=== PATIENT | male | born 1960 | race American Indian/Alaskan Native ===

== ENCOUNTER 2016-12-14 17:10 | Inpatient (IN) | payer MEDICARE, OTHER ==
[2016-12-14 17:10] VITALS: BMI 33.2
--- NOTE | 2016-12-14 17:42 | ED PDOC ---
Arrival/HPI - General Chief Complaint: Shortness Of Breath Time Seen by Provider: 12/14/16 17:34 Historian: Patient - History of Present Illness Narrative History of Present Illness (Text): 12/14/16 17:41 A 56 year old male, whose past medical history includes COPD, emphysema and pulmonary hypertension, presents to the emergency department complaining of shortness of breath and weakness for the past 3-4 days, worsening today. Patient thinks related to weight change and heat. Patient also notes chest tightness with movement. Reports taking Albuterol treatment at home. Patient notes a productive cough but denies any pain or any other complaints at this time. Time/Duration: < week Symptom Onset: Sudden Symptom Course: Unchanged Activities at Onset: Rest Context: Home Past Medical History - Provider Review Nursing Documentation Reviewed: Yes - Infectious Disease Hx of Infectious Diseases: None - Tetanus Immunization Tetanus Immunization: Unknown - Cardiac Hx Cardiac Disorders: Yes Hx Congestive Heart Failure: Yes Hx Hypertension: Yes Hx Peripheral Edema: Yes - Pulmonary Hx Respiratory Disorders: Yes Hx Chronic Obstructive Pulmonary Disease (COPD): Yes - Neurological Hx Neurological Disorder: No - HEENT Hx HEENT Disorder: No - Renal Hx Renal Disorder: No - Endocrine/Metabolic Hx Endocrine Disorders: No - Hematological/Oncological Hx Blood Disorders: No - Integumentary Hx Dermatological Disorder: No - Musculoskeletal/Rheumatological Hx Musculoskeletal Disorders: No Hx Falls: No - Gastrointestinal Hx Gastrointestinal Disorders: Yes Hx Diverticulitis: Yes Hx Gastroesophageal Reflux: Yes - Genitourinary/Gynecological Hx Genitourinary Disorders: Yes Hx Prostate Problems: Yes - Psychiatric Hx Psychophysiologic Disorder: No Hx Substance Use: No - Past Surgical History Past Surgical History: No Previous - Surgical History Other/Comment: pneumothorax, chest tube-L LUNG,LACERATION TO 3RD FINGER OF RIGHT HAND -STITCHED. - Anesthesia Hx Anesthesia: No Hx Anesthesia Reactions: No Hx Malignant Hyperthermia: No - Suicidal Assessment Feels Threatened In Home Enviroment: No Family/Social History - Physician Review Nursing Documentation Reviewed: Yes Family/Social History: No Known Family HX Smoking Status: Former Smoker Hx Alcohol Use: No Hx Substance Use: No Hx Substance Use Treatment: No Allergies/Home Meds Allergies/Adverse Reactions: Allergies No Known Allergies Allergy (Verified 12/14/16 17:36) Home Medications: Home Meds Medication Instructions Recorded Confirmed Albuterol/Ipratropium [Duoneb 3 3 ml IH TID 06/19/16 06/21/16 mg/0.5 mg (3 ml) UD] Budesonide [Pulmicort Respules] 2 inh IH DAILY 06/19/16 06/21/16 Tiotropium Br/Olodaterol HCl 2 inh INH DAILY 06/19/16 06/21/16 [Stiolto Respimat Inhal [place]] cloNIDine [Catapres] 0.2 mg PO TID 06/19/16 06/21/16 predniSONE [predniSONE Tab] 10 mg PO DAILY 06/19/16 06/21/16 Review of Systems - Physician Review All systems were reviewed & negative as marked: Yes - Review of Systems Constitutional: Other (weakness) Respiratory: SOB, Cough Cardiovascular: Other (chest tightness) Physical Exam Vital Signs Reviewed: Yes Vital Signs Temp Pulse Resp BP Pulse Ox 12/14/16 17:48 98.7 F 107 H 16 183/109 H 80 L 12/14/16 17:33 98.1 F 98 H 18 183/109 H 94 L Temperature: Afebrile Blood Pressure: Hypertensive Pulse: Regular Respiratory Rate: Normal Appearance: Positive for: Well-Appearing, Non-Toxic, Comfortable Pain Distress: None Mental Status: Positive for: Alert and Oriented X 3 - Systems Exam Head: Present: Atraumatic, Normocephalic Pupils: Present: PERRL Extroacular Muscles: Present: EOMI Conjunctiva: Present: Normal Mouth: Present: Moist Mucous Membranes Neck: Present: Normal Range of Motion Respiratory/Chest: Present: Other (velcro crackles bilateral base of lungs). No : Respiratory Distress, Accessory Muscle Use Cardiovascular: Present: Regular Rate and Rhythm, Normal S1, S2. No: Murmurs Abdomen: Present: Normal Bowel Sounds. No: Tenderness, Distention, Peritoneal Signs Back: Present: Normal Inspection Upper Extremity: Present: Normal Inspection. No: Cyanosis, Edema Lower Extremity: Present: Other (1+ pitting edema ankles). No: Edema Neurological: Present: GCS=15, CN II-XII Intact, Speech Normal Skin: Present: Warm, Dry, Normal Color. No: Rashes Psychiatric: Present: Alert, Oriented x 3, Normal Insight, Normal Concentration Medical Decision Making ED Course and Treatment: 12/14/16 17:52 EKG: Ordered, reviewed, and independently interpreted the EKG. Rate : 103 BPM Rhythm : Sinus tachycardic Interpretation : Right bundle branch block, anterolateral ST/T wave changes Comparison: similar to prior chest xray: Pulmonary edema, interpreted by me. - RAD Interpretation Radiology Orders: 12/14/16 17:41 CHEST PORTABLE [RAD] Stat - Medication Orders Current Medication Orders: Furosemide (Lasix) 40 mg IVP STAT STA Stop: 12/14/16 18:34 Nitroglycerin (Nitro-Bid 2% Oint) 1 ea TOP STAT STA Stop: 12/14/16 18:34 Discontinued Medications Albuterol/Ipratropium (Duoneb 3 Mg/0.5 Mg (3 Ml) Ud) 3 ml IH Q15M DONNA Stop: 12/14/16 18:16 Last Admin: 12/14/16 18:26 Dose: 3 ml Methylprednisolone (Solu-Medrol) 125 mg IVP STAT STA Stop: 12/14/16 17:40 Last Admin: 12/14/16 17:53 Dose: 125 mg - Scribe Statement The provider has reviewed the documentation as recorded by the Maricruz Browne Provider Scribe Attestation: All medical record entries made by the Scribmaribeth were at my direction and personally dictated by me. I have reviewed the chart and agree that the record accurately reflects my personal performance of the history, physical exam, medical decision making, and the department course for this patient. I have also personally directed, reviewed, and agree with the discharge instructions and disposition. Disposition/Present on Arrival - Present on Arrival History of DVT/PE: No History of Uncontrolled Diabetes: No Urinary Catheter: No History of Decub. Ulcer: No History Surgical Site Infection Following: None - Disposition
[2016-12-14] MEDS: Albuterol-Ipratrop 3 mg / 0.5 (3 ml) UD IH SCH ×3 (17:53→18:26)
[2016-12-14 18:05] LABS: ADD MANUAL DIFF? NO
[2016-12-14 18:30] LABS: BILIRUBIN,TOTAL 1.5 mg/dL (0.2-1.3); CALCIUM 8.8 mg/dL (8.4-10.5); POTASSIUM 3.5 mmol/L (3.6-5.0); TOTAL PROTEIN 7.7 g/dL (5.8-8.3)
[2016-12-14] MEDS ORDERED: Nitroglycerin 2% Ointment Foilpak UD TOP STA (18:33)
[2016-12-14 18:41] LABS: BASO # 0.01 K/mm3 (0.0-2.0); BASO % 0.2 % (0.0-3.0); EOS # 0.2 (0.0-0.7); EOS % 2.8 % (1.5-5.0); GRAN # 4.02 (1.4-6.5); GRAN % 73.8 % (50.0-68.0); HEMATOCRIT 46.4 % (42.0-52.0); LYMPH # 0.8 (1.2-3.4); LYMPH % 13.8 % (22.0-35.0); MEAN CELL VOLUME 82.9 fL (80.0-105.0); MEAN CORPUSCULAR HEMOGLOBIN 27.1 pg (25.0-35.0); MEAN CORPUSCULAR HGB CONC 32.8 g/dl (31.0-37.0); MEAN PLATELET VOLUME 10.5 fl (7.0-11.0); MONO # 0.5 (0.1-0.6); MONO % 9.4 % (1.0-6.0); PLATELET COUNT 112 10^3/uL (120.0-450.0); RED CELL DISTRIBUTION WIDTH 14.9 % (11.5-14.5); TROPONIN I 0.08 ng/mL; WHITE BLOOD COUNT 5.4 10^3/ul (4.5-11.0)
[2016-12-14] MEDS ORDERED: TREPROSTINIL PO ONE (23:02)
[2016-12-15] MEDS ORDERED: Nitroglycerin 2% Ointment Foilpak UD TOP STA (00:24)
[2016-12-15] MEDS ORDERED: TREPROSTINIL PO SCH ×2 (06:00→06:50)
[2016-12-15] MEDS ORDERED: Albuterol-Ipratrop 3 mg / 0.5 (3 ml) UD IH PRN (06:29)
--- NOTE | 2016-12-15 06:30 | CP.PCM.PN ---
Subjective - Date & Time of Evaluation Date of Evaluation: 12/15/16 Time of Evaluation: 06:29 - Subjective Subjective: draft elevated blood pressure seen @ bedside home med for pHTN Objective - Vital Signs/Intake and Output Vital Signs (last 24 hours): Temp Pulse Resp BP Pulse Ox 97.5 F L 83 20 160/90 H 96 12/15/16 06:00 12/15/16 06:00 12/15/16 06:00 12/15/16 06:00 12/15/16 06:00 Intake and Output: 12/14/16 12/15/16 18:59 06:59 Intake Total 360 Output Total 100 Balance 260 - Medications Medications: Current Medications Albuterol/Ipratropium (Duoneb 3 Mg/0.5 Mg (3 Ml) Ud) 3 ml IH BID DONNA Amlodipine Besylate (Norvasc) 5 mg PO DAILY [facility] Clonidine HCl (Catapres) 0.2 mg PO TID DONNA Furosemide (Lasix) 40 mg IVP BID [facility] Home Med (Home Med) 1 unit PO TID [facility] Prednisone (Prednisone Tab) 30 mg PO DAILY DONNA
[2016-12-15] MEDS: TREPROSTINIL PO SCH ×3 (06:58→21:26)
[2016-12-15 07:24] LABS: HEMATOCRIT 45.5 % (42.0-52.0); MEAN CELL VOLUME 82.7 fL (80.0-105.0); MEAN CORPUSCULAR HEMOGLOBIN 27.1 pg (25.0-35.0); MEAN CORPUSCULAR HGB CONC 32.7 g/dl (31.0-37.0); MEAN PLATELET VOLUME 10.6 fl (7.0-11.0); RED CELL DISTRIBUTION WIDTH 14.7 % (11.5-14.5)
--- NOTE | 2016-12-15 07:32 | CON ---
DATE: 12/15/2016 REASON FOR CONSULTATION: Shortness of breath. REFERRING PHYSICIAN: Dr. James Carrasco. HISTORY OF PRESENT ILLNESS: The patient is a 56-year-old male with past medical history significant for advanced sarcoidosis, advanced interstitial lung disease - on home oxygen, pulmonary hypertension, systemic hypertension, who presents to with a 3-day history of increased shortness of breath at rest, dyspnea on exertion, and cough. The patient denies sputum production. The patient denies chest pain, coughing up of blood or chest pain - made worse with deep respirations. However, the patient does note some chest "tightness" over the past 3 days. There is no history of temperatures, chills or infectious exposure. There is no history of night sweats, weight loss or appetite change prior to the above events. No history of leg or calf pains. No history of syncope or diaphoresis. No history of recent travel or trauma. REVIEW OF SYSTEMS: No history of nausea, vomiting or diarrhea. No acute urinary symptoms. No new musculoskeletal or neurologic complaints. Rest of the review of systems is negative. ALLERGIES: No known allergies. SOCIAL HISTORY: Positive for tobacco, negative for alcohol. FAMILY HISTORY: No inheritable diseases. HOME MEDICATIONS: Include treprostinil, prednisone, Catapres, Norvasc, Stiolto , Lasix, Pulmicort, DuoNeb, Qvar. PHYSICAL EXAMINATION: GENERAL: The patient appears comfortable at rest. He is not short of breath. VITAL SIGNS: Temperature is 97.5, pulse 83, respirations 20, blood pressure 160 /90. Oxygen saturation on nasal cannula is 96%. HEENT: Normocephalic, atraumatic. NECK: No JVD. CARDIOVASCULAR: Positive S1, S2. No S3. LUNGS: Decreased breath sounds at the bases. Minimal bilateral rhonchi. No wheezing. EXTREMITIES: Positive for edema. No cyanosis, no clubbing. Calves are nontender to palpation. GASTROINTESTINAL: Abdomen is soft, nontender, nondistended. Bowel sounds are positive. SKIN: No acute rash. NEUROLOGIC: Limited at the present time. PERTINENT LABORATORY DATA: Chest x-ray was done last night and reviewed. There are chronic interstitial changes noted--reviewed old films. CBC: White count 5.4, hemoglobin 15.2, hematocrit 46.4, platelets of 112. Complete metabolic profile: Potassium 3.5, creatinine 1.6. Bilirubin 1.5. Troponin 0.08, B-type natriuretic peptide 2910. Rest of the metabolic profile is within normal limits. IMPRESSION: 1. Recurrent bronchitis. 2. Advanced sarcoidosis. 3. Advanced interstitial lung disease - on home oxygen. 4. Pulmonary hypertension. 5. Systemic hypertension. PLAN: The patient presents to with a 3-day history of worsening pulmonary symptoms. I did review the chest x-ray as above. There are chronic interstitial changes noted. On physical exam, there is mild bronchospasm noted. The patient is on 10 mg of prednisone daily, and I will increase the dosage slightly to 30 mg for the next few days. I will also increase the nebulizer treatments to every 6 hours around the clock. There is no significant alveolar arterial gradient. Oxygen saturation on nasal cannula is 96%. I will also continue with the treprostinil - for his pulmonary hypertension. Cardiology evaluation with Dr. Holliday has been ordered. The patient is currently on intravenous Lasix. The patient does state to feeling much better this morning - compared to the past few days. He is clinically improved. I will discuss the above with Dr. Carrasco this morning. Thank you very much for this pulmonary consultation. Rajesh Leon MD cc: [id number] TT: 12/15/2016 07:32:02 Confirmation # [id number] Dictation # [id number] kathi RODRIGUEZ
[2016-12-15 07:37] LABS: WHITE BLOOD COUNT 2.9 10^3/ul (4.5-11.0)
[2016-12-15] MEDS: Albuterol-Ipratrop 3 mg / 0.5 (3 ml) UD IH SCH ×3 (07:48→19:48)
--- NOTE | 2016-12-15 08:12 | HP ---
I know the patient very well. He comes in to the hospital short of breath with edema of both lower extremities. It happens from time to time. This time, it would not go away. PAST MEDICAL HISTORY: Includes CHF, pulmonary hypertension, sarcoidosis, COPD, emphysema. He feels that his legs were swelling and that is why he is short of breath and this happened before. He has had heart failure, hypertension, peripheral edema, diverticulitis, reflux, BPH. He has had a pneumothorax, a chest tube, lung laceration, third finger right hand stitched. FAMILY HISTORY: There is hypertension and diabetes in the family. He is a former smoker, no alcohol, no drugs. ALLERGIES: No known drug allergies. He takes DuoNeb, Pulmicort, Stiolto Catapres, prednisone. REVIEW OF SYSTEMS: No change in vision or hearing. No sore throat. There is shortness of breath and cough. He is coughing up a lot of fluid and phlegm. Chest tightness, chest pain. He feels congested. No abdominal pain, nausea, vomiting, constipation, diarrhea. His legs are very swollen. He could not get rid of the swelling. He is alert and oriented x 3. Skin is intact. PHYSICAL EXAMINATION: VITAL SIGNS: He has a 98.1 temp, 107 pulse, 18 respiratory rate, 183/109 blood pressure, 94% O2 sat on room air. HEENT: His head is atraumatic, normocephalic. His extraocular muscles are intact. Pupils equal, reactive to light. Throat is moist. NECK: Supple. HEART: Regular rate. Normal S1, S2. LUNGS: Decreased breath sounds bilaterally, congestion with crackles bilaterally in the ER. Now it is clear. Only when he coughs do you hear a little phlegm or fluid. ABDOMEN: Soft, nontender, positive bowel sounds, no guarding, no rebound, no CVA tenderness. EXTREMITIES: Have +2/4 pitting edema. SKIN: For the most part is intact. NEUROLOGIC: GCS is 15. Cranial nerves II-XII grossly intact. He is alert and oriented x 3. Normal insight and concentration. LYMPHATIC: Thyroid is midline. No palpable lymphadenopathy appreciated. He had a bunch of tests done. He has a 141 sodium, potassium 3.5. I replaced the potassium. BUN , creatinine 1.6, GFR is 45, sugar is 104, calcium is 8.8, total bili is 1.5, AST is 28, ALT is 21, alk phos 112. Troponin I is 0.08, which is intermediate and his BNP is high at 2910. Total protein 7.7, albumin is 3.8. He has got a 5.4 white count. It dropped to 2.9. He has a 14.9 hemoglobin, 45.5 hematocrit with 113 platelets. The chest x-ray is pending. He is clinically in congestive heart failure. He had elevated blood pressure last night and the house doctor had to come in and see him. He is on Catapres, DuoNeb, Lasix 40 IV b.i.d., Norvasc and prednisone 30 daily. He has consults with cardio and pulmonary. We will make sure he is on his oxygen, diuresing. He got Lasix 40 b.i.d. IV. Check his troponins. He is here for congestive heart failure, shortness of breath, hypertension, chest tightness, low potassium, sarcoidosis history. James Carrasco DO cc: [id number] TT: 12/15/2016 08:12:20 en MTDD
--- NOTE | 2016-12-15 09:44 | RAD ---
HISTORY: Shortness of breath COMPARISON: 06/19/2016. FINDINGS: LUNGS: There is mild pulmonary venous congestion and interstitial pulmonary edema. No focal consolidation. PLEURA: No significant pleural effusion identified, no pneumothorax apparent. CARDIOVASCULAR: There is persistent severe cardiomegaly. OSSEOUS STRUCTURES: No significant abnormalities. VISUALIZED UPPER ABDOMEN: Normal. OTHER FINDINGS: None. IMPRESSION: Findings are most compatible with mild congestive heart failure.
[2016-12-15] MEDS ORDERED: Albuterol-Ipratrop 3 mg / 0.5 (3 ml) UD IH SCH (10:00)
[2016-12-15] MEDS: Potassium Chloride 20 mEq ER Tab PO SCH (10:42)
[2016-12-15 10:51] LABS: BILIRUBIN,TOTAL 1.2 mg/dL (0.2-1.3); CALCIUM 8.8 mg/dL (8.4-10.5); POTASSIUM 4.4 mmol/L (3.6-5.0); TOTAL PROTEIN 7.3 g/dL (5.8-8.3)
--- NOTE | 2016-12-15 11:58 | CON ---
DATE: 12/15/2016 HISTORY OF PRESENT ILLNESS: The patient is a 56-year-old male who presents with dyspnea. PAST MEDICAL HISTORY: Notable for advanced sarcoidosis with documented pulmonary hypertension, in wh ich he is being treated with . He presents with dyspnea and pedal edema. In addition, his last evaluation revealed a mild cardiomyopathy with an ejection fraction in the uppe r 45%-50%. Currently, the patient denies chest pain. His breathing is improved. SOCIAL HISTORY: He does not smoke. He is sedentary. REVIEW OF SYSTEMS: A 14-point was reviewed. No additional symptoms besides ones mentioned above. PHYSICAL EXAMINATION: VITAL SIGNS: Blood pressure is 160/90. The heart rate is in the 80s, normal sinus rhythm. NECK: Negative JVD. LUNGS: Crackles bilaterally at the bases. HEART: Revealed S1, S2. EXTREMITIES: Trace edema. EKG shows normal sinus rhythm with IVCD with diffuse ST-T changes, which is unchanged from the past. LABORATORIES: Revealed a white count of 2.9 with a hemoglobin of 14.9. Chemistries: BUN and creati nine are 27 and 1.8 with troponin 0.06. ProBNP is greater than 5000. IMPRESSION: 1. Advanced sarcoidosis. 2. Pulmonary hypertension. 3. Mild congestive heart failure, predominantly right-sided congestive heart failure. 4. Mild dilated cardiomyopathy. Given these findings, we will continue daily IV Lasix. In addition, the patient is being treated with his pulmonary hypertensive medications. Andrew Holliday MD cc: [id number] TT: 12/15/2016 11:58:33 Confirmation # [id number] Dictation # [id number] en
--- NOTE | 2016-12-16 00:15 | CARD ---
APPROVED REPORT EKG Measurement Heart [id number] CA [id number] <Conclusion> Sinus tachycardia Left atrial enlargement Indeterminate axis Right bundle branch block Inferior infarct, age undetermined T wave abnormality, consider lateral ischemia Abnormal ECG
[2016-12-16] MEDS: Albuterol-Ipratrop 3 mg / 0.5 (3 ml) UD IH SCH ×4 (02:19→19:46)
[2016-12-16 05:58] LABS: HEMATOCRIT 43.3 % (42.0-52.0); MEAN CELL VOLUME 83.1 fL (80.0-105.0); MEAN CORPUSCULAR HEMOGLOBIN 26.7 pg (25.0-35.0); MEAN CORPUSCULAR HGB CONC 32.1 g/dl (31.0-37.0); MEAN PLATELET VOLUME 10.1 fl (7.0-11.0); RED CELL DISTRIBUTION WIDTH 15.1 % (11.5-14.5)
[2016-12-16 06:19] LABS: BILIRUBIN,TOTAL 0.6 mg/dL (0.2-1.3); CALCIUM 8.6 mg/dL (8.4-10.5); POTASSIUM 4.3 mmol/L (3.6-5.0); TOTAL PROTEIN 7.1 g/dL (5.8-8.3)
[2016-12-16] MEDS: TREPROSTINIL PO SCH ×2 (06:43→15:09)
[2016-12-16 06:57] VITALS: O2SAT 92
--- NOTE | 2016-12-16 09:41 | PN ---
DATE: 12/16/2016 SUBJECTIVE: The patient appears very comfortable this morning. He is not short of breath at rest. OBJECTIVE: VITAL SIGNS: Temperature is 97.8, pulse 88, respirations 18, blood pressure 161 /95. Oxygen saturation on nasal cannula is between 92-96%. HEENT: Normocephalic, atraumatic. No JVD. CARDIOVASCULAR: Positive S1, S2. No S3. LUNGS: Clear bilaterally this morning. EXTREMITIES: Positive for edema - less. No cyanosis, no clubbing. Calves are nontender to palpation. GASTROINTESTINAL: Abdomen is soft, nontender, nondistended. Bowel sounds are positive. SKIN: No acute rash. NEUROLOGIC: Limited at the present time. IMPRESSION: 1. Recurrent bronchitis. 2. Advanced sarcoidosis. 3. Advanced interstitial lung disease - on home oxygen. 4. Pulmonary hypertension. 5. Systemic hypertension. PLAN: The patient appears very comfortable this morning. He is not short of breath at rest. He states he is feeling much better overall. On physical exam , his lungs are now clear. I will continue with the current nebulizer treatments and oral steroids for now. Cardiology evaluation is ongoing. Input by Dr. Holliday is noted. Clinical status of the patient is significantly improved - compared to the initial presentation. However, the overall status/prognosis for this patient - with advanced lung disease - does remain guarded. I did discuss the above with Dr. Carrasco this morning. Rajesh Leon MD cc: [id number] TT: 12/16/2016 09:40:31 Confirmation # [id number] Dictation # [id number] kathi RODRIGUEZ
--- NOTE | 2016-12-16 10:19 | PN ---
DATE: 12/16/2016 I saw him in bed today. He tells me he is still a little short of breath. He is having a sore throa t issue too. It is red and inflamed. He is eating well. He is calm. PHYSICAL EXAMINATION: VITAL SIGNS: 97.8 temp, 88 pulse, 161/95 blood pressure. It was 156/100 blood pressure. He is on a lot of blood pressure medications. Respiratory rate is 18, 92% O2 sat on nasal cannula. HEENT: Head is atraumatic, normocephalic. Throat is quite red and inflamed. I think I might put hi m on some anti-thrush medication. HEART: Regular rate. LUNGS: Decreased breath sounds, but clear to auscultation. ABDOMEN: Soft. EXTREMITIES: Better than yesterday, less edema, but still trace. MEDICATIONS: He is currently on Catapres, Duo-Nebs, potassium, Lasix, Norvasc and prednisone 30, gwendolyn e Lasix IV b.i.d. LABORATORY DATA: He has an 8 white count today, 13.9 hemoglobin, 42.3 hematocrit with 112 platelets. Sodium 141, potassium 4.3, BUN 36, creatinine is 1.9, GFR 37. Sugar is 158, calcium is 8.6. AST i s 24, ALT is 23, alk phos 84. Troponins are 0.08, 0.06, 0.05. Total protein 7.3. I will discuss with pulmonary and cardiology about when 1 could change him to p.o. IV Lasix he might need 1 more day. I will give him something for his throat also and an antibiotic and he is here for congestive heart failure, pulmonary hypertension, low potassium, possible thrush. James Carrasco DO cc: [id number] TT: 12/16/2016 10:18:44 Confirmation # [id number] Dictation # [id number]
[2016-12-16] MEDS: Amoxicillin-Clav 500-125 mg Tab PO SCH ×2 (10:36→17:35)
[2016-12-16] MEDS: Potassium Chloride 20 mEq ER Tab PO SCH (10:37)
[2016-12-16 12:06] VITALS: RESP 20; TEMP 96.9
--- NOTE | 2016-12-16 14:03 | PN ---
DATE: 12/16/2016 The patient is ambulating with baseline shortness of breath. PHYSICAL EXAMINATION: VITAL SIGNS: Blood pressure is 149/96, the heart rate is in the 90s. NECK: Negative JVD. LUNGS: Without rales. HEART: Reveals S1, S2. EXTREMITIES: Without edema. LABORATORIES: White count is 8.0, hemoglobin is 13.9. Chemistries: BUN and creatinine of 36 and 1. 9. IMPRESSION: 1. Dyspnea has improved. 2. Pedal edema has resolved. 3. Severe sarcoidosis. 4. Pulmonary hypertension. PLAN: Given these findings, the patient will continue to ambulate. I agree with changing his Lasix to p.o. Lasix. We will discontinue telemetry today. Andrew Holliday MD cc: [id number] TT: 12/16/2016 14:02:25 Confirmation # [id number] Dictation # [id number] sn
[2016-12-16 17:41] VITALS: BP 148/93; PULSE 70
--- NOTE | 2016-12-17 08:56 | DS ---
Dr. Holliday, the athletic scout, had seen him after me and he said he was okay to be discharged. I change d him over to tablets and he will be discharged home on his Catapres, albuterol, potassium, Lasix 40 b.i.d., Mycelex Gwen, Norvasc, prednisone 30 for 3 days, 20 for 3 days, 10 for 3 days, then stop an d Augmentin 500 twice a day for 5 more days. He will follow up in the office with me in 5 days. I a m hoping he does very well. He had acute congestive heart failure, low potassium, pulmonary hypertension. James Carrasco DO cc: [id number] TT: 12/17/2016 08:55:52 en
== END 2016-12-16 20:32 | disposition home or self-care (01) | DRG 292 ==
LOC: ED 17:10 → ERH 19:33 → 2RNO 22:46
PROVIDERS: ADMIT Family Medicine; ATTEND Family Medicine
PROC: 3E0F7GC Introduction of Other Therapeutic Substance into Respiratory Tract, Via Natural or Artificial Opening (ICD-10-PCS; principal; 2016-12-15)
DX: I11.0 Hypertensive heart disease with heart failure (principal); I50.9 Heart failure, unspecified; D86.9 Sarcoidosis, unspecified; J84.9 Interstitial pulmonary disease, unspecified; I42.0 Dilated cardiomyopathy; I27.2 Other secondary pulmonary hypertension; Z99.81 Dependence on supplemental oxygen; E87.6 Hypokalemia; J44.9 Chronic obstructive pulmonary disease, unspecified; N40.0 Benign prostatic hyperplasia without lower urinary tract symptoms; K21.9 Gastro-esophageal reflux disease without esophagitis; J02.9 Acute pharyngitis, unspecified; Z87.891 Personal history of nicotine dependence; Z82.49 Family history of ischemic heart disease and other diseases of the circulatory system; Z83.3 Family history of diabetes mellitus

== ENCOUNTER 2017-02-03 22:09 | Observation (INO) | payer MEDICARE, OTHER ==
[2017-02-03] MEDS ORDERED: Albuterol-Ipratrop 3 mg / 0.5 (3 ml) UD IH STA (22:52)
[2017-02-03] MEDS ORDERED: Nitroglycerin 2% Ointment Foilpak UD TOP STA (23:12)
--- NOTE | 2017-02-03 23:12 | ED PDOC ---
Arrival/HPI - General Chief Complaint: Chest Pain Time Seen by Provider: 02/03/17 22:31 Historian: Patient - History of Present Illness Narrative History of Present Illness (Text): 02/03/17 23:00 Adrian Dinh is a 57 year old male, whose past medical history includes COPD , and pulmonary hypertension, who presents to the Emergency department complaining of chest discomfort and shortness of breath for a couple of days. Patient describes the discomfort as heaviness on his chest that is non- radiating. Patient denies headache, fever, chills cough, nausea, vomiting, diarrhea, diaphoresis, jaw pain, back pain, lower extremity pain/swelling, or other complaints. Time/Duration: Other (couple of days) Symptom Onset: Sudden Symptom Course: Unchanged Quality: Other (heaviness on chest) Modifying Factors (Text): None Associated Symptoms (Text): shortness of breath Past Medical History - Provider Review Nursing Documentation Reviewed: Yes - Infectious Disease Hx of Infectious Diseases: None - Tetanus Immunization Tetanus Immunization: Unknown - Cardiac Hx Cardiac Disorders: Yes Hx Congestive Heart Failure: Yes Hx Hypertension: Yes Hx Peripheral Edema: Yes - Pulmonary Hx Respiratory Disorders: Yes Hx Chronic Obstructive Pulmonary Disease (COPD): Yes - Neurological Hx Neurological Disorder: No - HEENT Hx HEENT Disorder: No - Renal Hx Renal Disorder: No - Endocrine/Metabolic Hx Endocrine Disorders: No - Hematological/Oncological Hx Blood Disorders: No - Integumentary Hx Dermatological Disorder: No - Musculoskeletal/Rheumatological Hx Musculoskeletal Disorders: No Hx Falls: No - Gastrointestinal Hx Gastrointestinal Disorders: Yes Hx Diverticulitis: Yes Hx Gastroesophageal Reflux: Yes - Genitourinary/Gynecological Hx Genitourinary Disorders: Yes Hx Prostate Problems: Yes - Psychiatric Hx Psychophysiologic Disorder: No Hx Substance Use: No - Past Surgical History Past Surgical History: No Previous - Surgical History Other/Comment: pneumothorax, chest tube-L LUNG,LACERATION TO 3RD FINGER OF RIGHT HAND -STITCHED. - Anesthesia Hx Anesthesia: No Hx Anesthesia Reactions: No Hx Malignant Hyperthermia: No - Suicidal Assessment Feels Threatened In Home Enviroment: No Family/Social History - Physician Review Nursing Documentation Reviewed: Yes Family/Social History: Unknown Family HX Smoking Status: Former Smoker Hx Alcohol Use: No Hx Substance Use: No Hx Substance Use Treatment: No Allergies/Home Meds Allergies/Adverse Reactions: Allergies No Known Allergies Allergy (Verified 12/14/16 17:36) Home Medications: Home Meds Medication Instructions Recorded Confirmed Albuterol/Ipratropium [Duoneb 3 3 ml IH TID 06/19/16 12/14/16 mg/0.5 mg (3 ml) UD] Budesonide [Pulmicort Respules] 2 inh IH DAILY 06/19/16 12/14/16 Tiotropium Br/Olodaterol HCl 2 inh INH DAILY 06/19/16 12/14/16 [Stiolto Respimat Inhal [place]] cloNIDine [Catapres] 0.2 mg PO TID 06/19/16 12/14/16 predniSONE [predniSONE Tab] 10 mg PO DAILY 06/19/16 12/14/16 Beclomethasone Dipropionate [Qvar 12/14/16 80 mcg] Tiotropium Br/Olodaterol HCl 12/14/16 [Stiolto Respimat Inhal [place]] Treprostinil Diolamine [Orenitram] 0.125 mg PO TID 12/14/16 12/14/16 Review of Systems - Physician Review All systems were reviewed & negative as marked: Yes - Review of Systems Constitutional: absent: Fevers Respiratory: SOB Cardiovascular: Chest Pain Gastrointestinal: absent: Abdominal Pain Musculoskeletal: absent: Back Pain Neurological: absent: Headache, Dizziness Physical Exam Vital Signs Temp Pulse Resp BP Pulse Ox 02/04/17 01:33 175/105 H 02/04/17 00:00 93 H 16 175/103 H 94 L 02/03/17 23:38 16 94 L 02/03/17 22:41 98.3 F 105 H 26 H 165/114 H 86 L Temperature: Afebrile Blood Pressure: Hypertensive Pulse: Tachycardic Respiratory Rate: Tachypneic Appearance: Positive for: Well-Appearing, Non-Toxic, Comfortable Pain Distress: None Mental Status: Positive for: Alert and Oriented X 3 - Systems Exam Head: Present: Atraumatic, Normocephalic Pupils: Present: PERRL Extroacular Muscles: Present: EOMI Conjunctiva: Present: Normal Mouth: Present: Moist Mucous Membranes Neck: Present: Normal Range of Motion Respiratory/Chest: Present: Decreased Breath Sounds (bilateral). No: Accessory Muscle Use Cardiovascular: Present: Tachycardic. No: Murmurs, Normal S1, S2 Abdomen: Present: Normal Bowel Sounds, Other (soft non-tender). No: Tenderness , Distention, Peritoneal Signs Back: Present: Normal Inspection Upper Extremity: Present: Normal Inspection. No: Cyanosis, Edema Lower Extremity: Present: Normal Inspection, Other (2+ pedal edema bilaterally ) . No: Edema, CALF TENDERNESS, Era's Sign Neurological: Present: GCS=15, CN II-XII Intact, Speech Normal Skin: Present: Warm, Dry, Normal Color. No: Rashes Psychiatric: Present: Alert, Oriented x 3, Normal Insight, Normal Concentration Medical Decision Making ED Course and Treatment: 02/03/17 23:00 Impression: 57 year old with chest discomfort and shortness of breath. Plan: -- EKG -- Chest X-ray -- Labs -- Aspirin, Duoneb, and Nitroglycerin -- Reassess and disposition Progress Notes: EKG: Ordered, reviewed, and independently interpreted the EKG. Rate : 103 BPM Rhythm : sinus tachycardia Interpretation : Right Bundle Branch Block. Inferior infarct. No T-wave changes. No changes from previous EKG. Comparison : 12/16/2016 02/04/17 02:[address] Carrasco who is aware of the treatment and accepts patient to his service. - Lab Interpretations Lab Results: 02/03/17 23:36 02/03/17 23:36 Lab Results 02/03/17 23:36: WBC 7.3, RBC 5.56, Hgb 14.8, Hct 46.2, MCV 83.1, MCH 26.6, MCHC 32.0, RDW 15.0 H, Plt Count 102 L, MPV 10.0 02/03/17 23:36: Sodium 141, Potassium 3.9, Chloride 100, Carbon Dioxide 29, Anion Gap 16, BUN 24 H, Creatinine 1.7 H, Est GFR ( Amer) 51, Est GFR ( Non-Af Amer) 42, Random Glucose 131 H, Calcium 8.9, Total Bilirubin 1.3, AST 22 , ALT 20, Alkaline Phosphatase 100, Lactate Dehydrogenase 647, Total Creatine Kinase 62, Troponin I 0.07 D, NT-Pro-B Natriuret Pep 2710 H, Total Protein 7.3 , Albumin 3.7, Globulin 3.6, Albumin/Globulin Ratio 1.0 L 02/03/17 23:36: PT 12.7 H, INR 1.18 H, APTT 30.2 I have reviewed the lab results: Yes - RAD Interpretation Radiology Orders: 02/03/17 23:18 CHEST PORTABLE [RAD] Stat - EKG Interpretation Interpreted by ED Physician: Yes Type: 12 lead EKG - Medication Orders Current Medication Orders: Discontinued Medications Albuterol/Ipratropium (Duoneb 3 Mg/0.5 Mg (3 Ml) Ud) 3 ml IH ONCE STA Stop: 02/03/17 22:53 Last Admin: 02/03/17 23:24 Dose: 3 ml Aspirin (Aspirin) 325 mg PO ONCE STA Stop: 02/03/17 23:13 Last Admin: 02/03/17 23:24 Dose: 325 mg Furosemide (Lasix) 40 mg IVP ONCE ONE Stop: 02/04/17 01:12 Last Admin: 02/04/17 01:33 Dose: 40 mg Nitroglycerin (Nitro-Bid 2% Oint) 1 ea TOP ONCE STA Stop: 02/03/17 23:13 Last Admin: 02/03/17 23:24 Dose: 1 ea - Scribe Statement The provider has reviewed the documentation as recorded by the Scribe 02/03/2017 Janey Perkinsdua Provider Scribe Attestation: All medical record entries made by the Scribe were at my direction and personally dictated by me. I have reviewed the chart and agree that the record accurately reflects my personal performance of the history, physical exam, medical decision making, and the department course for this patient. I have also personally directed, reviewed, and agree with the discharge instructions and disposition. Disposition/Present on Arrival - Present on Arrival Any Indicators Present on Arrival: No History of DVT/PE: No History of Uncontrolled Diabetes: No Urinary Catheter: No History of Decub. Ulcer: No History Surgical Site Infection Following: None - Disposition Have Diagnosis and Disposition been Completed?: Yes Diagnosis: CHF exacerbation, Chest pain Disposition: HOSPITALIZED Disposition Time: 02:01 Patient Plan: Observation Patient Problems: Current Active Problems Problem Status Onset CHF exacerbation Acute Chest pain Acute Condition: STABLE Discharge Instructions (ExitCare): Heart Failure (ED), Chest Pain (ED) Referrals: James Carrasco DO [Primary Care Provider] - Follow up with primary Forms: [employer] ([place])
[2017-02-03 23:51] LABS: HEMOGLOBIN 14.8 g/dL (14.0-18.0); MEAN CELL VOLUME 83.1 fl (80.0-105.0); MEAN CORPUSCULAR HEMOGLOBIN 26.6 pg (25.0-35.0); RBC 5.56 10^6/uL (3.5-6.1); WHITE BLOOD COUNT 7.3 10^3/ul (4.5-11.0)
[2017-02-03 23:58] LABS: ALBUMIN 3.7 g/dL (3.0-4.8); CALCIUM 8.9 mg/dL (8.4-10.5)
[2017-02-03 23:59] LABS: INR 1.18 (0.93-1.08); PARTIAL THROMBOPLASTIN TIME 30.2 Seconds (23.7-30.8); PROTHROMBIN TIME 12.7 Seconds (9.9-11.8)
[2017-02-04 00:10] LABS: TROPONIN I 0.07 ng/mL
--- NOTE | 2017-02-04 07:13 | RAD ---
HISTORY: sob COMPARISON: 12/14/2016 FINDINGS: LUNGS: Lung volumes appear slightly increased. Abnormal appearing interstitial lung markings mid to lower lung zones suggested. Superimposed pulmonary venous congestion suspect. PLEURA: No significant pleural effusion identified, no pneumothorax apparent. CARDIOVASCULAR: Marked cardiomegaly. Main pulmonary artery prominent. History pulmonary pulmonary hypertension OSSEOUS STRUCTURES: No significant abnormalities. VISUALIZED UPPER ABDOMEN: Normal. OTHER FINDINGS: None. IMPRESSION: No interval change. Chronic appearing changes as noted above.
[2017-02-04] MEDS: TREPROSTINIL DIOLAMINE 0.125 MG PO SCH ×3 (09:30→16:16)
[2017-02-04] MEDS: Potassium Chloride 20 mEq ER Tab PO SCH (10:10)
[2017-02-04] MEDS: Albuterol-Ipratrop 3 mg / 0.5 (3 ml) UD IH SCH ×2 (10:11→19:53)
[2017-02-04] MEDS: MethylPREDNISolone 40 mg Vial IVP SCH ×2 (10:18→22:11)
[2017-02-04] MEDS: [UNRECOGNIZED DRUG - OTHER] INH SCH ×2 (10:30→15:55)
[2017-02-04] MEDS: OLODATEROL HCL INH SCH ×2 (10:30→15:55)
[2017-02-04] MEDS: TIOTROPIUM BR INH SCH ×2 (10:30→15:55)
[2017-02-04] MEDS: Budesonide 0.5 mg/2 ml Inhal Susp UD IH SCH (10:50)
[2017-02-04] MEDS: BECLOMETHASONE DIPROPIONATE 8.7 GM PO SCH (11:00)
[2017-02-04] MEDS ORDERED: Pneumococcal 23-Valent Vaccine IM ONE (16:01)
[2017-02-04] MEDS ORDERED: TREPROSTINIL DIOLAMINE 0.125 MG PO SCH ×2 (16:10→16:19)
--- NOTE | 2017-02-04 17:19 | US ---
PROCEDURE: Bilateral carotid artery duplex ultrasound HISTORY: Carotid stenosis PHYSICIAN(S): Andrew Thrasher MD. TECHNIQUE: Duplex sonography and color-flow Doppler were used to evaluate the carotid bifurcations and limited segments of the vertebral arteries bilaterally. FINDINGS: There is mild smooth heterogeneous plaque noted at the carotid bifurcations bilaterally. The peak systolic velocity in the proximal right internal carotid artery is 57 cm/sec. This corresponds to a 20 to 39% proximal right ICA stenosis. Normal systolic velocities are noted in the proximal right external carotid artery. There is antegrade flow in the right vertebral artery. The peak systolic velocity in the proximal left internal carotid artery is 72 cm/sec. This corresponds to a 20 to 39% proximal left ICA stenosis. Normal systolic velocities are noted in the proximal left external carotid artery. There is antegrade flow in the left vertebral artery. IMPRESSION: 1. Bilateral 20-39% proximal ICA stenoses. 2. Antegrade flow in both vertebral arteries.
--- NOTE | 2017-02-04 18:54 | HP ---
HISTORY OF PRESENT ILLNESS: The patient is resting comfortably in the emergency room this morning. He came in with acute shortness of breath with chest discomfort. This is a 57-year-old man with chest discomfort and shortness of breath for the past few days. outpatient help, not even increasing his water pill and now he is not feeling well. PAST MEDICAL HISTORY: He has a past medical history of COPD, pulmonary hypertension, congestive heart failure, diverticulitis, history of gastric reflux, history of genitourinary problems with prostate problems in the past. He has had pneumothorax, he has had chest tubes, he had left lung laceration, also laceration to his third finger, right hand, it was stitched up. He has hypertension. diabetes in the family. He is a former smoker. No alcohol. No drugs. ALLERGIES: HE HAS NO KNOWN DRUG ALLERGIES. MEDICATIONS: He takes DuoNebs, Pulmicort, Stiolto Respimat, Catapres, prednisone, Qvar, . He has shortness of breath, cough, congestion, chest pain. No acute vision or hearing changes. No sore throat. No abdominal pain. No back pain. No headaches or dizziness. No anxiety or depression. PHYSICAL EXAMINATION VITAL SIGNS: He has a 98.3 temp, 105 pulse, 26 respiratory rate, 165/114 blood pressure, and 96% O2 sat on room air. HEENT: Head atraumatic, normocephalic. Extraocular muscles are intact. Pupils are equal and reactive to light and accommodation. He is well appearing, he is little bit toxic, he is uncomfortable. NECK: Supple HEART: Regular rate. Normal S1, S2. LUNGS: Decreased breath sounds bilaterally, occasional congestion, wheeze, changes with cough. ABDOMEN: Soft, nontender. Positive bowel sounds. No guarding. No rebound. No CVA tenderness. EXTREMITIES: +2 to 4 pitting edema in the bilateral lower extremities. He moves his extremities okay. No Homans sign. GCS is 15. Cranial nerves II through XII grossly intact. SKIN: Warm and dry. He is alert and oriented x3. Thyroid is midline. No palpable appreciable lymphadenopathy. LABORATORY DATA: He had multiple tests. He had a 141 sodium, potassium 3.9, BUN 24, creatinine 1.7. GFR is 42, sugar is 131, calcium is 8.9, total bilirubin is 1.38, AST is 22, ALT is 20, alkaline phosphatase is100, lactate dehydrogenase is 647, total creatine kinase is 62, troponin I is 0.07, BNP is high at 2710, total protein is 7.2, albumin is 3.7, globulin is 3.6, INR is 1.18. White count 7.3, hemoglobin 14.8, hematocrit 46.2, platelets are 102. He had a chest x-ray, which shows no interval change, chronic appearing changes. He is here for CHF, COPD. I will have consults with Pulmonary and Cardiology, I will have IV Lasix 40 b.i.d., blood pressure medications with pulmonary toilet, and we will keep him and watch him. He is now on observation, we will see how he does overnight and hopefully he will do well. I will put him on little bit of Solu-Medrol and hopefully he will improve by tomorrow. James Carrasco DO MTDD
--- NOTE | 2017-02-05 01:06 | CARD ---
APPROVED REPORT EKG Measurement Heart [id number] DC [id number] <Conclusion> Sinus tachycardia Possible Left atrial enlargement Right bundle branch block Possible Inferior infarct, age undetermined T wave abnormality, consider lateral ischemia Abnormal ECG
--- NOTE | 2017-02-05 01:20 | CON ---
DATE: 02/04/2017 HISTORY OF PRESENT ILLNESS: The patient is a 57-year-old male who presents with progressive shortness of breath and focal chest pain. Since he has been in the hospital and is treated with improvement of symptoms, his chest pain is now resolved. PAST MEDICAL HISTORY: The patient's past medical history of notable for documented sarcoidosis for many years. In addition, he suffers from moderate pulmonary hypertension as well as COPD. His last catheterization which was in 06/2015 shows unremarkable coronary arteries. Stress performed in 02/2016 reveals no ischemic changes. Currently, the patient is breathing much better and is able to ambulate without chest pain, without shortness of breath. SOCIAL HISTORY: Does not smoke. REVIEW OF SYSTEMS: As above. PHYSICAL EXAMINATION VITAL SIGNS: Blood pressure is 171/99, heart rates in the 80s. NECK: Negative JVD. LUNGS: Without rales. HEART: S1 and S2. EXTREMITIES: Without edema. EKG reveals normal sinus rhythm with right bundle branch block and diffuse ST-T changes which is unchanged from his previous. Ejection fraction was 50%. IMPRESSION: 1. Exacerbation of sarcoidosis and chronic obstructive pulmonary disease. 2. Sarcoidosis. 3. Chronic obstructive pulmonary disease. 4. Dyspnea. 5. Hypertension. 6. Resolution of chest pain. 7. No evidence for acute coronary syndrome. 8. Mild renal insufficiency. Given these findings, clonidine was ordered for blood pressure control. We will continue his Norvasc as well. Andrew Holliday MD
[2017-02-05 06:55] LABS: HEMOGLOBIN 13.9 g/dL (14.0-18.0); MEAN CELL VOLUME 82.7 fl (80.0-105.0); MEAN CORPUSCULAR HEMOGLOBIN 25.8 pg (25.0-35.0); MEAN CORPUSCULAR HGB CONC 31.2 g/dl (31.0-37.0); MEAN PLATELET VOLUME 9.6 fl (7.0-11.0); RBC 5.38 10^6/uL (3.5-6.1); RED CELL DISTRIBUTION WIDTH 14.6 % (11.5-14.5); WHITE BLOOD COUNT 6.2 10^3/ul (4.5-11.0)
[2017-02-05 07:12] LABS: ALBUMIN 3.6 g/dL (3.0-4.8); CALCIUM 8.5 mg/dL (8.4-10.5)
[2017-02-05] MEDS: Budesonide 0.5 mg/2 ml Inhal Susp UD IH SCH (07:30)
[2017-02-05] MEDS: Albuterol-Ipratrop 3 mg / 0.5 (3 ml) UD IH SCH (07:30)
[2017-02-05 07:54] VITALS: O2SAT 97
[2017-02-05] MEDS: TREPROSTINIL DIOLAMINE 0.125 MG PO SCH ×2 (08:09)
[2017-02-05] MEDS: Potassium Chloride 20 mEq ER Tab PO SCH (09:59)
[2017-02-05] MEDS: BECLOMETHASONE DIPROPIONATE 8.7 GM PO SCH (10:21)
[2017-02-05] MEDS ORDERED: Albuterol-Ipratrop 3 mg / 0.5 (3 ml) UD IH SCH (11:34)
--- NOTE | 2017-02-05 11:37 | PN ---
DATE: 02/05/2017 SUBJECTIVE: The patient is comfortable. PHYSICAL EXAMINATION: VITAL SIGNS: Blood pressure 147/99, heart rate is in the 80s. NECK: Negative JVD. LUNGS: Without rales. HEART: S1, S2. EXTREMITIES: Without edema. LABORATORY DATA: Hemoglobin is 13.9. Chemistries, BUN and creatinine 31 and 1.6. IMPRESSION 1. Resolution of dyspnea. 2. History of sarcoidosis. 3. Coronary artery disease. 4. Hypertension. 5. Mild renal insufficiency. Given these findings, the patient from a cardiac perspective can be discharged. Follow up instructions have been given to the patient in detail. Andrew Holliday MD
[2017-02-05 11:46] VITALS: BP 170/98; PULSE 82; RESP 18; TEMP 98.5
--- NOTE | 2017-02-05 16:11 | CON ---
PULMONARY CONSULTATION DATE: 02/05/2017 REASON FOR CONSULTATION: Sarcoidosis. REFERRING PHYSICIAN: James Carrasco DO HISTORY OF PRESENT ILLNESS: The patient is a 57-year-old male, with past medical history significant for advanced interstitial lung disease secondary to sarcoidosis, on home oxygen, pulmonary hypertension, recurrent bronchitis, systemic hypertension, who presented - originally on 02/03/2017- with a two-day history of worsening dyspnea on exertion, and chest discomfort. The patient was thus admitted for additional evaluation. The patient is not short of breath at rest. He does state that his dyspnea on exertion is much improved. There is no history of cough or sputum production. As above, the patient did present with chest discomfort. His chest discomfort has now resolved. No history of coughing up of blood. No history of chest discomfort - made worse deep respirations. There is no history of temperatures, chills or infectious exposure. There is no history of night sweats, weight loss, or appetite change prior to the above events. No history of calf pains. No history of syncope or diaphoresis. No history of recent travel or trauma. REVIEW OF SYSTEMS: No history of nausea, vomiting or diarrhea. No acute urinary symptoms. No new neurologic complaints. Rest of the review of system is negative. ALLERGIES: NO KNOWN ALLERGIES. SOCIAL HISTORY: Positive for tobacco. Negative for alcohol. FAMILY HISTORY: No inheritable diseases. HOME MEDICATIONS: Include prednisone, Catapres, Norvasc, Stiolto, Lasix, Pulmicort, beclomethasone inhaler, and DuoNeb. PHYSICAL EXAMINATION: GENERAL: The patient is very comfortable at the present time. He is not short of breath at rest. VITAL SIGNS: Less temperature recorded 99.0, pulse this morning 82, respiratory rate 18, blood pressure 166/95. Oxygen saturation on nasal canula is 96%. HEENT: Normocephalic and atraumatic. NECK: No JVD. CARDIOVASCULAR: Positive S1 and S2. No S3. LUNGS: Clear bilaterally. EXTREMITIES: Positive for edema. No cyanosis. No clubbing. Calf are nontender to palpation. GASTROINTESTINAL: Abdomen is soft, nontender, and nondistended. Bowel sounds are positive. SKIN: No acute rash. NEUROLOGIC: Limited at the present time. PERTINENT LABORATORY DATA: Chest x-ray was done on 02/03/2017 and reviewed. There is extensive chronic interstitial lung disease present. There are no acute changes. CBC: White count 7.3, hemoglobin 14.8, hematocrit 46.2, and platelets of 102. Complete metabolic profile: BUN 24, creatinine 1.7, glucose 131, troponin 0.07, B-type natriuretic peptide 2710. Rest of the metabolic profile was within normal limits. IMPRESSION: 1. Chest discomfort - resolved. 2. Advanced interstitial lung disease, on home oxygen. 3. Advanced sarcoidosis. 4. Pulmonary hypertension. 5. Systemic hypertension. PLAN: The patient presented to [facility] - originally on 02/03/2017 - with main complaints of dyspnea on exertion and chest discomfort for the previous two days. As above, his dyspnea on exertion has improved/decreased greatly. In addition, his chest discomfort has now resolved. I did review the chest x-ray as above. The chest x-ray shows no acute change from the previous films. On physical exam, his lungs are clear. Oxygen saturation on nasal canula is 96%. I will continue with the current nebulizer treatments and change to oral steroids this morning. Cardiology evaluation is ongoing. Input by Dr. Holliday is noted. Clinical status of the patient is significantly improved - compared to the initial presentation. I will discuss the above with Dr. Carrasco. Rajesh Leon MD MTDD
--- NOTE | 2017-02-06 08:44 | DS ---
HISTORY OF PRESENT ILLNESS: I saw Adrian Dinh this morning, resting in bed. He is doing better. Breathing better. Legs swollen. No cough. No shortness of breath. No abdominal pain. His blood pressure has been up and down, but he is going back on his clonidine 0.2 mg. MEDICATIONS: He will go home on his medications, which are QVAR, Catapres 0.2 mg 3 times a day, DuoNebs, potassium, Lasix 40 mg twice a day, Norvasc, prednisone 30 mg for 3 days, 20 mg for 3 days and 10 mg daily as fair enough for probably 2 weeks, Pulmicort, Stiolto, and Orenitram. PHYSICAL EXAMINATION: VITAL SIGNS: Are 97.9 temperature, 88 pulse, 169/112 blood pressure, on 0.2 mg now clonidine, 20 respiratory rate and 97% O2 saturation room air. HEENT: Head is atraumatic and normocephalic. HEART: Regular rate. LUNGS: Clear to auscultation. ABDOMEN: Soft. EXTREMITIES: Trace edema, much better than 2+ yesterday. LABORATORY DATA: He has a 142 sodium, calcium 4.5, BUN 31, creatinine 1.6, GFR is 45, sugar is 127, calcium is 8.5. Total bilirubin is 0.9, AST is 20, ALT is 20, alkaline phosphatase is 100, total protein is 7.2. White count is 6.2, hemoglobin 13.9, hematocrit 44.5 and platelets are 97. ASSESSMENT AND PLAN: He will be followed up in the office in a week. He was here for congestive heart failure with shortness of breath. He was seen by Cardiology. I discussed with Dr. Holliday. He can go home today. Chest x-ray with chronic-appearing changes and 20% to 39% proximal internal carotid artery stenosis. I will see him in the office in a week. He was here for congestive heart failure and hypertension. James Carrasco DO
== END 2017-02-05 15:39 | disposition home or self-care (01) ==
LOC: ED 22:09 → ERH 02-04 02:01 → 2RSO 02-04 14:00
PROVIDERS: ADMIT Family Medicine; ATTEND Family Medicine
DX: I11.0 Hypertensive heart disease with heart failure (principal); I50.9 Heart failure, unspecified; J44.9 Chronic obstructive pulmonary disease, unspecified; K21.9 Gastro-esophageal reflux disease without esophagitis; I27.2 Other secondary pulmonary hypertension; I65.23 Occlusion and stenosis of bilateral carotid arteries; I25.10 Atherosclerotic heart disease of native coronary artery without angina pectoris; D86.9 Sarcoidosis, unspecified; N28.9 Disorder of kidney and ureter, unspecified; J84.9 Interstitial pulmonary disease, unspecified; Z99.81 Dependence on supplemental oxygen; Z87.891 Personal history of nicotine dependence
CPT/HCPCS: 36415; 71010; 80053; 82550; 83615; 83880; 84484; 85027; 85610; 85730; 93005; 93880; 94640; 94760; 96374; 96375; 96376; 99285; G0378; J1940; J2920

== ENCOUNTER 2017-03-08 23:31 | Inpatient (IN) | payer MEDICARE, OTHER ==
[2017-03-08 23:31] VITALS: BMI 30.2
--- NOTE | 2017-03-08 23:43 | ED PDOC ---
Arrival/HPI - General Chief Complaint: Dizziness/Lightheaded Time Seen by Provider: 03/08/17 23:39 Historian: Patient - History of Present Illness Narrative History of Present Illness (Text): 03/08/17 23:43 Adrian Dinh is a 57 year old male, whose past medical history includes CHF, pneuothoras, COPD, and pulmonary hypertension, who presents to the Emergency department complaining of dizziness. Patient states he woke up at 12:00 today and felt dizzy/unsteady on his feet and fell. Patient denies any loss of consciousness or head trauma. Patient also complaining of shortness of breath. Patient denies any fever, chills, chest pain, abdominal pain, nausea, vomiting, back pain, neck pain, or any other complaints. Symptom Onset: Gradual Symptom Course: Unchanged Activities at Onset: Light Context: Home Past Medical History - Provider Review Nursing Documentation Reviewed: Yes - Infectious Disease Hx of Infectious Diseases: None - Tetanus Immunization Tetanus Immunization: Unknown - Cardiac Hx Hypertension: Yes - Pulmonary Hx Respiratory Disorders: Yes (PNEUMOTHORAX -CHEST TUBE LEFT LUNG PLACED.PULMONARY HTN,) Hx Chronic Obstructive Pulmonary Disease (COPD): Yes - Neurological Hx Neurological Disorder: No - HEENT Hx HEENT Disorder: Yes (L EYE BLURRY) - Renal Hx Renal Disorder: No - Endocrine/Metabolic Hx Endocrine Disorders: No - Hematological/Oncological Hx Blood Disorders: No - Integumentary Hx Dermatological Disorder: No - Musculoskeletal/Rheumatological Hx Musculoskeletal Disorders: No Hx Falls: No - Gastrointestinal Hx Gastrointestinal Disorders: Yes Hx Diverticulitis: Yes Hx Gastroesophageal Reflux: Yes - Genitourinary/Gynecological Hx Genitourinary Disorders: Yes Hx Prostate Problems: Yes - Psychiatric Hx Psychophysiologic Disorder: No Hx Substance Use: No - Past Surgical History Past Surgical History: No Previous - Surgical History Other/Comment: pneumothorax, chest tube-L LUNG,LACERATION TO 3RD FINGER OF RIGHT HAND -STITCHED. - Anesthesia Hx Anesthesia: No Hx Anesthesia Reactions: No Hx Malignant Hyperthermia: No - Suicidal Assessment Feels Threatened In Home Enviroment: No Family/Social History - Physician Review Nursing Documentation Reviewed: Yes Family/Social History: Unknown Family HX Smoking Status: Former Smoker Hx Alcohol Use: No Hx Substance Use: No Hx Substance Use Treatment: No Allergies/Home Meds Allergies/Adverse Reactions: Allergies No Known Allergies Allergy (Verified 02/04/17 11:58) Home Medications: Home Meds Medication Instructions Recorded Confirmed Albuterol/Ipratropium [Duoneb 3 3 ml IH Q6H PRN 02/12/17 03/08/17 MG/3 Ml-0.5 MG/3 Ml 3 Ml] Beclomethasone Dipropionate [Qvar 8.7 gm IH DAILY 02/12/17 03/08/17 80 mcg] Clonidine HCl [Catapres] 0.3 mg PO DAILY 02/12/17 03/08/17 Furosemide [Lasix] 40 mg PO DAILY 02/12/17 03/08/17 Tiotropium Br/Olodaterol HCl 4 gm IH DAILY 02/12/17 03/08/17 [Stiolto Respimat Inhal [place]] Treprostinil Diolamine [Orenitram] 0.125 mg PO DAILY 02/12/17 03/08/17 amLODIPine [Norvasc] 5 mg PO DAILY 02/12/17 03/08/17 predniSONE [Prednisone] 10 mg PO DAILY 02/12/17 03/08/17 Review of Systems - Physician Review All systems were reviewed & negative as marked: Yes - Review of Systems Constitutional: Normal. absent: Fevers Eyes: Normal ENT: Normal Respiratory: SOB. absent: Cough Gastrointestinal: Normal. absent: Abdominal Pain, Diarrhea, Nausea, Vomiting Genitourinary Male: Normal. absent: Dysuria, Frequency, Hematuria, Urinary Output Changes Musculoskeletal: Normal Skin: Normal Neurological: Dizziness Endocrine: Normal Hemo/Lymphatic: Normal Psychiatric: Normal Physical Exam Vital Signs Reviewed: Yes Vital Signs Temp Pulse Resp BP Pulse Ox 03/08/17 23:40 98.2 F 97 H 18 181/92 H 99 Temperature: Afebrile Blood Pressure: Normal Pulse: Regular Respiratory Rate: Normal Appearance: Positive for: Well-Appearing, Non-Toxic, Comfortable Pain Distress: None Mental Status: Positive for: Alert and Oriented X 3 - Systems Exam Head: Present: Atraumatic, Normocephalic Pupils: Present: PERRL Extroacular Muscles: Present: EOMI Conjunctiva: Present: Normal Mouth: Present: Moist Mucous Membranes Neck: Present: Normal Range of Motion Respiratory/Chest: Present: Rhonchi. No: Respiratory Distress, Accessory Muscle Use Cardiovascular: Present: Regular Rate and Rhythm, Normal S1, S2. No: Murmurs Abdomen: Present: Normal Bowel Sounds. No: Tenderness, Distention, Peritoneal Signs Back: Present: Normal Inspection Upper Extremity: Present: Normal Inspection. No: Cyanosis, Edema Lower Extremity: No: Edema (2+ pitting edema bilaterally) Neurological: Present: GCS=15, CN II-XII Intact, Speech Normal Skin: Present: Warm, Dry, Normal Color. No: Rashes Psychiatric: Present: Alert, Oriented x 3, Normal Insight, Normal Concentration Medical Decision Making ED Course and Treatment: 03/08/17 23:43 Impression: 57 year old male c/o dizziness, unsteady gait, and shortness of breath today. Plan: -- CT Head w/o contrast -- EKG -- CXR -- Labs, cardiac enzymes, BNP -- Reassess and disposition Progress Notes: 03/09/17 01:49 Reviewed radiology, CXR shows increased pulmonary vascular markings and cardiomegaly. CT Head shows: No intracranial hemorrhage. No acute infarct is identified however there is significant artifact in the posterior fossa. If there is high clinical concern for acute infarct, MRI diffusion weighted imaging may be helpful. The sinuses and mastoid air cells are clear. IMPRESSION: No acute findings. 03/09/17 02:04 Reviewed EKG, NSR at 90 bpm. RBBB. LAD. LAHB. Unchanged from 02/03/2017. Case discussed with Dr. Babin, covering for Dr. Carrasco, who is aware and agrees with plan. Pt will go to Telemetry observation for CHF and unsteady gait. - Lab Interpretations Lab Results: 03/09/17 00:20 03/09/17 00:20 Lab Results 03/09/17 00:20: WBC 6.0, RBC 5.88, Hgb 15.6, Hct 49.1, MCV 83.5, MCH 26.5, MCHC 31.8, RDW 15.4 H, Plt Count 110 L, MPV 10.5 03/09/17 00:20: Sodium 145, Potassium 3.7, Chloride 102, Carbon Dioxide 33, Anion Gap 14, BUN 31 H, Creatinine 1.8 H, Est GFR ( Amer) 48, Est GFR ( Non-Af Amer) 39, Random Glucose 158 H, Calcium 8.7, Total Bilirubin 1.1, AST 29 , ALT 26, Alkaline Phosphatase 100, Lactate Dehydrogenase 662, Total Creatine Kinase 127, Troponin I 0.06, NT-Pro-B Natriuret Pep 3120 H, Total Protein 7.5, Albumin 4.0, Globulin 3.5, Albumin/Globulin Ratio 1.1 03/09/17 00:20: PT 12.2 H, INR 1.13 H, APTT 27.9 I have reviewed the lab results: Yes - RAD Interpretation Radiology Orders: 03/08/17 23:51 HEAD W/O CONTRAST [CT] Stat 03/08/17 23:52 CHEST PORTABLE [RAD] Stat Plant Anatomist: ED Physician, Radiologist - Medication Orders Current Medication Orders: Discontinued Medications Albuterol/Ipratropium (Duoneb 3 Mg/0.5 Mg (3 Ml) Ud) 3 ml IH ONCE STA Stop: 03/09/17 02:10 Furosemide (Lasix) 40 mg IVP ONCE ONE Stop: 03/09/17 01:48 - Scribe Statement The provider has reviewed the documentation as recorded by the Scribe Ivette Bob All medical record entries made by the Scribe were at my direction and personally dictated by me. I have reviewed the chart and agree that the record accurately reflects my personal performance of the history, physical exam, medical decision making, and the department course for this patient. I have also personally directed, reviewed, and agree with the discharge instructions and disposition. Disposition/Present on Arrival - Present on Arrival Any Indicators Present on Arrival: No History of DVT/PE: No History of Uncontrolled Diabetes: No Urinary Catheter: No History of Decub. Ulcer: No History Surgical Site Infection Following: None - Disposition Have Diagnosis and Disposition been Completed?: Yes Diagnosis: CHF exacerbation, Unsteady gait Disposition: HOSPITALIZED Disposition Time: 02:02 Patient Plan: Observation Patient Problems: Current Active Problems Problem Status Onset CHF exacerbation Acute Unsteady gait Acute Condition: STABLE Discharge Instructions (ExitCare): Heart Failure (ED) Referrals: James Carrasco DO [Primary Care Provider] - Follow up with primary Forms: [employer] ([employer])
[2017-03-09 00:38] LABS: HEMATOCRIT 49.1 % (42.0-52.0); MEAN CELL VOLUME 83.5 fl (80.0-105.0); MEAN CORPUSCULAR HEMOGLOBIN 26.5 pg (25.0-35.0); MEAN CORPUSCULAR HGB CONC 31.8 g/dl (31.0-37.0); MEAN PLATELET VOLUME 10.5 fl (7.0-11.0); RED CELL DISTRIBUTION WIDTH 15.4 % (11.5-14.5)
[2017-03-09 00:42] LABS: ALB/GLOB RATIO 1.1 (1.1-1.8); BILIRUBIN,TOTAL 1.1 mg/dL (0.2-1.3); CALCIUM 8.7 mg/dL (8.4-10.5); POTASSIUM 3.7 mmol/L (3.6-5.0); TOTAL PROTEIN 7.5 g/dL (5.8-8.3)
[2017-03-09 00:44] LABS: INR 1.13 (0.93-1.08); PARTIAL THROMBOPLASTIN TIME 27.9 Seconds (23.7-30.8)
[2017-03-09 00:53] LABS: TROPONIN I 0.06 ng/mL
--- NOTE | 2017-03-09 01:49 | CT ---
EXAM: CT Head Without Intravenous Contrast EXAM DATE/TIME: 03/08/2017 11:51 PM CLINICAL HISTORY: 57 years old, male; Signs and symptoms; Dizziness; Additional info: Dizzy/unsteady gait TECHNIQUE: Axial computed tomography images of the head/brain without intravenous contrast. All CT scans at this facility use one or more dose reduction techniques, viz.: automated exposure control; ma/kV adjustment per patient size (including targeted exams where dose is matched to indication; i.e. head); or iterative reconstruction technique. COMPARISON: No relevant prior studies available. FINDINGS: No intracranial hemorrhage. No acute infarct is identified however there is significant artifact in the posterior fossa. If there is high clinical concern for acute infarct, MRI diffusion weighted imaging may be helpful. The sinuses and mastoid air cells are clear. IMPRESSION: No acute findings.
[2017-03-09] MEDS ORDERED: Albuterol-Ipratrop 3 mg / 0.5 (3 ml) UD IH STA (02:09)
[2017-03-09] MEDS ORDERED: Albuterol-Ipratrop 3 mg / 0.5 (3 ml) UD ONE (02:14)
--- NOTE | 2017-03-09 05:53 | CP.PCM.PN ---
Subjective - Date & Time of Evaluation Date of Evaluation: 03/09/17 Time of Evaluation: 05:50 - Subjective Subjective: draft BP 169/115--->168/96, pulse ox 88-91 % on 2L/min. no sx ,seen. elevated BNP norvasc 10 mg , Lasix 40 mg IV min. Objective - Vital Signs/Intake and Output Vital Signs (last 24 hours): Temp Pulse Resp BP Pulse Ox 98.4 F 89 20 168/96 H 94 L 03/09/17 03:42 03/09/17 04:15 03/09/17 04:15 03/09/17 05:19 03/09/17 04:15 - Labs Labs: PT 12.2 Seconds (9.9-11.8) H 03/09/17 00:20 INR 1.13 (0.93-1.08) H 03/09/17 00:20 APTT 27.9 Seconds (23.7-30.8) 03/09/17 00:20
--- NOTE | 2017-03-09 07:56 | RAD ---
HISTORY: sob COMPARISON: 02/03/2017 FINDINGS: LUNGS: No infiltrate. Band-like opacity at right base likely subsegmental atelectasis or scar. Similar linear atelectasis/ scar inferior to left hilum, unchanged. PLEURA: Cardiomegaly CARDIOVASCULAR: Normal. OSSEOUS STRUCTURES: No significant abnormalities. VISUALIZED UPPER ABDOMEN: Normal. OTHER FINDINGS: None. IMPRESSION: Possible subsegmental atelectasis at right base. No acute infiltrate. Cardiomegaly.
[2017-03-09] MEDS ORDERED: Albuterol-Ipratrop 3 mg / 0.5 (3 ml) UD IH PRN ×2 (08:20→09:14)
[2017-03-09] MEDS: Albuterol-Ipratrop 3 mg / 0.5 (3 ml) UD IH SCH ×3 (09:30→19:22)
[2017-03-09 09:32] LABS: ARTERIAL BLOOD GAS HCO3 35.3 mmol/L (21-28); ARTERIAL BLOOD GAS O2 CAPACITY 21.3 mL/dl (16-24); ARTERIAL BLOOD GAS O2 CONTENT 20.4 ML/dl (15-23); ARTERIAL BLOOD GAS PH 7.33 (7.35-7.45); ARTERIAL BLOOD HGB O2 SAT 91.4 % (95.0-98.0); CARBOXYHEMOGLOBIN 3.6 % (0.5-1.5); HHB 4.1 % (0-5); METHEMOGLOBIN 0.9 % (0.0-3.0)
[2017-03-09] MEDS: MethylPREDNISolone 40 mg Vial IVP SCH ×3 (09:36→21:57)
[2017-03-09] MEDS: TREPROSTINIL DIOLAMINE 0.125 MG PO SCH ×2 (09:38→10:00)
--- NOTE | 2017-03-09 09:39 | RAD ---
HISTORY: sob COMPARISON: 03/09/2017 1:11 a.m. FINDINGS: LUNGS: Linear opacity at right base. Patchy opacities are now seen at the left base. Findings are nonspecific. PLEURA: No significant pleural effusion identified, no pneumothorax apparent. CARDIOVASCULAR: Cardiomegaly. Mild congestive change. OSSEOUS STRUCTURES: No significant abnormalities. VISUALIZED UPPER ABDOMEN: Normal. OTHER FINDINGS: None. IMPRESSION: Patchy opacities at left base. Linear atelectasis/scar at right base. Mild congestive change with cardiomegaly. No evidence of pulmonary edema.
[2017-03-09] MEDS ORDERED: OLODATEROL HCL IH SCH (10:00)
[2017-03-09] MEDS ORDERED: [UNRECOGNIZED DRUG - OTHER] IH SCH (10:00)
[2017-03-09] MEDS ORDERED: TIOTROPIUM BR IH SCH (10:00)
[2017-03-09] MEDS ORDERED: BECLOMETHASONE DIPROPIONATE 8.7 GM IH SCH ×2 (10:00)
[2017-03-09] MEDS: Enoxaparin 40 mg Syringe SC SCH (10:42)
--- NOTE | 2017-03-09 11:22 | CARD ---
APPROVED REPORT EKG Measurement Heart [id number] <Conclusion> Normal sinus rhythm Possible Left atrial enlargement Right bundle branch block Left anterior fascicular block Bifascicular block Inferior infarct, age undetermined Abnormal ECG
[2017-03-09] MEDS: [UNRECOGNIZED DRUG - OTHER] PO SCH ×2 (13:41→21:32)
--- NOTE | 2017-03-09 13:44 | CP.PCM.CON ---
History of Present Illness - History of Present Illness History of Present Illness: Initial Nephrology Consultation: Assessment: critical HTN emergency Hypertensive Chronic Kidney Disease (I12.9) Chronic Kidney Disease (N18.3) Stage 3 with ?mg proteinuria (R80.9) likely due to HTN HTN (I12.9) CHF exacerbation, severe pulmonary HTN, sarcoidosis, ex smoker respi acidosis with metabolic compensation Altered mental status ? hypertension encephalopathy, Co2 narcosis Plan No acute need for renal replacement therapy at this time. Hypertension uncontrolled: Patient not on ACEI/ARB hence will start losartan 50 mg/day. he is being diuresed with IV lasix. resume clonidine 0.2 mg TID, added hydralazine, continue with norvasc. secondary HTN work up: renin/tor, metanephrines and renal artery doppler Monitor Input/Output, daily weights and renal function with basic metabolic panel ICU consulted for consideration of transfer due to his AMS Check urine analysis, spot protein/creatinine and albumin/creatinine ratio. Check for 25-OH vitamin D, iPTH, phosphorus level, HIV/Hep B and Hep C serology Dose meds/antibiotics for reduced GFR. Avoid fleets enema/magnesium based laxatives. Avoid nephrotoxins/NSAIDs/ iodinated contrast (unless needed emergently) Glycemic control Further work up/management as per primary team Thanks for allowing me to participate in care of your patient. Will follow patient with you. Please call if any Qs. d/w . d/w primary team Dr Saqib Lyn Office: [phone] Chief Complaint; Unable to obtain from patient Source of Info: and EMR HPI: Pt is a 57 y/o M with hx of hypertension ( 7-8 years) mostly uncontrolled , sarcoidosis, ex smoker quit 20 yrs ago, CKD stage 3 (baseline cr 1.5-1.9 since 2012), biV failure, CHF, severe pulmonary Hypertension, was in usual health but notices him to be sleepy on thursday afternoon and a near fall thursday night, he was able to go to [employer] thursday morning but remained lethargic off and on, with worsening shortness of breath. When he was seen today by me, pt on Bipap and lethargic/somnolent, arousable by went back to sleep soon after and unable to provide any hx or ROS. was bedside who provided the info ROS: unable to obtain from pt. As per , no fever/chills, sick contact, urinary or bowel complaints. Physical Examination: General Appearance: pt on bipap, sleepy, ill appearing Vitals reviewed and noted as below Head; Atraumatic, normocephalic ENT: no ulcers no thrush. Tongue is midline. Oropharynx: no rash or ulcers. EYES: Pupils are equal, round and reactive to light accommodation. Eye muscles and extraocular movement intact. Sclera is anicteric. Neck; supple no lymphadenopathy, no thyromegaly or bruit Lungs: Increased respiratory rate/effort. Breath sounds bilateral decreased at bases anteriorly. Heart: Normal rate. s1s2 normal. No rub but has gallop. Extremities: 2+ edema. No varicose veins Neurological: Patient is lethargic/somnolent, arousable by went back to sleep soon, able to follow some commands and move extremities Skin: Warm and dry. Normal turgor. No rash. Palpitation: Normal elasticity for age Abdomen: Abdomen is soft. Bowel sounds +. There is no abdominal tenderness, no guarding/rigidity no organomegaly Psych: Unable MSK: no joint tenderness or swelling. Digits and nails normal, no deformity : kidney or bladder not palpable Labs/imaging/EKG reviewed. Past medical history, past surgical history, family history, social history, allergy reviewed and noted as below Family hx: no hx of CKD. Rest non-contributory Work up: Renal sono 2016: b/l renal cysts Echo 2016: LV and RV function reduced with severe pulm HTN ABG 7.33/67/35/95% Past Patient History - Infectious Disease Hx of Infectious Diseases: None - Tetanus Immunizations Tetanus Immunization: Unknown - Past Social History Smoking Status: Former Smoker - CARDIAC Hx Hypertension: Yes - PULMONARY Hx Respiratory Disorders: Yes (PNEUMOTHORAX -CHEST TUBE LEFT LUNG PLACED.PULMONARY HTN,) Hx Chronic Obstructive Pulmonary Disease (COPD): Yes - NEUROLOGICAL Hx Neurological Disorder: No - HEENT Hx HEENT Problems: Yes (L EYE BLURRY) - RENAL Hx Chronic Kidney Disease: No - ENDOCRINE/METABOLIC Hx Endocrine Disorders: No - HEMATOLOGICAL/ONCOLOGICAL Hx Blood Disorders: No - INTEGUMENTARY Hx Dermatological Problems: No - MUSCULOSKELETAL/RHEUMATOLOGICAL Hx Musculoskeletal Disorders: No Hx Falls: Yes - GASTROINTESTINAL Hx Gastrointestinal Disorders: Yes Hx Diverticulitis: Yes Hx Gastroesophageal Reflux: Yes - GENITOURINARY/GYNECOLOGICAL Hx Genitourinary Disorders: Yes Hx Prostate Problems: Yes - PSYCHIATRIC Hx Psychophysiologic Disorder: No - SURGICAL HISTORY Other/Comment: pneumothorax, chest tube-L LUNG,LACERATION TO 3RD FINGER OF RIGHT HAND -STITCHED. - ANESTHESIA Hx Anesthesia: No Hx Anesthesia Reactions: No Hx Malignant Hyperthermia: No Meds Allergies/Adverse Reactions: Allergies Allergy/AdvReac Type Severity Reaction Status Date / Time No Known Allergies Allergy Verified 02/04/17 11:58 - Medications Medications: Current Medications Albuterol/Ipratropium (Duoneb 3 Mg/0.5 Mg (3 Ml) Ud) 3 ml IH Q6H [facility] Last Admin: 03/09/17 13:27 Dose: 3 ml Albuterol/Ipratropium (Duoneb 3 Mg/0.5 Mg (3 Ml) Ud) 3 ml IH Q2H PRN PRN Reason: Shortness of Breath Amlodipine Besylate (Norvasc) 5 mg PO DAILY [facility] Last Admin: 03/09/17 10:21 Dose: Not Given Budesonide (Pulmicort Respules) 0.5 mg IH [id number] [facility] Clonidine HCl (Catapres) 0.2 mg PO Q8 [facility] Enoxaparin Sodium (Lovenox) 40 mg SC DAILY [facility] PRN Reason: Protocol Last Admin: 03/09/17 10:42 Dose: 40 mg Furosemide (Lasix) 40 mg IVP Q12 [facility] Last Admin: 03/09/17 10:21 Dose: Not Given Home Med (Home Med) 0.125 unit PO Q8 [facility] Hydralazine HCl (Apresoline) 50 mg PO Q8 [facility] Losartan Potassium (Cozaar) 50 mg PO DAILY [facility] Methylprednisolone (Solu-Medrol) 40 mg IVP Q8 [facility] Last Admin: 03/09/17 09:36 Dose: 40 mg Results - Vital Signs Recent Vital Signs: Last Vital Signs Temp 98.6 F 03/09/17 06:00 Pulse 89 03/09/17 11:23 Resp 20 03/09/17 06:00 BP 178/96 H 03/09/17 10:49 Pulse Ox 94 L 03/09/17 10:49 - Labs Result Diagrams: 03/09/17 00:20 03/09/17 00:20
[2017-03-09] MEDS ORDERED: Vancomycin 1gm in NS 250ml 1 GM/250 ML BAG IVPB STA (13:59)
[2017-03-09] MEDS ORDERED: Home Med 1 UNIT PO SCH (14:00)
--- NOTE | 2017-03-09 14:46 | CP.PCM.CON ---
History of Present Illness - History of Present Illness History of Present Illness: Patient is 57yo male with PMhx of Sarcoid, hard to control HTN, COPD, CHF, CKD, admitted to telemetry for worsening SOB and somnolence. Pt this morning noted to be somnolent, with pCO2 retention on ABG 7.33/69/67/34, placed on BIPAP. Currently the patient is awake, alert, oriented x 3, on 2LNC, having lunch. Pt reports he has no major complaints currently--denies fever, chills, chest pain, sob, GARRETT, dizziness, palpitations, N/V, abd pain. No other constitutional symptoms. PMHx: as above PSHx: as above Allergies: NKDA Meds: As per EMR ROS: negative unless stated above Review of Systems - Review of Systems Review of Systems: as per hpi Past Patient History - Infectious Disease Hx of Infectious Diseases: None - Tetanus Immunizations Tetanus Immunization: Unknown - Past Social History Smoking Status: Former Smoker - CARDIAC Hx Hypertension: Yes - PULMONARY Hx Respiratory Disorders: Yes (PNEUMOTHORAX -CHEST TUBE LEFT LUNG PLACED.PULMONARY HTN,) Hx Chronic Obstructive Pulmonary Disease (COPD): Yes - NEUROLOGICAL Hx Neurological Disorder: No - HEENT Hx HEENT Problems: Yes (L EYE BLURRY) - RENAL Hx Chronic Kidney Disease: No - ENDOCRINE/METABOLIC Hx Endocrine Disorders: No - HEMATOLOGICAL/ONCOLOGICAL Hx Blood Disorders: No - INTEGUMENTARY Hx Dermatological Problems: No - MUSCULOSKELETAL/RHEUMATOLOGICAL Hx Musculoskeletal Disorders: No Hx Falls: Yes - GASTROINTESTINAL Hx Gastrointestinal Disorders: Yes Hx Diverticulitis: Yes Hx Gastroesophageal Reflux: Yes - GENITOURINARY/GYNECOLOGICAL Hx Genitourinary Disorders: Yes Hx Prostate Problems: Yes - PSYCHIATRIC Hx Psychophysiologic Disorder: No - SURGICAL HISTORY Other/Comment: pneumothorax, chest tube-L LUNG,LACERATION TO 3RD FINGER OF RIGHT HAND -STITCHED. - ANESTHESIA Hx Anesthesia: No Hx Anesthesia Reactions: No Hx Malignant Hyperthermia: No Meds Allergies/Adverse Reactions: Allergies Allergy/AdvReac Type Severity Reaction Status Date / Time No Known Allergies Allergy Verified 02/04/17 11:58 - Medications Medications: Current Medications Albuterol/Ipratropium (Duoneb 3 Mg/0.5 Mg (3 Ml) Ud) 3 ml IH Q6H [facility] Last Admin: 03/09/17 13:27 Dose: 3 ml Albuterol/Ipratropium (Duoneb 3 Mg/0.5 Mg (3 Ml) Ud) 3 ml IH Q2H PRN PRN Reason: Shortness of Breath Amlodipine Besylate (Norvasc) 5 mg PO DAILY [facility] Last Admin: 03/09/17 10:21 Dose: Not Given Budesonide (Pulmicort Respules) 0.5 mg IH [id number] [facility] Clonidine HCl (Catapres) 0.2 mg PO Q8 [facility] Last Admin: 03/09/17 13:44 Dose: 0.2 mg Enoxaparin Sodium (Lovenox) 40 mg SC DAILY [facility] PRN Reason: Protocol Last Admin: 03/09/17 10:42 Dose: 40 mg Furosemide (Lasix) 40 mg IVP Q12 [facility] Last Admin: 03/09/17 10:21 Dose: Not Given Home Med (Home Med) 0.125 unit PO Q8 [facility] Last Admin: 03/09/17 13:41 Dose: 0.125 unit Hydralazine HCl (Apresoline) 50 mg PO Q8 [facility] Last Admin: 03/09/17 13:44 Dose: 50 mg Hydralazine HCl (Apresoline) 25 mg PO Q4 PRN PRN Reason: Other Cefepime HCl (Maxipime 1gm) 1 gm in 100 mls @ 100 mls/hr IVPB Q12 [facility] PRN Reason: Protocol Vancomycin HCl (Vancomycin 1gm) 1 gm in 250 mls @ 167 mls/hr IVPB STAT STA PRN Reason: Protocol Stop: 03/09/17 15:28 Losartan Potassium (Cozaar) 50 mg PO DAILY [facility] Methylprednisolone (Solu-Medrol) 40 mg IVP Q8 [facility] Last Admin: 03/09/17 13:40 Dose: 40 mg Physical Exam - Constitutional Appears: Well, Non-toxic, No Acute Distress - Head Exam Head Exam: ATRAUMATIC, NORMAL INSPECTION - Eye Exam Eye Exam: EOMI, Normal appearance - ENT Exam ENT Exam: Mucous Membranes Moist - Neck Exam Neck exam: Positive for: Full Rom - Respiratory Exam Respiratory Exam: Clear to Auscultation Bilateral, NORMAL BREATHING PATTERN - Cardiovascular Exam Cardiovascular Exam: REGULAR RHYTHM, +S1, +S2 - GI/Abdominal Exam GI & Abdominal Exam: Normal Bowel Sounds, Soft - Extremities Exam Extremities exam: Positive for: normal inspection - Neurological Exam Neurological exam: Alert, CN II-XII Intact, Oriented x3 - Psychiatric Exam Psychiatric exam: Normal Mood Results - Vital Signs Recent Vital Signs: Last Vital Signs Temp 98.6 F 03/09/17 06:00 Pulse 101 H 03/09/17 13:44 Resp 20 03/09/17 06:00 BP 185/92 H 03/09/17 13:45 Pulse Ox 94 L 03/09/17 10:49 - Labs Result Diagrams: 03/09/17 00:20 03/09/17 00:20 Assessment & Plan - Assessment and Plan (Free Text) Assessment: Patient is 57yo male with uncontrolled HTN HTN, uncontrolled AMS, resolved CKD - currently afebrile, BP 180/100, on manual SBP 160s, denies CP, SOB, GARRETT, dizziness, palpitations, N/V, abd pain - Patient on Clonidine 0.2mg TID, was on daily Clonidine here, likely a component of rebound HTN - Patient is asymptomatic, AAOx3, having lunch, with no major complaints Recommend: - BIPAP PRN - BP control, would resume Clonidine 0.2mg TID, consider starting Hydralazine 25mg TID, cont with ARB - goal MAP decrease by 25% in first 24 hours - Renal follow up - ECHO - Duonebs PRN - DVT ppx - continue monitor on telemetry
[2017-03-09 15:10] LABS: URINE BILIRUBIN NEGATIVE (NEGATIVE); URINE BLOOD TRACE-INTACT (NEGATIVE); URINE GLUCOSE (UA) NEGATIVE (NEGATIVE); URINE KETONE NEGATIVE (NEGATIVE); URINE LEUKOCYTE ESTERASE NEGATIVE Leu/uL (NEGATIVE); URINE PROTEIN 100 mg/dL (<30 mg/dL)
[2017-03-09 15:12] LABS: URINE APPEARANCE CLEAR (CLEAR); URINE COLOR LIGHT YELLOW (YELLOW)
[2017-03-09 15:14] LABS: URINE BACTERIA FEW (NEG); URINE EPITHELIAL CELLS 0 - 2 /hpf (0-5); URINE RBC 0 - 2 /hpf (0-2); URINE WBC 0 - 2 /hpf (0-6)
--- NOTE | 2017-03-09 16:15 | MRI ---
PROCEDURE: MRI BRAIN WITHOUT CONTRAST HISTORY: dizziness, unsteady gait COMPARISON: None. TECHNIQUE: Multiplanar, multisequence MR images of the brain were obtained without intravenous contrast enhancement. FINDINGS: HEMORRHAGE: None DWI: No evidence of an acute or early subacute infarction. BRAIN PARENCHYMA: No mass effect or edema. Minimal microvascular changes are seen in the periventricular white matter VENTRICLES: Unremarkable. No hydrocephalus. CRANIUM: Unremarkable. ORBITS: Grossly unremarkable. PARANASAL SINUSES/MASTOIDS: Clear VASCULAR SYSTEM: Skull base flow voids intact. OTHER FINDINGS: None. IMPRESSION: No acute findings
--- NOTE | 2017-03-09 17:05 | HP ---
HISTORY OF PRESENT ILLNESS: I know Adrian very well from the office and from hospital stay. He is a 57-year-old male, who comes in complaining of dizziness, also unsteady on his feet and he fell. No loss of consciousness. He has a history of severe CHF, pneumothorax, COPD, and pulmonary hypertension in the past. He is fairly compliant. He is trying real hard with his medication for his hypertension. He has had a chest tube for the pulmonary pneumothorax in the past. His left eye is blurry. He has diverticulitis history, GERD history, and BPH history. FAMILY HISTORY: He had hypertension in the family. SOCIAL HISTORY: He is a former smoker. No alcohol. No drugs. ALLERGIES: No known drug allergies. MEDICATIONS: He is on a whole bunch of medications for his lungs and his heart and DuoNeb for asthma, QVAR for asthma, Catapres, Lasix, and Norvasc for his hypertension, heart, and CHF. He also has Stiolto Respimat and prednisone also for his asthma. REVIEW OF SYSTEMS: He was dizzy, he almost fell. No fever. No acute vision changes, but old vision changes. No acute hearing changes, but old hearing changes. No sore throat. No chest pain or palpitation. No abdominal pain, diarrhea, nausea, or vomiting. He has some shortness of breath. No cough. No sputum. No problems urinating. No back pain. No skin issues. No rashes or ulcers. He was dizzy. No anxiety or depression, just a little bit off . PHYSICAL EXAMINATION VITAL SIGNS: He has 98.2 temperature, 97 pulse, 18 respiratory rate, 181/92 blood pressure, and 99% O2 saturation on room. GENERAL: He is little bit off, but well-appearing male, nontoxic, fairly comfortable, just not himself. HEENT: His head is atraumatic and normocephalic. Extraocular muscles are intact. Pupils are equal and reactive to light. Throat is moist. NECK: Supple. HEART: Regular rate. Normal S1 and S2. LUNGS: Decreased breath sounds, occasional rhonchi, changed with cough and clear. ABDOMEN: Soft and nontender. Positive bowel sounds. No guarding and no rebound. No CVA tenderness. EXTREMITIES: +2 pitting edema bilaterally as per his baseline. He moves all four extremities. NEUROLOGIC: GCS is 15. Cranial nerves II through XII grossly intact. Normal speech. Just off a little bit from when I used to see him. Not as sharp and quick. SKIN: Warm and dry. LYMPH: Thyroid midline. No palpable lymphadenopathy. LABORATORY DATA: He had whole bunch of the tests done in the ER. He had 145 sodium, potassium of 3.7, BUN of 31, creatinine of 1.8, little bit elevated, GFR is 39, sugar is 158, calcium is 8.7, and total bilirubin is 1.1. AST is 29, ALT is 26, alkaline phosphatase is 100, and lactic dehydrogenase is 652. Troponin is 0.06, BNP is high at 3220, total protein is 7.5, albumin is 4.0, and INR is 1.13. White count is 16, hemoglobin is 15.6, hematocrit is 49.1, and platelets are low 110. DIAGNOSTIC DATA: He did have a couple of test. He had a chest x-ray, which showed possible subsegmental atelectasis at the right base and no acute infiltrate. He had a CAT scan of his head due to dizziness. No acute findings. IMPRESSION AND PLAN: He was put on observation. He has got diuresed with IV Lasix. He is going to be seen by the neurologist, technical support manager, and renal for his congestive heart failure, hypertension, renal insufficiency, high blood sugars, and near syncope. We will check his laboratories tomorrow. James Carrasco DO MTDD
[2017-03-09] MEDS: Cefepime 1gm in NS 100ml 1 GM/100 ML BAG IVPB SCH ×2 (18:03→21:34)
[2017-03-09] MEDS: Budesonide 0.5 mg/2 ml Inhal Susp UD IH SCH (19:22)
--- NOTE | 2017-03-09 20:09 | CP.PCM.CON ---
History of Present Illness - History of Present Illness History of Present Illness: 57 year old male with PMH of Sarcoidosis, HTN, COPD, chronic CHF, chronic renal failure is admitted in [facility] ([facility]3] because of worsening shortness of breath and increasing somnolence. He has no fever, no loss of consciousness, no vomiting, no diarrhea. He is currently on a BiPAP, arousable by verbal and tactile stimuli but falls back to sleep. He is somewhat tachypneic. Infectious Diseases consult is requested to rule out sepsis in this patient. Review of Systems - Review of Systems All systems: reviewed and no additional remarkable complaints except (as per HPI ) Past Patient History - Infectious Disease Hx of Infectious Diseases: None - Tetanus Immunizations Tetanus Immunization: Unknown - Past Social History Smoking Status: Former Smoker - CARDIAC Hx Hypertension: Yes - PULMONARY Hx Respiratory Disorders: Yes (PNEUMOTHORAX -CHEST TUBE LEFT LUNG PLACED.PULMONARY HTN,) Hx Chronic Obstructive Pulmonary Disease (COPD): Yes - NEUROLOGICAL Hx Neurological Disorder: No - HEENT Hx HEENT Problems: Yes (L EYE BLURRY) - RENAL Hx Chronic Kidney Disease: No - ENDOCRINE/METABOLIC Hx Endocrine Disorders: No - HEMATOLOGICAL/ONCOLOGICAL Hx Blood Disorders: No - INTEGUMENTARY Hx Dermatological Problems: No - MUSCULOSKELETAL/RHEUMATOLOGICAL Hx Musculoskeletal Disorders: No Hx Falls: Yes - GASTROINTESTINAL Hx Gastrointestinal Disorders: Yes Hx Diverticulitis: Yes Hx Gastroesophageal Reflux: Yes - GENITOURINARY/GYNECOLOGICAL Hx Genitourinary Disorders: Yes Hx Prostate Problems: Yes - PSYCHIATRIC Hx Psychophysiologic Disorder: No - SURGICAL HISTORY Other/Comment: pneumothorax, chest tube-L LUNG,LACERATION TO 3RD FINGER OF RIGHT HAND -STITCHED. - ANESTHESIA Hx Anesthesia: No Hx Anesthesia Reactions: No Hx Malignant Hyperthermia: No Meds Allergies/Adverse Reactions: Allergies Allergy/AdvReac Type Severity Reaction Status Date / Time No Known Allergies Allergy Verified 02/04/17 11:58 - Medications Medications: Current Medications Albuterol/Ipratropium (Duoneb 3 Mg/0.5 Mg (3 Ml) Ud) 3 ml IH Q6H [facility] Last Admin: 03/09/17 19:22 Dose: 3 ml Albuterol/Ipratropium (Duoneb 3 Mg/0.5 Mg (3 Ml) Ud) 3 ml IH Q2H PRN PRN Reason: Shortness of Breath Amlodipine Besylate (Norvasc) 5 mg PO DAILY [facility] Last Admin: 03/09/17 10:21 Dose: Not Given Budesonide (Pulmicort Respules) 0.5 mg IH [id number] [facility] Last Admin: 03/09/17 19:22 Dose: 0.5 mg Clonidine HCl (Catapres) 0.2 mg PO Q8 [facility] Last Admin: 03/09/17 13:44 Dose: 0.2 mg Enoxaparin Sodium (Lovenox) 40 mg SC DAILY [facility] PRN Reason: Protocol Last Admin: 03/09/17 10:42 Dose: 40 mg Furosemide (Lasix) 40 mg IVP 1800,0600 [facility] Home Med (Home Med) 0.125 unit PO Q8 [facility] Last Admin: 03/09/17 13:41 Dose: 0.125 unit Hydralazine HCl (Apresoline) 50 mg PO Q8 [facility] Last Admin: 03/09/17 14:28 Dose: Not Given Hydralazine HCl (Apresoline) 25 mg PO Q4 PRN PRN Reason: Other Cefepime HCl (Maxipime 1gm) 1 gm in 100 mls @ 100 mls/hr IVPB Q12 [facility] PRN Reason: Protocol Last Admin: 03/09/17 18:03 Dose: Not Given Losartan Potassium (Cozaar) 50 mg PO DAILY [facility] Methylprednisolone (Solu-Medrol) 40 mg IVP Q8 [facility] Last Admin: 03/09/17 13:40 Dose: 40 mg Physical Exam - Constitutional Appears: Other (somnolent) - Head Exam Head Exam: NORMAL INSPECTION - ENT Exam ENT Exam: Mucous Membranes Moist - Neck Exam Neck exam: Negative for: Meningismus - Respiratory Exam Respiratory Exam: Decreased Breath Sounds - Cardiovascular Exam Cardiovascular Exam: +S1, +S2 - GI/Abdominal Exam GI & Abdominal Exam: absent: Tenderness Results - Vital Signs Recent Vital Signs: Last Vital Signs Temp 98.9 F 03/09/17 18:00 Pulse 98 H 03/09/17 19:25 Resp 20 03/09/17 18:00 BP 158/97 H 03/09/17 18:00 Pulse Ox 94 L 03/09/17 10:49 - Labs Result Diagrams: 03/09/17 00:20 03/09/17 00:20 Labs: Laboratory Results - last 24 hr 03/09/17 03/09/17 03/09/17 12:20 12:20 14:00 Procalcitonin 0.30 Urine Color Urine Appearance Urine pH Ur Specific [place] Urine Protein Urine Glucose (UA) Urine Ketones Urine Blood Urine Nitrate Urine Bilirubin Urine Urobilinogen Ur Leukocyte Esterase Urine RBC Urine WBC Ur Epithelial Cells Urine Bacteria Hep Bs Antigen Negative Hep Bs Antibody Negative Hep B Core IgM Ab Negative Hepatitis C Antibody Negative 03/09/17 14:50 Procalcitonin Urine Color Light yellow Urine Appearance Clear Urine pH 6.0 Ur Specific [place] 1.010 Urine Protein 100 H Urine Glucose (UA) Negative Urine Ketones Negative Urine Blood Trace-intact H Urine Nitrate Negative Urine Bilirubin Negative Urine Urobilinogen 2.0 H Ur Leukocyte Esterase Negative Urine RBC 0 - 2 Urine WBC 0 - 2 Ur Epithelial Cells 0 - 2 Urine Bacteria Few Hep Bs Antigen Hep Bs Antibody Hep B Core IgM Ab Hepatitis C Antibody Assessment & Plan - Assessment and Plan (Free Text) Plan: Assessment Acute encephalopathy, consider toxic-metabolic encephalopathy (uremia from renal failure, hypertensive urgency with hypertensive encephalopathy) - no signs of meningismus and brain MRI does not suggest inflammation R/O left lower lobe pneumonia Plan gave a dose of IV Vancomycin and started cefepime and doxycycline pending blood cx, PCT; reviewed CXR which showed left lower patchy infiltrates - should get repeat CXR tomorrow recommend Neuro evaluation for encephalopathy; reviewed MRI which did not show acute findings will monitor clinically
--- NOTE | 2017-03-09 20:48 | CON ---
PULMONARY CONSULTATION DATE: 03/09/2017 REFERRING PHYSICIAN: James Carrasco DO REASON FOR CONSULTATION: Advanced interstitial lung disease. HISTORY OF PRESENT ILLNESS: History is obtained via extensive discussion with the nurse and the patient. I have also reviewed the chart at length. The patient is a 57-year-old male with past medical history significant for advanced interstitial lung disease, on home oxygen; advanced sarcoidosis, chronic obstructive pulmonary disease, positive former smoker, pulmonary hypertension, systemic hypertension who presents to [facility] with severe dizziness, starting yesterday morning. In the emergency room, the patient stated that he was very unsteady on his feet, and even fell at home. He was thus admitted for additional evaluation. The patient denies shortness of breath at rest. He has chronic dyspnea on exertion. He also states to a chronic minimal cough with occasional sputum production-which has not changed. He denies chest pain, coughing up of blood or chest pain, made worse with deep respirations. There is no history of temperatures, chills or infectious exposure. There is no history of night sweats, weight loss or appetite change prior to the above events. No history of leg or calf pains. No history of diaphoresis. No history of recent travel. REVIEW OF SYSTEMS: No history of nausea, vomiting, or diarrhea. No acute urinary symptoms. No new musculoskeletal complaints. Rest of the review of systems negative. ALLERGIES: NO KNOWN ALLERGIES. SOCIAL HISTORY: Positive for tobacco. Negative for alcohol. FAMILY HISTORY: No inheritable diseases. HOME MEDICATIONS: Include prednisone, Norvasc, Stiolto, Lasix, treprostinil, clonidine, QVAR and DuoNeb. PHYSICAL EXAMINATION GENERAL: The patient is not short of breath at rest. He is not using accessory muscles for breathing. He is sleepy. VITAL SIGNS: Temperature is 98.6, pulse on the monitor is 92, respiratory rate 18/20, blood pressure 185/90. oxygen saturation on nasal cannula is 93%. HEENT: Normocephalic, atraumatic. No JVD. CARDIOVASCULAR: Positive S1 and S2. No S3. LUNGS: Decreased breath sounds at the bases. Mild bilateral rhonchi and wheezing were appreciated. EXTREMITIES: Positive for mild edema. No cyanosis, no clubbing. Calves are nontender to palpation. GI: Abdomen is soft, nontender, nondistended. Bowel sounds are positive. SKIN: No acute rash. NEUROLOGIC EXAM: Limited at the present time. CURRENT LABORATORY DATA: Chest x-ray was done this morning and reviewed. There are extensive chronic interstitial lung disease changes present. CBC: White count 6.0, hemoglobin 15.6, hematocrit 49.1, platelets are 110,000. Complete metabolic profile: BUN 31, creatinine 1.8, glucose 158. Troponin 0.06. B-type natriuretic peptide 3120. Rest of the metabolic profile within normal limits. IMPRESSION: 1. Near syncope. 2. Advanced interstitial lung disease, on home oxygen. 3. Advanced sarcoidosis. 4. Chronic obstructive pulmonary disease. 5. Mild bronchospasm. 6. Pulmonary hypertension. PLAN: Again, I did discuss the case with the nurse and the patient at length. The patient presents to [facility] with a one-day history of increasing dizziness and feeling unsteady on his feet. He denies loss of consciousness. He was thus admitted for additional evaluation. Again, this morning, I did discuss the case with the nurse at length. The patient's pulse oximetry is ranging between 85 to 93% on nasal cannula. A stat arterial blood gas has been ordered. I will check the results when feasible. I have also reviewed the latest chest x-ray, done this morning. The x-ray reveals chronic extensive interstitial changes. On physical exam, the patient is in [id number] bronchospasm. I will change the DuoNeb treatments to a schedule dosage, add inhaled Pulmicort, and also add moderate-dose intravenous steroids. Cardiology and neurologic evaluations have been ordered. Renal evaluation has also been ordered. The patient's clinical status is certainly guarded at this point in time. As above, he does have a history of long-standing extensive lung disease. Additional pulmonary intervention will be based on the above results, as well as the clinical status of the patient. I will discuss the above with the Dr. Carrasco in the next few movements. Thank you very much for this pulmonary consultation. Rajesh Leon MD JENNIFER
--- NOTE | 2017-03-09 23:28 | CP.PCM.CON ---
<Chema Munoz - Last Filed: 03/09/17 23:13> History of Present Illness - History of Present Illness History of Present Illness: Neurology Consult for Dr. Lam Service Consulted: dizziness/unsteady gait This is a 57 yo AA M with PMH of COPD, Pulm HTN, CHF, Diverticulitis, GERD, multiple and prostate issues (unspecified), hx of L-pneumothorax 2/2 lung laceration, and prior tobacco abuse who [place] [facility] [place] of [place]iness, unsteadiness on feet, and fall without head trauma/LOC. As per patient and per PMD, patient is compliant with his medications. Denies similar episodes recently. After arrival, patient found to be hypercarbic (pCO2 67) and acidotic on ABG, so he was placed on Bipap. At time of initial exam, on the Bipap and slightly agitated, pulling at this mask. On return visit, patient sitting comfortably in bed, eating lunch without overt difficulty or somnolence. Denies chest pain, shortness of breath, current dizziness, nausea/ emesis, loss of consciousness, disorientation (AAOx3), room spinning, focal weakness/paresthesia, or fevers/chills. All other ROS in 12-point system review negative. PMH: As above PSH: Chest tube placement for pneumothorax FHx: denies SHx: former smoker (quit 20 yrs ago), denies EtOH, denies illicits/IVDA PMD: Dr. Carrasco Review of Systems - Review of Systems All systems: reviewed and no additional remarkable complaints except (as per HPI ) Past Patient History - Infectious Disease Hx of Infectious Diseases: None - Tetanus Immunizations Tetanus Immunization: Unknown - Past Social History Smoking Status: Former Smoker - CARDIAC Hx Hypertension: Yes - PULMONARY Hx Respiratory Disorders: Yes (PNEUMOTHORAX -CHEST TUBE LEFT LUNG PLACED.PULMONARY HTN,) Hx Chronic Obstructive Pulmonary Disease (COPD): Yes - NEUROLOGICAL Hx Neurological Disorder: No - HEENT Hx HEENT Problems: Yes (L EYE BLURRY) - RENAL Hx Chronic Kidney Disease: No - ENDOCRINE/METABOLIC Hx Endocrine Disorders: No - HEMATOLOGICAL/ONCOLOGICAL Hx Blood Disorders: No - INTEGUMENTARY Hx Dermatological Problems: No - MUSCULOSKELETAL/RHEUMATOLOGICAL Hx Musculoskeletal Disorders: No Hx Falls: Yes - GASTROINTESTINAL Hx Gastrointestinal Disorders: Yes Hx Diverticulitis: Yes Hx Gastroesophageal Reflux: Yes - GENITOURINARY/GYNECOLOGICAL Hx Genitourinary Disorders: Yes Hx Prostate Problems: Yes - PSYCHIATRIC Hx Psychophysiologic Disorder: No - SURGICAL HISTORY Other/Comment: pneumothorax, chest tube-L LUNG,LACERATION TO 3RD FINGER OF RIGHT HAND -STITCHED. - ANESTHESIA Hx Anesthesia: No Hx Anesthesia Reactions: No Hx Malignant Hyperthermia: No Meds Allergies/Adverse Reactions: Allergies Allergy/AdvReac Type Severity Reaction Status Date / Time No Known Allergies Allergy Verified 02/04/17 11:58 - Medications Medications: Current Medications Albuterol/Ipratropium (Duoneb 3 Mg/0.5 Mg (3 Ml) Ud) 3 ml IH Q6H [facility] Last Admin: 03/09/17 19:22 Dose: 3 ml Albuterol/Ipratropium (Duoneb 3 Mg/0.5 Mg (3 Ml) Ud) 3 ml IH Q2H PRN PRN Reason: Shortness of Breath Amlodipine Besylate (Norvasc) 5 mg PO DAILY [facility] Last Admin: 03/09/17 10:21 Dose: Not Given Budesonide (Pulmicort Respules) 0.5 mg IH [id number] [facility] Last Admin: 03/09/17 19:22 Dose: 0.5 mg Clonidine HCl (Catapres) 0.2 mg PO Q8 [facility] Last Admin: 03/09/17 21:31 Dose: 0.2 mg Enoxaparin Sodium (Lovenox) 40 mg SC DAILY [facility] PRN Reason: Protocol Last Admin: 03/09/17 10:42 Dose: 40 mg Furosemide (Lasix) 40 mg IVP 1800,0600 [facility] Home Med (Home Med) 0.125 unit PO Q8 [facility] Last Admin: 03/09/17 21:32 Dose: 0.125 unit Hydralazine HCl (Apresoline) 50 mg PO Q8 [facility] Last Admin: 03/09/17 21:31 Dose: 50 mg Hydralazine HCl (Apresoline) 25 mg PO Q4 PRN PRN Reason: Other Cefepime HCl (Maxipime 1gm) 1 gm in 100 mls @ 100 mls/hr IVPB Q12 [facility] PRN Reason: Protocol Last Admin: 03/09/17 21:34 Dose: 100 mls/hr Doxycycline Hyclate 100 mg/ (Sodium Chloride) 100 mls @ 100 mls/hr IVPB Q12 [facility] PRN Reason: Protocol Stop: 03/16/17 22:01 Last Admin: 03/09/17 22:33 Dose: 100 mls/hr Losartan Potassium (Cozaar) 50 mg PO DAILY [facility] Methylprednisolone (Solu-Medrol) 40 mg IVP Q8 [facility] Last Admin: 03/09/17 21:57 Dose: 40 mg Physical Exam - Constitutional Appears: Well, Non-toxic, No Acute Distress (off of Bipap), In Acute Distress ( when placed on bipap) - Head Exam Head Exam: ATRAUMATIC, NORMAL INSPECTION, NORMOCEPHALIC - Eye Exam Eye Exam: EOMI, Normal appearance, PERRL. absent: Conjunctival injection, Scleral icterus Pupil Exam: NORMAL ACCOMODATION, PERRL. absent: Fixed, Irregular, Unequal - ENT Exam ENT Exam: Mucous Membranes Moist. absent: Mucous Membranes Dry - Neck Exam Neck exam: Negative for: Full Rom, Lymphadenopathy, Thyromegaly - Respiratory Exam Respiratory Exam: Decreased Breath Sounds (moderately decreased breath sounds in all finch), Clear to Auscultation Bilateral, NORMAL BREATHING PATTERN. absent: Accessory Muscle Use, Chest Wall Tenderness, Rales, Rhonchi, Wheezes - Cardiovascular Exam Cardiovascular Exam: REGULAR RHYTHM, RRR, +S1, +S2. absent: Bradycardia, Tachycardia, Irregular Rhythm, JVD, +S4 - GI/Abdominal Exam GI & Abdominal Exam: Normal Bowel Sounds, Soft. absent: Diminished Bowel Sounds , Distended, Firm, Hyperactive Bowel Sounds, Hypoactive Bowel Sounds, Rigid, Tenderness - Extremities Exam Extremities exam: Positive for: full ROM, normal capillary refill, normal inspection, pedal pulses present. Negative for: calf tenderness, pedal edema, tenderness - Neurological Exam Neurological exam: Alert, CN II-XII Intact, Oriented x3 - Psychiatric Exam Psychiatric exam: Normal Affect, Normal Mood - Skin Skin Exam: Dry, Intact, Normal Color, Warm Results - Vital Signs Recent Vital Signs: Last Vital Signs Temp 98.9 F 03/09/17 18:00 Pulse 97 H 03/09/17 21:31 Resp 20 03/09/17 18:00 BP 176/92 H 03/09/17 21:31 Pulse Ox 94 L 03/09/17 10:49 - Labs Result Diagrams: 03/09/17 00:20 03/09/17 00:20 Labs: Laboratory Results - last 24 hr 03/09/17 03/09/17 03/09/17 12:20 12:20 14:00 Procalcitonin 0.30 Urine Color Urine Appearance Urine pH Ur Specific [place] Urine Protein Urine Glucose (UA) Urine Ketones Urine Blood Urine Nitrate Urine Bilirubin Urine Urobilinogen Ur Leukocyte Esterase Urine RBC Urine WBC Ur Epithelial Cells Urine Bacteria Ur Random Creatinine Urine Microalbumin Hep Bs Antigen Negative Hep Bs Antibody Negative Hep B Core IgM Ab Negative Hepatitis C Antibody Negative 03/09/17 03/09/17 03/09/17 14:50 14:50 21:14 Procalcitonin Urine Color Light yellow Urine Appearance Clear Urine pH 6.0 Ur Specific [place] 1.010 Urine Protein 100 H Urine Glucose (UA) Negative Urine Ketones Negative Urine Blood Trace-intact H Urine Nitrate Negative Urine Bilirubin Negative Urine Urobilinogen 2.0 H Ur Leukocyte Esterase Negative Urine RBC 0 - 2 Urine WBC 0 - 2 Ur Epithelial Cells 0 - 2 Urine Bacteria Few Ur Random Creatinine 110 Urine Microalbumin 569.9 H Hep Bs Antigen Hep Bs Antibody Hep B Core IgM Ab Hepatitis C Antibody Assessment & Plan - Assessment and Plan (Free Text) Assessment: This is a 57 yo AA M with PMH of COPD, Pulm HTN, CHF, Diverticulitis, GERD, multiple and prostate issues (unspecified), hx of L-pneumothorax 2/2 lung laceration, and prior tobacco abuse who [place] [facility] [place] of dizziness, unsteadiness on feet, and fall without head trauma/LOC. His falls and near-syncopal sx are likely 2/2 CO2 retention from severe COPD and from deconditioning 2/2 underlying CHF (most recent BNP 3120). There is also likely a component of HTN urgency, given his elevated BPs here in the hospital (170's-180's at time of exam), and given his reported difficult to control BP at home as per family at bedside. Head CT negative for acute findings, MRI of brain ordered to further assess. Plan: 1) MRI brain ordered, f/u 2) Maintain SBP 130's-140, avoid aggressive drops in BP to prevent watershed infarct 3) Avoid sedative meds 4) f/u Cards recs for CHF 5) continue Bipap and medical management for COPD as per Primary 6) PT/OT Patient reviewed and discussed with attending, Dr. Lam. <Bryan Lam - Last Filed: 03/10/17 00:30> Meds - Medications Medications: Current Medications Albuterol/Ipratropium (Duoneb 3 Mg/0.5 Mg (3 Ml) Ud) 3 ml IH Q6H [facility] Last Admin: 03/09/17 19:22 Dose: 3 ml Albuterol/Ipratropium (Duoneb 3 Mg/0.5 Mg (3 Ml) Ud) 3 ml IH Q2H PRN PRN Reason: Shortness of Breath Amlodipine Besylate (Norvasc) 5 mg PO DAILY [facility] Last Admin: 03/09/17 10:21 Dose: Not Given Budesonide (Pulmicort Respules) 0.5 mg IH [id number] [facility] Last Admin: 03/09/17 19:22 Dose: 0.5 mg Clonidine HCl (Catapres) 0.2 mg PO Q8 [facility] Last Admin: 03/09/17 21:31 Dose: 0.2 mg Enoxaparin Sodium (Lovenox) 40 mg SC DAILY [facility] PRN Reason: Protocol Last Admin: 03/09/17 10:42 Dose: 40 mg Furosemide (Lasix) 40 mg IVP 1800,0600 [facility] Home Med (Home Med) 0.125 unit PO Q8 [facility] Last Admin: 03/09/17 21:32 Dose: 0.125 unit Hydralazine HCl (Apresoline) 50 mg PO Q8 [facility] Last Admin: 03/09/17 21:31 Dose: 50 mg Hydralazine HCl (Apresoline) 25 mg PO Q4 PRN PRN Reason: Other Cefepime HCl (Maxipime 1gm) 1 gm in 100 mls @ 100 mls/hr IVPB Q12 [facility] PRN Reason: Protocol Last Admin: 03/09/17 21:34 Dose: 100 mls/hr Doxycycline Hyclate 100 mg/ (Sodium Chloride) 100 mls @ 100 mls/hr IVPB Q12 [facility] PRN Reason: Protocol Stop: 03/16/17 22:01 Last Admin: 03/09/17 22:33 Dose: 100 mls/hr Losartan Potassium (Cozaar) 50 mg PO DAILY [facility] Methylprednisolone (Solu-Medrol) 40 mg IVP Q8 [facility] Last Admin: 03/09/17 21:57 Dose: 40 mg Results - Vital Signs Recent Vital Signs: Last Vital Signs Temp 98.2 F 03/09/17 23:25 Pulse 90 03/09/17 23:25 Resp 24 03/09/17 23:25 BP 171/100 H 03/09/17 23:25 Pulse Ox 94 L 03/09/17 23:25 - Labs Result Diagrams: 03/09/17 00:20 03/09/17 00:20 Labs: Laboratory Results - last 24 hr 03/09/17 03/09/17 03/09/17 12:20 12:20 14:00 Procalcitonin 0.30 Urine Color Urine Appearance Urine pH Ur Specific [place] Urine Protein Urine Glucose (UA) Urine Ketones Urine Blood Urine Nitrate Urine Bilirubin Urine Urobilinogen Ur Leukocyte Esterase Urine RBC Urine WBC Ur Epithelial Cells Urine Bacteria Ur Random Creatinine Urine Microalbumin Hep Bs Antigen Negative Hep Bs Antibody Negative Hep B Core IgM Ab Negative Hepatitis C Antibody Negative 03/09/17 03/09/17 03/09/17 14:50 14:50 21:14 Procalcitonin Urine Color Light yellow Urine Appearance Clear Urine pH 6.0 Ur Specific [place] 1.010 Urine Protein 100 H Urine Glucose (UA) Negative Urine Ketones Negative Urine Blood Trace-intact H Urine Nitrate Negative Urine Bilirubin Negative Urine Urobilinogen 2.0 H Ur Leukocyte Esterase Negative Urine RBC 0 - 2 Urine WBC 0 - 2 Ur Epithelial Cells 0 - 2 Urine Bacteria Few Ur Random Creatinine 110 Urine Microalbumin 569.9 H Hep Bs Antigen Hep Bs Antibody Hep B Core IgM Ab Hepatitis C Antibody Attending/Attestation - Attestation I have personally seen and examined this patient.: Yes I have fully participated in the care of the patient.: Yes I have reviewed all pertinent clinical information: Yes
[2017-03-10] MEDS: Albuterol-Ipratrop 3 mg / 0.5 (3 ml) UD IH SCH ×4 (01:18→19:57)
[2017-03-10 03:35] LABS: CREATININE, RANDOM URINE 60 mg/dL (20-370)
[2017-03-10] MEDS: [UNRECOGNIZED DRUG - OTHER] PO SCH ×3 (05:15→21:11)
[2017-03-10] MEDS: MethylPREDNISolone 40 mg Vial IVP SCH ×3 (05:18→21:11)
[2017-03-10 06:31] LABS: HEMATOCRIT 48.1 % (42.0-52.0); MEAN CELL VOLUME 85.1 fl (80.0-105.0); MEAN CORPUSCULAR HGB CONC 30.6 g/dl (31.0-37.0); MEAN PLATELET VOLUME 10.4 fl (7.0-11.0); RED CELL DISTRIBUTION WIDTH 15.5 % (11.5-14.5); WHITE BLOOD COUNT 6.9 10^3/ul (4.5-11.0)
--- NOTE | 2017-03-10 07:16 | PN ---
DATE: 03/10/2017 SUBJECTIVE: The patient appears comfortable this morning. He is not short of breath at rest. He is less sleepy. PHYSICAL EXAMINATION: VITAL SIGNS: Temperature is 97.1, pulse is 91, respiratory rate 18/20, blood pressure 166/96. Oxygen saturation on BiPAP is 95%. HEENT: Normocephalic and atraumatic. NECK: No JVD. CARDIOVASCULAR: Positive S1 and S2. No S3. LUNGS: Improved breath sounds at the bases. Less rhonchi. No wheezing this morning. EXTREMITIES: Positive for mild edema. No cyanosis. No clubbing. Calves are nontender to palpation. GASTROINTESTINAL: Abdomen is soft, nontender, and nondistended. Bowel sounds are positive. SKIN: No acute rash. NEUROLOGIC: Limited at the present time. PERTINENT LABORATORY DATA: Arterial blood gas was done yesterday on nasal cannula. Results are; pH 7.33, pCO2 of 67, pO2 of 69. IMPRESSION: 1. Near syncope. 2. Respiratory failure. 3. Advanced interstitial lung disease, on home oxygen. 4. Advanced sarcoidosis. 5. Chronic obstructive pulmonary disease. 6. Mild bronchospasm-improved. 7. Pulmonary hypertension. PLAN: The patient appears comfortable this morning. He is not short of breath at rest. He does state to feeling better overall. I did discuss the case with the night nurse length. The night nurse stated that the patient had a very good night. On physical exam, there is certainly less bronchospasm noted. I will continue with the current nebulizer treatments, and decrease the intravenous steroids this morning. The patient has also been placed on antibiotic therapy-as per Infectious Disease. Input by Dr. Schwarz is noted. There are no temperatures noted. There is no leukocytosis. The procalcitonin is negative. The patient does appear clinically improved this morning. I will check a repeat arterial blood gas on nasal cannula. Continue neuro evaluation--noted. Instructions were given to the nurse. The additional noninvasive ventilation usage will depend on the arterial blood gas results. Cardiology and Renal evaluations are also noted. I will discuss the above with Dr. Carrasco this morning. Rajesh Leon MD [facility] # [id number] MTDJessica
[2017-03-10 07:56] LABS: ALB/GLOB RATIO 1.1 (1.1-1.8); CALCIUM 8.4 mg/dL (8.4-10.5); PHOSPHOROUS 3.9 mg/dL (2.5-4.5); POTASSIUM 4.2 mmol/L (3.6-5.0); TOTAL PROTEIN 7.1 g/dL (5.8-8.3)
[2017-03-10 09:30] LABS: ARTERIAL BLOOD GAS HCO3 36.1 mmol/L (21-28); ARTERIAL BLOOD GAS O2 CAPACITY 21.4 mL/dl (16-24); ARTERIAL BLOOD GAS O2 CONTENT 20.7 ML/dl (15-23); ARTERIAL BLOOD GAS PH 7.38 (7.35-7.45)
[2017-03-10 09:31] LABS: ARTERIAL BLOOD HGB O2 SAT 93.3 % (95.0-98.0); CARBOXYHEMOGLOBIN 2.7 % (0.5-1.5)
--- NOTE | 2017-03-10 09:34 | PN ---
DATE: SUBJECTIVE: I saw him resting comfortably in bed. He slept fairly well last night. He was actually better this morning mentally than the other day. I think he was going through some metabolic encephalopathy, the p.o. antibiotics are helping him and starting to improve. He is off the machine. He is on nasal cannula. He is doing well. He has had CHF, hypertension, renal insufficiency, high blood sugars, probably metabolic encephalopathy. PHYSICAL EXAMINATION VITAL SIGNS: He has got a 97.1 temp, 83 pulse, 156/96 blood pressure. I will increase the Catapres to 0.3 with 23 respiratory rate and 94% O2 saturation on BiPAP. HEENT: His head is atraumatic and normocephalic. HEART: Regular rate. LUNGS: Decreased breath sounds. ABDOMEN: Soft. EXTREMITIES: No edema. MEDICATIONS: He is currently on Apresoline, Catapres has bumped up to 0.3, Cozaar, doxycycline, IV DuoNeb, Lasix IV twice a day, Lovenox, Maxipime IV, Norvasc, Pulmicort, Solu-Medrol by pulmonary. LABORATORY DATA: He has a 6.9 white count, 14.7 hemoglobin, 40.1 hematocrit, 111 platelets. Chemistry is pending where his procalcitonin is 0.3. ASSESSMENT AND PLAN: I think he is starting to come around with numerous issues. Continue with IV antibiotics and care. I will increase his clonidine to 0.3, he is to take 0.3, hopefully it will help his blood pressure. Continue with aggressive treatment and care. Get physical therapy to get him out of bed. James Carrasco DO
[2017-03-10] MEDS: Budesonide 0.5 mg/2 ml Inhal Susp UD IH SCH ×2 (10:15→19:57)
[2017-03-10] MEDS: Enoxaparin 40 mg Syringe SC SCH (10:29)
[2017-03-10] MEDS: Cefepime 1gm in NS 100ml 1 GM/100 ML BAG IVPB SCH ×2 (10:30→21:11)
--- NOTE | 2017-03-10 10:48 | US ---
PROCEDURE: Bilateral renal artery duplex ultrasound. CLINICAL HISTORY: Renal artery stenosis. Uncontrolled hypertension. Evaluate for renovascular hypertension. PHYSICIAN(S): Andrew Thrasher M.D. TECHNIQUE: Duplex sonography with color-flow Doppler was used to evaluate the visualized segments of the main renal arteries. The patient was evaluated in a fasting state. Imaging in a supine and decubitus position was performed. Limited evaluation of the arcuate waveforms and resistive indices were performed. FINDINGS: The overall quality of the study is very limited The kidneys are normal in size, shape, and location. The right kidney measures 11.5cm in length and the left kidney measures 12.5cm in length. No solid renal masses, abnormal calcifications, or hydronephrosis is seen. Renal parenchyma is normal in thickness but appears somewhat echogenic. The main right renal artery is not well seen.. The peak systolic velocity in the right main renal artery is 81 cm/sec. This is consistent with a 0 to 49% stenosis in the main right renal artery. The arcuate waveforms are normal. The resistive index is normal. The main left renal artery is poorly visualized.. The peak systolic velocity in the main left renal artery is 55cm/sec. This corresponds to a 0 to 49% stenosis in the main left renal artery. The arcuate waveforms and resistive indices are normal. IMPRESSION: 1. The main renal arteries are not well seen. If clinical suspicion for renal artery stenosis is high, further evaluation can be performed with CTA, MRA, or conventional arteriography. 2. No sonographically significant stenosis is identified. 3. The kidneys are normal and symmetric in size. There are no solid renal masses, abnormal calcifications or hydronephrosis noted. The renal parenchyma is normal in thickness. The renal parenchyma is somewhat echogenic.
--- NOTE | 2017-03-10 11:23 | PN ---
DATE: 03/10/2017 SUBJECTIVE: The patient is seen earlier this morning in room 263, bed 2. No fevers or chills. No nausea or vomiting. PHYSICAL EXAMINATION: VITAL SIGNS: Temperature is 98, blood pressure is 166/96, respiratory rate of 22, and heart rate of 119. HEENT: Unremarkable. NECK: Supple. LUNGS: Decreased breath sounds. HEART: Normal S1 and S2. ABDOMEN: Soft. LABORATORY DATA: Reveals white count of 6.9, hemoglobin 14, and platelets of 111. Chemistries reveal BUN of 35 and creatinine of 1.9. Hepatitis profile is negative. Microbiology, no cultures available. HIV is pending. MEDICATIONS: Review of medications reveals the patient is on doxycycline, cefepime, and Solu-Medrol. Dr. Carrasco's note is reviewed from today and Dr. Leon's note is reviewed and Dr. Bryan Lam's note is also reviewed. ASSESSMENT AND PLAN: A 57-year-old male with sarcoidosis, hypertension, chronic obstructive lung disease, chronic respiratory failure, on home O2 therapy, chronic renal failure and advanced sarcoidosis, acute encephalopathy, consider toxic metabolic encephalopathy and hypertensive emergency, on cefepime and doxycycline with the left lower lobe patchy infiltrate with normal procalcitonin. We will follow closely with you. Jakob Angel MD
[2017-03-10] MEDS ORDERED: Ergocalciferol 50,000 Intl Units Cap PO SCH (13:00)
--- NOTE | 2017-03-10 13:19 | CP.PCM.PN ---
<Chema Munoz - Last Filed: 03/10/17 18:08> Subjective - Date & Time of Evaluation Date of Evaluation: 03/10/17 Time of Evaluation: 08:40 - Subjective Subjective: Neurology Progress Note for Dr. Lam Service Patient seen and examined at bedside, while receiving a breathing treatment. No acute events reported overnight. Patient somewhat somnolent today, and family reports patient does not remember what was discussed with patient yesterday. Reminded that his symptoms were likely due to a combination of CO2 retention 2/2 his COPD, HTN urgency due to his poorly controlled BP, and general deconditioning due to his CHF. Patient denies current complaint, including chest pain, overt wheezing, dizziness, focal weakness, nausea/emesis, diarrhea, hematuria/dysuria, or fevers/chills. Still having elevated BPs as per charting, 160's - 170's systolic. Objective - Vital Signs/Intake and Output Vital Signs (last 24 hours): Temp Pulse Resp BP Pulse Ox 97.1 F L 83 23 169/96 H 95 03/10/17 05:43 03/10/17 05:43 03/10/17 05:43 03/10/17 10:36 03/10/17 05:43 Intake and Output: 03/10/17 03/10/17 06:59 18:59 Intake Total 440 Output Total 500 Balance -60 - Medications Medications: Current Medications Albuterol/Ipratropium (Duoneb 3 Mg/0.5 Mg (3 Ml) Ud) 3 ml IH Q6H [facility] Last Admin: 03/10/17 10:15 Dose: 3 ml Albuterol/Ipratropium (Duoneb 3 Mg/0.5 Mg (3 Ml) Ud) 3 ml IH Q2H PRN PRN Reason: Shortness of Breath Amlodipine Besylate (Norvasc) 5 mg PO DAILY [facility] Last Admin: 03/10/17 10:30 Dose: 5 mg Budesonide (Pulmicort Respules) 0.5 mg IH [id number] [facility] Last Admin: 03/10/17 10:15 Dose: 0.5 mg Clonidine HCl (Catapres) 0.3 mg PO Q8H [facility] Last Admin: 03/10/17 10:36 Dose: 0.3 mg Enoxaparin Sodium (Lovenox) 40 mg SC DAILY [facility] PRN Reason: Protocol Last Admin: 03/10/17 10:29 Dose: 40 mg Ergocalciferol (Drisdol 50,000 Intl Units Cap) 1 cap PO Q7D [facility] Furosemide (Lasix) 40 mg IVP 1800,0600 [facility] Last Admin: 03/10/17 05:17 Dose: 40 mg Home Med (Home Med) 0.125 unit PO Q8 [facility] Last Admin: 03/10/17 05:15 Dose: 0.125 unit Hydralazine HCl (Apresoline) 50 mg PO Q8 [facility] Last Admin: 03/10/17 05:13 Dose: 50 mg Hydralazine HCl (Apresoline) 25 mg PO Q4 PRN PRN Reason: Other Cefepime HCl (Maxipime 1gm) 1 gm in 100 mls @ 100 mls/hr IVPB Q12 [facility] PRN Reason: Protocol Last Admin: 03/10/17 10:30 Dose: 100 mls/hr Doxycycline Hyclate 100 mg/ (Sodium Chloride) 100 mls @ 100 mls/hr IVPB Q12 [facility] PRN Reason: Protocol Stop: 03/16/17 22:01 Last Admin: 03/10/17 11:58 Dose: 100 mls/hr Losartan Potassium (Cozaar) 100 mg PO DAILY [facility] Methylprednisolone (Solu-Medrol) 40 mg IVP Q12 [facility] Last Admin: 03/10/17 10:30 Dose: Not Given - Labs Labs: 03/10/17 06:16 03/10/17 06:16 PT 12.2 Seconds (9.9-11.8) H 03/09/17 00:20 INR 1.13 (0.93-1.08) H 03/09/17 00:20 APTT 27.9 Seconds (23.7-30.8) 03/09/17 00:20 - Additional Findings Additional findings: - Constitutional Appears: Well, Non-toxic, No acute distress. Receiving breathing tx at time of exam. - Head Exam Head Exam: ATRAUMATIC, NORMAL INSPECTION, NORMOCEPHALIC - Eye Exam Eye Exam: EOMI, Normal appearance. absent: Conjunctival injection, Scleral icterus - ENT Exam ENT Exam: Mucous Membranes Moist. absent: Mucous Membranes Dry - Neck Exam Neck exam: Negative for: Full Rom, Lymphadenopathy, Thyromegaly - Respiratory Exam Respiratory Exam: Decreased Breath Sounds (mild-moderately decreased breath sounds in all finch, improved over yesterday), Clear to Auscultation Bilateral , NORMAL BREATHING PATTERN. absent: Accessory Muscle Use, Chest Wall Tenderness , Rales, Rhonchi, Wheezes - Cardiovascular Exam Cardiovascular Exam: REGULAR RHYTHM, RRR, +S1, +S2. absent: Bradycardia, Tachycardia, Irregular Rhythm, JVD, +S4 - GI/Abdominal Exam GI & Abdominal Exam: Normal Bowel Sounds, Soft. absent: Diminished Bowel Sounds , Distended, Firm, Hyperactive Bowel Sounds, Hypoactive Bowel Sounds, Rigid, Tenderness - Extremities Exam Extremities exam: Positive for: full ROM, normal capillary refill, normal inspection, pedal pulses present. Negative for: calf tenderness, pedal edema, tenderness - Neurological Exam Neurological exam: Alert, Oriented x3, Moving all extremities spontaneously - Psychiatric Exam Psychiatric exam: Normal Affect, Normal Mood - Skin Skin Exam: Dry, Intact, Normal Color, Warm Assessment and Plan - Assessment and Plan (Free Text) Assessment: This is a 57 yo AA M with PMH of COPD, Pulm HTN, CHF, Diverticulitis, GERD, multiple and prostate issues (unspecified), hx of L-pneumothorax 2/2 lung laceration, and prior tobacco abuse who [place] [facility] [place] of dizziness, unsteadiness on feet, and fall without head trauma/LOC. His falls and near-syncopal sx are likely 2/2 CO2 retention from severe COPD and from deconditioning 2/2 underlying CHF (most recent BNP 3120). May also be a component of toxic metabolic encephalopathy as well. There is also likely a component of HTN urgency, given his elevated BPs here in the hospital (170's-180 's at time of exam), and given his reported difficult to control BP at home as per family at bedside. Head CT negative for acute findings, MRI of brain negative for acute findings. Plan: 1) Maintain SBP 130's-140, avoid aggressive drops in BP to prevent watershed infarct 2) Avoid sedative meds 3) f/u Cards recs for CHF 4) continue Bipap and medical management for COPD as per Primary 5) PT/OT 6) Thiamine 100mg PO BID Patient reviewed and discussed with attending, Dr. Lam. <Bryan Lam - Last Filed: 03/11/17 11:09> Objective - Vital Signs/Intake and Output Vital Signs (last 24 hours): Temp Pulse Resp BP Pulse Ox 98.5 F 113 H 20 160/87 H 100 03/11/17 06:00 03/11/17 10:27 03/11/17 06:00 03/11/17 10:27 03/11/17 06:00 Intake and Output: 03/11/17 03/11/17 06:59 18:59 Intake Total 760 Output Total 1150 Balance -390 - Medications Medications: Current Medications Acetaminophen (Tylenol 325mg Tab) 650 mg PO Q4H PRN PRN Reason: Headache Last Admin: 03/11/17 10:26 Dose: 650 mg Albuterol/Ipratropium (Duoneb 3 Mg/0.5 Mg (3 Ml) Ud) 3 ml IH Q6H [facility] Last Admin: 03/11/17 07:46 Dose: 3 ml Albuterol/Ipratropium (Duoneb 3 Mg/0.5 Mg (3 Ml) Ud) 3 ml IH Q2H PRN PRN Reason: Shortness of Breath Amlodipine Besylate (Norvasc) 5 mg PO DAILY [facility] Last Admin: 03/11/17 10:27 Dose: 5 mg Budesonide (Pulmicort Respules) 0.5 mg IH [id number] [facility] Last Admin: 03/11/17 07:46 Dose: 0.5 mg Clonidine HCl (Catapres) 0.3 mg PO Q8H [facility] Last Admin: 03/11/17 08:42 Dose: 0.3 mg Enoxaparin Sodium (Lovenox) 40 mg SC DAILY [facility] PRN Reason: Protocol Last Admin: 03/11/17 10:23 Dose: 40 mg Ergocalciferol (Drisdol 50,000 Intl Units Cap) 1 cap PO Q7D [facility] Last Admin: 03/10/17 19:32 Dose: 1 cap Furosemide (Lasix) 40 mg IVP 1800,0600 [facility] Last Admin: 03/11/17 05:15 Dose: 40 mg Home Med (Home Med) 0.125 unit PO Q8 [facility] Last Admin: 03/11/17 05:16 Dose: 0.125 unit Hydralazine HCl (Apresoline) 50 mg PO Q8 [facility] Last Admin: 03/11/17 05:15 Dose: 50 mg Hydralazine HCl (Apresoline) 25 mg PO Q4 PRN PRN Reason: Other Cefepime HCl (Maxipime 1gm) 1 gm in 100 mls @ 100 mls/hr IVPB Q12 [facility] PRN Reason: Protocol Last Admin: 03/11/17 10:23 Dose: 100 mls/hr Doxycycline Hyclate 100 mg/ (Sodium Chloride) 100 mls @ 100 mls/hr IVPB Q12 [facility] PRN Reason: Protocol Stop: 03/16/17 22:01 Last Admin: 03/10/17 22:14 Dose: 100 mls/hr Dobutamine HCl/Dextrose (Dobutamine/Dextrose 5% 500mg/250ml) 500 mg in 250 mls @ 14.166 mls/hr IV .[id number] [facility]; 5 MCG/KG/MIN PRN Reason: Protocol Last Admin: 03/11/17 08:41 Dose: 14.166 mls/hr Losartan Potassium (Cozaar) 100 mg PO DAILY [facility] Last Admin: 03/11/17 10:22 Dose: 100 mg Methylprednisolone (Solu-Medrol) 30 mg IVP Q12 [facility] Last Admin: 03/11/17 10:22 Dose: 30 mg Thiamine HCl (Vitamin B1 Tab) 100 mg PO BID [facility] Last Admin: 03/11/17 10:22 Dose: 100 mg - Labs Labs: 03/11/17 06:05 03/11/17 06:05 PT 12.2 Seconds (9.9-11.8) H 03/09/17 00:20 INR 1.13 (0.93-1.08) H 03/09/17 00:20 APTT 27.9 Seconds (23.7-30.8) 03/09/17 00:20 Attending/Attestation - Attestation I have personally seen and examined this patient.: Yes I have fully participated in the care of the patient.: Yes I have reviewed all pertinent clinical information, including history, physical exam and plan: Yes
--- NOTE | 2017-03-10 15:26 | PN ---
DATE: 03/10/2017 SUBJECTIVE: The patient's breathing is still compromised, although improved. PHYSICAL EXAMINATION: VITAL SIGNS: Blood pressure is 169/96, heart rate is in the 80s. NECK: Negative JVD. LUNGS: Decreased breath sounds at the bases. HEART: Revealed S1, S2. EXTREMITIES: Without edema. LABORATORY DATA: BUN and creatinine are 35 and 1.9, hemoglobin is 14. IMPRESSION: 1. Advanced COPD. 2. Sarcoidosis. 3. Dilated cardiomyopathy. 4. Pulmonary retention. 5. Dyspnea. 6. Near syncope. PLAN: Given these findings, awaiting echo results. In addition, we will give the patient a trial of IV dobutamine to see whether this improves his breathing over the next 24 hours. Andrew Holliday MD
[2017-03-10] MEDS: DOBUTamine 500mg/250ml D5W 500 MG/250 ML BAG IV SCH (15:34)
--- NOTE | 2017-03-10 15:46 | PN ---
DATE: NEPHROLOGY FOLLOWUP CHIEF COMPLAINT: The patient feels better. HISTORY OF PRESENT ILLNESS: The patient, otherwise, no events overnight. The patient at this time denies any chest pain, palpitation. The shortness of breath is better. His leg swelling also seems to be the patient reports as much better. He denies any urinary or bowel complaints. was at bedside. She also feels the patient is doing a lot better from yesterday. PHYSICAL EXAMINATION VITAL SIGNS: The patient is afebrile. Pulse is 83, blood pressure 169/96, respiratory rate is 23, he is on oxygen by nasal cannula. He had a urine output of at least 1 L yesterday. Weight was documented as 208 pounds today, was 220 pounds two days ago. NEUROLOGIC: The patient is A and O x3 at this time. No focal deficits. Moving all four extremities. The patient is ambulatory. LUNGS: Bilateral vesicular sounds. Few bibasilar crackles were heard. No added sounds, otherwise. The patient has normal respiratory rate. CARDIOVASCULAR: S1 and S2 normal. No murmur or rub. ABDOMEN: Soft, nontender. No organomegaly. nontender. No guarding or rigidity. EXTREMITY: Trace to 1+ edema. Now, much improved than yesterday. GENITOURINARY: Bladder not palpable. LABORATORY DATA: His labs shows hemoglobin is 14.7, white blood cell count 6.9, platelet count is 111. Sodium is 145, potassium is 4.2, creatinine is 1.9 stable with 45. Calcium 8.4, phosphorus 3.9. Albumin 3.7. Urine had shown 100 of protein with trace blood. He had albumin-creatine ratio of close of 500 mg per day. His [id number] ratio is pending. Hepatitis B and C has been negative. OTHER IMAGING: Renal artery Doppler is done, but the results are pending at this time. CURRENT MEDICATIONS: Also reviewed. ASSESSMENT: 1. Hypertension emergency, now improved. 2. Hypertensive chronic kidney disease. 3. Chronic kidney disease stage III with 500 mg albuminuria likely due to longstanding history of uncontrolled severe hypertension. 4. Congestive heart failure exacerbation. 5. Severe pulmonary hypertension. 6. Sarcoidosis. 7. Ex-smoker. 8. Respiratory acidosis with metabolic compensation. 9. Altered mental status, likely combination of hypertension, encephalopathy. 10. Carbon dioxide narcosis, which is resolved now. RECOMMENDATIONS: The patient overall looks better. His blood pressure is under better controlled. He is started ARB as losartan 50 mg per day. Would like to maximize the dose as tolerated. He is also being diuresed with IV Lasix, I agree with that. He is already on clonidine, hydralazine, and also Norvasc. Continue with the beta-maik as per the Cardiology/Pulmonary. Secondary hypertension workup has been started. He is ordered for renin-aldosterone, metanephrine, renal artery Doppler. Follow up results. Continue to monitor I's and O's, daily weights and renal function. Also, send for a 25-hydroxy vitamin D, phosphorus, PTH, HIV serology, dose medications for his GFR. Avoid Fleet enema/magnesium laxative. Avoid nephrotoxin, NSAID, iodinated contrast. We will continue to follow with you. Once the patient planned for discharge, patient will follow in the office with me in 1 to 2 weeks post-discharge. Thank you for the consultation. Please call if you have any questions. Saqib Lyn MD
[2017-03-11] MEDS: Albuterol-Ipratrop 3 mg / 0.5 (3 ml) UD IH SCH ×3 (01:18→20:02)
[2017-03-11] MEDS: [UNRECOGNIZED DRUG - OTHER] PO SCH ×3 (05:16→21:01)
[2017-03-11 06:33] VITALS: RESP 20
[2017-03-11 07:21] LABS: ALB/GLOB RATIO 1.1 (1.1-1.8); BILIRUBIN,TOTAL 0.7 mg/dL (0.2-1.3); CALCIUM 8.3 mg/dL (8.4-10.5); POTASSIUM 4.4 mmol/L (3.6-5.0); TOTAL PROTEIN 6.7 g/dL (5.8-8.3)
[2017-03-11 07:41] LABS: HEMATOCRIT 47.3 % (42.0-52.0); MEAN CELL VOLUME 87.1 fl (80.0-105.0); MEAN CORPUSCULAR HEMOGLOBIN 25.6 pg (25.0-35.0); MEAN CORPUSCULAR HGB CONC 29.4 g/dl (31.0-37.0); MEAN PLATELET VOLUME 10.5 fl (7.0-11.0); WHITE BLOOD COUNT 7.9 10^3/ul (4.5-11.0)
[2017-03-11] MEDS: Budesonide 0.5 mg/2 ml Inhal Susp UD IH SCH ×2 (07:46→20:03)
--- NOTE | 2017-03-11 08:31 | PN ---
DATE: 03/11/2017 SUBJECTIVE: The patient's breathing has improved on IV dobutamine. PHYSICAL EXAMINATION: VITAL SIGNS: Blood pressure 136/85, heart rate is in the 90s. NECK: Negative JVD. LUNGS: Clear to auscultation. HEART: Reveals S1, S2. EXTREMITIES: Without edema. LABORATORY DATA: BUN and creatinine is 36/1.8. The potassium is 4.4. The hemoglobin is 13.9. IMPRESSION: 1. Severe chronic obstructive pulmonary disease. 2. Sarcoidosis. 3. Dilated cardiomyopathy. 4. Congestive heart failure. 5. Pulmonary hypertension. 6. Dyspnea, which is improved. Given these findings, we will give the patient IV dobutamine for another 24 hours. Andrew Holliday MD
[2017-03-11] MEDS: DOBUTamine 500mg/250ml D5W 500 MG/250 ML BAG IV SCH (08:41)
--- NOTE | 2017-03-11 08:52 | PN ---
DATE: 03/11/2017 SUBJECTIVE: The patient appears comfortable this morning. He is not short of breath at rest. He is much, much more awake and alert. PHYSICAL EXAMINATION: VITAL SIGNS: Temperature is 98.5, pulse on the monitor is 91, respiratory rate 18/20, blood pressure 126/85. Oxygen saturation on nasal cannula is 100%. HEENT: Normocephalic and atraumatic. NECK: No JVD. CARDIOVASCULAR: Positive S1 and S2. No S3. LUNGS: Much less rhonchi. No wheezing. EXTREMITIES: Positive for mild edema. No cyanosis. No clubbing. Calves are nontender to palpation. GASTROINTESTINAL: Abdomen is soft, nontender, and nondistended. Bowel sounds are positive. SKIN: No acute rash. NEUROLOGIC: Limited at the present time. PERTINENT LABORATORY DATA: Arterial blood gas was repeated yesterday morning and reviewed. Results are; pH 7.38, pCO2 of 61, pO2 of 71. This arterial blood gas was done on 5 liters nasal cannula. IMPRESSION: 1. Near syncope. 2. Respiratory failure. 3. Advanced interstitial lung disease, on home oxygen. 4. Advanced sarcoidosis. 5. Chronic obstructive pulmonary disease. 6. Mild bronchospasm-resolving. 7. Pulmonary hypertension. PLAN: The patient appears comfortable this morning. He is not short of breath at rest. As above, he is much, much more awake and alert this morning. He does state to feeling much better overall. I did discuss the case with the night nurse at length. The night nurse stated that the patient had a very good night. On physical exam, his bronchospasm continues to resolve. I will continue with the current nebulizer treatments and decrease the intravenous steroids this morning. The patient also remains on treatment for his pulmonary hypertension. The last arterial blood gas is noted above. There is resolution of the acidosis, as well as a decrease in the alveolar-arterial gradient. The patient now uses nasal cannula during the day, and BiPAP only at night. The patient remains on antibiotic therapy-as per Infectious Disease. His clinical status is significantly improved this morning. However, again, the patient does have advanced extensive lung disease. All are aware. I have also had multiple discussions with the during this admission. I will discuss the above with Dr. Carrasco this morning. Rajesh Leon MD [facility] # [id number] JENNIFER
--- NOTE | 2017-03-11 09:35 | PN ---
DATE: SUBJECTIVE: I saw him resting comfortably in bed this morning. He had a fairly good night last night. He is still quite weak, difficult to walk. He might need some physical therapy or TCU before he goes home. He is still short of breath, on oxygen and uses the BiPAP at night. He is on Apresoline, Catapres, Cozaar, dobutamine, Vibramycin, Drisdol, DuoNeb, Lasix IV, Lovenox, cefepime, Norvasc, Pulmicort, Solu-Medrol, and vitamin D1. He has multiple doctors seeing him, infectious disease, pulmonary, renal, neuro, and cardio. PHYSICAL EXAMINATION: GENERAL: He is alert and talking better, more fun, and more spontaneous. He was very short and beginning now, he is coming around. VITAL SIGNS: 98.5 temperature, 96 pulse, 136/85 blood pressure, 20 respiratory rate, and 100% O2 sat on 4 L. HEENT: Head is atraumatic and normocephalic. Throat is moist. NECK: Supple. HEART: Regular rate. LUNGS: Still decreased breath sounds, but clear. ABDOMEN: Soft. EXTREMITIES: Trace edema. LABORATORY DATA: He has a 7.9 white count, 13.9 hemoglobin, 47.3 hematocrit with 110 platelets. He has a 145 sodium, potassium 4.4, BUN is 36, creatinine is 1.8 a bit better, GFR is 39, sugar is 140, calcium is 8.3, and total bilirubin is 0.78. AST is 21, ALT is 22, alkaline phosphatase is 77, total protein is 6.7, and albumin is 3.5. Vitamin D is less than 12.8, that is why he is on vitamin D. ASSESSMENT AND PLAN: I ordered to get him out of bed to chair and physical therapy. I also put in for transitional care unit when he dobutamine drip. He has got multiple issues and he is in little bit of trouble. He has advanced chronic obstructive pulmonary disease, sarcoidosis, dilated cardiomyopathy, pulmonary retention, dyspnea, renal insufficiency, high blood sugars, and debility. Continue with aggressive treatment and care. Physical therapy, out of bed, check his labs and meds. James Carrasco DO MTDJessica
[2017-03-11] MEDS: MethylPREDNISolone 40 mg Vial IVP SCH ×2 (10:22→20:59)
[2017-03-11] MEDS: Enoxaparin 40 mg Syringe SC SCH (10:23)
[2017-03-11] MEDS: Cefepime 1gm in NS 100ml 1 GM/100 ML BAG IVPB SCH ×2 (10:23→23:34)
--- NOTE | 2017-03-11 16:06 | CP.PCM.PN ---
Subjective - Date & Time of Evaluation Date of Evaluation: 03/11/17 Time of Evaluation: 15:40 - Subjective Subjective: Walking around the hallway, not in distress but still gets short of breath, no fevers overnight. Objective - Vital Signs/Intake and Output Vital Signs (last 24 hours): Temp Pulse Resp BP Pulse Ox 98.5 F 113 H 20 160/87 H 100 03/11/17 06:00 03/11/17 10:27 03/11/17 06:00 03/11/17 10:27 03/11/17 06:00 Intake and Output: 03/11/17 03/11/17 06:59 18:59 Intake Total 760 Output Total 1150 Balance -390 - Medications Medications: Current Medications Acetaminophen (Tylenol 325mg Tab) 650 mg PO Q4H PRN PRN Reason: Headache Last Admin: 03/11/17 10:26 Dose: 650 mg Albuterol/Ipratropium (Duoneb 3 Mg/0.5 Mg (3 Ml) Ud) 3 ml IH Q6H [facility] Last Admin: 03/11/17 07:46 Dose: 3 ml Albuterol/Ipratropium (Duoneb 3 Mg/0.5 Mg (3 Ml) Ud) 3 ml IH Q2H PRN PRN Reason: Shortness of Breath Amlodipine Besylate (Norvasc) 5 mg PO DAILY [facility] Last Admin: 03/11/17 10:27 Dose: 5 mg Budesonide (Pulmicort Respules) 0.5 mg IH [id number] [facility] Last Admin: 03/11/17 07:46 Dose: 0.5 mg Clonidine HCl (Catapres) 0.3 mg PO Q8H [facility] Last Admin: 03/11/17 08:42 Dose: 0.3 mg Enoxaparin Sodium (Lovenox) 40 mg SC DAILY [facility] PRN Reason: Protocol Last Admin: 03/11/17 10:23 Dose: 40 mg Ergocalciferol (Drisdol 50,000 Intl Units Cap) 1 cap PO Q7D [facility] Last Admin: 03/10/17 19:32 Dose: 1 cap Furosemide (Lasix) 40 mg IVP 1800,0600 [facility] Last Admin: 03/11/17 05:15 Dose: 40 mg Home Med (Home Med) 0.125 unit PO Q8 [facility] Last Admin: 03/11/17 05:16 Dose: 0.125 unit Hydralazine HCl (Apresoline) 50 mg PO Q8 [facility] Last Admin: 03/11/17 05:15 Dose: 50 mg Hydralazine HCl (Apresoline) 25 mg PO Q4 PRN PRN Reason: Other Cefepime HCl (Maxipime 1gm) 1 gm in 100 mls @ 100 mls/hr IVPB Q12 [facility] PRN Reason: Protocol Last Admin: 03/11/17 10:23 Dose: 100 mls/hr Doxycycline Hyclate 100 mg/ (Sodium Chloride) 100 mls @ 100 mls/hr IVPB Q12 [facility] PRN Reason: Protocol Stop: 03/16/17 22:01 Last Admin: 03/10/17 22:14 Dose: 100 mls/hr Dobutamine HCl/Dextrose (Dobutamine/Dextrose 5% 500mg/250ml) 500 mg in 250 mls @ 14.166 mls/hr IV .[id number] [facility]; 5 MCG/KG/MIN PRN Reason: Protocol Last Admin: 03/11/17 08:41 Dose: 14.166 mls/hr Losartan Potassium (Cozaar) 100 mg PO DAILY [facility] Last Admin: 03/11/17 10:22 Dose: 100 mg Methylprednisolone (Solu-Medrol) 30 mg IVP Q12 [facility] Last Admin: 03/11/17 10:22 Dose: 30 mg Thiamine HCl (Vitamin B1 Tab) 100 mg PO BID [facility] Last Admin: 03/11/17 10:22 Dose: 100 mg - Labs Labs: 03/11/17 06:05 03/11/17 06:05 PT 12.2 Seconds (9.9-11.8) H 03/09/17 00:20 INR 1.13 (0.93-1.08) H 03/09/17 00:20 APTT 27.9 Seconds (23.7-30.8) 03/09/17 00:20 - Constitutional Appears: Non-toxic, No Acute Distress - Head Exam Head Exam: NORMAL INSPECTION - ENT Exam ENT Exam: Mucous Membranes Moist - Neck Exam Neck Exam: absent: Lymphadenopathy, Meningismus - Respiratory Exam Respiratory Exam: Decreased Breath Sounds - Cardiovascular Exam Cardiovascular Exam: +S1, +S2 - GI/Abdominal Exam GI & Abdominal Exam: Soft. absent: Tenderness Assessment and Plan - Assessment and Plan (Free Text) Plan: Assessment Acute encephalopathy, consider toxic-metabolic encephalopathy (uremia from renal failure, hypertensive urgency with hypertensive encephalopathy) - no signs of meningismus and brain MRI does not suggest inflammation R/O left lower lobe pneumonia Plan continue cefepime and doxycycline day 3; blood cx are negative, PCT is only 0.29 ; will repeat CXR - if negative, will d/c antibiotics reviewed MRI brain which did not show acute findings will continue to monitor clinically
[2017-03-12] MEDS: DOBUTamine 500mg/250ml D5W 500 MG/250 ML BAG IV SCH ×2 (01:41→03:26)
[2017-03-12] MEDS: Albuterol-Ipratrop 3 mg / 0.5 (3 ml) UD IH SCH ×4 (02:32→19:41)
[2017-03-12] MEDS: [UNRECOGNIZED DRUG - OTHER] PO SCH ×2 (05:00→15:04)
[2017-03-12 06:18] VITALS: O2SAT 95
[2017-03-12 06:26] LABS: HEMATOCRIT 46.8 % (42.0-52.0); MEAN CORPUSCULAR HEMOGLOBIN 25.8 pg (25.0-35.0); MEAN CORPUSCULAR HGB CONC 29.7 g/dl (31.0-37.0); MEAN PLATELET VOLUME 10.1 fl (7.0-11.0); RED CELL DISTRIBUTION WIDTH 16.1 % (11.5-14.5); WHITE BLOOD COUNT 8.3 10^3/ul (4.5-11.0)
[2017-03-12 06:57] LABS: BILIRUBIN,TOTAL 0.9 mg/dL (0.2-1.3); CALCIUM 8.5 mg/dL (8.4-10.5); POTASSIUM 4.6 mmol/L (3.6-5.0); TOTAL PROTEIN 6.8 g/dL (5.8-8.3)
--- NOTE | 2017-03-12 07:41 | PN ---
DATE: 03/12/2017 SUBJECTIVE: The patient appears comfortable this morning. He is not short of breath at rest. He is awake and alert. PHYSICAL EXAMINATION VITAL SIGNS: Temperature is 98.6, pulse 90, respirations 18/20, blood pressure 145/78. Oxygen saturation on nasal cannula is 95%. HEENT: Normocephalic, atraumatic. NECK: No JVD. CARDIOVASCULAR: Positive S1 and S2. No S3 gallop. LUNGS: Very minimal/less rhonchi. No wheezing. EXTREMITIES: Positive for mild edema. No cyanosis, no clubbing. Calves are nontender to palpation. GASTROINTESTINAL: Abdomen is soft, nontender, nondistended. Bowel sounds are positive. SKIN: No acute rash. NEUROLOGIC: Limited at the present time. IMPRESSION: 1. Near syncope. 2. Status post respiratory failure. 3. Advanced interstitial lung disease, on home oxygen. 4. Advanced sarcoidosis. 5. Chronic obstructive pulmonary disease. 6. Mild bronchospasm-resolving. 7. Pulmonary hypertension. PLAN: The patient appears very comfortable this morning. He is not short of breath at rest. He is awake and alert. He states he is feeling much better overall. I did discuss the case with a night nurse at length. The night nurse stated that the patient had a very good night, bur refused his BiPAP. On physical exam, his bronchospasm continues to resolve. I will continue with the current nebulizer treatments and low dose intravenous steroids (decreased yesterday) for now. The patient also remains on treatment for his pulmonary hypertension. Input by cardiology (Dr. Holliday) is noted. The patient is currently on a dobutamine drip. The patient also remains on antibiotic therapy-as per infectious disease. Clinical status of the patient is significantly improved. I will discuss the above with Dr. Carrasco this morning. Rajesh Leon MD MTDD
--- NOTE | 2017-03-12 08:22 | CON ---
DATE:03/11/2017 CHIEF COMPLAINT: I feel better. REVIEW OF SYSTEMS AND HPI: The patient overall feels better. No one noted overnight event. Denies any chest pain, palpitations, shortness of breath, nausea, vomiting, cough, phlegm, fever, chills. Denies any urinary complaint. No bowel complaint. Says the leg swelling is much better. PHYSICAL EXAMINATION: VITAL SIGNS: Stable. The patient is afebrile. The patient's heart rate is 113 and blood pressure is 160/87. LUNGS: Bilateral vesicular breath sounds. Clear today. CARDIOVASCULAR: S1 and S2 are normal tachycardia. ABDOMEN: Soft and nontender. No organomegaly could be appreciated. GENITOURINARY: The patient has no palpable kidney or bladder. EXTREMITIES: Trace to 1+ edema, much improved. PSYCHIATRIC: The patient is pleasant and cooperative. Has normal insight. Judgement is appropriate. Affect is normal. NEUROLOGIC: The patient is slightly sleepy today, but otherwise is able to communicate for most of the conversation. LABORATORY DATA: Workup, hemoglobin 13.9, white blood cell count 7.9, and platelet count is 110. Sodium is 145, potassium is 4.4, bicarb 34, creatinine is 1.8, and glucose is 140. The patient has made at least 1.5 liter urine yesterday. Then, his vitamin D level is also very low, which is less than 12.8. PTH is 314. Urine; protein-creatinine ratio is 1.4 gram per gram of creatinine. His HIV is also negative including hepatitis B and hepatitis C. ASSESSMENT: 1. Hypertensive emergency is resolved; hypertensive chronic kidney disease, chronic kidney disease stage III with 1.4 gram proteinuria likely due to longstanding history of hypertension. 2. Congestive heart failure exacerbation. 3. Severe pulmonary hypertension, sarcoidosis, ex-smoker, respiratory acidosis with metabolic compensation. 4. Altered mental status, has improved. 5. CO2 narcosis also has resolved. 6. Vitamin D deficiency with secondary hyperparathyroidism. RECOMMENDATION: 1. Renal, the patient is stable from renal perspective. Blood pressure is under better control. He is on max dose on losartan. The patient is also on multiple antihypertensives. 2. Hypertension workup is pending with renin-aldosterone, metanephrine, otherwise his renal artery Doppler is negative. 3. We will start him on vitamin D supplementation 50,000 units once weekly. Continue diuresis, may change to p.o. when okay with cardiology. He is also started on dobutamine drip, which is also likely contributing to his tachycardia. Continue to monitor his daily I's and O's, weights, and renal function while the patient is in the hospital. Dose medications for reduce GFR. Avoid Fleet enema, magnesium-based laxative. Avoid nephrotoxins, NSAIDs, or iodinated IV contrast. Thank you for the consultation. Please call if any questions. We will continue to follow the patient while he is here. Saqib Lyn MD
[2017-03-12] MEDS: Budesonide 0.5 mg/2 ml Inhal Susp UD IH SCH ×2 (08:30→19:41)
--- NOTE | 2017-03-12 09:49 | PN ---
SUBJECTIVE: I saw the patient sitting up in bed this morning. He is a little bit more coherent and aware. He tells me the first two days in the hospital, he has no recollection of what was going on, does not remember anything and he was definitely out of it. I am trying to get him to the TCU, so I think he might need some physical therapy and just further care and just reorientation and balance. He is on Apresoline, Catapres, Cozaar, dobutamine IV,, Vibramycin IV, Drisdol, DuoNebs, Lasix IV, Maxipime IV, Norvasc, Pulmicort, Solu-Medrol IV plus vitamins. PHYSICAL EXAMINATION GENERAL: He is alert, looking at me, still little sluggish to me, but coming back mentally. VITAL SIGNS: He has a 98.6 temperature, 90 pulse, 145/78 blood pressures, 20 respiratory rate, 95% O2 saturation on 2 liters nasal cannula. HEENT: Head is atraumatic and normocephalic. Throat is moist. NECK: Supple. HEART: Regular rate. LUNGS: Decreased breath sounds bilaterally. Poor inspiration, but no wheezes. ABDOMEN: Soft. Mildly obese. EXTREMITIES: No edema. LABORATORY DATA: He has 8.3 white count, 13.9 hemoglobin, 46.8 hematocrit with a 104 platelets. He has a 141 sodium, potassium 4.6, BUN is 41, creatinine 1.7, GFR is 42, sugar is 125, calcium is 8.5, total bilirubin is 0.9, AST is 20, ALT is 24, alkaline phosphatase 69. Total protein is 6.8. HIV negative. Hepatitis is negative. No growth in cultures. He is being seen by pulmonary, infectious disease, cardiology, renal. He had near syncope, status post respiratory failure, advanced interstitial lung disease, advanced sarcoidosis, COPD, still on the IV steroids. He is on IV antibiotics, IV Lasix for his heart for severe cardiomyopathy. Continue with aggressive treatment and care. Check his labs tomorrow. Answered lots of questions. James Carrasco DO JENNIFER
[2017-03-12] MEDS: Enoxaparin 40 mg Syringe SC SCH (09:52)
[2017-03-12] MEDS: Cefepime 1gm in NS 100ml 1 GM/100 ML BAG IVPB SCH (09:53)
[2017-03-12] MEDS: MethylPREDNISolone 40 mg Vial IVP SCH (09:56)
--- NOTE | 2017-03-12 10:06 | RAD ---
HISTORY: rule out pneumonia COMPARISON: 03/09/2017 FINDINGS: LUNGS: Moderate vascular and interstitial congestion unchanged. Bibasilar atelectasis PLEURA: No significant pleural effusion identified, no pneumothorax apparent. CARDIOVASCULAR: Normal. OSSEOUS STRUCTURES: No significant abnormalities. VISUALIZED UPPER ABDOMEN: Normal. OTHER FINDINGS: None. IMPRESSION: Moderate vascular and interstitial congestion unchanged. Bibasilar atelectasis
--- NOTE | 2017-03-12 10:53 | PN ---
DATE: 03/12/2017 SUBJECTIVE: The patient's breathing has improved. OBJECTIVE: VITAL SIGNS: Blood pressure is 145/76 with the heart rate in the 90s. NECK: Negative JVD. LUNGS: Minimal crackles at the bases. HEART: Reveals S1, S2. EXTREMITIES: Without edema. LABORATORIES: Hemoglobin is 13.9. Chemistries: BUN and creatinine is 41 and 1.7. IMPRESSION: 1. Exacerbation of chronic obstructive pulmonary disease. 2. Hypertension which is better on clonidine 3. Congestive heart failure. 4. Dilated cardiomyopathy. 5. Sarcoidosis. Given these findings, we will discontinue his dobutamine. From a cardiac perspective, the patient can go home. Andrew Holliday MD
--- NOTE | 2017-03-12 12:10 | PN ---
DATE: 03/12/2017 SUBJECTIVE: The patient is in bed, in no acute distress, nontoxic. PHYSICAL EXAMINATION: VITAL SIGNS: Temperature is 98, blood pressure is 140/70, respiratory rate of 20, heart rate of 92. HEENT: Unremarkable. NECK: Supple. LUNGS: Decreased breath sounds. HEART: Normal S1 and S2. ABDOMEN: Soft, nontender. LABORATORY DATA: Reveals a white count of 8.3, hemoglobin of 13, platelets of 104. BUN of 41, creatinine of 1.7. Urinalysis is noted. HIV is negative. Hepatitis profile is negative. Microbiology; blood cultures and urine cultures are negative. Reviewed of orders, reveals the patient to be on cefepime, Solu-Medrol and doxycycline. ASSESSMENT AND PLAN: A 57-year-old male who was seen earlier today in [facility] by [facility], bed 2, with acute encephalopathy, metabolic encephalopathy improving, renal failure, hypertensive emergency, hypertensive encephalopathy. Blood cultures negative. Urine cultures negative. Procalcitonin 0.29. The patient had a chest x-ray this morning which revealed interstitial congestion and atelectasis. Dr. Leon's note from this morning is reviewed and appreciated. No evidence of infection, day #4 of antibiotics, two negative procalcitonin. We will discontinue the antibiotics. Jakob Angel MD
--- NOTE | 2017-03-12 15:03 | PN ---
CHIEF COMPLAINT: None at this time. The patient feels good. HISTORY OF PRESENT ILLNESS AND REVIEW OF SYSTEMS: The patient overall feels much better. Denies any nausea, vomiting, chest pain, palpitation. Shortness of breath is much better. Leg swelling is much better. Making urine. Denies any bowel complaint. Had good night sleep. Denies any fever or chills. PHYSICAL EXAMINATION GENERAL: The patient was in his room, appears comfortable, not in acute distress. Pleasant and cooperative. VITAL SIGNS: Noticed, stable. Afebrile. Pulse is 92 and blood pressure 145/76. CARDIOVASCULAR: S1 and S2 normal. No apparent rubs or gallops. LUNGS: Bilateral vesicular breath sounds. Few basal crackles are heard, both sides; otherwise, air entry normal and symmetrical, both sides. ABDOMEN: Soft and nontender. No organomegaly could be appreciated. No guarding or rigidity. EXTREMITIES: Trace edema, but much improved since presentation. PSYCHIATRIC: The patient is pleasant and cooperative. Judgement is appropriate. Affect is normal. Insight is present. NEUROLOGIC: The patient A and O x3. No focal deficit. Moving all 4 extremities. Strength and sensation intact. GENITOURINARY: Kidney and bladder not palpable. SKIN: Normal turgor. No rashes. No ulceration. LABORATORY WORKUP: His white blood cell count is 8.3, hemoglobin 13.9, platelet count is 104. Sodium is 141; potassium is 4.6; bicarbonate is 24; creatinine 1.7, stable; glucose is 125. His vitamin D level has been less than 12.8. HIV and hep B and C have been negative. All cultures have been negative. He made 1800 mL of urine yesterday. Current medications were also reviewed. He also had a chest x-ray done today. Final results are pending at this time. MEDICATIONS: The patient is presently on Tylenol as needed, nebulization, amlodipine 5 mg daily, clonidine 0.3 mg q. 8, doxycycline 100 mg q. 12, DVT prophylaxis, vitamin D weekly, Lasix 40 mg IV push twice daily, hydralazine 50 mg q. 8, losartan 100 mg per day, cefepime 1 g q. 12, Solu-Medrol 30 mg q. 12, and thiamine 100 mg t.i.d. ASSESSMENT: Overall condition is stable. e patient's diagnoses include: 1. Hypertensive emergency, which has resolved. 2. Hypertensive chronic kidney disease, chronic kidney disease stage III with proteinuria, likely due to longstanding history of hypertension. 3. Systolic congestive heart failure exacerbation. 4. Severe pulmonary hypertension. 5. History of sarcoidosis, ex-smoker. 6. Respiratory acidosis. 7. Metabolic compensation. 8. Altered mental status which has resolved. 9. Vitamin D deficiency with secondary hyperparathyroidism. RECOMMENDATIONS: The patient remains stable from renal perspective, renal function stable, stable GFR. Blood pressure is under much better control on current antihypertensive. He is on max dose of losartan. We will continue with the current management of the medication. Second hypertensive workup pending with level. His renal arterial Doppler is negative. Continue vitamin D supplementation weekly for 8 weeks. Again, continue with the diuresis, may change to p.o. Lasix when okay with Cardiology. When the patient is planned for discharge, he is stable from renal perspective, he should follow with me in clinic in 1 to 2 weeks post discharge. Discussed with the primary team. All questions were answered. Saqib Lyn MD
[2017-03-12 17:46] VITALS: BP 181/98
[2017-03-12 18:20] VITALS: PULSE 110; TEMP 98.4
[2017-03-12 22:13] LABS: ALDO/PRA RATIO 2.1 Ratio (0.9-28.9)
== END 2017-03-12 20:52 | DRG 77 ==
LOC: ED 23:31 → ERH 03-09 01:52 → 2RNO 03-09 03:38 → OBSVTOIN 03-09 10:53
PROVIDERS: ADMIT Family Medicine; ATTEND Family Medicine
DX: I67.4 Hypertensive encephalopathy (principal); G93.41 Metabolic encephalopathy; I50.21 Acute systolic (congestive) heart failure; J84.9 Interstitial pulmonary disease, unspecified; J96.10 Chronic respiratory failure, unspecified whether with hypoxia or hypercapnia; I42.0 Dilated cardiomyopathy; I16.1 Hypertensive emergency; E87.2 Acidosis; N25.81 Secondary hyperparathyroidism of renal origin; J44.1 Chronic obstructive pulmonary disease with (acute) exacerbation; J98.11 Atelectasis; K57.92 Diverticulitis of intestine, part unspecified, without perforation or abscess without bleeding; I13.0 Hypertensive heart and chronic kidney disease with heart failure and stage 1 through stage 4 chronic kidney disease, or unspecified chronic kidney disease; W19.XXXA Unspecified fall, initial encounter; I27.2 Other secondary pulmonary hypertension; N18.3 Chronic kidney disease, stage 3 (moderate); I16.0 Hypertensive urgency; I45.10 Unspecified right bundle-branch block; D86.9 Sarcoidosis, unspecified; E55.9 Vitamin D deficiency, unspecified; N40.0 Benign prostatic hyperplasia without lower urinary tract symptoms; Z99.81 Dependence on supplemental oxygen; Z87.891 Personal history of nicotine dependence; J98.01 Acute bronchospasm; K21.9 Gastro-esophageal reflux disease without esophagitis; Y92.009 Unspecified place in unspecified non-institutional (private) residence as the place of occurrence of the external cause; Z79.899 Other long term (current) drug therapy; Z82.49 Family history of ischemic heart disease and other diseases of the circulatory system; R40.2412 Glasgow coma scale score 13-15, at arrival to emergency department; R26.81 Unsteadiness on feet; R80.9 Proteinuria, unspecified; R55 Syncope and collapse; R00.0 Tachycardia, unspecified

== ENCOUNTER 2017-03-12 20:52 | Inpatient (IN) | payer MEDICARE, OTHER ==
[2017-03-12 22:19] VITALS: BMI 30.1
[2017-03-12] MEDS ORDERED: Albuterol-Ipratrop 3 mg / 0.5 (3 ml) UD IH PRN (22:22)
[2017-03-13] MEDS: Enoxaparin 40 mg Syringe SC SCH (05:38)
[2017-03-13] MEDS ORDERED: Home Med 1 UNIT PO SCH (06:00)
[2017-03-13] MEDS: [UNRECOGNIZED DRUG - OTHER] PO SCH ×3 (06:45→21:49)
[2017-03-13] MEDS: Albuterol-Ipratrop 3 mg / 0.5 (3 ml) UD IH PRN ×2 (07:33→20:16)
[2017-03-13] MEDS: Budesonide 0.5 mg/2 ml Inhal Susp UD IH SCH ×2 (07:33→20:15)
[2017-03-13 08:01] LABS: EOS % 0.2 % (1.5-5.0); GRAN # 6.68 (1.4-6.5); GRAN % 79.4 % (50.0-68.0); HEMATOCRIT 48.3 % (42.0-52.0); LYMPH # 0.9 (1.2-3.4); LYMPH % 10.5 % (22.0-35.0); MEAN CELL VOLUME 85.3 fl (80.0-105.0); MEAN CORPUSCULAR HEMOGLOBIN 26.3 pg (25.0-35.0); MEAN CORPUSCULAR HGB CONC 30.8 g/dl (31.0-37.0); MEAN PLATELET VOLUME 10.4 fl (7.0-11.0); MONO # 0.8 (0.1-0.6); MONO % 9.9 % (1.0-6.0); WHITE BLOOD COUNT 8.4 10^3/ul (4.5-11.0)
[2017-03-13 08:31] LABS: ALB/GLOB RATIO 1.1 (1.1-1.8); BILIRUBIN,TOTAL 1.2 mg/dL (0.2-1.3); CALCIUM 9.2 mg/dL (8.4-10.5); POTASSIUM 4.3 mmol/L (3.6-5.0); TOTAL PROTEIN 7.2 g/dL (5.8-8.3)
--- NOTE | 2017-03-13 08:43 | PN ---
DATE: 03/13/2017 PULMONARY PROGRESS NOTE SUBJECTIVE: The patient appears comfortable this morning. He is not short of breath at rest. PHYSICAL EXAMINATION VITAL SIGNS: Temperature is 98.5, pulse is 95, respirations are 18, and blood pressure is 177/97. Oxygen saturation on nasal cannula is 97%. HEENT: Normocephalic and atraumatic. No JVD. CARDIOVASCULAR: Positive S1 and S2. No S3. LUNGS: Minimal/less rhonchi. No wheezing. EXTREMITIES: Positive for mild edema. No cyanosis. No clubbing. Calves are nontender to palpation. GASTROINTESTINAL: Soft, nontender, and nondistended. Bowel sounds are positive. SKIN: No acute rash. NEUROLOGIC: Limited at the present time. PERTINENT LABORATORY DATA: Chest x-ray was repeated yesterday and reviewed. There is no significant change from the previous films. IMPRESSION: 1. Near syncope. 2. Status post respiratory failure. 3. Advanced interstitial lung disease, on home oxygen. 4. Advanced sarcoidosis. 5. Chronic obstructive pulmonary disease. 6. Mild bronchospasm - resolving. 7. Pulmonary hypertension. PLAN: The patient appears comfortable this morning. He is not short of breath at rest. He states that he is feeling much better overall. On physical exam, his bronchospasm continues to resolve. In addition, the oxygen saturation on nasal cannula is now 97%. I will continue the current nebulizer treatments and decrease the intravenous steroids this morning. The clinical status of the patient is significantly improved overall. He is now on the transitional unit - where he will participate with physical therapy. I will discuss the above with Dr. Carrasco this morning. Rajesh Leon MD MTDJessica
[2017-03-13] MEDS ORDERED: MethylPREDNISolone 40 mg Vial IVP SCH (10:00)
[2017-03-13] MEDS: MethylPREDNISolone 40 mg Vial IVP SCH ×2 (11:18→21:49)
[2017-03-13] MEDS: Nystatin 100,000 Units/ml Oral Susp 5 ml UD PO SCH ×4 (13:00→23:16)
--- NOTE | 2017-03-13 17:39 | PN ---
DATE: 03/13/2017 SUBJECTIVE: The patient is now in the TCU, still mildly short of breath on exertion. OBJECTIVE: VITAL SIGNS: Blood pressure 177/97, heart rate is in the 90s. NECK: Negative JVD. LUNGS: Rhonchi noted. HEART: Reveals S1, S2. EXTREMITIES: Without edema. LABORATORY DATA: Hemoglobin is 14.9. Chemistries, BUN and creatinine are 45 and 1.7. IMPRESSION: 1. Progressive chronic obstructive pulmonary disease. 2. Dilated cardiomyopathy. 3. Hypertension which is better. 4. Sarcoidosis. Given these findings, we will need to add to his blood pressure regimen. Losartan was added today. We will need to follow his renal function and his pressure. Andrew Holliday MD
--- NOTE | 2017-03-13 18:18 | HP ---
HISTORY OF PRESENT ILLNESS: The patient is very well. He was just in the hospital side. He is now on the TCU. He had a very rough go when he came in, he was adamant. He does not remember the first 2 days of being in the hospital. He could have been in the bed, metabolic encephalopathy. He had bad hypertension, CHF, renal insufficiency, high blood sugars, little bit of renal failure, sarcoidosis, and COPD. Now that he is doing better mentally, he is still not a 100%, he is little bit weak to do some physical therapy, also fell before he came to the hospital and now he is improved with a lot of medications and lot of physicians, and now he is on transitional care unit for further treatment, physical therapy, and hope he gets better mentally. He is about 80% back. He is still not as sharp, is funny, and is alert as he was 2 weeks ago. FAMILY HISTORY: He has a family history of hypertension. SOCIAL HISTORY: He is a former smoker. No alcohol. No drugs. He has CHF history, severe pneumothorax, COPD, pulmonary hypertension, sarcoidosis, renal failure, and metabolic encephalopathy. MEDICATIONS: He has got a large medication list. He is on Apresoline, Catapres, Cozaar, Drisdol, DuoNebs, Lasix, Lovenox, Norvasc, Pulmicort, Solu-Medrol IV, Tylenol, vitamin B1. ALLERGIES: HE HAS NO KNOWN DRUG ALLERGIES. REVIEW OF SYSTEMS: He is alert, he is still looking at me, talking with me, but still not as sharp, and is funny as he usually is, a little bit quiet. No acute vision changes. No hearing changes at this time. No sore throat. No chest pain or palpitations. He is breathing comfortably with oxygen. No apparent shortness of breath at this time. He was more short of breath when he was in the hospital side. No abdominal pain, nausea, vomiting, constipation, or diarrhea. He is urinating okay. No back problems. His skin for the most part is intact as far as he is concerned. No rashes or ulcers. Not dizzy anymore, not anxious. Does not like being in the hospital now but is not a 100% himself. PHYSICAL EXAMINATION: VITAL SIGNS: He has a 98.4 temperature, 95 pulse, 177/97 blood pressure, 20 respiratory rate, and 97% O2 sats on room air. HEENT: His head is atraumatic and normocephalic. Extraocular muscles are intact. Pupils are equal, reactive to light and accommodation. Throat is moist. NECK: Supple. Thyroid midline. HEART: Regular rate. Normal S1 and S2. LUNGS: Decreased breath sounds but clear. He is moving more air. No rhonchi. No wheezes. ABDOMEN: Soft, nontender. Positive bowel sounds. No CVA tenderness. EXTREMITIES: +1, may be +2 pitting edema at his baseline. NEUROLOGIC: Cranial nerves II through XII grossly intact. GCS is 15. Normal speech. He is just a little bit off than I used to see him. He did have an MRI of the brain and neurological eval which was normal. SKIN: Warm and dry. LYMPHS: No palpable appreciable lymphadenopathy. LABORATORY DATA: He had some lab work. He had a 142 sodium, potassium 4.3, BUN is 45, creatinine 1.7, little bit of renal insufficiency, GFR is 51. Sugar is 90, calcium is 9.2, total bilirubin is 1.2. AST is 23, ALT is 20, alkaline phosphatase 78, total protein 7.2, albumin is 3.7. White count is 8.4, hemoglobin is 14.9, hematocrit 40.3, platelets are 110, a little bit low. He will be seen by cardiology, neurology, renal, pulmonary, and infectious disease. He is here for physical therapy, diet, medications, IV Solu-Medrol. We will check his labs tomorrow. Hopefully, will be seeing him to improve mentally and physically, and he for COPD, sarcoidosis, CHF, hypertension, renal insufficiency, high blood sugars, renal failure, metabolic encephalopathy. Slowly improving. James Carrasco DO MTDD
--- NOTE | 2017-03-13 20:56 | CON ---
DATE: 03/13/2017 CHIEF COMPLAINT: Deconditioned state and altered mental status. HISTORY OF PRESENT ILLNESS: This is a 57-year-old male with past medical history of COPD, pulmonary hypertension, CHF, diverticulitis, GERD, multiple genitourinary and prostate issues, unspecified history of left pneumothorax secondary lung laceration, prior tobacco abuse, history of interstitial lung disease secondary to sarcoidosis, who presented to [facility] initially for dizziness, unsteadiness and falls without head trauma. It is deemed that his falls are secondary to near-syncopal events or secondary to underlying CO2 retention from his COPD and from deconditioned state from underlying CHF given that his BNP was elevated. There was a metabolic encephalopathy component and along with hypertensive urgency which did not affect his cognition as well. Currently, he is in [facility] for physical and occupational therapy for underlying deconditioned state. He is following all commands, doing much better than before. PAST MEDICAL HISTORY: COPD, history of lung disease, pulmonary hypertension, CHF, diverticulitis, GERD. REVIEW OF SYSTEMS: A 14-point review of systems is negative except per the HPI. FAMILY HISTORY: Noncontributory. ALLERGIES: NO KNOWN DRUG ALLERGIES. MEDICATIONS: Reviewed by nurse reconciliation sheet. SOCIAL HISTORY: No illicit drug use, smoking, or EtOH abuse at this time. PHYSICAL EXAMINATION: VITAL SIGNS: Temperature of 97.9, pulse rate of 95, blood pressure 161/80, respiratory rate of 20, oxygen saturation 97% via room air. GENERAL: The patient is sitting up in bed, in no acute distress. HEENT: Atraumatic and normocephalic. PERRLA. Extraocular muscles are intact. NECK: Supple. No JVD. No adenopathy noted. LUNGS: Clear to auscultation. No adventitious sounds. HEART: S1 and S2, normal rate and rhythm. No murmurs, rubs, or gallops. ABDOMEN: Soft, nontender and nondistended. Bowel sounds are present. EXTREMITIES: No clubbing. No cyanosis. Peripheral pulses 2+ felt bilaterally. NEUROLOGIC: The patient is alert, oriented to person, place, month, and year. Speech is fluent without any errors. Cranial nerves II through XII intact. Motor exam: Moves all extremities equally. Toes are downgoing bilaterally. Sensory exam: On light touch, pinprick slightly decreased up to the calves bilaterally, decreased vibration of the toes. DTRs are 2+ throughout, 1 at the ankles. Coordination: [id number] intact. Gait is deferred for now. LABORATORY DATA: Sodium 142, potassium 4.3, chloride 100, carbon dioxide 36, BUN of 45, creatinine 1.7, random glucose 90. ASSESSMENT: This is a 57-year-old man. The patient with history of interstitial lung disease, chronic obstructive pulmonary disease, pulmonary hypertension, congestive heart failure, diverticulitis, gastroesophageal reflux disease, who came in to the hospital for near-syncopal symptoms and falls. We found that his falls and near-syncopal symptoms were secondary to underlying CO2 retention from severe chronic obstructive pulmonary disease and underlying chronic congestive heart failure and underlying deconditioned state. He also had component of metabolic encephalopathy initially as well which has resolved, also has component of hypertensive urgency given his elevated systolic and diastolic blood pressures and his MRI of the brain was negative for any acute intracranial abnormalities. At this time, recommend: 1. Continue with physical and occupational therapy for underlying deconditioned state daily. 2. Avoid sedative meds. 3. Keep his systolic blood pressure 130-140. 4. Continue with Cardiology's recommendations and Pulmonary's recommendations as far as his CHF and COPD. 5. Continue with BiPAP for his underlying COPD and continue with thiamine 100 mg p.o. b.i.d. for cognition. At this time, he is clinically stable. Thank you for this consult. Bryan Lam MD
--- NOTE | 2017-03-14 05:17 | CON ---
DATE: 03/13/2017 The patient was seen earlier this morning in room 313. CHIEF COMPLIANT: Weakness times several days. HISTORY OF PRESENT ILLNESS: This is a 57-year-old male with advanced interstitial lung disease on home O2 therapy, advanced sarcoidosis, chronic obstructive lung disease, pulmonary hypertension, who was admitted to the acute care site and was admitted with acute encephalopathy, metabolic encephalopathy, renal failure, hypertensive emergency or urgency, hypertensive encephalopathy and blood cultures negative. Urine cultures were negative. Procal was 0.9. A special consultation of Dr. Leon's note was noted from this morning and now transferred to transitional care. REVIEW OF SYSTEMS: Review of systems of the patient reveals the patient's full pulmonary symptoms improved, much less conjunction and shortness of breath. PAST MEDICAL HISTORY: Significant for COPD, congestive heart failure, chronic renal failure, sarcoidosis, and hypertension. PAST SURGICAL HISTORY: Significant for the patient had a pneumothorax and a chest tube placement. SOCIAL HISTORY: He is an ex-smoker. ALLERGIES: HE HAS NO KNOWN ALLERGIES. MEDICATIONS: Reviewed. PHYSICAL EXAMINATION VITAL SIGNS: The patient's temperature is 98, blood pressure is 150/80, respiratory rate of 20, and heart rate of 95. HEENT: Examination of HEENT is unremarkable. NECK: Supple. LUNGS: Have decreased breath sounds. HEART: Normal S1 and S2. ABDOMEN: Soft and nontender. LABORATORY EXAMINATION: Reveals a white count of 8.4, hemoglobin of 14, and platelets of 110. Blood gases are reviewed, coagulations noted. The patient's renal function reveals a BUN of 45, creatinine of 1.7. The patient did have a procalcitonin of 0.23 and 0.3. Microbiology reveals the blood cultures and urine cultures are negative. Radiology is reviewed. The patient had a chest x-ray from yesterday, which showed bibasilar atelectasis. ASSESSMENT: A 57-year-old male with advanced interstitial lung disease on home O2 therapy, pulmonary hypertension, congestive heart failure, renal insufficiency, hypertensive, and advanced sarcoidosis and with acute encephalopathy, probably toxic metabolic as far which is resolved, renal failure, hypertensive urgency, no signs of meningitis and currently off antibiotics. However, the patient is at risk for developing of nosocomial infections, review of orders reconfirms the patient to be off the antibiotics, the patient is Solu-Medrol. We will follow with you. Case discussed with Dr. Leon and the patient at length. Jakob Angel MD
[2017-03-14] MEDS: [UNRECOGNIZED DRUG - OTHER] PO SCH ×3 (05:57→21:21)
[2017-03-14] MEDS: Enoxaparin 40 mg Syringe SC SCH (05:58)
[2017-03-14] MEDS: Budesonide 0.5 mg/2 ml Inhal Susp UD IH SCH ×2 (07:12→21:52)
[2017-03-14] MEDS: Albuterol-Ipratrop 3 mg / 0.5 (3 ml) UD IH SCH ×3 (07:12→21:52)
--- NOTE | 2017-03-14 07:28 | PN ---
SUBJECTIVE: The patient appears comfortable this morning. He is not short of breath at rest. PHYSICAL EXAMINATION VITAL SIGNS: Temperature 97.9, pulse 88, respiratory rate 18, last blood pressure recorded 170/91. Oxygen saturation on nasal cannula is 97%. HEENT: Normocephalic and atraumatic. NECK: No JVD. CARDIOVASCULAR: Positive S1 and S2. No S3. LUNGS: No rhonchi or wheezing this morning. EXTREMITIES: Positive for mild edema. No cyanosis, no clubbing. Calves are nontender to palpation. GASTROINTESTINAL: Abdomen is soft, nontender, and nondistended. Bowel sounds are positive. SKIN: No acute rash. NEUROLOGIC: Limited at the present time. IMPRESSION: 1. Near syncope. 2. Status post respiratory failure. 3. Advanced interstitial lung disease, on home oxygen. 4. Advanced sarcoidosis. 5. Chronic obstructive pulmonary disease. 6. Mild bronchospasm-resolving. 7. Pulmonary hypertension. PLAN: The patient appears comfortable this morning. He is not short of breath at rest. He does state that he is feeling much better overall. On physical exam, his bronchospasm continues to resolve. Oxygen saturation on nasal cannula is now 97%. I will continue with the current nebulizer treatments and change to oral steroids this morning. The patient is now off antibiotic therapy-as per infectious disease. I did discuss the case with Dr. Angel at length yesterday. There are no temperatures noted. There is no leukocytosis. Input by Dr. Holliday (cardiology) is also noted. Clinical status of the patient is significantly improved. I will discuss the above with Dr. Carrasco. Rajesh Leon MD MTDD
[2017-03-14 08:32] LABS: HEMATOCRIT 49.7 % (42.0-52.0); MEAN CORPUSCULAR HGB CONC 30.6 g/dl (31.0-37.0); MEAN PLATELET VOLUME 10.2 fl (7.0-11.0); RED CELL DISTRIBUTION WIDTH 15.9 % (11.5-14.5); WHITE BLOOD COUNT 7.1 10^3/ul (4.5-11.0)
[2017-03-14 08:41] LABS: ALB/GLOB RATIO 1.2 (1.1-1.8); BILIRUBIN,TOTAL 1.3 mg/dL (0.2-1.3); CALCIUM 9.6 mg/dL (8.4-10.5); POTASSIUM 4.8 mmol/L (3.6-5.0); TOTAL PROTEIN 7.7 g/dL (5.8-8.3)
[2017-03-14] MEDS: Nystatin 100,000 Units/ml Oral Susp 5 ml UD PO SCH ×4 (10:37→21:21)
--- NOTE | 2017-03-14 11:43 | PN ---
SUBJECTIVE: I saw the patient sitting out of bed to chair in the TCU. He has oxygen on, doing better, still not the way he usually is, little bit off, but he is smiling. He was talking to be about going to a wedding tomorrow, which I told that he should not go. I discussed with pulmonary, he agreed that he should not go. He would not take his oxygen with him. I do not want him bouncing back here into the hospital, so I will not discharge him tomorrow. He is to sign out if he is going to do it, he said he is going to stay and I think it is a good thing to do. MEDICATIONS: He is on Apresoline, Catapres, Cozaar, Drisdol, DuoNebs, Lasix, Lovenox, Norvasc, Nystatin, prednisone, Pulmicort, Tylenol, and vitamin B1. PHYSICAL EXAMINATION GENERAL: He is alert, little bit slow. VITAL SIGNS: Temperature 97.9, pulse 102 to pulse 99, blood pressure 172/83, respiratory rate 20, O2 saturation 97% on 4 liters nasal cannula. HEENT: Head is atraumatic and normocephalic. Throat moist. NECK: Supple. HEART: Regular rate. LUNGS: Decreased breath sounds. Poor inspiration, but no wheezes, rhonchi, or rales. EXTREMITIES: +1 edema. LABORATORY DATA: He has a 7.1 white count, 15.2 hemoglobin, 49.7 hematocrit with 121 platelets. Sodium 142, potassium 4.8, BUN 55, creatinine 1.6. GFR is 45. Blood sugar is 117. Calcium is 9.6. Total bili is 1.3. AST is 29, ALT is 31, alkaline phosphatase 86. Total protein 7.7, albumin is 4.1, globulin 3.5. He has been seen pulmonology and infectious disease. He had near syncope, status post respiratory failure, advanced interstitial lung disease, on home oxygen, advanced sarcoidosis, chronic obstructive pulmonary disease and pulmonary hypertension and pulmonary does not want him to leave the hospital either at this time, he still needs more care before he can go. I am continuing with aggressive treatment and care and if he wants to leave tomorrow to sign himself out. James Carrasco DO [facility] # [id number]
--- NOTE | 2017-03-14 12:06 | PN ---
DATE: 03/14/2017 SUBJECTIVE: The patient is in bed, in no acute distress, and nontoxic. PHYSICAL EXAMINATION VITAL SIGNS: Temperature is 98, blood pressure is 170/90, and respiratory rate of 16. HEENT: Unremarkable. NECK: Supple. LUNGS: Decreased breath sounds. HEART: Normal S1 and S2. ABDOMEN: Soft and nontender. LABORATORY DATA: Examination reveals a white count of 7.1, hemoglobin of 15, and platelets of 121. Chemistry reveals BUN of 55 and creatinine of 1.6. ASSESSMENT AND PLAN: This is a 57-year-old male with advanced interstitial lung disease on home O2 therapy, pulmonary hypertension, congestive heart failure, renal insufficiency, hypertensive, advanced sarcoidosis, acute encephalopathy probably toxic metabolic, now resolved renal failure. The patient is currently off of antibiotics, afebrile and risk for developing nosocomial infections. The patient is on p.o. prednisone. Dr. Leon's progress note from today is reviewed. We will follow with you. Jakob Angel MD
[2017-03-15] MEDS: Albuterol-Ipratrop 3 mg / 0.5 (3 ml) UD IH SCH ×4 (03:15→20:25)
[2017-03-15] MEDS: Enoxaparin 40 mg Syringe SC SCH (05:34)
[2017-03-15] MEDS: [UNRECOGNIZED DRUG - OTHER] PO SCH ×3 (05:34→21:46)
[2017-03-15 06:59] LABS: HEMATOCRIT 48.2 % (42.0-52.0); MEAN CELL VOLUME 85.5 fl (80.0-105.0); MEAN CORPUSCULAR HEMOGLOBIN 26.1 pg (25.0-35.0); MEAN CORPUSCULAR HGB CONC 30.5 g/dl (31.0-37.0); MEAN PLATELET VOLUME 10.1 fl (7.0-11.0); WHITE BLOOD COUNT 6.8 10^3/ul (4.5-11.0)
[2017-03-15] MEDS: Budesonide 0.5 mg/2 ml Inhal Susp UD IH SCH ×2 (07:04→20:25)
[2017-03-15 07:50] LABS: ALB/GLOB RATIO 1.1 (1.1-1.8); POTASSIUM 4.6 mmol/L (3.6-5.0); TOTAL PROTEIN 6.8 g/dL (5.8-8.3)
--- NOTE | 2017-03-15 09:41 | PN ---
DATE: 03/15/2017 PULMONARY NOTE SUBJECTIVE: The patient appears comfortable this morning. He is not short of breath at rest. PHYSICAL EXAMINATION VITAL SIGNS: Temperature 98.1, pulse 83, respiration 18/20, blood pressure 149/80. Oxygen saturation on nasal cannula is 96%. HEENT: Normocephalic and atraumatic. NECK: No JVD. CARDIOVASCULAR: Positive S1 and S2. No S3 gallop. LUNGS: Very minimal rhonchi. No wheezing. EXTREMITIES: Positive for mild edema. No cyanosis. No clubbing. Calves are nontender to palpation. GASTROINTESTINAL: Abdomen is soft, nontender, and nondistended. Bowel sounds are positive. SKIN: No acute rash. NEUROLOGIC: Limited at the present time. IMPRESSION: 1. Near syncope. 2. Status post respiratory failure. 3. Advanced interstitial lung disease, on home oxygen. 4. Advanced sarcoidosis. 5. Chronic obstructive pulmonary disease. 6. Mild bronchospasm - resolving. 7. Pulmonary hypertension. PLAN: The patient appears comfortable this morning. He is not short of breath at rest. He is out of bed, sitting in the chair. He states to feeling much better overall. On physical exam, his bronchospasm continues to resolve. Oxygen saturation on nasal cannula is 96%. I will continue with the current nebulizer treatments and oral steroids (changed yesterday) for now. The patient remains off antibiotic therapy. There are no temperatures noted. There is no leukocytosis. Clinical status of the patient is significantly improved. However, again, the future status/prognosis for this patient does remain guarded - as he does continue to have advanced lung disease. I will discuss the above with Dr. Carrasco. Rajesh Leon MD JENN[facility]ER
[2017-03-15] MEDS: Nystatin 100,000 Units/ml Oral Susp 5 ml UD PO SCH ×4 (10:32→21:45)
--- NOTE | 2017-03-15 12:32 | PN ---
DATE: SUBJECTIVE: Adrian is in transitional care unit at this time. He is sitting up at the bed. He ate his breakfast well. At this time, he is comfortable. No chest pain. No shortness of breath. He is still a little bit off mentally. He is usually quicker and funnier, he is just not very yet back to his baseline, but he is getting there. He is on Apresoline, Catapres, Cozaar, Drisdol, DuoNebs, Lasix, Lovenox, Norvasc, nystatin, Prednisone, Pulmicort, Tylenol and vitamin D1. PHYSICAL EXAMINATION: VITAL SIGNS: Vital signs are 98.1 temperature, 83 pulse, 149/80 blood pressure, 20 respiratory rate, 96% on O2 sat on 4 liters nasal cannula. HEENT: His head is atraumatic, normocephalic. Throat is moist. NECK: Supple. HEART: Regular rate. LUNGS: Decreased breath sounds bilaterally, but clear. ABDOMEN: Soft. EXTREMITIES: Trace edema, not swollen. LABORATORY DATA: He has 141 sodium, potassium 4.6, BUN 59, creatinine 1.6, GFR is 45. Sugar is 92. Calcium is 9, total bilirubin 1. AST is 31. ALT is 27. Alkaline phosphatase 67, total protein 6.8, albumin is 3.6, 6.8 white count, 40.7 hemoglobin, 40.2 hematocrit with a 106 platelets. ASSESSMENT AND PLAN: He is being seen by infectious disease and pulmonary. He has multiple issues from congestive heart failure to hypertension to sarcoidosis, chronic obstructive pulmonary disease to renal insufficiency, with high blood sugars, renal failure, metabolic encephalopathy. I still think he needs more care. We will continue him on TCU. Watch him closely. I am glad he did not sign out AMA because of his wedding.. He needs to be on oxygen at this time. Continue aggressive treatment and care with infectious disease and pulmonary, I have read their notes and discussed with them. Continue with treatment and care on Adrian Dinh.. We will check the labs tomorrow. James Carrasco DO
--- NOTE | 2017-03-15 14:31 | PN ---
DATE: 03/15/2017 SUBJECTIVE: The patient is in bed in no acute distress, nontoxic. No fevers and doing well. PHYSICAL EXAMINATION: VITAL SIGNS: Temperature 98, blood pressure 130/70, and respiratory rate 18. HEENT: Unremarkable. NECK: Supple. LUNGS: Decreased breath sounds. HEART: Normal S1 and S2. ABDOMEN: Soft. LABORATORY DATA: Reveals a white count of 6.8, hemoglobin of 14, and platelets of 106. Chemistry reveals the patient has a BUN of 59 and creatinine of 1.6. Microbiology is noted and Dr. Leon's note from this morning is reviewed. ASSESSMENT AND PLAN: This is a 57-year-old with advanced interstitial lung disease home O2 therapy, pulmonary hypertension, congestive heart failure, renal insufficiency, hypertensive, advanced sarcoidosis, acute encephalopathy, and probably toxic metabolic, now resolved renal failure. The patient is currently off of antibiotics, afebrile, comfortable, and risk for developing nosocomial infections. Long-term prognosis is quite poor. Jakob Angel MD
[2017-03-16] MEDS: Albuterol-Ipratrop 3 mg / 0.5 (3 ml) UD IH SCH ×4 (02:22→21:15)
[2017-03-16] MEDS: Enoxaparin 40 mg Syringe SC SCH (06:04)
[2017-03-16] MEDS: [UNRECOGNIZED DRUG - OTHER] PO SCH ×3 (06:05→22:07)
[2017-03-16] MEDS: Budesonide 0.5 mg/2 ml Inhal Susp UD IH SCH ×2 (07:26→21:15)
[2017-03-16 07:36] LABS: HEMATOCRIT 47.4 % (42.0-52.0); MEAN CELL VOLUME 85.1 fl (80.0-105.0); MEAN CORPUSCULAR HGB CONC 30.6 g/dl (31.0-37.0); MEAN PLATELET VOLUME 10.8 fl (7.0-11.0); RED CELL DISTRIBUTION WIDTH 15.9 % (11.5-14.5)
[2017-03-16 08:04] LABS: ALB/GLOB RATIO 1.2 (1.1-1.8); CALCIUM 9.2 mg/dL (8.4-10.5); POTASSIUM 4.6 mmol/L (3.6-5.0); TOTAL PROTEIN 6.5 g/dL (5.8-8.3)
--- NOTE | 2017-03-16 08:13 | CON ---
INITIAL NEPHROLOGY CONSULTATION DATE: 03/13/2017 REASON FOR CONSULTATION: CKD and hypertension management. CHIEF COMPLAINT: "I feel good." HISTORY OF PRESENT ILLNESS: The patient is a 57-year-old male who has a history of hypertension for at least 7-8 years, mostly uncontrolled, history of sarcoidosis, ex-smoker, quit 20 years ago, history of CKD stage III, baseline creatinine of 1.5 to 1.9 heart failure with CHF, history of severe pulmonary hypertension, recently admitted to the hospital with shortness of breath, hypertensive emergency, was diuresed and blood pressure medication adjusted, and also altered mental status with CO2 narcosis. He improved and discharged to rehab. Renal consult has requested for further management. The patient was seen in his room, he feels much better. Denies any nausea or vomiting. He feels in usual health. Denies any fever or chills. REVIEW OF SYSTEMS: Overall, patient feels better, denied any new complaints. NEUROLOGY: Denies any weakness, tingling, numbness, or dizziness. EYES: Denies any watery or itchy eyes. Denies any blurry vision. ENT: Denies any ear pain, sore throat, does report whitish material. Denies any difficulty swallowing. NECK: Denies any swelling. CARDIOVASCULAR: Denies any chest pain or palpitation. RESPIRATORY: Denies any cough or phlegm. Shortness of breath is much better. GI: Denies nausea, vomiting, constipation, diarrhea, change in bowel habit or bleeding. GENITOURINARY: Denies any painful burning urination. Denies any blood in the urine. SKIN: Denies any rash or ulceration. HEMATOLOGIC: Denies any bleeding. Denies any lymph node swelling. PSYCHIATRIC: Denies anxiety, depression, or hallucination. MUSCULOSKELETAL: Denies any joint pain or joint swelling. PHYSICAL EXAMINATION: GENERAL: The patient appears comfortable, not in any acute distress, pleasant, and cooperative. HEENT: Head appears atraumatic and normocephalic. ENT; the patient has oral thrush. Otherwise, no ulceration. Pharynx appears unremarkable. NECK: Supple. No lymphadenopathy. No bruits. CARDIOVASCULAR: S1 and S2 normal. No gallop or rub. RESPIRATORY: Bilateral vesicular breath sound, bibasilar crackles were heard. ABDOMEN: Soft and nontender. No organomegaly could be appreciated. GENITOURINARY: Kidney and bladder not palpable. PSYCHIATRIC: The patient is pleasant and cooperative. Judgment is appropriate. Affect is normal. Insight is present as well. LYMPHATIC: No lymphadenopathy could be appreciated clinically. EXTREMITIES: No edema at this time. at maximum. MUSCULOSKELETAL: No joint tenderness or swelling. SKIN: No rash or ulcerations. Normal elasticity on palpation. VITAL SIGNS: Noted. He has a blood pressure of 177/97, afebrile, pulse 95, respirations 20, and saturation 97%. PAST MEDICAL HISTORY: Notable for hypertension, sarcoidosis, CKD stage III, CHF, and pulmonary hypertension. FAMILY HISTORY: No history of CKD, otherwise noncontributory. ALLERGY: THE PATIENT DOES NOT HAVE ANY ALLERGIES. SOCIAL HISTORY: Denies any smoking, alcohol or drug abuse. He is an ex-smoker. PAST SURGICAL HISTORY: Include chest tube placement. CURRENT MEDICATIONS: Reviewed, which shows the patient is on Tylenol, amlodipine 5 mg per day, Pulmicort, clonidine 0.3 mg q.8 hours, vitamin D weekly, Lasix 40 mg twice daily, hydralazine 25 mg as needed and 50 mg q.8 hours, losartan 100 mg daily, Solu-Medrol 20 mg q.12 hours and thiamine 100 mg b.i.d. LABORATORY DATA: His hemoglobin is 14.9 and platelet count is 110. Sodium is 142, potassium 4.3, bicarb 36, creatinine 1.7, MDRD GFR of 51, calcium 9.2, and vitamin D less than 12.8. PTH level is 314. Renin-aldosterone level was checked. Renin was 4.2 and aldosterone was 9. Metanephrine level was still pending. UA had shown 100 protein dipstick and 1.4 g on quantification. His hepatitis B and C has been negative. Renal arterial Doppler has been negative. ASSESSMENT AND PLAN: 1. Uncontrolled severe hypertension likely appeared to be essential hypertension. 2. Chronic kidney disease stage III likely related to hypertension with stable. 3. Recent congestive heart failure exacerbation. 4. Severe pulmonary hypertension. 5. History of sarcoidosis. 6. Ex-smoker. 7. Vitamin D deficiency with secondary hyperparathyroidism. 8. Renal function remains stable with stable glomerular filtration rate. Blood pressure under better control, though still high when I increase his hydralazine. He is on max dose of losartan, may add Imdur as a next agent which may also help with his congestive heart failure as well. His secondary hypertension workup has been negative except metanephrine level. Continue vitamin D supplementation. Continue with diuresis. Then, we will add nystatin for his oral thrush. We will continue to follow. All questions were answered. Discussed with primary team as well. Saqib Lyn MD
--- NOTE | 2017-03-16 08:30 | PN ---
PULMONARY NOTE DATE: 03/16/2017 SUBJECTIVE: The patient appears comfortable this morning. He is not short of breath at rest. PHYSICAL EXAMINATION VITAL SIGNS: Temperature 98.1, pulse is 77, respirations 18, blood pressure 139/80. Oxygen saturation on nasal cannula is 96%. HEENT: Normocephalic, atraumatic. NECK: No JVD. CARDIOVASCULAR: S1 and S2. No S3. LUNGS: Very minimal rhonchi. No wheezing. EXTREMITIES: Less edema. No cyanosis. No clubbing. Calves are nontender to palpation. GI: Abdomen is soft, nontender, nondistended. Bowel sounds are positive. SKIN: No acute rash. NEUROLOGIC: Limited at the present time. ASSESSMENT: 1. Near syncope. 2. Status post respiratory failure. 3. Advanced interstitial lung disease, on home oxygen. 4. Advanced sarcoidosis. 5. Chronic obstructive pulmonary disease. 6. Mild bronchospasm - resolving. 7. Pulmonary hypertension. PLAN: The patient appears very comfortable this morning. He is not short of breath at rest. He states he is feeling much much better overall. On physical exam, his bronchospasm continues to slowly resolve. In addition, the oxygen saturation on nasal cannula is now 98%. I will continue with the current nebulizer treatments and decrease the oral steroids this morning. The patient remains off antibiotic therapy. There are no temperatures noted. There is no leukocytosis. Clinical status of the patient is significantly improved. However, again, the future status/prognosis of this patient does remain guarded - as he continues to have advanced lung disease. All are aware. I will discuss the above with Dr. Carrasco. Rajesh Leon MD MTDJessica
--- NOTE | 2017-03-16 10:05 | PN ---
SUBJECTIVE: I saw the patient sitting up, taking breathing treatment in transitional care unit. He tells me he felt fairly well. No acute problems. He is walking some with a walker and the physical therapist. No shortness of breath or chest pain at this time. PHYSICAL EXAMINATION VITAL SIGNS: He has a 98.1 temperature, 77 pulse, 139/80 blood pressure, 18 respiratory rate, 96% O2 saturation on 3 liters nasal cannula. HEENT: The head is atraumatic, normocephalic. Throat moist. NECK: Supple. HEART: Regular rate. LUNGS: Decreased breath sounds, but clear. Poor inspiration. No wheezes, no rhonchi, no rales. ABDOMEN: Soft, nontender. Positive bowel sounds. EXTREMITIES: Have trace edema. LABORATORY DATA: He has a 6 white count, 14.5 hemoglobin, 47.4 hematocrit with a 105 platelets. Sodium 142, potassium 4.6, BUN is 68, creatinine 1.7, GFR is 51, sugar is 93, calcium is 9.2. Total bilirubin is 1, AST is 20, ALT is 24, alkaline phosphatase 53, total protein 6.5, albumin is 3.5. MEDICATIONS: He is on Apresoline; Catapres; Cozaar; Drisdol; DuoNebs; Lasix; Lovenox; Norvasc; prednisone is down to 20 mg, I discussed that with pulmonary; Pulmicort; Tylenol and vitamins. We will continue with physical therapy. He is being seen by infectious disease and pulmonology and renal and cardio. Continue aggressive treatment and care. We will check with labs tomorrow. Answered many questions from the patient today about discharge plans, medicines, and oxygen. James Carrasco DO
[2017-03-16] MEDS: Nystatin 100,000 Units/ml Oral Susp 5 ml UD PO SCH ×4 (10:38→22:05)
--- NOTE | 2017-03-16 18:02 | PN ---
DATE: 03/16/2017 CARDIOLOGY FOLLOWUP SUBJECTIVE: The patient's breathing is improved. No chest pain noted. PHYSICAL EXAMINATION: VITAL SIGNS: Blood pressure is 140/78, heart rate in the 80s. NECK: Negative JVD. LUNGS: Without rales. HEART S1, S2. EXTREMITIES: Without edema. LABORATORY DATA: Hemoglobin is 14.5. Chemistries, BUN and creatinine 68 and 1.7. IMPRESSION 1. Sarcoidosis. 2. Severe chronic obstructive pulmonary disease. 3. Dilated cardiomyopathy. 4. CAD. 5. Renal insufficiency. 6. Hypertension. PLAN: Given these findings, the patient's respiratory status improved is much improved. The patient will need to keep his appointment at [facility] this week for evaluation for lung transplantation. Andrew Holliday MD
[2017-03-17] MEDS: Albuterol-Ipratrop 3 mg / 0.5 (3 ml) UD IH SCH ×4 (02:38→20:10)
[2017-03-17] MEDS: Budesonide 0.5 mg/2 ml Inhal Susp UD IH SCH ×2 (07:17→20:10)
--- NOTE | 2017-03-17 08:08 | PN ---
DATE: 03/17/2017 SUBJECTIVE: The patient appears comfortable this morning. He is not short of breath at rest. PHYSICAL EXAMINATION: VITAL SIGNS: Temperature 98.2, pulse 88, respirations 18, blood pressure 141/74. Oxygen saturation on nasal cannula is 96%. HEENT: Normocephalic, atraumatic. NECK: No JVD. CARDIOVASCULAR: Positive S1 and S2. No S3. LUNGS: Very minimal rhonchi. No wheezing. EXTREMITIES: Less edema. No cyanosis. No clubbing. Calves are nontender to palpation. GI: Abdomen is soft, nontender, nondistended. Bowel sounds are positive. SKIN: No acute rash. NEUROLOGIC: Limited at the present time. IMPRESSION: 1. Near syncope. 2. Status post respiratory failure. 3. Advanced interstitial lung disease, on home oxygen. 4. Advanced sarcoidosis. 5. Chronic obstructive pulmonary disease. 6. Mild bronchospasm-resolving. 7. Pulmonary hypertension. PLAN: The patient appears comfortable this morning. He is not short of breath at rest. He does state to feeling much better overall. On physical exam, only minimal bronchospasm remains. In addition, the oxygen saturation on nasal cannula is now 96%. I will continue with the current nebulizer treatments and low-dose oral steroids (decreased yesterday) for now. The patient remains off antibiotic therapy. There are no temperatures noted. There is no leukocytosis. Clinical status of the patient is significantly improved-compared to the initial presentation. I did discuss the patient's overall status with him at length again this morning. Fortunately, he does have an appointment at [facility] on -for transplant evaluation. I will discuss the above with Dr. Carrasco. Rajesh Leon MD [facility]
--- NOTE | 2017-03-17 08:35 | PN ---
DATE: 03/16/2017 CHIEF COMPLAINT: "I feel good." HISTORY OF PRESENT ILLNESS: The patient feels well. No noted events overnight. He denies nausea, vomiting, chest pain or palpitation. Shortness of breath is better. Denies any leg swelling at this time. Making urine. He says he went to the physical therapy. He is doing much better. PHYSICAL EXAMINATION VITAL SIGNS: Afebrile, pulse 82, and blood pressure 140/78. LUNGS: Bilateral vesicular sounds with few basal crackles. CARDIOVASCULAR: S1 and S2 normal. No rub or gallop. ABDOMEN: Soft and nontender. No organomegaly could be appreciated. No guarding or rigidity. EXTREMITIES: 1+ edema was still noted mostly around the ankles, but has improved significantly since presentation. PSYCHIATRIC: The patient is pleasant and cooperative. Judgement is appropriate. Affect is normal. Insight is present. LABORATORY DATA: Workup showed hemoglobin of 14.5 and platelet count is 105. Sodium is 142, potassium 4.6, bicarbonate 35, creatinine 1.7 stable, and glucose is 93. His calcium is 9.2. His secondary hypertension workup has been negative including negative metanephrines. His outputs are not ordered. CURRENT MEDICATIONS: Reviewed. The patient is on Tylenol, nebulization, amlodipine 5 mg, Pulmicort, clonidine 0.3 mg q.8 hours, Lovenox, weekly vitamin D, Lasix IV 40 twice daily, hydralazine p.r.n. 100 mg q.8 hours, losartan 100 mg per day, 5 mL four times a day, prednisone 20 mg per day and thiamine b.i.d. ASSESSMENT: 1. Chronic kidney disease due to hypertension and chronic kidney disease, stage III, stable. 2. Uncontrolled hypertension, much better now. 3. Recent congestive heart failure exacerbation with biventricular failure. 4. Severe pulmonary hypertension. 5. Sarcoidosis. 6. Ex-smoker. 7. Vitamin D deficiency with secondary hyperparathyroidism. 8. Secondary hypertension, workup negative. RECOMMENDATIONS: The patient's renal function remains stable. Stable GFR. Blood pressure much better controlled. Continue with the max dose of losartan and also hydralazine and continue vitamin D supplementation. Continue the Lasix, may switch to Lasix p.o. 80 mg twice daily. otherwise remained stable. Discussed with the at bedside. All questions were answered. Saqib Lyn MD
[2017-03-17] MEDS: Nystatin 100,000 Units/ml Oral Susp 5 ml UD PO SCH ×4 (10:34→21:52)
--- NOTE | 2017-03-17 10:41 | PN ---
DATE: SUBJECTIVE: The patient is in transitional care unit. He is resting in bed comfortably. He is feeling better, doing better, breathing better, ambulating better, and the plan for discharge him tomorrow. MEDICATIONS: He is on Apresoline, Catapres, Cozaar, Drisdol, DuoNeb, Lasix, Lovenox, Norvasc, nystatin, Prednisone, Pulmicort, Tylenol and vitamin D1. PHYSICAL EXAMINATION: VITAL SIGNS: Vital signs are 98.2 temperature, 93 pulse, 141/74 blood pressure, 18 respiratory rate, and 96% on O2 saturation on 4 liters nasal cannula. HEENT: His head is atraumatic and normocephalic. Throat is moist. NECK: Supple. HEART: Regular rate. LUNGS: Decreased breath sounds bilaterally, but no wheezes or rhonchi and no rales. ABDOMEN: Soft and nontender. Positive bowel sounds. EXTREMITIES: Trace to +1 pitting edema bilateral lower extremity. LABORATORY DATA: He had a 6 white count, 14.5 hemoglobin, 47.4 hematocrit, and 105 platelets. Sodium of 142, potassium of 4.6, BUN of 68, creatinine of 1.7, and GFR is 42. Sugar is 93, calcium is 9.2, and total bilirubin is 1. AST is 28, ALT is 24, alkaline phosphatase is 63, and total protein is 6.5. ASSESSMENT AND PLAN: Continue aggressive treatment and care. He is being seen by Pulmonary, Cardiology, Infectious Disease, Neurology in multiple problems, sarcoidosis, severe chronic obstructive pulmonary disease, dilated cardiomyopathy, coronary artery disease, renal insufficiency, and hypertension. He has an appointment we will discharge him tomorrow morning, doing evaluation for lung transplant. James Carrasco DO [facility]
[2017-03-17] MEDS ORDERED: Ergocalciferol 50,000 Intl Units Cap PO SCH (13:00)
[2017-03-17] MEDS: [UNRECOGNIZED DRUG - OTHER] PO SCH ×2 (13:42→21:51)
--- NOTE | 2017-03-17 15:10 | PN ---
DATE: FOLLOWUP NEPHROLOGY PROGRESS NOTE CHIEF COMPLAINT: "I feel good." HISTORY OF PRESENT ILLNESS AND REVIEW OF SYSTEMS : Noted overnight event. The patient remains stable. Denies any complaint. No chest pain, palpitation. Shortness of breath is better. Leg swelling is still the same though. Denies any nausea, vomiting, or any other complaint. PHYSICAL EXAMINATION: GENERAL: Exam is essentially to be stable. VITAL SIGNS: Afebrile, pulse is 90, blood pressure 140/84. LUNGS: Bilateral vesicular sounds with occasional basilar crackle. CARDIOVASCULAR: S1 and S2 normal. No rub or gallop. ABDOMEN: Soft, nontender. No organomegaly. EXTREMITY: Trace ankle edema noted. PSYCHIATRIC: The patient is pleasant, cooperative. Judgement is appropriate. Affect is normal. Insight is present. NEUROLOGIC: The patient is A and O x3. No focal deficits. LABORATORY DATA: No new labs today. Yesterday shows hemoglobin is 14.5, platelet count is 105. Potassium is 4.6, creatinine is 1.7, stable GFR around 50. CURRENT MEDICATIONS: Reviewed; no change since yesterday. ASSESSMENT: 1. Overall condition is stable, chronic kidney disease stage III due to hypertension. 2. Hypertension, much better controlled. Secondary hypertension workup is negative. 3. Recent congestive heart failure exacerbation with history of IV failure. 4. sarcoidosis, ex-smoker, vitamin D deficiency, secondary to hyperparathyroidism. RECOMMENDATIONS: Renal function remains stable; blood pressure under good control. Continue the current medication. Continue the max dose of losartan, also on hydralazine, also on vitamin D supplementation. The patient is on IV Lasix, may change to Lasix p.o. 80 mg b.i.d. discharge. All questions were answered. Saqib Lyn MD <
[2017-03-17 15:28] VITALS: O2SAT 97
[2017-03-17 17:50] VITALS: PULSE 89; RESP 14; TEMP 98
[2017-03-18] MEDS: Albuterol-Ipratrop 3 mg / 0.5 (3 ml) UD IH SCH ×2 (01:36→07:18)
[2017-03-18] MEDS: [UNRECOGNIZED DRUG - OTHER] PO SCH (05:35)
[2017-03-18] MEDS: Enoxaparin 40 mg Syringe SC SCH ×2 (05:36→05:41)
[2017-03-18 06:55] VITALS: BP 125/75
[2017-03-18] MEDS: Budesonide 0.5 mg/2 ml Inhal Susp UD IH SCH (07:18)
--- NOTE | 2017-03-18 08:52 | PN ---
PULMONARY NOTE DATE: 03/18/2017 SUBJECTIVE: The patient appears very comfortable this morning. He is not short of breath at rest. PHYSICAL EXAMINATION VITAL SIGNS: Temperature is 98.0, pulse 88, respirations 18, blood pressure is 125/75. Oxygen saturation on nasal cannula is 96%. HEENT: Normocephalic and atraumatic. NECK: No JVD. CARDIOVASCULAR: Positive S1 and S2. No S3 gallop. LUNGS: Clear bilaterally. EXTREMITIES: Less edema. No cyanosis. No clubbing. Calves are nontender to palpation. GASTROINTESTINAL: Abdomen is soft, nontender, and nondistended. Bowel sounds are positive. SKIN: No acute rash. NEUROLOGIC: Limited at the present time. IMPRESSION: 1. Near syncope. 2. Status post respiratory failure. 3. Advanced interstitial lung disease, on home oxygen. 4. Advanced sarcoidosis. 5. Chronic obstructive pulmonary disease. 6. Mild bronchospasm-resolved. 7. Pulmonary hypertension. PLAN: The patient appears very comfortable this morning. He is not short of breath at rest. He states he is feeling much better overall. On physical exam, his lungs are now clear. Oxygen saturation on nasal cannula is 96%. I will continue with the current nebulizer treatments and low-dose oral steroids for now. The patient remains off antibiotic therapy. There are no temperatures noted. There is no leukocytosis. Clinical status of the patient is significantly improved overall. However, again, his future status/prognosis remains very guarded - as he does have advanced lung disease. Fortunately, he has an appointment at [facility] tomorrow for a transplant evaluation. He will certainly get back to my group and let us known how things went. He is for discharge in the near future. I will discuss the above with Dr. Carrasco. Rajesh Leon MD MTDJessica
--- NOTE | 2017-03-18 13:56 | DS ---
HISTORY OF PRESENT ILLNESS: Mr. Campbell is resting comfortably in bed. He is being discharged today from nutritional care unit. He is doing well. He is breathing well. Not much swelling in the legs. Overall, he is improved. MEDICATIONS: He is on Apresoline, Catapres, Cozaar, Drisdol, Duoneb, Lasix, Norvasc, nystatin, prednisone at 20, Pulmicort, Tylenol, and thiamine. PHYSICAL EXAMINATION: VITAL SIGNS: 98 temperature, 89 pulse, 125/72 blood pressure, 14 respiratory rate. HEENT: Head is atraumatic, normocephalic. HEART: Regular rate. LUNGS: Decreased breath sounds, but clear to auscultation. No wheezes, no rhonchi, no rhonchi. ABDOMEN: Soft, obese, nontender. EXTREMITIES: Trace edema. LABORATORY DATA: White count was 6, hemoglobin 14.5, platelets 105. He has 142 sodium, potassium 4.6, BUN 68, and creatinine 1.7. Sugars 93. Total bilirubin is 1, AST is 20, ALT is 24, alkaline phosphatase 63. ASSESSMENT AND PLAN: He is being seen by renal, pulmonary, and cardiology. He will be discharged today. He will following up this afternoon for pulmonary lung transplant. He is here for congestive heart failure, sarcoidosis, chronic obstructive pulmonary disease, hypertension, renal insufficiency, high blood sugars, renal failure, metabolic encephalopathy, and hopefully he will do very well. He will see me in the office in a week. James Carrasco DO <
== END 2017-03-18 10:22 | disposition home or self-care (01) | DRG 291 ==
LOC: TRCU 20:52
PROVIDERS: ADMIT Family Medicine; ATTEND Family Medicine
PROC: F07Z9ZZ Gait Training/Functional Ambulation Treatment (ICD-10-PCS; principal; 2017-03-13)
PROC: F07M6ZZ Therapeutic Exercise Treatment of Musculoskeletal System - Whole Body (ICD-10-PCS; 2017-03-13)
PROC: F08Z1ZZ Dressing Techniques Treatment (ICD-10-PCS; 2017-03-14)
PROC: F08Z2ZZ Grooming/Personal Hygiene Treatment (ICD-10-PCS; 2017-03-14)
DX: I13.0 Hypertensive heart and chronic kidney disease with heart failure and stage 1 through stage 4 chronic kidney disease, or unspecified chronic kidney disease (principal); G93.41 Metabolic encephalopathy; E87.2 Acidosis; J84.9 Interstitial pulmonary disease, unspecified; I67.4 Hypertensive encephalopathy; B37.0 Candidal stomatitis; N25.81 Secondary hyperparathyroidism of renal origin; I27.2 Other secondary pulmonary hypertension; I42.0 Dilated cardiomyopathy; N18.3 Chronic kidney disease, stage 3 (moderate); I25.10 Atherosclerotic heart disease of native coronary artery without angina pectoris; I50.9 Heart failure, unspecified; D86.9 Sarcoidosis, unspecified; E55.9 Vitamin D deficiency, unspecified; I16.0 Hypertensive urgency; J44.9 Chronic obstructive pulmonary disease, unspecified; J98.01 Acute bronchospasm; K21.9 Gastro-esophageal reflux disease without esophagitis; Z82.49 Family history of ischemic heart disease and other diseases of the circulatory system; Z87.891 Personal history of nicotine dependence; Z99.81 Dependence on supplemental oxygen; R40.2413 Glasgow coma scale score 13-15, at hospital admission; Z91.81 History of falling; R53.81 Other malaise; R55 Syncope and collapse

== ENCOUNTER 2017-03-20 22:44 | Inpatient (IN) | payer MEDICARE, OTHER ==
[2017-03-20 22:58] VITALS: BMI 29.4
--- NOTE | 2017-03-20 23:17 | ED PDOC ---
Arrival/HPI - General Chief Complaint: Shortness Of Breath Time Seen by Provider: 03/20/17 22:46 Historian: Patient - History of Present Illness Narrative History of Present Illness (Text): 03/20/17 23:14 57 year old male, whose past medical history includes CHF, pneuothoras, COPD, and pulmonary hypertension, who presents to the Emergency department complaining of shortness of breath associated with dizziness today. Patient reports he left yesterday after being admitted for two weeks and felt no distress when discharged, but then began feeling his past symptoms again today. He reports to be on oxygen 3mL at home and followed up yesterday for a lung transplant consult and was told his heart was not strong enough. Patient also reports being on blood thinners. Patient denies any fever, chills, chest pain, nausea, vomiting, diarrhea, urinary symptoms, back pain, neck pain, headache, or any other complaints. PMD: Dr. Carrasco Time/Duration: Other (today) Symptom Onset: Gradual Symptom Course: Unchanged Activities at Onset: Light Context: Home Past Medical History - Provider Review Nursing Documentation Reviewed: Yes - Infectious Disease Hx of Infectious Diseases: None - Tetanus Immunization Tetanus Immunization: Unknown - Cardiac Hx Congestive Heart Failure: Yes Hx Hypertension: Yes - Pulmonary Hx Chronic Obstructive Pulmonary Disease (COPD): Yes - Neurological Hx Neurological Disorder: No - HEENT Hx HEENT Disorder: Yes (L EYE BLURRY) - Renal Hx Renal Disorder: No - Endocrine/Metabolic Hx Endocrine Disorders: No - Hematological/Oncological Hx Blood Disorders: No - Integumentary Hx Dermatological Disorder: No - Musculoskeletal/Rheumatological Hx Musculoskeletal Disorders: No Hx Falls: Yes - Gastrointestinal Hx Gastrointestinal Disorders: Yes Hx Diverticulitis: Yes Hx Gastroesophageal Reflux: Yes - Genitourinary/Gynecological Hx Genitourinary Disorders: Yes Hx Prostate Problems: Yes - Psychiatric Hx Psychophysiologic Disorder: No Hx Substance Use: No - Past Surgical History Past Surgical History: No Previous - Surgical History Other/Comment: pneumothorax, chest tube-L LUNG,LACERATION TO 3RD FINGER OF RIGHT HAND -STITCHED. - Anesthesia Hx Anesthesia: No Hx Anesthesia Reactions: No Hx Malignant Hyperthermia: No - Suicidal Assessment Feels Threatened In Home Enviroment: No Family/Social History - Physician Review Nursing Documentation Reviewed: Yes Family/Social History: No Known Family HX Smoking Status: Former Smoker Hx Alcohol Use: No Hx Substance Use: No Hx Substance Use Treatment: No Allergies/Home Meds Allergies/Adverse Reactions: Allergies No Known Allergies Allergy (Verified 03/17/17 08:32) Home Medications: Home Meds Medication Instructions Recorded Confirmed Beclomethasone Dipropionate [Qvar 8.7 gm IH DAILY 02/12/17 03/21/17 80 mcg] Tiotropium Br/Olodaterol HCl 4 gm IH DAILY 02/12/17 03/21/17 [Stiolto Respimat Inhal [place]] Treprostinil Diolamine [Orenitram] 0.125 mg PO DAILY 02/12/17 03/21/17 Review of Systems - Physician Review All systems were reviewed & negative as marked: Yes - Review of Systems Constitutional: absent: Fevers Respiratory: SOB Cardiovascular: absent: Chest Pain Gastrointestinal: absent: Abdominal Pain, Diarrhea, Nausea, Vomiting Genitourinary Male: absent: Dysuria, Frequency, Hematuria Musculoskeletal: absent: Back Pain, Neck Pain Neurological: Dizziness (lightheaded ). absent: Headache Physical Exam Vital Signs Reviewed: Yes Vital Signs Temp Pulse Resp BP Pulse Ox 03/21/17 01:39 33 H 03/21/17 01:38 106 H 16 167/106 H 95 03/20/17 23:35 185/106 H 03/20/17 23:10 34 H 03/20/17 23:07 98.9 F 112 H 20 185/105 H 84 L 03/20/17 22:54 32 H 95 Temperature: Afebrile Blood Pressure: Hypertensive Pulse: Tachycardic Respiratory Rate: Normal Appearance: Positive for: Well-Appearing, Non-Toxic, Comfortable Pain Distress: None Mental Status: Positive for: Alert and Oriented X 3 - Systems Exam Head: Present: Atraumatic, Normocephalic Pupils: Present: PERRL Extroacular Muscles: Present: EOMI Mouth: Present: Moist Mucous Membranes Neck: Present: Normal Range of Motion Respiratory/Chest: Present: Good Air Exchange, Rales (diminished rales). No: Respiratory Distress, Accessory Muscle Use Cardiovascular: Present: Murmurs (Systolic and diastolic murmurs), Normal S1, S2 Abdomen: Present: Normal Bowel Sounds. No: Tenderness, Distention, Peritoneal Signs Upper Extremity: Present: Normal Inspection. No: Cyanosis, Edema Lower Extremity: Present: Normal Inspection, Edema Neurological: Present: GCS=15, CN II-XII Intact, Speech Normal Skin: Present: Warm, Dry, Normal Color. No: Rashes Psychiatric: Present: Alert, Oriented x 3, Normal Insight, Normal Concentration Medical Decision Making ED Course and Treatment: 03/20/17 23:14 Impression: 57 year old male presents complaining of shortness of breath and dizziness that began today. Plan: -- ABG -- EKG -- Labs -- Chest X-ray -- Lasix -- Urine Culture -- Urinalysis -- Reassess and disposition Prior Visits: Notes and results from previous visits were reviewed. On 03/08/17 patient came in complaining of dizziness. Patient was admitted. Progress Notes: 03/20/17 23:36 EKG shows Sinus Tachycardia at 114 BPM with wide axis and RBBB. Interpreted by me. CXR Impression: As read by me, cardiomegaly, CHF patterns. 03/21/17 00:[address] Ye who is aware and agrees with the plan. Accepts patient into service. Patient will go to Telemetry Observation for CHF. - Lab Interpretations Lab Results: 03/20/17 23:29 03/20/17 23:29 Lab Results 03/20/17 23:45: pCO2 58 H, pO2 53.0 L, HCO3 35.9 H, ABG pH 7.40, ABG Total CO2 37.7 H, ABG O2 Saturation 90.5 L, ABG O2 Content 17.9, ABG Base Excess 8.8 H, ABG Hemoglobin 14.7, ABG Carboxyhemoglobin 3.1 H, POC ABG HHb (Measured) 9.1 H, ABG Methemoglobin 0.8, ABG O2 Capacity 19.8, Hgb O2 Saturation 86.9 L, FiO2 36.0 03/20/17 23:29: Ammonia 17 03/20/17 23:29: Sodium 143, Potassium 4.6, Chloride 97 L, Carbon Dioxide 35 H, Anion Gap 16, BUN 41 H, Creatinine 1.6 H, Est GFR ( Amer) 55, Est GFR ( Non-Af Amer) 45, Random Glucose 123 H, Calcium 9.2, Magnesium 2.0, Total Bilirubin 1.2, AST 41, ALT 24, Alkaline Phosphatase 88, Lactate Dehydrogenase 840 H, Total Creatine Kinase 42, Troponin I 0.10 D, NT-Pro-B Natriuret Pep 2000 H, Total Protein 8.1, Albumin 4.3, Globulin 3.8, Albumin/Globulin Ratio 1.1 03/20/17 23:29: WBC 7.5 D, RBC 5.91, Hgb 15.7, Hct 50.3, MCV 85.1, MCH 26.6, MCHC 31.2, RDW 15.2 H, Plt Count 93 L, MPV 10.7, Gran % 82.9 H, Lymph % (Auto) 9.4 L, George % (Auto) 6.4 H, Eos % (Auto) 1.2 L, Baso % (Auto) 0.1, Gran # 6.18, Lymph # 0.7 L, George # 0.5, Eos # 0.1, Baso # 0.01 I have reviewed the lab results: Yes - RAD Interpretation Radiology Orders: 03/20/17 22:55 CHEST PORTABLE [RAD] Stat - EKG Interpretation Interpreted by ED Physician: Yes Type: 12 lead EKG - Medication Orders Current Medication Orders: Discontinued Medications Acetaminophen (Tylenol 325mg Tab) 650 mg PO STAT STA Stop: 03/21/17 03:33 Last Admin: 03/21/17 03:47 Dose: 650 mg MAR Pain/Vitals Document 03/21/17 03:47 SRE (Rec: 03/21/17 03:48 SRE [id number]) Pain Reassessment Is This A Pain ReAssessment? No Sleep Is patient sleeping during reassessment? No Presence of Pain Presence of Pain Yes Pain Scale Used Pain Scale Used Numeric Location Pain Location Body Site Neck Description Acute Intensity 6 Albuterol/Ipratropium (Duoneb 3 Mg/0.5 Mg (3 Ml) Ud) 3 ml IH STAT STA Stop: 03/21/17 01:19 Last Admin: 03/21/17 01:51 Dose: 3 ml Albuterol/Ipratropium (Duoneb 3 Mg/0.5 Mg (3 Ml) Ud) Confirm Administered Dose 3 ml .ROUTE .STK-MED ONE Stop: 03/21/17 01:21 Last Admin: 03/21/17 01:21 Dose: 3 ml Furosemide (Lasix) 40 mg IVP STAT STA Stop: 03/20/17 23:15 Last Admin: 03/20/17 23:35 Dose: 40 mg MAR Blood Pressure Document 03/20/17 23:35 RD (Rec: 03/20/17 23:35 RD [id number]) Blood Pressure Blood Pressure (100/60-150/90) 185/106 IVP Administration Document 03/20/17 23:35 RD (Rec: 03/20/17 23:35 RD [id number]) Charges for Administration # of IVP Administrations 1 Furosemide (Lasix) 40 mg IVP STAT STA Stop: 03/21/17 02:22 Last Admin: 03/21/17 02:31 Dose: 40 mg MAR Blood Pressure Document 03/21/17 02:31 SRE (Rec: 03/21/17 02:32 SRE [id number]) Blood Pressure Blood Pressure (100/60-150/90) 170/98 IVP Administration Document 03/21/17 02:31 SRE (Rec: 03/21/17 02:32 SRE [id number]) Charges for Administration # of IVP Administrations 1 - Scribe Statement The provider has reviewed the documentation as recorded by the Scribmaribeth Deshpande All medical record entries made by the Jefferyibmaribeth were at my direction and personally dictated by me. I have reviewed the chart and agree that the record accurately reflects my personal performance of the history, physical exam, medical decision making, and the department course for this patient. I have also personally directed, reviewed, and agree with the discharge instructions and disposition. Disposition/Present on Arrival - Present on Arrival Any Indicators Present on Arrival: No History of DVT/PE: No History of Uncontrolled Diabetes: No Urinary Catheter: No History of Decub. Ulcer: No History Surgical Site Infection Following: None - Disposition Have Diagnosis and Disposition been Completed?: Yes Diagnosis: Shortness of breath, CHF exacerbation Disposition: HOSPITALIZED Disposition Time: 00:30 Patient Plan: Admission Condition: FAIR
[2017-03-20 23:34] LABS: BASO # 0.01 K/mm3 (0.0-2.0); BASO % 0.1 % (0.0-3.0); EOS # 0.1 (0.0-0.7); EOS % 1.2 % (1.5-5.0); GRAN # 6.18 (1.4-6.5); GRAN % 82.9 % (50.0-68.0); HEMATOCRIT 50.3 % (42.0-52.0); LYMPH # 0.7 (1.2-3.4); LYMPH % 9.4 % (22.0-35.0); MEAN CELL VOLUME 85.1 fl (80.0-105.0); MEAN CORPUSCULAR HEMOGLOBIN 26.6 pg (25.0-35.0); MEAN CORPUSCULAR HGB CONC 31.2 g/dl (31.0-37.0); MEAN PLATELET VOLUME 10.7 fl (7.0-11.0); MONO # 0.5 (0.1-0.6); MONO % 6.4 % (1.0-6.0); RED CELL DISTRIBUTION WIDTH 15.2 % (11.5-14.5); WHITE BLOOD COUNT 7.5 10^3/ul (4.5-11.0)
[2017-03-20 23:43] LABS: ALB/GLOB RATIO 1.1 (1.1-1.8); BILIRUBIN,TOTAL 1.2 mg/dL (0.2-1.3); CALCIUM 9.2 mg/dL (8.4-10.5); POTASSIUM 4.6 mmol/L (3.6-5.0); TOTAL PROTEIN 8.1 g/dL (5.8-8.3)
[2017-03-20 23:55] LABS: TROPONIN I 0.1 ng/mL
[2017-03-21] LABS: ARTERIAL BLOOD GAS HCO3 35.9 mmol/L (21-28); ARTERIAL BLOOD GAS O2 CAPACITY 19.8 mL/dl (16-24); ARTERIAL BLOOD GAS O2 CONTENT 17.9 ML/dl (15-23); ARTERIAL BLOOD HGB O2 SAT 86.9 % (95.0-98.0); CARBOXYHEMOGLOBIN 3.1 % (0.5-1.5); HHB 9.1 % (0-5); METHEMOGLOBIN 0.8 % (0.0-3.0)
[2017-03-21] MEDS ORDERED: Albuterol-Ipratrop 3 mg / 0.5 (3 ml) UD IH STA (01:18)
[2017-03-21] MEDS ORDERED: Albuterol-Ipratrop 3 mg / 0.5 (3 ml) UD ONE (01:20)
[2017-03-21 01:26] LABS: PH,URINE 6.5 (4.7-8.0); URINE BILIRUBIN NEGATIVE (NEGATIVE); URINE BLOOD TRACE-LYSED (NEGATIVE); URINE GLUCOSE (UA) NEGATIVE (NEGATIVE); URINE KETONE NEGATIVE (NEGATIVE); URINE LEUKOCYTE ESTERASE NEGATIVE Leu/uL (NEGATIVE); URINE PROTEIN 30 mg/dL (<30 mg/dL)
[2017-03-21 01:30] LABS: URINE COLOR YELLOW (YELLOW)
[2017-03-21 01:31] LABS: URINE APPEARANCE SLIGHT-CLOUDY (CLEAR)
[2017-03-21 01:39] LABS: URINE EPITHELIAL CELLS 0 - 2 /hpf (0-5); URINE RBC 0 - 2 /hpf (0-2); URINE WBC 0 - 2 /hpf (0-6)
--- NOTE | 2017-03-21 03:28 | CP.PCM.PN ---
Subjective - Date & Time of Evaluation Date of Evaluation: 03/21/17 Time of Evaluation: 03:27 - Subjective Subjective: Patient was seen at bedside. His blood pressure was 170/98. Later on, he complained of neck pain. States that he has neck pain from watching TV . Denies history of recent trauma. Denies headache, dizziness, chest pain, sob, nausea, sweating. Medical record was reviewed. This 57 year old male was admitted Has PMH of CHF, HTN, pneumothorax, sarcoidosis, renal failure, pulmonary hypertension, metabolic encephalopathy. Objective - Vital Signs/Intake and Output Vital Signs (last 24 hours): Temp Pulse Resp BP Pulse Ox 99.5 F 111 H 28 H 170/98 H 95 03/21/17 02:23 03/21/17 03:05 03/21/17 02:23 03/21/17 02:31 03/21/17 01:38 - Medications Medications: Home Meds Medication Instructions Recorded Confirmed Beclomethasone Dipropionate [Qvar 8.7 gm IH DAILY 02/12/17 03/21/17 80 mcg] Tiotropium Br/Olodaterol HCl 4 gm IH DAILY 02/12/17 03/21/17 [Stiolto Respimat Inhal [place]] Treprostinil Diolamine [Orenitram] 0.125 mg PO DAILY 02/12/17 03/21/17 - Labs Labs: Laboratory Last Values WBC 7.5 10^3/ul (4.5-11.0) D 03/20/17 23: RBC 5.91 10^6/uL (3.5-6.1) 03/20/17 23: Hgb 15.7 g/dL (14.0-18.0) 03/20/17 23: Hct 50.3 % (42.0-52.0) 03/20/17 23: MCV 85.1 fl (80.0-105.0) 03/20/17 23: MCH 26.6 pg (25.0-35.0) 03/20/17 23: MCHC 31.2 g/dl (31.0-37.0) 03/20/17 23: RDW 15.2 % (11.5-14.5) H 03/20/17: Plt Count 93 10^3/uL (120.0-450.0) L 03/20/17 23:29 MPV 10.7 fl (7.0-11.0) 03/20/17 23: Gran % 82.9 % (50.0-68.0) H 03/20/17 23:29 Lymph % (Auto) 9.4 % (22.0-35.0) L 03/20/17 23:29 [place] % (Auto) 6.4 % (1.0-6.0) H 03/20/17 23:29 Eos % (Auto) 1.2 % (1.5-5.0) L 03/20/17 23:29 Baso % (Auto) 0.1 % (0.0-3.0) 03/20/17: Gran # 6.18 (1.4-6.5) 03/20/17 23: Lymph # 0.7 (1.2-3.4) L 03/20/17 23: Bra[place] # 0.5 (0.1-0.6) 03/20/17 23: Eos # 0.1 (0.0-0.7) 03/20/17 23: Baso # 0.01 K/mm3 (0.0-2.0) 03/20/17 23:29 pCO2 58 mm/Hg (35-45) H 03/20/17 23:45 pO2 53.0 mm/Hg (80-100) L 03/20/17 23:45 HCO3 35.9 mmol/L (21-28) H 03/20/17 23:45 ABG pH 7.40 (7.35-7.45) 03/20/17 23:45 ABG Total CO2 37.7 mmol.L (22-28) H 03/20/17 23:45 ABG O2 Saturation 90.5 % (95-98) L 03/20/17 23:45 ABG O2 Content 17.9 ML/dl (15-23) 03/20/17 23:45 ABG Base Excess 8.8 mmol/L (-2.0-3.0) H 03/20/17 23:45 ABG Hemoglobin 14.7 g/dL (11.7-17.4) 03/20/17 23:45 ABG Carboxyhemoglobin 3.1 % (0.5-1.5) H 03/20/17 23:45 POC ABG HHb (Measured) 9.1 % (0-5) H 03/20/17 23:45 ABG Methemoglobin 0.8 % (0.0-3.0) 03/20/17 23:45 ABG O2 Capacity 19.8 mL/dl (16-24) 03/20/17 23:45 Hgb O2 Saturation 86.9 % (95.0-98.0) L 03/20/17 23:45 FiO2 36.0 % 03/20/17 23:45 Sodium 143 mmol/L (132-148) 03/20/17 23:29 Potassium 4.6 mmol/L (3.6-5.0) 03/20/17 23:29 Chloride 97 mmol/L (98-107) L 03/20/17 23:29 Carbon Dioxide 35 mmol/L (21-33) H 03/20/17 23:29 Anion Gap 16 (10-20) 03/20/17 23:29 BUN 41 mg/dL (7-21) H 03/20/17 23:29 Creatinine 1.6 mg/dL (0.5-1.4) H 03/20/17 23:29 Est GFR ( Amer) 55 03/20/17 23:29 Est GFR (Non-Af Amer) 45 03/20/17 23:29 Random Glucose 123 mg/dL (70-110) H 03/20/17 23:29 Calcium 9.2 mg/dL (8.4-10.5) 03/20/17 23:29 Magnesium 2.0 mg/dL (1.7-2.2) 03/20/17 23:29 Total Bilirubin 1.2 mg/dL (0.2-1.3) 03/20/17 23:29 AST 41 U/L (17-59) 03/20/17 23:29 ALT 24 U/L (7-56) 03/20/17 23:29 Alkaline Phosphatase 88 U/L (38-126) 03/20/17 23:29 Ammonia 17 umol/L (9-33) 03/20/17 23:29 Lactate Dehydrogenase 840 U/L (333-699) H 03/20/17 23:29 Total Creatine Kinase 42 U/L (35-230) 03/20/17 23:29 Troponin I 0.10 ng/mL D 03/20/17 23:29 NT-Pro-B Natriuret Pep 2000 pg/mL (0-450) H 03/20/17 23:29 Total Protein 8.1 g/dL (5.8-8.3) 03/20/17 23:29 Albumin 4.3 g/dL (3.0-4.8) 03/20/17 23:29 Globulin 3.8 gm/dL 03/20/17 23:29 Albumin/Globulin Ratio 1.1 (1.1-1.8) 03/20/17 23:29 Urine Color Yellow (YELLOW) 03/21/17 01:20 Urine Appearance Slight-cloudy (CLEAR) 03/21/17 01:20 Urine pH 6.5 (4.7-8.0) 03/21/17 01:20 Ur Specific [place] 1.015 (1.005-1.035) 03/21/17 01:20 Urine Protein 30 mg/dL (<30 mg/dL) H 03/21/17 01:20 Urine Glucose (UA) Negative mg/dL (NEGATIVE) 03/21/17 01:20 Urine Ketones Negative mg/dL (NEGATIVE) 03/21/17 01:20 Urine Blood Trace-lysed (NEGATIVE) H 03/21/17 01:20 Urine Nitrate Negative (NEGATIVE) 03/21/17 01:20 Urine Bilirubin Negative (NEGATIVE) 03/21/17 01:20 Urine Urobilinogen 2.0 E.U./dL (<1 E.U./dL) H 03/21/17 01:20 Ur Leukocyte Esterase Negative Javier/uL (NEGATIVE) 03/21/17 01:20 Urine RBC 0 - 2 /hpf (0-2) 03/21/17 01:20 Urine WBC 0 - 2 /hpf (0-6) 03/21/17 01:20 Ur Epithelial Cells 0 - 2 /hpf (0-5) 03/21/17 01:20 - Constitutional Appears: Well, No Acute Distress - Head Exam Head Exam: ATRAUMATIC, NORMAL INSPECTION, NORMOCEPHALIC - Eye Exam Eye Exam: Normal appearance - ENT Exam ENT Exam: Normal External Ear Exam - Neck Exam Neck Exam: Normal Inspection - Respiratory Exam Respiratory Exam: NORMAL BREATHING PATTERN - Cardiovascular Exam Cardiovascular Exam: absent: JVD - GI/Abdominal Exam GI & Abdominal Exam: absent: Distended - Rectal Exam Rectal Exam: Deferred - Exam Additional comments: Deferred. - Extremities Exam Extremities Exam: Normal Inspection - Back Exam Back Exam: NORMAL INSPECTION - Neurological Exam Neurological Exam: Alert, Oriented x3 - Psychiatric Exam Psychiatric exam: Normal Affect, Normal Mood - Skin Skin Exam: Normal Color Assessment and Plan - Assessment and Plan (Free Text) Assessment: Elevated blood pressure reading. Neck pain. Hypertension. CHF. Pulmonary hypertension. COPD. Sarcoidosis. Renal failure. Plan: Lasix 40 mg IV stat. Tylenol 650 mg PO stat. Continue present management.
--- NOTE | 2017-03-21 08:30 | RAD ---
HISTORY: SOB COMPARISON: 03/12/2017 FINDINGS: LUNGS: There is no significant interval change in severe pulmonary venous congestion. There is also diffuse interstitial thickening and atelectasis/ scarring in the lower lobes. PLEURA: No significant pleural effusion identified, no pneumothorax apparent. CARDIOVASCULAR: Persistent moderate cardiomegaly. OSSEOUS STRUCTURES: No significant abnormalities. VISUALIZED UPPER ABDOMEN: Normal. OTHER FINDINGS: None. IMPRESSION: No change in cardiomegaly, severe venous congestion and interstitial thickening. Bilateral lower lobe atelectasis/ scarring.
[2017-03-21] MEDS ORDERED: Ergocalciferol 50,000 Intl Units Cap PO SCH (12:00)
[2017-03-21] MEDS: Albuterol-Ipratrop 3 mg / 0.5 (3 ml) UD IH PRN ×2 (12:02→20:02)
[2017-03-21] MEDS: TREPROSTINIL PO SCH ×3 (13:13→21:31)
--- NOTE | 2017-03-21 19:33 | CARD ---
APPROVED REPORT EKG Measurement Heart [id number] [id number] [id number] <Conclusion> Sinus tachycardia Right bundle branch block, plus right ventricular hypertrophy Abnormal ECG
[2017-03-21] MEDS: Budesonide 0.5 mg/2 ml Inhal Susp UD IH SCH (20:02)
[2017-03-21] MEDS: MethylPREDNISolone 40 mg Vial IVP SCH (21:29)
--- NOTE | 2017-03-22 00:04 | HP ---
HISTORY OF PRESENT ILLNESS: Adrian was in the hospital and then TCU before he went home for CHF, COPD and pneumonia. He has been through a lot with respiratory and pulmonary and cardio issues. He went to see a doctor for lung transplant and was told his heart was not doing well. He went through emergency room, short of breath, again little dizzy throughout the other day and he is here for evaluation and treatment and he was told he could not get the lung transplant, because the heart was not strong enough at this time. We are going to call pulmonary and cardiology. PAST MEDICAL HISTORY: He has a past medical history of CHF, COPD, blurred vision, falls, diverticulitis, reflux, prostate problems, BPH. He has had pneumothorax, chest tubes, lung lacerations, also laceration of third finger in the past. FAMILY HISTORY: Hypertension in family. SOCIAL HISTORY: He is a former smoker. No alcohol. No drugs. ALLERGIES: NO KNOWN DRUG ALLERGIES. MEDICATIONS: He is on a slew of medications. He takes Lasix, nystatin, Orenitram, prednisone, Apresoline, Catapres, Cozaar, Drisdol, DuoNeb, Norvasc, budesonide, Stiolto and thiamine. He has got severe hypertension on top of the COPD, CHF in need of a lung transplant. REVIEW OF SYSTEMS: No acute vision or hearing changes. No sore throat. No neck pain. No chest pain, but there is shortness of breath, cannot catch his breath, he is weak. No abdominal pain. No nausea, vomiting, constipation, diarrhea. Legs are pretty good, no real swelling just weak. PHYSICAL EXAMINATION GENERAL: He is well appearing, fairly comfortable, now sitting in bed. Alert and oriented x3. VITAL SIGNS: He has a 98.9 temperature, 112 pulse, 34 respiratory rate, 185/106 blood pressure and 84% O2 sat on room air. HEENT: Head is atraumatic and normocephalic. Extraocular muscles are intact. Pupils are equally reactive to light and accommodation. Throat is moist. NECK: Supple. HEART: Regular rate. LUNGS: Decrease breath sounds, but clear to auscultation. No wheezes, no rhonchi, no rales. Not a bad lung sound today. ABDOMEN: Soft and nontender. Positive bowel sounds. No guarding, no rebound. No CVA tenderness. EXTREMITIES: With edema, but trace edema if any, but much better than the last time. NEUROLOGIC: GCS is 15. Cranial nerves II through XII grossly intact. SKIN: Intact. No rashes or ulcers. LYMPH: Thyroid midline. No palpable lymph adenopathy. LABORATORY DATA: Chest x-ray showed lot of congestion, severe congestion. He had lot of blood test, he has a 7.5 white count, 15.7 hemoglobin, 50.3 hematocrit with a 93 platelets. His blood gas was pH of 7.4, 90.5 of O2 sat. He had a 143 sodium, potassium 4.6, BUN 41, creatinine 1.6, GFR is 45, sugar is 123, calcium is 9.2, magnesium 2, total bilirubin is 1.2, AST is 41, ALT is 24, alk phos 88, ammonia 17, lactate dehydrogenase is 40, total creatine kinase is 42, troponin-1 is 0.1. BMP is 2000, total protein is 8.1. Urine is trace. 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 We are going to check his troponin and make sure he is on oxygen. He has done this many times in the past, I am concerned he is coming back too quickly. He just went for a pulmonary transplant evaluation and it was told his heart is too weeks. We will continue with aggressive treatment and care and diuresis. Adrian Dinh who is here for congestive heart failure, severe hypertension and also renal insufficiency. James Carrasco DO
--- NOTE | 2017-03-22 05:19 | CON ---
DATE OF CONSULT: 03/21/2017 LOCATION: The patient in room 269, bed 1. This consult I am doing on behalf of Dr. Holliday, whom I am covering. REASON FOR CONSULTATION: Shortness of breath and hypertension. HISTORY OF PRESENT ILLNESS: A 57-year-old male who known to have CHF, COPD, pulmonary hypertension, sarcoidosis, renal failure, diabetes mellitus, accelerated hypertension, cardiomyopathy, chronic obstructive pulmonary disease, admitted with the history that he was discharged from the hospital recently and when he went home he started getting shortness of breath, it gradually got worse, he came back to the hospital, and was found to have CHF, so he is admitted to telemetry. The patient denies any chest pain or palpitation. On style advisor there is some questionable run of atrial flutter. PAST MEDICAL HISTORY: Positive for CHF, COPD, sarcoidosis, renal insufficiency, diabetes mellitus, diverticulitis, gastroesophageal reflux disease, and once he had pneumothorax for which chest tube was inserted one time. PERSONAL HISTORY: The patient is an ex-smoker. Denies drinking. FAMILY HISTORY: Not significant. ALLERGIES: THE PATIENT DENIES ANY ALLERGIES. HOME MEDICATIONS LIST: The patient only lists tiotropium inhalation spray, QVAR 80 mcg 8.7 g IH daily, AND Orenitram 0.125 p.o. daily. REVIEW OF SYSTEMS: All the system reviewed, positive mentioned in the history, others are negative. PHYSICAL EXAMINATION: VITAL SIGNS: Blood pressure 160/87, respiratory 20, pulse 104, and temperature 99. HEENT: Head is normocephalic. Eyes: Pupils are normal. Conjunctivae normal. Nose and throat, normal. NECK: JVP low. Carotids are equal. LUNGS: Basilar rales. CARDIOVASCULAR: S1 and S2. ABDOMEN: Soft and nontender. No organomegaly. EXTREMITIES: No clubbing, no cyanosis, about 2+ edema present. LABORATORY DATA: WBC 7.5, hemoglobin 15.7, hematocrit 50.3, and platelets 93. Last year, the patient has low platelet count. Sodium 143, potassium 4.6, BUN 41, creatinine 1.6, and random sugar 123. AST, ALT, bilirubin normal. Magnesium normal. Calcium normal. First troponin 0.10, second troponin 0.14. BUN 41, creatinine 1.6, [id number] natriuretic peptide 2000. Chest x-ray consistent with CHF. EKG shows sinus tachycardiac right bundle-branch block. Monitored at times suggestive of atrial flutter. The patient's stress test on 02/12/2017 negative for ischemia ejection fraction 42%. Echo on 03/11/2017. Showed LVH with normal ejection fraction 64%, dilated RA and dilated RV, RVSP of 123 mmHg consistent with severe pulmonary hypertension, moderate to severe tricuspid regurgitation. DIAGNOSES: Congestive failure heart, hypertension, renal insufficiency, sarcoidosis, chronic obstructive pulmonary disease, diabetes mellitus, cardiomyopathy secondary to accelerated hypertension, thrombocytopenia, another troponin slightly elevated, and severe pulmonary hypertension. PLAN: The patient already getting Lasix 80 IV b.i.d., hydralazine 100 mg p.o. q.8 hours, clonidine 0.3 mg p.o. t.i.d., losartan 100 mg p.o. daily, isosorbide mononitrate 60 mg p.o. daily, and Solu-Medrol 30 mg IV q.12 hours. I will add Lopressor 50 mg p.o. b.i.d. We will also add Eliquis 2.5 mg p.o. b.i.d., because of suspicion run of atrial flutter. We will follow electrolytes and BUN. We will also monitor platelet count. Janee Boggs MD
[2017-03-22] MEDS: TREPROSTINIL PO SCH ×3 (05:39→22:30)
[2017-03-22 07:41] LABS: HEMATOCRIT 45.3 % (42.0-52.0); MEAN CORPUSCULAR HGB CONC 30.9 g/dl (31.0-37.0); MEAN PLATELET VOLUME 10.7 fl (7.0-11.0); RED CELL DISTRIBUTION WIDTH 15.1 % (11.5-14.5); WHITE BLOOD COUNT 5.6 10^3/ul (4.5-11.0)
[2017-03-22] MEDS: Budesonide 0.5 mg/2 ml Inhal Susp UD IH SCH ×2 (07:54→20:07)
[2017-03-22 07:55] LABS: ALB/GLOB RATIO 1.1 (1.1-1.8); BILIRUBIN,TOTAL 1.1 mg/dL (0.2-1.3); CALCIUM 8.8 mg/dL (8.4-10.5); POTASSIUM 5.2 mmol/L (3.6-5.0); TOTAL PROTEIN 7.1 g/dL (5.8-8.3)
[2017-03-22] MEDS: BECLOMETHASONE DIPROPIONATE 8.7 GM IH SCH (09:42)
[2017-03-22] MEDS: MethylPREDNISolone 40 mg Vial IVP SCH ×2 (09:43→22:30)
[2017-03-22] MEDS: OLODATEROL HCL IH SCH (09:44)
[2017-03-22] MEDS: [UNRECOGNIZED DRUG - OTHER] IH SCH (09:44)
[2017-03-22] MEDS: TIOTROPIUM BR IH SCH (09:44)
--- NOTE | 2017-03-22 15:17 | PN ---
DATE: 03/22/2017 LOCATION: The patient is in room 269, bed 1. This progress note is being dictated on behalf of Dr. Holliday whom I am covering. REASON FOR CONSULTATION: Shortness of breath, hypertension. SUBJECTIVE: The patient says that his shortness of breath compared to admission is much better today. Denies chest pain or palpitation. His swelling of legs also decreasing. The patient is lying comfortably in bed at present. PHYSICAL EXAMINATION: VITAL SIGNS: On examination, blood pressure 112/58, respirations 20, pulse 76, temperature 98.3. HEENT: Head is normocephalic. Eyes: Pupils normal. Conjunctivae normal. Nose and throat normal. NECK: JVP low. Carotid are equal. THORAX: AP diameter is normal. LUNGS: Bilateral rales on the bases. CARDIOVASCULAR: S1 and S2. ABDOMEN: Soft. No tenderness. No organomegaly. Bowel sounds normal. EXTREMITIES: No clubbing, no cyanosis. LABORATORY DATA: WBC 5.6, hemoglobin 14.0, hematocrit 45.3, platelets 114. Sodium 141, potassium 5.2, BUN 40, creatinine 1.8. Troponin on admission 0.10, second troponin 0.14, third troponin 0.15. Total protein and albumin normal. DIAGNOSES: Congestive heart failure, hypertension, renal insufficiency, sarcoidosis, chronic obstructive pulmonary disease, diabetes mellitus, cardiomyopathy secondary to accelerated hypertension, thrombocytopenia, slightly elevated troponin, severe pulmonary hypertension. PLAN: The patient's slight troponin elevation may be related to renal dysfunction. The patient will continue Lasix 80 IV b.i.d., hydralazine 100 mg p.o. q. 8 hours, clonidine 0.3 mg p.o. t.i.d., losartan 100 mg daily, isosorbide mononitrate 60 mg daily, Solu-Medrol 30 mg IV q. 12 hours, Lopressor 50 p.o. b.i.d., Eliquis 2.5 mg p.o. b.i.d. Yesterday, the patient on the monitor had few runs suspicious of atrial flutter. From tomorrow, Dr. Holliday will follow. Janee Boggs MD
--- NOTE | 2017-03-22 17:02 | CON ---
PULMONARY CONSULTATION LOCATION: Room #269, bed 1. HISTORY OF PRESENT ILLNESS: The patient is a 57-year-old gentleman who has been coming to me for several months. He has a myriad of problems most of which are referable to pulmonary symptoms. The patient has a history of pulmonary sarcoidosis. He is currently on treatment for this. He was treated in the past but stopped his medication. He did not want to take Acthar but preferred to go with old fashioned conventional therapy with corticosteroids and antimalarials. He has a strong family history of sarcoid. He has lost several relatives and others have gone for heart transplantation in the past. He has recently gone to [facility] which I have learnt today and was refused for heart/lung transplants the exact nature of the consultation. Evaluation is not known to me. I will await official reports that the patient has failed to see to me. The patient also states that he often fails to walk around with his supplemental oxygen when away from the home. This is ill-advised and I have discussed this with him many times previously. Finally, pulmonary hypertension, on Orenitram. Further evaluation is required to see if additional medications are necessary. His dose has been increased in the recent past, but he has not shown up to the office for several months and I have no idea what his 6-minute walk test would show. Unfortunately, he has so many problems referable to pulmonary status and it is difficult to differentiate all. In addition, he has severe COPD with acute bronchospasm and air trapping, for these he takes medications also. Please note in addition to his pulmonary problems, he does have congestive heart failure with cardiomegaly. He has visual problems, falls, diverticular disease. He also has BPH. FAMILY HISTORY: Severe sarcoid history with and transplants. PAST MEDICAL HISTORY: History of asthma, history of cardiac disease. SOCIAL HISTORY: Former smoker. No alcohol or drug use. No occupational exposure. No travel history. ALLERGIES: NO KNOWN ALLERGIES TO DRUGS. HOME MEDICATIONS: Plaquenil, prednisone, Brovana, budesonide and Stiolto, Catapres, Cozaar, DuoNeb for emergencies and Orenitram. REVIEW OF SYSTEMS: Nothing additional to that which is described above. He has had periods of excellent status and periods of deterioration. We are not aware if this is due to his lack of adherence to medical program, but he does admits to not using his oxygen as is necessary. Dyspnea on exertion. Pt with dizziness and slight productive cough. No vomiting , no skin rashes, no memory loss. All other systems negative. PHYSICAL EXAMINATION: GENERAL: He is resting comfortably, in no acute distress at bed, nasal cannula in his nose. VITAL SIGNS: Pulse of 90, respiratory rate 20, blood pressure 165/80, O2 sat 94% on supplemental oxygen. HEENT: Normocephalic, atraumatic. EOM is normal. NECK: Supple. No JVD. No lymphadenopathy. No bruits. No thyromegaly. HEART: Enlarged heart, tachycardic, gallop auscultated. CHEST: Global decrease of breath sounds with rales throughout. No wheezes are noted today. Some scattered rhonchi are noted throughout both lung finch. ABDOMEN: Soft. Bowel sounds are normoactive without mass, guarding, rebound or organomegaly. EXTREMITIES: Reveals trace edema. NEUROLOGIC: No focal findings. Motor sensory and coordination is normal. LYMPH: Lymphadenopathy is negative. Lymph nodes are not palpable on the supraclavicular notch, or in the cervical, inguinal, axillary areas. On CAT scan however, shown multiple lymph nodes in the past. LABORATORY DATA: Reviewed. There is chest x-ray which showed severe pulmonary vascular congestion and cardiomegaly. CBC and SMA are recorded in the chart. There is some abnormality, the BMP is 2000, total protein 8.1. CT Scan scan however, shown multiple lymph nodes in the past. IMPRESSION: 1. Respiratory insufficiency/impending respiratory failure. 2. Sarcoidosis. 3. Pulmonary hypertension. 4. Asthma. 5. Panacinar emphysema. 6. Cardiomegaly/cardiomyopathy. 7. Congestive heart failure. 8. Impending pulmonary edema. The patient was refused transplant procedures at [facility] due to a very weak heart. PLAN: We need to get the patient into better shape. It is our understanding that a cardiac catheterization is being suggested. If so, please be sure that a right-sided cath be done at the same time. It will be very important for me to understand his PA and wedge pressures to see if we can increase any of his pulmonary hypertension medication. He is already on good dose of Orenitram. I believe he is supposed to be on a second medication as well. I do not have records available at this time. I will need to review them and get back to you. Dr. Leon is available starting tomorrow to care for the patient. We will attempt to make whatever intervention is necessary to help him out. He is a ayesha patient. Unfortunately, he must gently take care a little bit more of himself by keeping his appointments, using his supplemental oxygen when necessary and following prior to major deterioration. Pulmonary transplant information needs to be obtained. Omer Martinez MD MTDD
--- NOTE | 2017-03-22 18:09 | PN ---
DATE: SUBJECTIVE: I was hoping possibly to discharge him today, but he is fairly weak. No chest pain. No shortness of breath, but he had some elevated troponin, which is new. PHYSICAL EXAMINATION VITAL SIGNS: He has 98.3 temperature, 78 pulse, 117/76 blood pressure, 20 respiratory rate, and 92% O2 sat on nasal cannula. HEENT: Head is atraumatic and normocephalic. HEART: Regular rate. LUNGS: Decreased breath sounds, but clear. ABDOMEN: Soft. EXTREMITIES: Trace edema. MEDICATIONS: He is currently on Apresoline, QVAR, Catapres, Cozaar, Drisdol, DuoNeb, Eliquis, Imdur, Lasix, metoprolol, Pulmicort, Solu-Medrol, I will decrease the Solu-Medrol to 20, Respimat, Tylenol, and vitamin B1. LABORATORY DATA: He has a white count of 5.6, hemoglobin of 14, hematocrit of 45.3, and platelets are 114. He has a 141 sodium, potassium is 5.2, BUN is 40, creatinine 1.8, GFR is 39, sugar is 111 and 131. He has 8.8 calcium, total bilirubin is 1.1, AST is 30, ALT is 30, alkaline phosphatase is 84. When he came in, his troponin was 0.1, then about 0.14 and then 0.15. His protein is 7.1. ASSESSMENT AND PLAN: I discussed this with 911 telecommunicator, Dr. Tang. He also was in need of a pulmonary transplant and lung transplant, and the transplant team advised him to get his heart organized before they could do anything. I am hoping we will schedule a cardiac cath tomorrow, he might need stents, which would help his cardiac status. We will continue with aggressive treatment and care. I changed him to inpatient status and plan for cardiac cath tomorrow. The patient understands everything. James Carrasco DO
[2017-03-22] MEDS: Albuterol-Ipratrop 3 mg / 0.5 (3 ml) UD IH PRN (20:07)
[2017-03-23] MEDS: TREPROSTINIL PO SCH ×3 (06:11→21:38)
[2017-03-23 06:25] LABS: HEMATOCRIT 43.5 % (42.0-52.0); MEAN CORPUSCULAR HEMOGLOBIN 25.9 pg (25.0-35.0); MEAN CORPUSCULAR HGB CONC 30.8 g/dl (31.0-37.0); MEAN PLATELET VOLUME 11.4 fl (7.0-11.0); RED CELL DISTRIBUTION WIDTH 15.1 % (11.5-14.5); WHITE BLOOD COUNT 9.6 10^3/ul (4.5-11.0)
[2017-03-23 06:51] LABS: BILIRUBIN,TOTAL 0.7 mg/dL (0.2-1.3); CALCIUM 8.9 mg/dL (8.4-10.5)
[2017-03-23] MEDS: Budesonide 0.5 mg/2 ml Inhal Susp UD IH SCH ×2 (08:15→20:37)
--- NOTE | 2017-03-23 09:57 | CON ---
INITIAL NEPHROLOGY CONSULTATION DATE: 03/21/2017 CHIEF COMPLAINT: "I feel bad again." HISTORY OF PRESENT ILLNESS: The patient is a 57-year-old male with recent hypertension, hypertension workup negative. He has high blood pressure for seven to eight years, mostly uncontrolled, also a history of sarcoidosis, ex-smoker, stopped 20 years ago, history of CKD stage III, baseline creatinine 1.5 to 1.9, chronic systolic CHF with low EF and also right heart failure as well with severe pulmonary hypertension and recently admitted to the hospital with shortness of breath and discharged to rehab, then went home, came back stating that his breathing got labored again. He denies any fevers or chills. No nausea or vomiting. No urinary complaints. His leg swelling has been the same. REVIEW OF SYSTEMS: The patient feels sick with the breathing issues again. Denies any fevers or chills. NEUROLOGIC: Denies any headaches, tingling, numbness, dizziness, or weakness. EYES: Denies any watery or itchy eyes. Denies any blurry vision. ENT: Denies any ear pain, sore throat, or congestion. NECK: Denies any swelling in the neck. CARDIOVASCULAR: Denies chest pain or palpitations. Does report shortness of breath along with mild cough without any phlegm. GI: Denies nausea, vomiting, constipation, diarrhea, change in bowel habit, or bleeding. GENITOURINARY: Denies any painful burning urination or blood in the urine. SKIN: Denies any rash or ulceration. HEMATOLOGIC: Denies any bleeding. Denies any lymph node swelling. PSYCHIATRIC: Denies anxiety, depression, or hallucination. MUSCULOSKELETAL: Denies any joint pain or joint swelling. He does report some pain in the side flank area. PAST MEDICAL HISTORY: Notable for hypertension, CHF, sarcoidosis, and CKD stage III. PAST SURGICAL HISTORY: Include chest tube placement. SOCIAL HISTORY: Denies any smoking, alcohol, or substance abuse. He is an ex-smoker. ALLERGIES: THE PATIENT DOES NOT HAVE ANY MEDICATION ALLERGIES. FAMILY HISTORY: No history of CKD and no history of dialysis. CURRENT MEDICATIONS: Reviewed. PHYSICAL EXAMINATION GENERAL: The patient has mild tachypnea, but not in acute respiratory distress. He is pleasant and cooperative. VITAL SIGNS: Afebrile, heart rate has been on the high side 105, right arm blood pressure 180/100. NEUROLOGIC: The patient is A and O x3. No focal deficits. Moving all four extremities. Strength is intact. HEENT: Eyes: Bilateral pupils are equal, reactive. Conjunctivae are normal. No icterus or pallor. ENT: Oral cavity normal. No thrush now. No oral ulcerations, lesions, or ulcers. Pharynx normal. No tonsillar enlargement. NECK: Supple. No lymphadenopathy. No bruit. No thyromegaly. CARDIOVASCULAR: S1 and S2 normal with sinus tachycardia, no murmur could be appreciated. No gallop. RESPIRATORY: Bilateral vesicular sounds, bibasilar crackles, has inspiratory effort, not in acute respiratory distress at this time. ABDOMEN: Soft and nontender. No organomegaly could be appreciated. EXTREMITIES: 1+ pitting edema on the bilateral ankles. PSYCHIATRIC: The patient is pleasant and cooperative. Judgment is appropriate. Affect is normal. Insight is present as well. LYMPHATIC: No lymphadenopathy in the neck. SKIN: No rash or ulceration. Turgor is normal. MUSCULOSKELETAL: No joint tenderness or swelling at this time noted. LABORATORY DATA: Workup: His white blood cell count is 7.5, hemoglobin 15.7, platelet count is 93. Blood gas yesterday shows pCO2 of 58 with pH of 7.4. Sodium 143, potassium 4.6, bicarbonate 35, creatinine 1.6 stable. Troponin 0.1. BNP 2000. LDH is 840. His UA had shown 30 protein with 1.4 g on quantification. Hepatitis B and C and HIV have been negative. His renin, aldosterone, and metanephrine levels are unremarkable, PTH is 314, and his vitamin D is less than 12.8. ASSESSMENT: 1. Uncontrolled severe hypertension, essential hypertension. 2. Chronic kidney disease stage III with stable. 3. Congestive heart failure exacerbation. 4. Chronic obstructive pulmonary disease exacerbation. 5. Severe pulmonary hypertension. 6. History of sarcoidosis. 7. Ex-smoker. 8. Vitamin D deficiency with secondary hyperparathyroidism. RECOMMENDATIONS: Renal function remains stable. Hypertension is still uncontrolled. We will increase the Norvasc and we will add isosorbide nitrate to his regimen, also will help with CHF. We will increase his diuretic dose at this time considering his CHF/COPD exacerbation. He is otherwise on multiple antihypertensives already. Continue vitamin D supplementation at this time. He is already on maximum dose of losartan, also get an IV steroid. All questions were answered. Thank you for the consultation. Please call if any questions. Saqib Lyn MD
--- NOTE | 2017-03-23 09:59 | PN ---
NEPHROLOGY FOLLOWUP NOTE DATE: 03/22/2017 CHIEF COMPLAINT: I feel better. HISTORY OF PRESENT ILLNESS/REVIEW OF SYSTEMS: The patient feels better. Breathing is better. Shortness of breath has improved. The patient is making urine, orally accepting. Denies any new complaint at this time. PHYSICAL EXAMINATION GENERAL: The patient appeared comfortable, sitting in the chair. Respiratory status appears to be improved. VITAL SIGNS: His blood pressure is 120/82, afebrile, pulse is 81, saturation is well maintained. ENT: No thrush in the mouth. CARDIOVASCULAR: S1 and S2 normal without any rub or gallop. LUNGS: Bilateral vesicular sounds with bibasilar crackles. No added sounds or wheezing. ABDOMEN: Soft, nontender. No organomegaly could be appreciated. EXTREMITIES: 1+ ankle edema. PSYCHIATRIC: The patient is pleasant, cooperative. Judgment is appropriate. Affect is normal. Insight is pleasant as well. LYMPHATIC: No lymphadenopathy of the neck. LABORATORY DATA: Workup showed white blood cell count is 5.6, hemoglobin is 14, platelet count is 114. Sodium is 141, potassium is 5.2, creatinine is 1.8, troponin remained 0.1, bicarb is 35. Cultures have been negative. ASSESSMENT AND PLAN: 1. Chronic kidney disease stage III. 2. hypertension, stable. 2. Uncontrolled severe hypertension, better controlled. 3. Chronic systolic congestive heart failure , severe pulmonary hypertension, chronic obstructive pulmonary disease, and sarcoidosis. RECOMMENDATION: Blood pressure is under better control with the current regimen. Patient started on beta-maik by Cardiology. We will stop the amlodipine at this time. Continue the vitamin D supplementation. Continue Lasix IV. Monitor his electrolytes and if potassium is rising, may have to hold losartan temporarily. Otherwise, the patient is stable. Follow Cardiology and Pulmonary recommendation. The patient also suggested that he may plan for coronary angiogram. Discussed with the patient that he may be at increased risk for contrast-induced nephropathy, where he will not be able to receive any CHF. May give Mucomyst 1200 mg twice daily cardiac catheterization. Consider to add statin as well to his regimen. Discussed with the family at the bedside as well. All questions were answered. Saqib Lyn MD
[2017-03-23] MEDS: MethylPREDNISolone 40 mg Vial IVP SCH ×2 (10:17→21:38)
[2017-03-23] MEDS: TIOTROPIUM BR IH SCH (10:20)
[2017-03-23] MEDS: OLODATEROL HCL IH SCH (10:20)
[2017-03-23] MEDS: [UNRECOGNIZED DRUG - OTHER] IH SCH (10:20)
--- NOTE | 2017-03-23 10:22 | PN ---
PULMONARY NOTE DATE: 03/23/2017 SUBJECTIVE: The patient appears comfortable this morning. He is not short of breath at rest. PHYSICAL EXAMINATION: VITAL SIGNS: Temperature is 97.0, pulse 69, respirations 18, blood pressure 126/77. Oxygen saturation on nasal cannula is 95%. HEENT: He is normocephalic, atraumatic. NECK: No JVD. CARDIOVASCULAR: Positive S1, S2. No S3. LUNGS: Decreased breath sounds at the bases. Minimal bilateral rhonchi. No wheezing. EXTREMITIES: Mild edema. No cyanosis, no clubbing. Calves are nontender to palpation. GASTROINTESTINAL: Abdomen is soft, nontender and nondistended. Bowel sounds are positive. SKIN: No acute rash. NEUROLOGIC: Exam limited at the present time. IMPRESSION: 1. Recurrent dizziness. 2. Advanced interstitial lung disease, on home oxygen. 3. Advanced sarcoidosis. 4. Chronic obstructive pulmonary disease. 5. Pulmonary hypertension. 6. Dilated cardiomyopathy. PLAN: The patient appears comfortable this morning. He is not short of breath at rest. He does state to feeling better - compared to his initial presentation. On physical exam, there is no significant bronchospasm noted. In addition, the oxygen saturation on nasal cannula is 95%. I will continue the current nebulizer treatments and low-dose intravenous steroids for now. The patient also remains on his treatment for pulmonary hypertension. I did discuss the patient's recent transplant meeting with him at length. Apparently, he went to [facility] last week. As per the patient, [facility] is hesitant to consider this patient a viable transplant candidate, because of his cardiac status. I will discuss the case at length with Dr. Holliday (cardiology) this morning. Renal evaluation is also noted. The patient is clinically improved - compared to his initial hospital presentation. However, again, the patient's future status/prognosis is very guarded-- as he does continue to have advanced lung disease. Again, I will discuss the above with cardiology this morning. I will also discuss the above with Dr. Carrasco. Rajesh Leon MD JENNIFER
[2017-03-23] MEDS ORDERED: DOBUTamine 500mg/250ml D5W 500 MG/250 ML BAG IV PRN (10:28)
[2017-03-23] MEDS: BECLOMETHASONE DIPROPIONATE 8.7 GM IH SCH (10:30)
[2017-03-23] MEDS: DOBUTamine 500mg/250ml D5W 500 MG/250 ML BAG IV PRN (11:05)
[2017-03-23] MEDS ORDERED: Sodium Bicarbonate 8.4% 130 MEQ in Dextrose 5% In Water 1,000 ML IV SCH (11:30)
[2017-03-23] MEDS ORDERED: Sodium Bicarbonate (8.4%) 50 Meq Syringe IVP ONE (11:35)
--- NOTE | 2017-03-23 13:18 | PN ---
DATE: SUBJECTIVE: He was doing chest pain the other day, troponin has bumped, I made him clear hoping for cardiac cath today. He has a history of bad lung. He needs a lung transplant but I cannot do it until his heart is taken care of and he had an NJ. He has CHF, COPD, NJ, and renal insufficiency. He came for cardiac cath today. MEDICATIONS: He is on Apresoline, QVAR, Catapres, Cozaar, Drisdol, DuoNeb, Eliquis, Imdur, Lasix, Lopressor, Pulmicort, Solu-Medrol, Stiolto, Tylenol, and vitamin D1. PHYSICAL EXAMINATION VITAL SIGNS: 97 temperature, 77 pulse, 103/61 blood pressure, 19 respiratory rate, 94% O2 saturation on nasal cannula. HEENT: Head is atraumatic and normocephalic. HEART: Regular rate. LUNGS: Decreased breath sounds, but clear. ABDOMEN: Soft and nontender. Positive bowel sounds. EXTREMITIES: No edema. LABORATORY DATA: He has 9.6 white count, 30.4 hemoglobin, 43.5 hematocrit, 131 platelets. 139 sodium, potassium is 5, BUN is 56, creatinine 2.1, going up for renal angio, GFR is 33, sugar is 166, calcium is 8.9, total bilirubin is 0.7, AST is 25, ALT is 28, alkaline phosphatase is 76, total protein is 7. Her last two troponin's were 0.14 and 0.15. ASSESSMENT AND PLAN: I will get touch with Dr. Holliday, who is here today for possible catheterization. Continue with aggressive treatment and care. I discussed this with the patient at length and he understands the situation. James Carrasco DO
--- NOTE | 2017-03-23 14:37 | PN ---
DATE: 03/23/2017 SUBJECTIVE The patient is still mildly dyspneic. PHYSICAL EXAMINATION VITAL SIGNS: Blood pressure is 123/71, heart rate is in sinus rhythm, in the 90s. NECK: Negative JVD. LUNGS: Decreased breath sounds with crackles at the bases. HEART: Reveal S1 and S2. EXTREMITIES: Trace edema. LABORATORY DATA Hemoglobin is 13.4. Chemistries: Troponins bumped from 0.8 to 0.15. BUN and creatinine is elevated at 56 and 2.1 with a glucose of 156. IMPRESSION 1. Acute systolic congestive heart failure. 2. [id number] myocardial infarction. 3. Renal insufficiency. 4. End-stage lung disease. 5. History of sarcoidosis. 6. Pulmonary hypertension. PLAN Given these findings, we will discontinue his Xarelto dose that was placed for questionable atrial flutter. We will hold off on the Lasix. We will start IV bicarb as well as IV dobutamine. We will proceed to cardiac catheterization in the morning. I have discussed catheterization with the patient in detail including potential complications with an increased emphasis on possible renal insufficiency given his baseline renal insufficiency. Andrew Holliday MD
[2017-03-23] MEDS ORDERED: Acetylcysteine 20% Inhal Soln (4ml) PO SCH ×2 (16:00→18:00)
[2017-03-23] MEDS: Sodium Chloride 0.9% 1,000 ML IV SCH (16:03)
[2017-03-23] MEDS: Albuterol-Ipratrop 3 mg / 0.5 (3 ml) UD IH PRN (20:37)
[2017-03-24] MEDS: Sodium Chloride 0.9% 1,000 ML IV SCH ×2 (03:11→19:02)
[2017-03-24] MEDS: DOBUTamine 500mg/250ml D5W 500 MG/250 ML BAG IV PRN (03:59)
[2017-03-24] MEDS: TREPROSTINIL PO SCH ×3 (05:54→21:40)
[2017-03-24] MEDS ORDERED: Lidocaine 2% Inj (20ml) ONE (07:02)
[2017-03-24] MEDS ORDERED: Phenylephrine 10 mg/ml Inj ONE (07:03)
[2017-03-24 07:06] LABS: HEMATOCRIT 42.1 % (42.0-52.0); MEAN CELL VOLUME 84.7 fl (80.0-105.0); MEAN CORPUSCULAR HEMOGLOBIN 25.8 pg (25.0-35.0); MEAN CORPUSCULAR HGB CONC 30.4 g/dl (31.0-37.0); MEAN PLATELET VOLUME 10.8 fl (7.0-11.0); RED CELL DISTRIBUTION WIDTH 15.6 % (11.5-14.5); WHITE BLOOD COUNT 9.4 10^3/ul (4.5-11.0)
[2017-03-24] MEDS ORDERED: Midazolam 2 MG/2 ML VIAL ONE ×2 (07:41→07:48)
[2017-03-24 07:46] LABS: ALB/GLOB RATIO 1.2 (1.1-1.8); BILIRUBIN,TOTAL 0.7 mg/dL (0.2-1.3); CALCIUM 8.8 mg/dL (8.4-10.5); POTASSIUM 4.9 mmol/L (3.6-5.0); TOTAL PROTEIN 6.9 g/dL (5.8-8.3)
[2017-03-24] MEDS ORDERED: Iodixanol 320 MG/ML 200 ML BOTTLE IV ONE (07:49)
[2017-03-24] MEDS ORDERED: Iodixanol 320 mg/ml 150 ml Bottle IV ONE (07:49)
[2017-03-24] MEDS ORDERED: Iodixanol 320 MG/ML 100 ML BOTTLE IV ONE (07:50)
[2017-03-24] MEDS ORDERED: Iohexol 350mgl/ml 50 ML ONE (07:50)
--- NOTE | 2017-03-24 08:39 | PN ---
DATE: 03/23/2017 FOLLOWUP NEPHROLOGY CHIEF COMPLAINT: None at this time. The patient states "I am going for cardiac catheterization tomorrow." HPI AND REVIEW OF SYSTEM: Overnight, no noted event. The patient does feel in usual health, feels better, reports breathing is better. Denies nausea, vomiting, chest pain or palpitation. Leg swelling is better. No urinary or bowel complaint. PHYSICAL EXAMINATION: GENERAL: The patient was lying comfortably flat in his bed. Offers no complaint, appears comfortable, not in acute distress. VITAL SIGNS: Afebrile, pulse 66, blood pressure 127/68, saturation is well maintained. LUNGS: Bilateral vesicular sounds with bibasilar crackles. CARDIOVASCULAR: S1 and S2 normal. No rub or gallop. ABDOMEN: Soft, nontender. No organomegaly. EXTREMITIES: Trace edema around the ankle. PSYCHIATRIC: The patient is pleasant and cooperative. Judgement is appropriate. Affect is normal. Insight is pleasant. LYMPHATIC: No lymphadenopathy in the neck. : Kidney and bladder not palpable. LABORATORY DATA: Workup showed white blood cell count 9.6, hemoglobin 13.4, platelet count is 131. Blood gas previously had shows pH of 7.4, pCO2 52. Sodium is 139, potassium is 5, bicarbonate is 36, creatinine is 2.1. His glucose is 156. UA had shown pH of 6.5 and 30 protein on the dipstick. Urine cultures have been negative. ASSESSMENT: 1. Acute kidney injury, likely hemodynamic due to diuresis and blood pressure fluctuations. 2. Baseline chronic kidney disease, stage III. 3. Hypertension. 4. Chronic systolic congestive heart failure with right heart failure as well with severe pulmonary hypertension, chronic obstructive pulmonary disease, and sarcoidosis. 5. Vitamin D deficiency with secondary hyperparathyroidism. RECOMMENDATIONS: Blood pressure is now much tightly controlled with the regimen. He wilt stop his amlodipine because of rising creatinine. We will hold his losartan as well. The patient is planned for coronary angiogram tomorrow. He will be at increased risk for contrast-induced nephropathy. The patient is aware and would like to proceed with the procedure. To reduce the risk of contrast-induced nephropathy, the patient is being started on Mucomyst, also we will add statin. The patient ordered for bicarb drip, but will argue against it considering his chronic CO2 retention and potential for electrolyte imbalance and pH disturbances which may lead to further CO2 retention. Liquid is being given. Rather would prefer normal saline at 100 mL per hour. Watch his fluid status cautiously. If patient becomes fluid overload, may need to discontinue it. Lasix has been on hold in anticipation of cardiac catheterization tomorrow. Discussed with the family team. All questions were answered. Continue the vitamin D supplementation. Saqib Lyn MD
[2017-03-24] MEDS: Budesonide 0.5 mg/2 ml Inhal Susp UD IH SCH (09:05)
[2017-03-24] MEDS: Albuterol-Ipratrop 3 mg / 0.5 (3 ml) UD IH PRN (09:05)
[2017-03-24] MEDS: BECLOMETHASONE DIPROPIONATE 8.7 GM IH SCH (10:02)
[2017-03-24] MEDS: MethylPREDNISolone 40 mg Vial IVP SCH ×2 (10:04→21:40)
[2017-03-24] MEDS: TIOTROPIUM BR IH SCH (10:05)
[2017-03-24] MEDS: OLODATEROL HCL IH SCH (10:05)
[2017-03-24] MEDS: [UNRECOGNIZED DRUG - OTHER] IH SCH (10:05)
--- NOTE | 2017-03-24 10:32 | PN ---
PULMONARY NOTE DATE: 03/24/2017 SUBJECTIVE: The patient appears comfortable this morning. He is not short of breath at rest. PHYSICAL EXAMINATION: VITAL SIGNS: Temperature is 97.6, pulse on the monitor is 91, respirations 18, blood pressure 159/74. Oxygen saturation on nasal cannula is 99%. HEENT: Normocephalic, atraumatic. No JVD. CARDIOVASCULAR: Positive S1, S2. No S3. LUNGS: Decreased breath sounds at the bases. Very minimal/less rhonchi. No wheezing. EXTREMITIES: Mild edema. No cyanosis, no clubbing. Calves are nontender to palpation. GI: Abdomen is soft, nontender, and nondistended. Bowel sounds are positive. SKIN: No acute rash. NEUROLOGIC: Exam limited at the present time. IMPRESSION 1. Recurrent dizziness. 2. Advanced interstitial lung disease, on home oxygen. 3. Advanced sarcoidosis. 4. Chronic obstructive pulmonary disease. 5. Pulmonary hypertension. 6. Dilated cardiomyopathy. PLAN: The patient appears very comfortable this morning. He is not short of breath at rest. He does state to feeling much better overall. On physical exam, there is only minimal bronchospasm noted. In addition, the oxygen saturation on nasal cannula is now 99%. I will continue the current nebulizer treatments and low-dose intravenous steroids for now. The patient also remains on treatment for his pulmonary hypertension. Input by Cardiology (Dr. Holliday) is noted. I did discuss the case with Dr. Holliday at length yesterday. The patient is for cardiac catheterization later this morning. I will discuss the above with Dr. Carrasco in addition. Rajesh Leon MD MTDJessica
--- NOTE | 2017-03-24 11:11 | PN ---
DATE: SUBJECTIVE: Adrian Dinh is status post cardiac cath with Dr. Holliday this morning. The left ventricular spine and the coronaries are fine, which is very good. He has old pulmonary hypertension and sarcoidosis. Dr. Holliday will chat to the pulmonary team for getting him back on the pulmonary transplant team. The patient is comfortable in bed right now. MEDICATIONS: He is on Apresoline, QVAR, Catapres, dobutamine drip, Drisdol, DuoNeb, Ecotrin, Imdur, Lipitor, Pulmicort, IV fluids, Solu-Medrol, which we can change to prednisone when later discharged, Stiolto, Tylenol, and vitamin D1. PHYSICAL EXAMINATION VITAL SIGNS: 97.6 temperature, 97 pulse, 159/74 blood pressure, 20 respiratory rate, and 99% O2 saturation on nasal cannula. HEENT: His head is atraumatic and normocephalic. Throat is moist. NECK: Supple. HEART: Regular rate. LUNGS: Decreased breath sounds, but clear. ABDOMEN: Soft. EXTREMITIES: No edema at this time. LABORATORY DATA: He has 9.4 white count, 12.8 hemoglobin, 42.1 hematocrit with 124 platelets. He has a 140 sodium, potassium is 4.9, BUN is 69, creatinine is 2.3, went up renal has to say, it was renal insufficiency. Glucose is 130, calcium is 8.8, total bilirubin is 0.7, AST is 27, ALT is 22, alkaline phosphatase is 69, and total protein is 6.9. ASSESSMENT AND PLAN: He is here with congestive heart failure, chronic obstructive pulmonary disease, hypertension, sarcoidosis, renal insufficiency, and myocardial infarction. Continue with treatment as per Dr. Holliday. Hopefully, tomorrow we could change him to possibly getting that tomorrow, I do not know we feel we does and see what Renal wants to do, but is elevated BUN and creatinine. We will check his laboratories tomorrow. James Carrasco DO [facility] HOSPITALJessica
--- NOTE | 2017-03-24 11:48 | CARDCATH ---
PROCEDURE DATE: 03/24/2017 CARDIAC CATHETERIZATION HISTORY: The patient is a 57-year-old male who presents with recurrence of dyspnea thought primarily due to his severe pulmonary hypertension and pulmonary disease which consist of longstanding sarcoidosis. There is a hint of cardiomyopathy noted on previous echocardiograms. Because of this, the patient was referred to the recyclable products sorter for evaluation of his pulmonary hypertension and cardiomyopathy. PROCEDURE: 1. Right and left heart catheterization with coronary arteriography and left ventriculogram. 2. The right femoral artery was cannulated with a 6-Mexican sheath, the right femoral vein was cannulated with a 7-Mexican sheath. There were no complications. FINDINGS: 1. Initial central aortic pressure was 140/75. left ventricular end-diastolic pressure was 18 mmHg. There was no gradient across the aortic valve. 2. The right sided pressures revealed a mean right atrial pressure of 19 mmHg, right ventricular pressure was 84/12 mmHg, pulmonary artery pressure was 82/30 mmHg with a mean of 15 mmHg, mean pulmonary capillary wedge pressure was 14 mmHg. 3. Angiographic studies included a left ventriculogram which revealed normal left ventricular function with an ejection fraction of 55% to 60%. 6. His coronary anatomy revealed a left main artery was unremarkable. 7. The LAD and diagonal vessels revealed mild intimal irregularities without critical lesions. 8. The circumflex artery and obtuse marginal branches revealed intimal irregularities without significant stenosis. 9. Right coronary artery was likely cannulized and found to be a dominant vessel. The RCA was free of significant disease. 10. Angio-Seal was used to close the right femoral artery site. The right femoral vein hemostasis was obtained with manual compression. 11. The patient tolerated the procedure well. IMPRESSION: In summary, the cardiac catheterization reveals: 1. Severe pulmonary hypertension, severe pulmonary retention. 2. Normal left ventricular function with an ejection fraction of 60%. 3. Unremarkable coronary arteries. PLAN: Given these findings, the patient's treatment needs to be directed at his pulmonary hypertension and his sarcoidosis. I will contact [facility] with the patient has been evaluated for pulmonary hypertension and lung transplantation and provide the data to them that is necessary. Andrew Holliday MD
[2017-03-24 19:02] VITALS: RESP 18
[2017-03-25] MEDS: TREPROSTINIL PO SCH (06:24)
[2017-03-25 06:53] VITALS: PULSE 78; TEMP 97.7
[2017-03-25 06:54] VITALS: O2SAT 96
[2017-03-25 07:12] LABS: HEMATOCRIT 43.2 % (42.0-52.0); MEAN CELL VOLUME 85.5 fl (80.0-105.0); MEAN CORPUSCULAR HEMOGLOBIN 25.7 pg (25.0-35.0); MEAN CORPUSCULAR HGB CONC 30.1 g/dl (31.0-37.0); MEAN PLATELET VOLUME 10.8 fl (7.0-11.0); RED CELL DISTRIBUTION WIDTH 15.6 % (11.5-14.5); WHITE BLOOD COUNT 7.5 10^3/ul (4.5-11.0)
[2017-03-25 07:29] LABS: ALB/GLOB RATIO 1.1 (1.1-1.8); BILIRUBIN,TOTAL 0.6 mg/dL (0.2-1.3); CALCIUM 9.2 mg/dL (8.4-10.5); POTASSIUM 5.5 mmol/L (3.6-5.0)
[2017-03-25] MEDS: Budesonide 0.5 mg/2 ml Inhal Susp UD IH SCH (08:08)
[2017-03-25] MEDS ORDERED: Sod Polystyrene Sulf 15 gm/60 ml Oral Susp PO ONE (08:09)
--- NOTE | 2017-03-25 08:21 | PN ---
FOLLOWUP NEPHROLOGY DATE: 03/24/2017 CHIEF COMPLAINT: None at this time. "I had a cardiac catheterization today, it went well." HISTORY OF PRESENT ILLNESS AND REVIEW OF SYSTEMS: The patient underwent cardiac cath today. The patient has severe pulmonary hypertension, normal EF, and no obstructive CAD, and the patient is seen for the followup. He is doing well. Denies any shortness of breath, denies any chest pain, palpitation, nausea, or vomiting. Denies any urinary complaint. PHYSICAL EXAMINATION GENERAL: The patient is watching TV. Looks comfortable at present. VITAL SIGNS: Afebrile, pulse is 83, blood pressure 122/66. LUNGS: Bilateral vesicular sounds with bibasilar crackles. Bilateral air entry normal and symmetrical. No wheezing. CARDIOVASCULAR: S1 and S2 normal. No rub or gallop. ABDOMEN: Soft and nontender. No organomegaly at this time. EXTREMITIES: No edema. PSYCHIATRIC: The patient is pleasant and cooperative. Judgment is appropriate. Affect is normal. Insight is present as well. LABORATORY DATA: Workup, he has white blood cell count 9.4, hemoglobin 12.8, platelet count is 124. Sodium is 140, potassium is 4.9, creatinine is 2.3, calcium is 8.8. CURRENT MEDICATIONS: Reviewed. ASSESSMENT: 1. Acute kidney injury, likely hemodynamic, considering his blood pressure fluctuations. 2. Baseline chronic kidney disease, stage III due to hypertensive chronic kidney disease. 3. Severe pulmonary hypertension. 4. Vitamin D deficiency with secondary hyperparathyroidism. 5. History of congestive heart failure with right heart failure with severe pulmonary hypertension, mildly improved. 6. Chronic obstructive pulmonary disease and sarcoidosis. RECOMMENDATIONS: Blood pressure is in good control with current regimen. His ARB is on hold because of his MICHAEL. We will discontinue IV fluids at this time since no evidence for CAD and further management as per cardiology and CHF management as per cardiology. We will repeat renal function in the morning to assess further follow up. All questions were answered. Continue the vitamin D supplementation. Saqib Lyn MD
[2017-03-25 09:11] VITALS: BP 162/91
[2017-03-25] MEDS: BECLOMETHASONE DIPROPIONATE 8.7 GM IH SCH (09:27)
[2017-03-25] MEDS: [UNRECOGNIZED DRUG - OTHER] IH SCH (09:28)
[2017-03-25] MEDS: TIOTROPIUM BR IH SCH (09:28)
[2017-03-25] MEDS: OLODATEROL HCL IH SCH (09:28)
--- NOTE | 2017-03-25 09:55 | PN ---
DATE: 03/25/2017 CARDIOLOGY FOLLOWUP The patient's breathing is stable. No chest pain noted. Blood pressure 108/70, heart rate in the 70s. Neck: Negative JVD. Lungs: Bilateral crackles. Heart: Reveal S1, S2. Extremities: Without edema. Hemoglobin is 13. Chemistries, BUN and creatinine is 65 and 1.9. IMPRESSION AND PLAN: 1. Status post catheterization which reveals normal LV systolic function with an EF of 55% with significant pulmonary hypertension. 2. Sarcoidosis. 3. Severe chronic obstructive pulmonary disease. 4. Renal insufficiency. 5. Recurrent dyspnea. Given these findings, I have discussed the case with the transplant animal laboratory helper at [facility]. There was some misleading clinical data that was cleared up. The patient has been instructed to follow up with them. They are expecting him to return for an outpatient evaluation for the possibility of lung transplantation. Andrew Holliday MD
--- NOTE | 2017-03-25 15:04 | PN ---
DATE: 03/25/2017 SUBJECTIVE: The patient appears very comfortable this morning. He is not short of breath at rest. PHYSICAL EXAMINATION: VITAL SIGNS: Temperature is 97.7, pulse 78, respirations 18, blood pressure 108/70. Oxygen saturation on nasal cannula is 96%. HEENT: Normocephalic, atraumatic. No JVD. CARDIOVASCULAR: Positive S1, S2. No S3. LUNGS: Decreased breath sounds at the bases. No rhonchi. No wheezing. EXTREMITIES: Mild edema. No cyanosis, no clubbing. Calves are nontender to palpation. GI: Abdomen is soft, nontender and nondistended. Bowel sounds are positive. SKIN: No acute rash. NEUROLOGIC: Exam limited at the present time. IMPRESSION: 1. Recurrent dizziness. 2. Advanced interstitial lung disease, on home oxygen. 3. Advanced sarcoidosis. 4. Chronic obstructive pulmonary disease. 5. Pulmonary hypertension. 6. Dilated cardiomyopathy. PLAN: The patient appears very comfortable this morning. He is not short of breath at rest. He states that he is feeling much, much better overall. On physical exam, his bronchospasm has primarily resolved. In addition, the oxygen saturation on nasal cannula is 96%. I will continue the current nebulizer treatments and change to oral steroids this morning. Cardiology input by Dr. Holliday is noted. In addition, Dr. Holliday did speak with the transplant surgeon at [facility] yesterday. Hopefully, they will reconsider him as a viable candidate for transplant surgery. The clinical status of the patient is significantly improved - compared to the initial presentation. However, again, the patient's overall status/prognosis does remain very guarded - as he does have extensive long-term lung disease. I will discuss the above with Dr. Carrasco. Rajesh Leon MD MTDJessica
--- NOTE | 2017-03-26 01:57 | DS ---
HISTORY OF PRESENT ILLNESS: The patient is resting comfortably in bed. He is feeling quiet well. He is in good spirits. No complaints of chest pain, shortness of breath, or abdominal pain. His legs have been swollen at this time and he is hungry. PHYSICAL EXAMINATION: VITAL SIGNS: He has a 97.7 temp, 78 pulse, 108/70 blood pressure, 18 respiratory rate, 96% O2 sat on room air. HEENT: Head is atraumatic and normocephalic. HEART: Regular rate. LUNGS: Decreased breath sounds, but clear to auscultation. ABDOMEN: Soft. EXTREMITIES: With trace edema if any. MEDICATIONS: He is on Apresoline, QVAR, Catapres, Drisdol, DuoNeb, Ecotrin, Imdur, Lipitor, prednisone which we will drop to 20 mg and eventually down to 10, Pulmicort, Stiolto, Tylenol, and vitamin D1. LABORATORY DATA: He has got 142 sodium, potassium is 5.5. I am going to give him one dose of Kayexalate today. I am going to follow with his labs in the outpatient. He has got to drink more water. I am going to give him a dose of Kayexalate before he leaves today. His BUN is down to 65, his creatinine is down to 1.9, he is getting better. GFR is 37, sugar is 124, calcium is 9.2, total bili is 0.6, AST is 23, ALT is 30, alkaline phosphatase is 64, total protein is 7. He was being seen by Cardiology, Pulmonary, and Renal. He had multiple issues. He also had a cardiac cath while he was here. He has severe pulmonary hypertension, severe pulmonary retention, normal LV function at 60%. He has got sarcoidosis, pulmonary hypertension. Dr. Holliday will talk to the pulmonary transplant team and put him back on the list. He had renal insufficiency secondary to treatment that is not coming around. We will see him in the office in a week and will follow with the pulmonary transplant team also in a week. James Carrasco DO
== END 2017-03-25 11:00 | disposition home or self-care (01) | DRG 280 ==
LOC: ED 22:44 → ERH 03-21 00:35 → 2RNO 03-21 01:57 → OBSVTOIN 03-22 10:17 → 2RSO 03-24 09:12
PROVIDERS: ADMIT Family Medicine; ATTEND Family Medicine
PROC: 4A023N8 Measurement of Cardiac Sampling and Pressure, Bilateral, Percutaneous Approach (ICD-10-PCS; principal; 2017-03-24)
PROC: B2111ZZ Fluoroscopy of Multiple Coronary Arteries using Low Osmolar Contrast (ICD-10-PCS; 2017-03-24)
PROC: B2151ZZ Fluoroscopy of Left Heart using Low Osmolar Contrast (ICD-10-PCS; 2017-03-24)
PROC: B2161ZZ Fluoroscopy of Right and Left Heart using Low Osmolar Contrast (ICD-10-PCS; 2017-03-24)
DX: I13.0 Hypertensive heart and chronic kidney disease with heart failure and stage 1 through stage 4 chronic kidney disease, or unspecified chronic kidney disease (principal); I50.23 Acute on chronic systolic (congestive) heart failure; I21.4 Non-ST elevation (NSTEMI) myocardial infarction; J84.9 Interstitial pulmonary disease, unspecified; I42.0 Dilated cardiomyopathy; N17.9 Acute kidney failure, unspecified; D69.6 Thrombocytopenia, unspecified; N18.3 Chronic kidney disease, stage 3 (moderate); N25.81 Secondary hyperparathyroidism of renal origin; J44.1 Chronic obstructive pulmonary disease with (acute) exacerbation; I48.92 Unspecified atrial flutter; I27.2 Other secondary pulmonary hypertension; E11.22 Type 2 diabetes mellitus with diabetic chronic kidney disease; I43 Cardiomyopathy in diseases classified elsewhere; E55.9 Vitamin D deficiency, unspecified; D86.9 Sarcoidosis, unspecified; J43.1 Panlobular emphysema; Z99.81 Dependence on supplemental oxygen; Z87.891 Personal history of nicotine dependence; K21.9 Gastro-esophageal reflux disease without esophagitis; K57.90 Diverticulosis of intestine, part unspecified, without perforation or abscess without bleeding; N40.0 Benign prostatic hyperplasia without lower urinary tract symptoms; T50.2X5A Adverse effect of carbonic-anhydrase inhibitors, benzothiadiazides and other diuretics, initial encounter; Z82.49 Family history of ischemic heart disease and other diseases of the circulatory system; Z86.69 Personal history of other diseases of the nervous system and sense organs; R42 Dizziness and giddiness

== ENCOUNTER 2017-09-17 18:49 | Inpatient (IN) | payer MEDICARE, OTHER ==
[2017-09-17 18:49] VITALS: PULSE 106
[2017-09-17 19:21] VITALS: BMI 27.6
--- NOTE | 2017-09-17 19:37 | ED PDOC ---
Arrival/HPI - General Time Seen by Provider: 09/17/17 19:02 Historian: Patient - History of Present Illness Narrative History of Present Illness (Text): 09/17/17 19:34 A 57 year old male, whose past medical history includes hypertension on amlodipine and catapres, sarcoidosis, COPD and CHF, presents to the emergency department complaining of exertional chest pain. Patient is currently asymptomatic. He notes experiencing the pain while going up 1 flight of stairs. Patient reports his blood pressure has been lower than normal. He notes a bp of 90/60 today. Patient was seen by his PMD 1 week ago and told to stop taking amlodipine. Patient stopped taking medication and when he saw no difference he decided himself to stop taking catapres 2 days ago. Patient notes feeling fatigue but denies any fever, chills, nausea, vomiting, abdominal pain, shortness of breath, headache, dizziness or any other complaints. Patient is on lung transplant list, he was instructed to see a bellows charger assembler for abnormal blood work done recently. Past Medical History - Provider Review Nursing Documentation Reviewed: Yes - Infectious Disease Hx of Infectious Diseases: None - Tetanus Immunization Tetanus Immunization: Unknown - Cardiac Hx Congestive Heart Failure: Yes Hx Hypertension: Yes - Pulmonary Hx Chronic Obstructive Pulmonary Disease (COPD): Yes - Neurological Hx Neurological Disorder: No - HEENT Hx HEENT Disorder: Yes (L EYE BLURRY) - Renal Hx Renal Disorder: No - Endocrine/Metabolic Hx Endocrine Disorders: No - Hematological/Oncological Hx Blood Transfusions: No Hx Blood Transfusion Reaction: No - Integumentary Hx Dermatological Disorder: No - Musculoskeletal/Rheumatological Hx Musculoskeletal Disorders: No Hx Falls: Yes - Gastrointestinal Hx Gastrointestinal Disorders: Yes Hx Diverticulitis: Yes Hx Gastroesophageal Reflux: Yes - Genitourinary/Gynecological Hx Genitourinary Disorders: Yes Hx Prostate Problems: Yes - Psychiatric Hx Psychophysiologic Disorder: No Hx Substance Use: No - Past Surgical History Past Surgical History: No Previous - Surgical History Other/Comment: pneumothorax, chest tube-L LUNG,LACERATION TO 3RD FINGER OF RIGHT HAND -STITCHED. - Anesthesia Hx Anesthesia Reactions: No Hx Malignant Hyperthermia: No - Suicidal Assessment Feels Threatened In Home Enviroment: No Family/Social History - Physician Review Nursing Documentation Reviewed: Yes Family/Social History: No Known Family HX Smoking Status: Former Smoker Hx Alcohol Use: No Hx Substance Use: No Hx Substance Use Treatment: No Allergies/Home Meds Allergies/Adverse Reactions: Allergies No Known Allergies Allergy (Verified 07/03/17 22:48) Home Medications: Home Meds Medication Instructions Recorded Confirmed Beclomethasone Dipropionate [Qvar 80 mcg INH DAILY 07/03/17 09/17/17 80 mcg] Tiotropium Br/Olodaterol HCl 2.5 mcg IN DAILY 09/17/17 09/17/17 [Stiolto Respimat Inhal [place]] Treprostinil Diolamine [Orenitram 0.125 mg PO Q8 09/17/17 09/17/17 ER] Verapamil [Calan SR Tab] 240 mg PO DAILY 09/17/17 09/17/17 metOLazone [Zaroxolyn] 2.5 mg PO DAILY 09/17/17 09/17/17 Furosemide [Lasix] 40 mg PO BID 09/18/17 09/17/17 Review of Systems - Physician Review All systems were reviewed & negative as marked: Yes - Review of Systems Constitutional: Fatigue, Other (low bp). absent: Fevers, Night Sweats Respiratory: absent: SOB Cardiovascular: Chest Pain (exertional) Gastrointestinal: absent: Abdominal Pain, Nausea, Vomiting Neurological: absent: Headache, Dizziness Physical Exam Vital Signs Reviewed: Yes Vital Signs Temp Pulse Resp BP Pulse Ox 09/17/17 22:40 84 18 109/65 100 09/17/17 21:34 85 16 117/61 97 09/17/17 18:49 98 F 86 18 115/76 98 Temperature: Afebrile Blood Pressure: Normal Pulse: Regular Respiratory Rate: Normal Appearance: Positive for: Well-Appearing, Non-Toxic, Comfortable Pain Distress: None Mental Status: Positive for: Alert and Oriented X 3 - Systems Exam Head: Present: Atraumatic, Normocephalic Pupils: Present: PERRL Extroacular Muscles: Present: EOMI Conjunctiva: Present: Normal Mouth: Present: Moist Mucous Membranes Neck: Present: Normal Range of Motion Respiratory/Chest: Present: Clear to Auscultation, Good Air Exchange. No: Respiratory Distress, Accessory Muscle Use Cardiovascular: Present: Regular Rate and Rhythm, Normal S1, S2. No: Murmurs Abdomen: Present: Normal Bowel Sounds. No: Tenderness, Distention, Peritoneal Signs Back: Present: Normal Inspection Upper Extremity: Present: Normal Inspection. No: Cyanosis, Edema Lower Extremity: Present: Normal Inspection. No: Edema Neurological: Present: GCS=15, CN II-XII Intact, Speech Normal Skin: Present: Warm, Dry, Normal Color. No: Rashes Psychiatric: Present: Alert, Oriented x 3, Normal Insight, Normal Concentration Medical Decision Making ED Course and Treatment: 09/17/17 19:34 Impression: A 57 year old male with exertional chest pain. Patient notes low blood pressure and fatigue. Plan: -- Chest xray -- EKG -- Labs -- Urine culture and Urinalysis -- Reassess and disposition Progress Notes: EKG shows NSR at 91 BPM with normal intervals, normal axis, grossly abnormal wide RBBB similar to prior on 07/06/2017. Interpreted by me. 09/17/17 21:25: Case discussed with Dr. Carrasco. Accepts patient to his service. Requests Dr. Leon, Dr. Holliday, and Dr. Lyn on consult. 09/17/17 21:46: Patient's creatinine level increased from 2.3 to 5.6. Explains hypertension and general malaise. Will admit for acute kidney injury. - Lab Interpretations Microbiology Results: Microbiology Results 09/17/17 20:14 Urine,Clean Catch Urine Culture - Final No Growth (<1,000 CFU/ML) Lab Results: 09/17/17 20:14 09/17/17 20:14 Lab Results 09/17/17 20:47: PT 13.4 H, INR 1.17 H 09/17/17 20:14: Sodium 144, Potassium 3.7, Chloride 97 L, Carbon Dioxide 34 H, Anion Gap 17, BUN 106 H, Creatinine 5.6 H, Est GFR ( Amer) 13, Est GFR ( Non-Af Amer) 11, Random Glucose 111 H, Calcium 10.7 H, Phosphorus 3.5, Magnesium 1.8, Total Bilirubin 1.0, AST 27, ALT 17, Alkaline Phosphatase 95, Lactate Dehydrogenase 767 H, Total Creatine Kinase 65, Troponin I 0.06 D, NT- Pro-B Natriuret Pep 1880 H, Total Protein 8.1, Albumin 4.3, Globulin 3.9, Albumin/Globulin Ratio 1.1 09/17/17 20:14: Urine Color Yellow, Urine Appearance Clear, Urine pH 6.0, Ur Specific [place] 1.015, Urine Protein Negative, Urine Glucose (UA) Negative, Urine Ketones Negative, Urine Blood Negative, Urine Nitrate Negative, Urine Bilirubin Negative, Urine Urobilinogen 0.2, Ur Leukocyte Esterase Negative 09/17/17 20:14: WBC 5.9 D, RBC 4.99, Hgb 14.8 D, Hct 42.8, MCV 85.8 D, MCH 29.7, MCHC 34.6, RDW 14.3, Plt Count 159, MPV 9.9, Gran % 63.4, Lymph % (Auto) 23.7, [place] % (Auto) 11.4 H, Eos % (Auto) 1.3 L, Baso % (Auto) 0.2, Gran # 3.76, Lymph # (Auto) 1.4, [place] # (Auto) 0.7 H, Eos # (Auto) 0.1, Baso # (Auto) 0.01 I have reviewed the lab results: Yes - RAD Interpretation Radiology Orders: 09/17/17 19:18 CHEST PORTABLE [RAD] Stat - Medication Orders Current Medication Orders: Aspirin (Ecotrin) 81 mg PO DAILY [facility] Last Admin: 09/20/17 09:31 Dose: 81 mg Budesonide (Pulmicort Respules) 0.5 mg IH [id number] [facility] Last Admin: 09/20/17 07:56 Dose: 0.5 mg Home Med (Home Med) 0.125 unit PO Q8H [facility] Last Admin: 09/20/17 08:08 Dose: 0.125 unit Potassium Chloride (Potassium Chloride 10 Meq/100 Ml) 10 meq in 100 mls @ 50 mls/hr IVPB ONCE ONE Stop: 09/20/17 12:04 Last Admin: 09/20/17 10:20 Dose: 50 mls/hr eMAR Start Stop Document 09/20/17 10:20 KL (Rec: 09/20/17 10:20 KL [id number]) Intravenous Solution Start Date 09/20/17 Start Time 10:20 Levalbuterol HCl (Xopenex) 1.25 mg IH TIDRESP [facility] Last Admin: 09/20/17 07:56 Dose: 1.25 mg Prednisone (Prednisone Tab) 10 mg PO DAILY [facility] Last Admin: 09/20/17 09:31 Dose: 10 mg Primidone (Mysoline) 50 mg PO HS [facility] Last Admin: 09/19/17 21:50 Dose: 50 mg Thiamine HCl (Vitamin B1 Tab) 100 mg PO BID [facility] Last Admin: 09/20/17 09:31 Dose: 100 mg Verapamil HCl (Calan Sr Tab) 240 mg PO DAILY [facility] Last Admin: 09/20/17 09:30 Dose: 240 mg MAR Pulse and Blood Pressure Document 09/20/17 09:30 JUSTO (Rec: 09/20/17 09:31 KL [id number]) Pulse Pulse Rate (60-90) 95 Blood Pressure Blood Pressure (100/60-150/90) 145/98 Discontinued Medications Amiodarone HCl (Cordarone) 200 mg PO DAILY [facility] Last Admin: 09/18/17 09:46 Dose: 200 mg MAR Pulse and Blood Pressure Document 09/18/17 09:46 Jodie (Rec: 09/18/17 09:46 [id number]) Pulse Pulse Rate (60-90) 92 Blood Pressure Blood Pressure (100/60-150/90) 124/76 Aspirin (Ecotrin) 325 mg PO DAILY [facility] Last Admin: 09/18/17 09:46 Dose: 325 mg Home Med (Home Med) 0.125 unit PO Q8 [facility] Last Admin: 09/18/17 06:54 Dose: Sodium Chloride (Sodium Chloride 0.9%) 1,000 mls @ 75 mls/hr IV .[id number] STA Stop: 09/19/17 00:15 Last Admin: 09/18/17 11:09 Dose: 75 mls/hr eMAR Start Stop Document 09/18/17 11:09 CLAUDIO (Rec: 09/18/17 11:09 [id number] Intravenous Solution Start Date 09/18/17 Start Time 11:09 End Date 09/19/17 Potassium Chloride (Potassium Chloride 10 Meq/100 Ml) 10 meq in 100 mls @ 50 mls/hr IVPB ONCE ONE Stop: 09/19/17 11:59 Last Admin: 09/19/17 10:20 Dose: 50 mls/hr eMAR Start Stop Document 09/19/17 10:20 KL (Rec: 09/19/17 10:20 KL [id number]) Intravenous Solution Start Date 09/19/17 Start Time 10:20 Levalbuterol HCl (Xopenex) 1.25 mg IH [id number] [facility] Last Admin: 09/20/17 01:23 Dose: 1.25 mg Potassium Chloride (K-Dur 20 Meq Er Tab) 20 meq PO ONCE ONE Stop: 09/18/17 18:33 Last Admin: 09/18/17 18:40 Dose: 20 meq Potassium Chloride (K-Dur 20 Meq Er Tab) 20 meq PO ONCE ONE Stop: 09/19/17 10:01 Last Admin: 09/19/17 10:20 Dose: 20 meq Potassium Chloride (K-Dur 20 Meq Er Tab) 40 meq PO ONCE ONE Stop: 09/20/17 09:32 Last Admin: 09/20/17 10:19 Dose: 40 meq - 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 Disposition/Present on Arrival - Present on Arrival Any Indicators Present on Arrival: No History of DVT/PE: No History of Uncontrolled Diabetes: No Urinary Catheter: No History of Decub. Ulcer: No History Surgical Site Infection Following: None - Disposition Have Diagnosis and Disposition been Completed?: Yes Diagnosis: Chest pain, Acute renal failure (ARF), Hypotension Disposition: HOSPITALIZED Disposition Time: 23:45 Patient Plan: Admission Patient Problems: Current Active Problems Problem Status Onset Acute renal failure (ARF) Acute Chest pain Acute Hypotension Acute Condition: FAIR
[2017-09-17 20:18] LABS: BASO # 0.01 K/mm3 (0.0-2.0); BASO % 0.2 % (0.0-3.0); EOS # 0.1 (0.0-0.7); EOS % 1.3 % (1.5-5.0); GRAN # 3.76 (1.4-6.5); GRAN % 63.4 % (50.0-68.0); HEMOGLOBIN 14.8 g/dL (14.0-18.0); LYMPH # 1.4 (1.2-3.4); LYMPH % 23.7 % (22.0-35.0); MEAN CELL VOLUME 85.8 fl (80.0-105.0); MEAN CORPUSCULAR HEMOGLOBIN 29.7 pg (25.0-35.0); MEAN CORPUSCULAR HGB CONC 34.6 g/dl (31.0-37.0); MEAN PLATELET VOLUME 9.9 fl (7.0-11.0); MONO # 0.7 (0.1-0.6); MONO % 11.4 % (1.0-6.0); RBC 4.99 10^6/uL (3.5-6.1); RED CELL DISTRIBUTION WIDTH 14.3 % (11.5-14.5); URINE BILIRUBIN NEGATIVE (NEGATIVE); URINE BLOOD NEGATIVE (NEGATIVE); URINE GLUCOSE (UA) NEGATIVE (NEGATIVE); URINE LEUKOCYTE ESTERASE NEGATIVE Leu/uL (NEGATIVE); URINE PROTEIN NEGATIVE mg/dL (<30 mg/dL); URINE UROBILINOGEN 0.2 E.U./dL (<1 E.U./dL); WHITE BLOOD COUNT 5.9 10^3/ul (4.5-11.0)
[2017-09-17 20:20] LABS: URINE COLOR YELLOW (YELLOW)
[2017-09-17 20:21] LABS: URINE APPEARANCE CLEAR (CLEAR)
[2017-09-17 21:04] LABS: INR 1.17 (0.93-1.08); PROTHROMBIN TIME 13.4 SECONDS (9.4-12.5)
[2017-09-17 21:51] LABS: ALB/GLOB RATIO 1.1 (1.1-1.8); ALBUMIN 4.3 g/dL (3.0-4.8); CALCIUM 10.7 mg/dL (8.4-10.5)
[2017-09-17 22:03] LABS: TROPONIN I 0.06 ng/mL
--- NOTE | 2017-09-18 01:34 | CP.PCM.PN ---
Subjective - Date & Time of Evaluation Date of Evaluation: 09/18/17 Time of Evaluation: 01:33 - Subjective Subjective: topical for bed bug. Objective - Vital Signs/Intake and Output Vital Signs (last 24 hours): Temp Pulse Resp BP Pulse Ox 98 F 102 H 20 124/77 93 L 09/17/17 23:54 09/17/17 23:54 09/17/17 23:54 09/17/17 23:54 09/17/17 23:54 - Labs Labs: PT 13.4 SECONDS (9.4-12.5) H 09/17/17 20:47 INR 1.17 (0.93-1.08) H 09/17/17 20:47
[2017-09-18] MEDS ORDERED: Permethrin 1% Kit 59 ML BOTTLE TOP ONE (01:45)
[2017-09-18] MEDS ORDERED: ORENITRAM PO SCH (06:30)
[2017-09-18] MEDS ORDERED: [UNRECOGNIZED DRUG - OTHER] PO SCH (06:30)
--- NOTE | 2017-09-18 08:16 | CON ---
DATE: 09/18/2017 PULMONARY CONSULTATION REFERRING PHYSICIAN: James Carrasco DO. REASON FOR CONSULTATION: Sarcoidosis. HISTORY OF PRESENT ILLNESS: The patient is a chronically ill 57-year-old male, with past medical history significant for advanced interstitial lung disease (on home oxygen), advanced sarcoidosis, pulmonary hypertension, chronic obstructive pulmonary disease, who presents to [facility] with main complaint of exertional chest pain "on and off" for the past week. The patient denies shortness of breath at rest. He does have chronic dyspnea on exertion-unchanged. There is no history of cough or sputum production. There is no history of coughing up of blood or chest pain-made worse with deep respirations. There is no history of temperatures, chills or infectious exposure. There is no history of night sweats, weight loss or appetite change prior to the above events. No history of leg or calf pains. No history of syncope or diaphoresis. No history of recent travel or trauma. REVIEW OF SYSTEMS: No history of nausea, vomiting or diarrhea. No acute urinary symptoms. No new neurologic complaints. Rest of the review of systems is negative. ALLERGIES: NO KNOWN ALLERGIES. SOCIAL HISTORY: Positive for tobacco. Negative for alcohol. FAMILY HISTORY: No inheritable diseases. HOME MEDICATIONS: Include Pulmicort, prednisone, Cozaar, Lasix, Cordarone, verapamil, Stiolto Respimat, Zaroxolyn and treprostinil. PHYSICAL EXAMINATION: GENERAL: Patient appears comfortable at rest. He is not short of breath. He is not using accessory muscles for breathing. VITAL SIGNS: Temperature is 98.7, pulse on the monitor is 101, respiratory rate 18, blood pressure 118/67. Oxygen saturation on room air is 96%. Oxygen saturation on nasal cannula is 100%. HEENT: Normocephalic, atraumatic. NECK: No JVD. CARDIOVASCULAR: Positive S1, S2. No S3 gallop. LUNGS: Slight decreased breath sounds at the bases. No rhonchi or wheezing. EXTREMITIES: Mild edema. No cyanosis, no clubbing. Calves are nontender to palpation. GI: Abdomen is soft, nontender and nondistended. Bowel sounds are positive. SKIN: No acute rash. NEUROLOGIC: Exam limited at the present time. PERTINENT LABORATORY DATA: Chest x-ray was done and reviewed. There are no acute changes noted. Official results are pending. CBC: White count 5.9, hemoglobin 14.8, hematocrit 42.8, platelets of 159, 000. Complete metabolic profile: Chloride 97, carbon dioxide 34, BUN 106, creatinine 5.6, glucose 111, calcium 10.7, LDH 767. Troponin 0.06. B-type natriuretic peptide 1880. Rest of the metabolic profiles are within normal limits. IMPRESSION: 1. Exertional chest pain. 2. Advanced interstitial lung disease. 3. Advanced sarcoidosis. 4. Chronic obstructive pulmonary disease. 5. Pulmonary hypertension. 6. Renal insufficiency. PLAN: The patient presents to [facility] with a 1-week history of exertional chest pain. He states that he is okay at rest, but climbing a flight of stairs elicits his chest pain. He also presents with a history of chronic dyspnea on exertion. He offers no other new or significant pulmonary symptoms. I did review the chest x-ray as above. I have also reviewed the prior films. There is no acute change on the most present x-ray. Official results are pending. On physical exam, there is no bronchospasm noted. In addition, there is no significant alveolar-arterial gradient. I will start the patient on Xopenex nebulizer treatments (patient is slightly tachycardic), as well as inhaled budesonide. The patient is on prednisone 10 mg per day and I will continue with that for now. Lastly, I will continue with the treprostinil-for his pulmonary hypertension. I have also reviewed the laboratory data. A significant rise in the BUN/creatinine is noted. Intermediate troponin is also noted. Cardiology evaluation and Renal evaluation have been ordered. The patient does feel a little better this morning, and is clinically improved. Additional pulmonary intervention will be based on the clinical status of this patient. The patient is currently being evaluated by [facility] for lung transplantation. Thank you very much for this pulmonary consultation. Rajesh Leon MD JENNIFER
[2017-09-18] MEDS: [UNRECOGNIZED DRUG - OTHER] PO SCH ×3 (08:32→23:03)
[2017-09-18] MEDS: ORENITRAM PO SCH ×3 (08:32→23:03)
[2017-09-18] MEDS: Levalbuterol 1.25 MG/3 ML Inhal Soln UD IH SCH ×3 (08:37→20:43)
[2017-09-18] MEDS: Budesonide 0.5 mg/2 ml Inhal Susp UD IH SCH ×2 (08:37→20:43)
--- NOTE | 2017-09-18 09:11 | RAD ---
HISTORY: Chest Pain COMPARISON: 07/03/2017 FINDINGS: LUNGS: Patchy and linear infiltrates are again seen in the lower lobes. There is an 8 x 20 mm nodule in the left upper lobe PLEURA: No significant pleural effusion identified, no pneumothorax apparent. CARDIOVASCULAR: Normal. OSSEOUS STRUCTURES: No significant abnormalities. VISUALIZED UPPER ABDOMEN: Normal. OTHER FINDINGS: None. IMPRESSION: Patchy and linear infiltrates are again seen in the lower lobes. There is an 8 x 20 mm nodule in the left upper lobe
[2017-09-18] MEDS ORDERED: Aspirin 325 mg EC Tablets PO SCH (10:00)
[2017-09-18] MEDS ORDERED: Sodium Chloride 0.9% 1,000 ML IV STA (10:56)
[2017-09-18 12:14] LABS: ALB/GLOB RATIO 1.1 (1.1-1.8); ALBUMIN 4.2 g/dL (3.0-4.8); CALCIUM 10.3 mg/dL (8.4-10.5)
--- NOTE | 2017-09-18 14:17 | CP.PCM.CON ---
History of Present Illness - History of Present Illness History of Present Illness: renal consult note 57 y/o M with hx of hypertension ( 7-8 years) mostly uncontrolled, sarcoidosis, ex smoker quit 20 yrs ago, CKD stage 3 (baseline cr 1.5-1.9 since 2012), biV failure, CHF, severe pulmonary Hypertension, episodes of MICHAEL, hospitalizations at [facility] for CHF, HTN, he is admitted overnight for sob and chest pain. he has been running low bp and stopped some of his bp meds ros negative except for noted above pmh as above last seen in office earlier this year, cr was 1.8 he is also undergoing lung transplant evaluation at [facility] and saw a chip mucker dr montanez in [place] as well. exam vitals reviewd ao times 3 nad heent normal no jvd s1s2 present no resp distress abd soft skin normal psy cooperative no fnd A&P: MICHAEL/CKD stage 3/chf/hypotension/sarcoidosis/pulm htn michael likely sec to atn from hypotension and diuretic use agree with stopping bp meds and diuretics gentle hydration i have ordered a renal usg to rule out obstruction if no improvement in renal funciton, recommend cee cards and pulm on board lytes ok will continue to follow Past Patient History - Infectious Disease Hx of Infectious Diseases: None - Tetanus Immunizations Tetanus Immunization: Unknown - Past Social History Smoking Status: Former Smoker - CARDIAC Hx Congestive Heart Failure: Yes Hx Hypertension: Yes - PULMONARY Hx Chronic Obstructive Pulmonary Disease (COPD): Yes - NEUROLOGICAL Hx Neurological Disorder: No - HEENT Hx HEENT Problems: Yes (L EYE BLURRY) - RENAL Hx Chronic Kidney Disease: No - ENDOCRINE/METABOLIC Hx Endocrine Disorders: No - HEMATOLOGICAL/ONCOLOGICAL Hx Blood Disorders: No - INTEGUMENTARY Hx Dermatological Problems: No - MUSCULOSKELETAL/RHEUMATOLOGICAL Hx Falls: No - GASTROINTESTINAL Hx Gastrointestinal Disorders: Yes Hx Diverticulitis: Yes Hx Gastroesophageal Reflux: Yes - GENITOURINARY/GYNECOLOGICAL Hx Genitourinary Disorders: Yes Hx Prostate Problems: Yes - PSYCHIATRIC Hx Psychophysiologic Disorder: No - SURGICAL HISTORY Other/Comment: pneumothorax, chest tube-L LUNG,LACERATION TO 3RD FINGER OF RIGHT HAND -STITCHED. - ANESTHESIA Hx Anesthesia Reactions: No Hx Malignant Hyperthermia: No Meds Allergies/Adverse Reactions: Allergies Allergy/AdvReac Type Severity Reaction Status Date / Time No Known Allergies Allergy Verified 07/03/17 22:48 - Medications Medications: Current Medications Aspirin (Ecotrin) 81 mg PO DAILY [facility] Budesonide (Pulmicort Respules) 0.5 mg IH [id number] [facility] Last Admin: 09/18/17 08:37 Dose: 0.5 mg Home Med (Home Med) 0.125 unit PO Q8H [facility] Last Admin: 09/18/17 08:32 Dose: 0.125 unit Sodium Chloride (Sodium Chloride 0.9%) 1,000 mls @ 75 mls/hr IV .[id number] STA Stop: 09/19/17 00:15 Last Admin: 09/18/17 11:09 Dose: 75 mls/hr Levalbuterol HCl (Xopenex) 1.25 mg IH [id number] [facility] Last Admin: 09/18/17 14:07 Dose: 1.25 mg Prednisone (Prednisone Tab) 10 mg PO DAILY [facility] Last Admin: 09/18/17 09:46 Dose: 10 mg Thiamine HCl (Vitamin B1 Tab) 100 mg PO BID [facility] Last Admin: 09/18/17 09:46 Dose: 100 mg Results - Vital Signs Recent Vital Signs: Last Vital Signs Temp 98.2 F 09/18/17 12:00 Pulse 87 09/18/17 12:00 Resp 20 09/18/17 12:00 BP 110/71 09/18/17 12:00 Pulse Ox 96 09/18/17 06:00 - Labs Result Diagrams: 09/17/17 20:14 09/18/17 11:40 Labs: Laboratory Results - last 24 hr 09/18/17 11:40 Sodium 145 Potassium 3.0 L Chloride 98 Carbon Dioxide 35 H Anion Gap 15 BUN 98 H Creatinine 4.8 H Est GFR ( Amer) 15 Est GFR (Non-Af Amer) 13 Random Glucose 138 H Calcium 10.3 Total Bilirubin 0.7 AST 23 ALT 24 Alkaline Phosphatase 78 Total Protein 7.9 Albumin 4.2 Globulin 3.7 Albumin/Globulin Ratio 1.1
--- NOTE | 2017-09-18 16:11 | CARD ---
APPROVED REPORT EKG Measurement Heart [id number] [id number] <Conclusion> Normal sinus rhythm Possible Left atrial enlargement Right bundle branch block ST_T Changes.
--- NOTE | 2017-09-18 17:41 | US ---
PROCEDURE: Ultrasound of the Kidneys HISTORY: erwin COMPARISON: None available. TECHNIQUE: Sonogram of the kidneys. FINDINGS: RIGHT KIDNEY: Measures: 8.8 cm. Diffusely increased renal cortical echogenicity. No solid mass. No calculus or hydronephrosis. Lower pole septated cyst, 2.9 x 2.9 x 2.3 cm. LEFT KIDNEY: Measures: 11.3 cm. Diffusely increased renal cortical echogenicity. No solid mass, calculus or hydronephrosis. Lower pole cortical cyst, 2.3 x 1.6 x 1.8 cm. Second lower pole cortical cyst, 1.0 x 1.2 x 1.4 cm. OTHER FINDINGS: None. IMPRESSION: Diffusely echogenic kidneys. Bilateral renal cysts.
[2017-09-18] MEDS ORDERED: Potassium Chloride 20 mEq ER Tab PO ONE (18:32)
--- NOTE | 2017-09-18 19:10 | CON ---
DATE: 09/18/2017 CARDIOLOGY CONSULTATION HISTORY: The patient is a 57-year-old male who experienced an episode of chest discomfort while ambulating up the stairs. He has chronic shortness of breath from his chronic sarcoidosis as well as severe pulmonary hypertension. The patient has documented normal coronaries by catheterization performed in 02/2017. He has documented pulmonary hypertension as well. His LV function is normal. He was placed on Lasix because of his recurrent pedal edema. While in the hospital, he was found to have markedly elevated creatinine with a borderline elevated troponin; it is likely due to renal insufficiency. His chest pain has now resolved. SOCIAL HISTORY: The patient does not smoke. REVIEW OF SYSTEMS: Fourteen-point review of systems is reviewed in detail. His symptoms are dominated by exertional dyspnea. He is currently being followed at [facility] for evaluation for potential lung transplantation. PHYSICAL EXAMINATION: VITAL SIGNS: Blood pressure is 124/76, heart rates in the 90s. NECK: Negative JVD. LUNGS: Decreased breath sounds bilaterally. HEART: Reveal S1, S2. EXTREMITIES: Without edema. EKG shows normal sinus rhythm with right bundle-branch block; left anterior hemiblock with diffuse ST-T changes, which are unchanged from his previous. Troponin is 0.08 and 0.06 with a BUN and creatinine of 106 and 5.6. The hemoglobin is 14.8. IMPRESSION: 1. Renal insufficiency, likely due to baseline renal insufficiency as well as diuretic therapy. 2. Severe pulmonary hypertension. 3. Sarcoidosis. 4. Normal left ventricular function. 5. Unremarkable coronary arteries. 6. Pedal edema. PLAN: Given these findings, we will stop his diuretics. We will start him on IV normal saline infusion. We will check his BUN and creatinine daily. Andrew Holliday MD
--- NOTE | 2017-09-18 21:50 | HP ---
HISTORY OF PRESENT ILLNESS: for years. He is having some exertional chest pain, shortness of breath up to walking one to two steps which is kind of new for him. He has also severe end stage lung disease, end stage COPD with advanced sarcoidosis, on the lung transplant list. He has pulmonary hypertension, has history of CHF, he has had acute kidney injuries, he had multiple problems, he could not walk up a couple of steps. His blood pressure dropped to 90/60, I stopped amlodipine and I stopped clonidine and so his blood pressure still in the 90s. He is more short of breath despite treatment on the outpatient and I sent him to the emergency room. He is a 57 year old man with a very bad history of hypertension, advanced sarcoid, advanced COPD on lung transplant list with CHF. He had exertional chest pain with shortness of breath. He also has left eye blurry, falls, reflux, diverticulitis history, prostate problems of BPH. He has had a pneumothorax with chest tube in the past. FAMILY HISTORY: He has no known family history. SOCIAL HISTORY: He is a former smoker. No alcohol. No drugs. ALLERGIES: NO KNOWN DRUG ALLERGIES. MEDICATIONS: He is on multiple medications at home, aspirin, verapamil, amiodarone, losartan, albuterol, Lasix, treprostinil, prednisone, budesonide, beclomethasone, Stiolto, thiamine, metolazone. He was on amlodipine and he was on clonidine which I stopped, for his high blood pressure because his blood pressure is now 90 off the medication. REVIEW OF SYSTEMS: He also had a LifeVest at onetime, not wearing it now. He is fatigued, low blood pressure, short of breath, exertional chest pain with going two or three steps. No abdominal pain, nausea, vomiting, constipation, diarrhea. No headache or dizziness. No extremity pain. Not anxious, not depressed, he is angry that is here in the hospital. PHYSICAL EXAMINATION: VITAL SIGNS: He has 98 temperature, 86 pulse, 18 respiratory rate, his blood pressure here is 115/76, that was 90/40 at home, 98% O2. GENERAL: He is well-appearing, nontoxic, comfortable in bed. He is not doing anything and is okay. Alert and oriented x3. HEENT: His head is atraumatic, normocephalic. Extraocular muscles are intact. Pupils are equal and reactive to light. Throat is moist. NECK: Supple. HEART: Regular rate. Normal S1, S2. LUNGS: Decreased breath sounds bilaterally, but clear to auscultation. ABDOMEN: Soft, nontender. Positive bowel sounds. No guarding. No rebound. No CVA tenderness. EXTREMITIES: There is trace edema bilaterally. NEUROLOGIC: GCS is 15. Cranial nerves II through XII grossly intact. Speech is normal. Alert and oriented x3. SKIN: Warm and dry. No apparent rashes or ulcers. He is very angry and upset for being here. He does not want dialysis. He understands that his kidney functions are off. He had a bunch of tests done. He has the urine which is clean. He has 144 sodium, potassium 3.7. BUN is 106, creatinine is 5.6, which usually 40 and 2, it went up more than double of this. Blood sugar 111. His GFR is down to 11. Calcium is 10.7, phosphorus 2.5, magnesium is 1.8. Total bili is 1, AST is 27, ALT is 17, alk phos is 95, lactate dehydrogenase is 757. Troponin I is 0.06. BNP is high at 1880, so he is kidney injury/failure with CHF picture. His INR 1.17. He has a 5.9 white count, 14.8 hemoglobin, 42.8 hematocrit with 159 platelets. He had a chest x-ray which showed patchy infiltrates we can see in the lower lobes and not on the left upper lobe. He will be seen by Pulmonary, Renal, and Cardiology. I will discuss this with the doctors. We will continue aggressive treatment and care for his acute kidney injury. James Carrasco DO MTDJessica
[2017-09-19] MEDS: Levalbuterol 1.25 MG/3 ML Inhal Soln UD IH SCH ×4 (01:28→19:43)
[2017-09-19 07:03] LABS: HEMOGLOBIN 13.1 g/dL (14.0-18.0); MEAN CELL VOLUME 86.6 fl (80.0-105.0); MEAN CORPUSCULAR HEMOGLOBIN 29.3 pg (25.0-35.0); MEAN CORPUSCULAR HGB CONC 33.9 g/dl (31.0-37.0); MEAN PLATELET VOLUME 9.6 fl (7.0-11.0); RBC 4.47 10^6/uL (3.5-6.1); RED CELL DISTRIBUTION WIDTH 14.1 % (11.5-14.5); WHITE BLOOD COUNT 5.1 10^3/ul (4.5-11.0)
[2017-09-19 07:24] LABS: ALB/GLOB RATIO 1.1 (1.1-1.8); ALBUMIN 3.9 g/dL (3.0-4.8); CALCIUM 10.2 mg/dL (8.4-10.5)
[2017-09-19] MEDS: Budesonide 0.5 mg/2 ml Inhal Susp UD IH SCH ×2 (08:22→19:43)
--- NOTE | 2017-09-19 08:43 | PN ---
DATE: PULMONARY NOTE SUBJECTIVE: The patient appears comfortable this morning. He is not short of breath at rest. OBJECTIVE VITAL SIGNS: Temperature is 98.6, pulse on the monitor is 95, respiratory rate 18, blood pressure 126/72. Oxygen saturation on nasal cannula is 95%. HEENT: Normocephalic, atraumatic. NECK: No JVD. CARDIOVASCULAR: Positive S1, S2. No S3 gallop. LUNGS: Slight decreased breath sounds at the bases. No rhonchi. No wheezing. EXTREMITIES: Mild edema. No cyanosis, no clubbing. Calves are nontender to palpation. GASTROINTESTINAL: Abdomen is soft, nontender and nondistended. Bowel sounds are positive. SKIN: No acute rash. NEUROLOGIC: Exam limited at the present time. PERTINENT LABORATORY DATA: I did review the chest x-ray reading by Dr. Elias. I also went over the case with him again yesterday. He confirms that the most present x-ray is not changed from the previous films. IMPRESSION 1. Exertional chest pain. 2. Advanced interstitial lung disease. 3. Advanced sarcoidosis. 4. Chronic obstructive pulmonary disease. 5. Pulmonary hypertension. 6. Renal insufficiency. PLAN: The patient appears comfortable this morning. He is not short of breath at rest. He has no chest pain. He does state to feeling better overall. On physical exam, there is no significant bronchospasm noted. In addition, there is no significant alveolar-arterial gradient. I will continue with the current pulmonary medications and low-dose steroids for now. The patient also remains on his treprostinil - for his pulmonary hypertension. Inputs by Cardiology and Renal are noted. Repeat morning labs are pending. The patient does appear clinically improved - compared to the initial hospital status. I will discuss the above with Dr. Carrasco. Rajesh Leon MD JENNIFER
[2017-09-19] MEDS: ORENITRAM PO SCH ×2 (08:44→16:04)
[2017-09-19] MEDS: [UNRECOGNIZED DRUG - OTHER] PO SCH ×2 (08:44→16:04)
[2017-09-19] MEDS ORDERED: Potassium Chloride 20 mEq ER Tab PO ONE (10:00)
--- NOTE | 2017-09-19 10:23 | PN ---
DATE: SUBJECTIVE: I saw him sitting in bed. He did say he slept okay last night. He walked a few steps to the bathroom and back. He said it was not as bad as when he came in, which is good. Less short of breath, but still there. No chest pain at this time. He took some steps. His legs are not swollen either. PHYSICAL EXAMINATION: VITAL SIGNS: He has a 98.6 temp; 101 pulse, it was as high as 110; 126/72 blood pressure; 19 respiratory rate; 93% O2 sat on nasal cannula. HEENT: His head is atraumatic, normocephalic. Throat is dry. NECK: Supple. HEART: Regular rate. A little tachy. LUNGS: Decreased breath sounds bilaterally, fairly clear. ABDOMEN: Soft. EXTREMITIES: Trace edema bilaterally. MEDICATIONS: He is currently on Ecotrin. Home meds, potassium, prednisone, Pulmicort, vitamin B1 and Xopenex. He is off the Cordarone, Ecotrin and off the IV fluids, off the Lasix. LABORATORY DATA: He has a 5.1 white count, 13.1 hemoglobin, 38.7 hematocrit with a 149 platelets. He has a 145 sodium, potassium is low at 3. I gave him potassium rider and potassium p.o. BUN is 81, creatinine 3.6, still elevated for him, but better than the 106 and 5.6 when he came in, so he is in the right direction. GFR is 18, going up a little bit. Sugar is 105. Calcium is 10.2, better. Total bili is 0.7, AST is 26, ALT is 17, alk phos 84, total protein 7.6. ASSESSMENT AND PLAN: He is being seen by Pulmonary, Renal and Cardiology. He has multiple issues. He is also having tremors. He put his hands up for me and there were definitely tremors. I am going to call in Dr. Bryan Lam, the neurologist for an evaluation. He has renal insufficiency close to acute kidney injury, severe pulmonary hypertension, severe sarcoidosis. He is going to have a consult with Neurology. We will continue to watch his BUN and creatinine and we will see what he does. If he does well tomorrow, I will discharge him tomorrow if I can. James Carrasco DO
--- NOTE | 2017-09-19 11:52 | PN ---
DATE: 09/19/2017 CARDIOLOGY FOLLOWUP SUBJECTIVE: The patient's breathing is without issues. PHYSICAL EXAMINATION: VITAL SIGNS: Stable. NECK: Negative JVD. LUNGS: Without rales. HEART: Reveals S1, S2. EXTREMITIES: Without edema. LABORATORY DATA: BUN and creatinine have improved from yesterday after IV hydration. IMPRESSION: 1. Renal insufficiency with a large component of prerenal azotemia. 2. Severe pulmonary hypertension. 3. Recurrent pedal edema from pulmonary hypertension. 4. Good left ventricular function. 5. History of sarcoidosis. Given these findings, we will continue gentle IV hydration for the next 24 hours. I have discussed with the patient about his need for changing of his diet and lifestyle at home. Andrew Holliday MD
--- NOTE | 2017-09-19 13:32 | CP.PCM.PN ---
Subjective - Date & Time of Evaluation Date of Evaluation: 09/19/17 Time of Evaluation: 13:29 - Subjective Subjective: Follow up Nephrology Consultation: Assessment: stable MICHAEL alexandre pre-renal Hypertensive Chronic Kidney Disease (I12.9) Chronic Kidney Disease (N18.3) Stage 3 with 1.4 gram proteinuria (R80.9) likely due to HTN HTN (I12.9) severe pulmonary HTN, sarcoidosis, ex smoker Vit D def, secondary hyperparathyroidism Hypokalemia Plan No acute need for renal replacement therapy at this time. Hypertension control with meds as ordered. resume verapamil. hold ACEI/ARB secondary HTN work up: renin/tor, metanephrines and renal artery doppler has been neg in past Monitor Input/Output, daily weights and renal function with basic metabolic panel holding diuretics supplement K Dose meds/antibiotics for reduced GFR. Avoid fleets enema/magnesium based laxatives. Avoid nephrotoxins/NSAIDs/ iodinated contrast (unless needed emergently) Glycemic control Further work up/management as per primary team Thanks for allowing me to participate in care of your patient. Will follow patient with you. Please call if any Qs. Dr Saqib Lyn Office: [phone] HPI: Pt is a 57 y/o M with hx of hypertension ( 7-8 years) mostly uncontrolled, sarcoidosis, ex smoker quit 20 yrs ago, CKD stage 3 (baseline cr 1.5-1.9 since 2013, now close to 2.0), biV failure, CHF, severe pulmonary Hypertension, came with low BP and MICHAEL ROS: no fever/chills, sick contact, urinary or bowel complaints. rest all other negative Physical Examination: General Appearance: comfortable, not in acute distress, pleasant Vitals reviewed and noted as below Head; Atraumatic, normocephalic ENT: no ulcers has thrush. Tongue is midline. Oropharynx: no rash or ulcers. EYES: Pupils are equal, round and reactive to light accommodation. Eye muscles and extraocular movement intact. Sclera is anicteric. Neck; supple no lymphadenopathy, no thyromegaly or bruit Lungs: normal respiratory rate/effort. Breath sounds bilateral equal and clear Heart: Normal rate. s1s2 normal. No rub but has gallop. Extremities: no edema. No varicose veins Neurological: Patient is AO x 3 follow commands, no deficit Skin: Warm and dry. Normal turgor. No rash. Palpitation: Normal elasticity for age Abdomen: Abdomen is soft. Bowel sounds +. There is no abdominal tenderness, no guarding/rigidity no organomegaly Psych: good insight. normal affect/mood MSK: no joint tenderness or swelling. Digits and nails normal, no deformity : kidney or bladder not palpable Labs/imaging/EKG reviewed. Past medical history, past surgical history, family history, social history, allergy reviewed and noted as below Family hx: no hx of CKD. Rest non-contributory Work up: Renal sono 2018: b/l renal cysts and echogenic kidneys. Renal artery doppler neg for stenosis UA 1.4 gr proteinuria. hep B/C and HIV neg Objective - Vital Signs/Intake and Output Vital Signs (last 24 hours): Temp Pulse Resp BP Pulse Ox 98.3 F 67 18 143/104 H 93 L 09/19/17 12:00 09/19/17 12:00 09/19/17 12:00 09/19/17 12:00 09/19/17 00:01 Intake and Output: 09/19/17 09/19/17 06:59 18:59 Intake Total 1245 240 Balance 1245 240 - Medications Medications: Current Medications Aspirin (Ecotrin) 81 mg PO DAILY [facility] Last Admin: 09/19/17 09:50 Dose: 81 mg Budesonide (Pulmicort Respules) 0.5 mg IH [id number] [facility] Last Admin: 09/19/17 08:22 Dose: 0.5 mg Home Med (Home Med) 0.125 unit PO Q8H [facility] Last Admin: 09/19/17 08:44 Dose: 0.125 unit Levalbuterol HCl (Xopenex) 1.25 mg IH [id number] [facility] Last Admin: 09/19/17 08:22 Dose: 1.25 mg Prednisone (Prednisone Tab) 10 mg PO DAILY [facility] Last Admin: 09/19/17 09:50 Dose: 10 mg Thiamine HCl (Vitamin B1 Tab) 100 mg PO BID [facility] Last Admin: 09/19/17 09:50 Dose: 100 mg - Labs Labs: 09/19/17 06:00 09/19/17 06:00 PT 13.4 SECONDS (9.4-12.5) H 09/17/17 20:47 INR 1.17 (0.93-1.08) H 09/17/17 20:47
[2017-09-19] MEDS: Verapamil 240 mg ER Tab PO SCH (13:59)
--- NOTE | 2017-09-19 19:51 | CON ---
DATE: HISTORY OF PRESENT ILLNESS: A 57-year-old black male with past medical history of hypertension, sarcoidosis, and chronic kidney disease, who came to the hospital for CHF and chest pain. Feels better now and also complains of some fine tremors of the hands. PAST MEDICAL HISTORY: As above. ALLERGY: NO KNOWN DRUG ALLERGY. PHYSICAL EXAMINATION: VITAL SIGNS: Blood pressure 110/71. HEENT: Normocephalic, atraumatic. NECK: Supple. NEUROLOGIC: Alert, awake, and oriented to place and year. No aphasia. Cranial nerves II through XII grossly intact. Pupils reactive. EOM intact. Visual field full. No facial asymmetry. Tongue midline. Motor exam: Moves all extremities equally. Toes normal. DTRs are 1+ throughout. Sensory appears intact. Cerebellar, gait normal, except fine tremors of the hands. IMPRESSION: Possibly essential tremor. PLAN: We will do a CAT scan of the head without contrast. Start Mysoline 50 mg 1 p.o. daily and continue . Aiden Lam MD
[2017-09-20] MEDS: ORENITRAM PO SCH ×4 (00:24→23:29)
[2017-09-20] MEDS: [UNRECOGNIZED DRUG - OTHER] PO SCH ×4 (00:24→23:29)
[2017-09-20] MEDS: Levalbuterol 1.25 MG/3 ML Inhal Soln UD IH SCH ×4 (01:23→20:19)
[2017-09-20 06:49] LABS: HEMOGLOBIN 12.9 g/dL (14.0-18.0); MEAN CELL VOLUME 88.2 fl (80.0-105.0); MEAN CORPUSCULAR HEMOGLOBIN 29.3 pg (25.0-35.0); MEAN CORPUSCULAR HGB CONC 33.2 g/dl (31.0-37.0); MEAN PLATELET VOLUME 9.6 fl (7.0-11.0); RBC 4.4 10^6/uL (3.5-6.1); RED CELL DISTRIBUTION WIDTH 14.2 % (11.5-14.5); WHITE BLOOD COUNT 5.2 10^3/ul (4.5-11.0)
[2017-09-20 07:00] LABS: ALB/GLOB RATIO 1.1 (1.1-1.8); CALCIUM 10.2 mg/dL (8.4-10.5)
[2017-09-20] MEDS: Budesonide 0.5 mg/2 ml Inhal Susp UD IH SCH ×2 (07:56→20:19)
[2017-09-20] MEDS: Verapamil 240 mg ER Tab PO SCH (09:30)
[2017-09-20] MEDS ORDERED: Potassium Chloride 20 mEq ER Tab PO ONE (09:31)
--- NOTE | 2017-09-20 10:21 | PN ---
DATE: PULMONARY NOTE SUBJECTIVE: The patient appears comfortable this morning. He is not short of breath at rest. OBJECTIVE VITAL SIGNS: Temperature is 98.9, pulse 98, respirations 18/20, blood pressure 147/96. Oxygen saturation on nasal cannula is 94%. HEENT: Normocephalic, atraumatic. NECK: No JVD. CARDIOVASCULAR: Positive S1, S2. No S3 gallop. LUNGS: Slight decreased breath sounds at the bases. No rhonchi. No wheezing. EXTREMITIES: Mild edema. No cyanosis, no clubbing. Calves are nontender to palpation. GI: Abdomen is soft, nontender and nondistended. Bowel sounds are positive. SKIN: No acute rash. NEUROLOGIC: Exam limited at the present time. IMPRESSION 1. Exertional chest pain. 2. Advanced interstitial lung disease. 3. Advanced sarcoidosis. 4. Chronic obstructive pulmonary disease. 5. Pulmonary hypertension. 6. Renal insufficiency. PLAN: The patient appears comfortable this morning. He is not short of breath at rest. He has no chest pain. He does state to feeling much better overall. He does complain of some shakiness this morning. I will try decreasing the nebulizer treatments. The patient is not in significant bronchospasm. In addition, there is no significant alveolar-arterial gradient. I would continue with the treatment as per Cardiology and Neurology. Inputs are noted. The patient remains off diuretic therapy. Repeat morning labs are pending. Clinical status of the patient is certainly improved - compared to the initial presentation. However, again, the future status/prognosis for this chronically ill patient does remain guarded. I will discuss the above with Dr. Carrasco later this morning. Rajesh Leon MD JENNIFER
--- NOTE | 2017-09-20 10:55 | CP.PCM.PN ---
Subjective - Date & Time of Evaluation Date of Evaluation: 09/20/17 Time of Evaluation: 10:54 - Subjective Subjective: Follow up Nephrology Consultation: Assessment: stable MICHAEL alexandre pre-renal Hypertensive Chronic Kidney Disease (I12.9) Chronic Kidney Disease (N18.3) Stage 3 with 1.4 gram proteinuria (R80.9) likely due to HTN HTN (I12.9) severe pulmonary HTN, sarcoidosis, ex smoker Vit D def, secondary hyperparathyroidism Hypokalemia Plan No acute need for renal replacement therapy at this time. Hypertension control with meds as ordered. resume verapamil. hold ACEI/ARB for now secondary HTN work up: renin/tor, metanephrines and renal artery doppler has been neg in past Monitor Input/Output, daily weights and renal function with basic metabolic panel holding diuretics supplement K Dose meds/antibiotics for reduced GFR. Avoid fleets enema/magnesium based laxatives. Avoid nephrotoxins/NSAIDs/ iodinated contrast (unless needed emergently) Glycemic control Further work up/management as per primary team Thanks for allowing me to participate in care of your patient. Will follow patient with you. Please call if any Qs. Dr Saqib Lyn Office: [phone] HPI: Pt is a 57 y/o M with hx of hypertension ( 7-8 years) mostly uncontrolled, sarcoidosis, ex smoker quit 20 yrs ago, CKD stage 3 (baseline cr 1.5-1.9 since 2012, now close to 2.0), biV failure, CHF, severe pulmonary Hypertension, came with low BP and MICHAEL ROS: no fever/chills, sick contact, urinary or bowel complaints. rest all other negative Physical Examination: General Appearance: comfortable, not in acute distress, pleasant Vitals reviewed and noted as below Head; Atraumatic, normocephalic ENT: no ulcers has thrush. Tongue is midline. Oropharynx: no rash or ulcers. EYES: Pupils are equal, round and reactive to light accommodation. Eye muscles and extraocular movement intact. Sclera is anicteric. Neck; supple no lymphadenopathy, no thyromegaly or bruit Lungs: normal respiratory rate/effort. Breath sounds bilateral equal and clear Heart: Normal rate. s1s2 normal. No rub but has gallop. Extremities: no edema. No varicose veins Neurological: Patient is AO x 3 follow commands, no deficit Skin: Warm and dry. Normal turgor. No rash. Palpitation: Normal elasticity for age Abdomen: Abdomen is soft. Bowel sounds +. There is no abdominal tenderness, no guarding/rigidity no organomegaly Psych: good insight. normal affect/mood MSK: no joint tenderness or swelling. Digits and nails normal, no deformity : kidney or bladder not palpable Labs/imaging/EKG reviewed. Past medical history, past surgical history, family history, social history, allergy reviewed and noted as below Family hx: no hx of CKD. Rest non-contributory Work up: Renal sono 2018: b/l renal cysts and echogenic kidneys. Renal artery doppler neg for stenosis UA 1.4 gr proteinuria. hep B/C and HIV neg Objective - Vital Signs/Intake and Output Vital Signs (last 24 hours): Temp Pulse Resp BP Pulse Ox 98.9 F 95 H 20 145/98 H 94 L 09/20/17 05:42 09/20/17 09:30 09/20/17 05:42 09/20/17 09:30 09/20/17 05:42 Intake and Output: 09/20/17 09/20/17 06:59 18:59 Intake Total 600 Balance 600 - Medications Medications: Current Medications Aspirin (Ecotrin) 81 mg PO DAILY [facility] Last Admin: 09/20/17 09:31 Dose: 81 mg Budesonide (Pulmicort Respules) 0.5 mg IH [id number] [facility] Last Admin: 09/20/17 07:56 Dose: 0.5 mg Home Med (Home Med) 0.125 unit PO Q8H [facility] Last Admin: 09/20/17 08:08 Dose: 0.125 unit Potassium Chloride (Potassium Chloride 10 Meq/100 Ml) 10 meq in 100 mls @ 50 mls/hr IVPB ONCE ONE Stop: 09/20/17 12:04 Last Admin: 09/20/17 10:20 Dose: 50 mls/hr Levalbuterol HCl (Xopenex) 1.25 mg IH TIDRESP [facility] Last Admin: 09/20/17 07:56 Dose: 1.25 mg Prednisone (Prednisone Tab) 10 mg PO DAILY [facility] Last Admin: 09/20/17 09:31 Dose: 10 mg Primidone (Mysoline) 50 mg PO HS [facility] Last Admin: 09/19/17 21:50 Dose: 50 mg Thiamine HCl (Vitamin B1 Tab) 100 mg PO BID [facility] Last Admin: 09/20/17 09:31 Dose: 100 mg Verapamil HCl (Calan Sr Tab) 240 mg PO DAILY [facility] Last Admin: 09/20/17 09:30 Dose: 240 mg - Labs Labs: 09/20/17 06:00 09/20/17 06:00 PT 13.4 SECONDS (9.4-12.5) H 09/17/17 20:47 INR 1.17 (0.93-1.08) H 09/17/17 20:47
--- NOTE | 2017-09-20 11:16 | CT ---
PROCEDURE: CT HEAD WITHOUT CONTRAST. HISTORY: tremors COMPARISON: Unenhanced head CT and brain MRI, both from 03/09/17. TECHNIQUE: Axial computed tomography images were obtained through the head/brain without intravenous contrast. Radiation dose: Total exam DLP = 865.01 MGy-cm. This CT exam was performed using one or more of the following dose reduction techniques: Automated exposure control, adjustment of the mA and/or kV according to patient size, and/or use of iterative reconstruction technique. FINDINGS: HEMORRHAGE: No intracranial hemorrhage. BRAIN: No mass effect or edema. No atrophy or chronic microvascular ischemic changes. VENTRICLES: Unremarkable. No hydrocephalus. CALVARIUM: Unremarkable. PARANASAL SINUSES: Unremarkable as visualized. No significant inflammatory changes. MASTOID AIR CELLS: Unremarkable as visualized. No inflammatory changes. OTHER FINDINGS: None. IMPRESSION: Stable, unenhanced Head CT. No significant interval change compared to 03/09/17 CT.
--- NOTE | 2017-09-20 13:41 | PN ---
DATE: SUBJECTIVE: I saw Adrian resting comfortably in bed. He slept well. He is still in isolation. He is being seen by Cardiology, Renal, Pulmonary, and Neurology now for tremors. He was placed on verapamil for elevated blood pressure. He is on Ecotrin, potassium replacement. He is on Mysoline by Neurology for tremors which is helping, prednisone, Pulmicort, IV fluids, vitamin B1, and Xopenex. PHYSICAL EXAMINATION: VITAL SIGNS: He has 98.9 temperature; 95 pulse; 145/98 blood pressure, verapamil was started; 20 respiratory rate; 94% O2 sat on nasal cannula. HEENT: Head is atraumatic, normocephalic. HEART: Regular rate. LUNGS: Decreased breath sounds, but clear. ABDOMEN: Soft. EXTREMITIES: No edema. ASSESSMENT AND PLAN: He is here for congestive heart failure, acute kidney injury, low potassium, renal insufficiency with a large component of prerenal azotemia, severe pulmonary hypertension with pedal edema, and sarcoidosis. Hopefully, as we replace potassium and adjust his medications and get his blood pressure down, we will hopefully discharge him within the next 24 to 48 hours as per Renal and Cardiology and also the tremors will subside. I will add IV potassium to the p.o. potassium to get his potassium above 3.5. James Carrasco DO
--- NOTE | 2017-09-20 15:27 | PN ---
DATE: 09/20/2017 SUBJECTIVE: The patient's dyspnea has controlled. His renal function is back to baseline since given IV fluids. PHYSICAL EXAMINATION VITAL SIGNS: Blood pressure is 145/98, the heart rate is in the 90s. NECK: Negative JVD. LUNGS: Without rales. HEART: Reveals S1, S2. EXTREMITIES: Trace edema. LABORATORY DATA: BUN and creatinine 54 and 2.6; from admission, BUN and creatinine 106 over 5.6. IMPRESSION: 1. Renal insufficiency with a large component of prerenal azotemia. 2. Longstanding sarcoidosis. 3. Pulmonary hypertension. 4. Chronic dyspnea. PLAN: Given these findings, the patient is down for a CT scan of the head with questionable new neurologic issues. We will discontinue his IV fluids. Andrew Holliday MD
--- NOTE | 2017-09-21 05:40 | CP.PCM.PN ---
Subjective - Date & Time of Evaluation Date of Evaluation: 09/21/17 Time of Evaluation: 05:39 - Subjective Subjective: Nurse calls and tells that patient has head ache and blood pressure is 145/100. Patient was seen at bedside. States that he has mild headache in back of head from laying in bed for past 2 hours. Has no other complaints. Denies nausea, dizziness, chest pain, sob, paraesthesia, weakness. Medical record was reviewed. This 57 year old male was admitted with exertional chest pain and shortness of breath. Has PMH of CHF,COPD, pulmonary HTN, BPH,sarcoidosis, diverticulitis, pneumothorax /chest tube insertion. Objective - Vital Signs/Intake and Output Vital Signs (last 24 hours): Temp Pulse Resp BP Pulse Ox 98.4 F 98 H 18 147/96 H 97 09/21/17 00:01 09/21/17 02:00 09/21/17 00:01 09/21/17 00:01 09/21/17 00:01 Intake and Output: 09/20/17 09/21/17 18:59 06:59 Intake Total 1850 850 Balance 1850 850 - Medications Medications: Current Medications Aspirin (Ecotrin) 81 mg PO DAILY [facility] Last Admin: 09/20/17 09:31 Dose: 81 mg Budesonide (Pulmicort Respules) 0.5 mg IH [id number] [facility] Last Admin: 09/20/17 20:19 Dose: 0.5 mg Home Med (Home Med) 0.125 unit PO Q8H [facility] Last Admin: 09/20/17 23:29 Dose: 0.125 unit Levalbuterol HCl (Xopenex) 1.25 mg IH TIDRESP [facility] Last Admin: 09/20/17 20:19 Dose: 1.25 mg Prednisone (Prednisone Tab) 10 mg PO DAILY [facility] Last Admin: 09/20/17 09:31 Dose: 10 mg Primidone (Mysoline) 50 mg PO HS [facility] Last Admin: 09/20/17 22:20 Dose: 50 mg Thiamine HCl (Vitamin B1 Tab) 100 mg PO BID [facility] Last Admin: 09/20/17 17:12 Dose: 100 mg Verapamil HCl (Calan Sr Tab) 240 mg PO DAILY [facility] Last Admin: 09/20/17 09:30 Dose: 240 mg - Labs Labs: 09/20/17 06:00 09/20/17 06:00 PT 13.4 SECONDS (9.4-12.5) H 09/17/17 20:47 INR 1.17 (0.93-1.08) H 09/17/17 20:47 Micro Results 09/17/17 20:14 Urine,Clean Catch Urine Culture - Final No Growth (<1,000 CFU/ML) Most Recent Lab Values WBC 5.2 10^3/ul (4.5-11.0) 09/20/17 06:00 RBC 4.40 10^6/uL (3.5-6.1) 09/20/17 06:00 Hgb 12.9 g/dL (14.0-18.0) L 09/20/17 06:00 Hct 38.8 % (42.0-52.0) L 09/20/17 06:00 MCV 88.2 fl (80.0-105.0) 09/20/17 06:00 MCH 29.3 pg (25.0-35.0) 09/20/17 06:00 MCHC 33.2 g/dl (31.0-37.0) 09/20/17 06:00 RDW 14.2 % (11.5-14.5) 09/20/17 06:00 Plt Count 167 10^3/uL (120.0-450.0) 09/20/17 06:00 MPV 9.6 fl (7.0-11.0) 09/20/17 06:00 Gran % 63.4 % (50.0-68.0) 09/17/17 20:14 Lymph % (Auto) 23.7 % (22.0-35.0) 09/17/17 20:14 [place]assen % (Auto) 11.4 % (1.0-6.0) H 09/17/17 20:14 Eos % (Auto) 1.3 % (1.5-5.0) L 09/17/17 20:14 Baso % (Auto) 0.2 % (0.0-3.0) 09/17/17 20:14 Gran # 3.76 (1.4-6.5) 09/17/17 20:14 Lymph # (Auto) 1.4 (1.2-3.4) 03/22/18 20:14 [place] # (Auto) 0.7 (0.1-0.6) H 09/17/17 20:14 Eos # (Auto) 0.1 (0.0-0.7) 09/17/17 20:14 Baso # (Auto) 0.01 K/mm3 (0.0-2.0) 09/17/17 20:14 PT 13.4 SECONDS (9.4-12.5) H 09/17/17 20:47 INR 1.17 (0.93-1.08) H 09/17/17 20:47 Sodium 145 mmol/L (132-148) 09/19/17 06:00 Sodium 146 mmol/L (132-148) 09/20/17 06:00 Potassium 3.0 mmol/L (3.6-5.0) L 09/19/17 06:00 Potassium 3.1 mmol/L (3.6-5.0) L 09/20/17 06:00 Chloride 99 mmol/L (98-107) 09/19/17 06:00 Chloride 101 mmol/L (98-107) 09/20/17 06:00 Carbon Dioxide 34 mmol/L (21-33) H 09/19/17 06:00 Carbon Dioxide 36 mmol/L (21-33) H 09/20/17 06:00 Anion Gap 16 (10-20) 09/19/17 06:00 Anion Gap 12 (10-20) 09/20/17 06:00 BUN 81 mg/dL (7-21) H 09/19/17 06:00 BUN 54 mg/dL (7-21) H 09/20/17 06:00 Creatinine 2.6 mg/dl (0.8-1.5) H 09/20/17 06:00 Est GFR ( Amer) 31 09/20/17 06:00 Est GFR (Non-Af Amer) 26 09/20/17 06:00 Random Glucose 110 mg/dL (70-110) 09/20/17 06:00 Calcium 10.2 mg/dL (8.4-10.5) 09/20/17 06:00 Phosphorus 3.5 mg/dL (2.5-4.5) 09/17/17 20:14 Magnesium 1.8 mg/dL (1.7-2.2) 09/17/17 20:14 Total Bilirubin 0.7 mg/dL (0.2-1.3) 09/19/17 06:00 Total Bilirubin 0.7 mg/dL (0.2-1.3) 09/20/17 06:00 AST 26 U/L (17-59) 09/19/17 06:00 AST 30 U/L (17-59) 09/20/17 06:00 ALT 17 U/L (7-56) 09/19/17 06:00 ALT 19 U/L (7-56) 09/20/17 06:00 Alkaline Phosphatase 84 U/L (38-126) 09/19/17 06:00 Alkaline Phosphatase 78 U/L (38-126) 09/20/17 06:00 Lactate Dehydrogenase 767 U/L (333-699) H 09/17/17 20:14 Total Creatine Kinase 65 U/L (35-230) 09/17/17 20:14 Troponin I 0.06 ng/mL D 09/17/17 20:14 NT-Pro-B Natriuret Pep 1880 pg/mL (0-450) H 09/17/17 20:14 Total Protein 7.6 g/dL (5.8-8.3) 09/19/17 06:00 Total Protein 7.8 g/dL (5.8-8.3) 09/20/17 06:00 Albumin 3.9 g/dL (3.0-4.8) 09/19/17 06:00 Albumin 4.0 g/dL (3.0-4.8) 09/20/17 06:00 Globulin 3.6 gm/dL 09/19/17 06:00 Globulin 3.7 gm/dL 09/20/17 06:00 Albumin/Globulin Ratio 1.1 (1.1-1.8) 09/19/17 06:00 Albumin/Globulin Ratio 1.1 (1.1-1.8) 09/20/17 06:00 Urine Color Yellow (YELLOW) 09/17/17 20:14 Urine Appearance Clear (CLEAR) 09/17/17 20:14 Urine pH 6.0 (4.7-8.0) 09/17/17 20:14 Ur Specific [place] 1.015 (1.005-1.035) 09/17/17 20:14 Urine Protein Negative mg/dL (<30 mg/dL) 09/17/17 20:14 Urine Glucose (UA) Negative mg/dL (NEGATIVE) 09/17/17 20:14 Urine Ketones Negative mg/dL (NEGATIVE) 09/17/17 20:14 Urine Blood Negative (NEGATIVE) 09/17/17 20:14 Urine Nitrate Negative (NEGATIVE) 09/17/17 20:14 Urine Bilirubin Negative (NEGATIVE) 09/17/17 20:14 Urine Urobilinogen 0.2 E.U./dL (<1 E.U./dL) 09/17/17 20:14 Ur Leukocyte Esterase Negative Javier/uL (NEGATIVE) 09/17/17 20:14 - Constitutional Appears: Well, No Acute Distress - Head Exam Head Exam: ATRAUMATIC, NORMAL INSPECTION, NORMOCEPHALIC - Eye Exam Eye Exam: Normal appearance Pupil Exam: NORMAL ACCOMODATION - ENT Exam ENT Exam: Normal External Ear Exam - Neck Exam Neck Exam: Normal Inspection - Respiratory Exam Respiratory Exam: NORMAL BREATHING PATTERN - Cardiovascular Exam Cardiovascular Exam: absent: JVD - GI/Abdominal Exam GI & Abdominal Exam: absent: Distended - Rectal Exam Rectal Exam: Deferred - Exam Additional comments: Deferred. - Extremities Exam Extremities Exam: Normal Inspection - Back Exam Back Exam: NORMAL INSPECTION - Neurological Exam Neurological Exam: Alert, Oriented x3 - Psychiatric Exam Psychiatric exam: Normal Affect, Normal Mood - Skin Skin Exam: Normal Color Assessment and Plan - Assessment and Plan (Free Text) Assessment: Elevated blood pressure reading. Headache. HTN. COPD. CHF. BPH. Sarcoidosis. Plan: Calan SR 240 mg PO now . Tylenol 650 mg PO x 1. Continue present management.
[2017-09-21] MEDS: Verapamil 240 mg ER Tab PO SCH ×2 (06:02→10:00)
[2017-09-21 06:35] LABS: HEMOGLOBIN 12.8 g/dL (14.0-18.0); MEAN CELL VOLUME 87.1 fl (80.0-105.0); MEAN CORPUSCULAR HEMOGLOBIN 28.4 pg (25.0-35.0); MEAN CORPUSCULAR HGB CONC 32.6 g/dl (31.0-37.0); MEAN PLATELET VOLUME 9.4 fl (7.0-11.0); RBC 4.51 10^6/uL (3.5-6.1); RED CELL DISTRIBUTION WIDTH 14.3 % (11.5-14.5); WHITE BLOOD COUNT 5.9 10^3/ul (4.5-11.0)
[2017-09-21 06:53] LABS: ALB/GLOB RATIO 1.1 (1.1-1.8); ALBUMIN 4.2 g/dL (3.0-4.8); CALCIUM 10.1 mg/dL (8.4-10.5)
[2017-09-21] MEDS: Budesonide 0.5 mg/2 ml Inhal Susp UD IH SCH ×2 (07:52→20:09)
[2017-09-21] MEDS: Levalbuterol 1.25 MG/3 ML Inhal Soln UD IH SCH ×3 (07:52→20:09)
--- NOTE | 2017-09-21 09:10 | PN ---
DATE: 09/21/2017 PULMONARY NOTE SUBJECTIVE: The patient appears very comfortable this morning. He is not short of breath at rest. PHYSICAL EXAMINATION: VITAL SIGNS: Temperature is 98.2, pulse on the monitor is 96, respiratory rate 18, blood pressure 145/100. Oxygen saturation on nasal cannula is 95%. HEENT: Normocephalic, atraumatic. No JVD. CARDIOVASCULAR: Positive S1, S2. No S3 gallop. LUNGS: Clear bilaterally. EXTREMITIES: Mild edema. No cyanosis. No clubbing. Calves are nontender to palpation. GI: Abdomen is soft, nontender and nondistended. Bowel sounds are positive. SKIN: No acute rash. NEUROLOGIC: Limited at the present time. IMPRESSION: 1. Exertional chest pain. 2. Advanced interstitial lung disease. 3. Advanced sarcoidosis. 4. Chronic obstructive pulmonary disease. 5. Pulmonary hypertension. 6. Renal insufficiency. PLAN: The patient appears very comfortable this morning. He is not short of breath at rest. He has no chest pain. He is shaking much less. The nebulizer treatments were decreased. He does state to feeling much better overall. On physical exam, his lungs are clear. Oxygen saturation on nasal cannula is 95%. I will continue with the current pulmonary medications and low-dose oral steroids for now. I will also continue with the treprostinil - for his pulmonary hypertension. Inputs by Cardiology and renal are noted. Repeat a.m. labs are pending. Clinical status of the patient is certainly improved - compared to the initial presentation. I will discuss the above with Dr. Carrasco. Rajesh Leon MD MTDJessica
[2017-09-21] MEDS: [UNRECOGNIZED DRUG - OTHER] PO SCH ×2 (09:19→16:59)
[2017-09-21] MEDS: ORENITRAM PO SCH ×2 (09:19→16:59)
--- NOTE | 2017-09-21 10:24 | CP.PCM.PN ---
Subjective - Date & Time of Evaluation Date of Evaluation: 09/21/17 Time of Evaluation: 10:23 - Subjective Subjective: Follow up Nephrology Consultation: Assessment: stable MICHAEL alexandre pre-renal Hypertensive Chronic Kidney Disease (I12.9) Chronic Kidney Disease (N18.3) Stage 3 with 1.4 gram proteinuria (R80.9) likely due to HTN HTN (I12.9) severe pulmonary HTN, sarcoidosis, ex smoker Vit D def, secondary hyperparathyroidism Hypokalemia Plan No acute need for renal replacement therapy at this time. Hypertension control with meds as ordered. resume verapamil. hold ACEI/ARB for now secondary HTN work up: renin/tor, metanephrines and renal artery doppler has been neg in past Monitor Input/Output, daily weights and renal function with basic metabolic panel resume diuretic aslasix 40 bid. continue to hold metolazone supplement K pt stable for d/c from renal perspective when planned, with 1 week renal follow up in office recommended to pt Dose meds/antibiotics for reduced GFR. Avoid fleets enema/magnesium based laxatives. Avoid nephrotoxins/NSAIDs/ iodinated contrast (unless needed emergently) Glycemic control Further work up/management as per primary team Thanks for allowing me to participate in care of your patient. Will follow patient with you. Please call if any Qs. Dr Saqib Lyn Office: [phone] HPI: Pt is a 57 y/o M with hx of hypertension ( 7-8 years) mostly uncontrolled, sarcoidosis, ex smoker quit 20 yrs ago, CKD stage 3 (baseline cr 1.5-1.9 since 2012, now close to 2.0), biV failure, CHF, severe pulmonary Hypertension, came with low BP and MICHAEL ROS: no fever/chills, sick contact, urinary or bowel complaints. rest all other negative Physical Examination: General Appearance: comfortable, not in acute distress, pleasant Vitals reviewed and noted as below Head; Atraumatic, normocephalic ENT: no ulcers has thrush. Tongue is midline. Oropharynx: no rash or ulcers. EYES: Pupils are equal, round and reactive to light accommodation. Eye muscles and extraocular movement intact. Sclera is anicteric. Neck; supple no lymphadenopathy, no thyromegaly or bruit Lungs: normal respiratory rate/effort. Breath sounds bilateral equal and clear Heart: Normal rate. s1s2 normal. No rub but has gallop. Extremities: 1+ edema. No varicose veins Neurological: Patient is AO x 3 follow commands, no deficit Skin: Warm and dry. Normal turgor. No rash. Palpitation: Normal elasticity for age Abdomen: Abdomen is soft. Bowel sounds +. There is no abdominal tenderness, no guarding/rigidity no organomegaly Psych: good insight. normal affect/mood MSK: no joint tenderness or swelling. Digits and nails normal, no deformity : kidney or bladder not palpable Labs/imaging/EKG reviewed. Past medical history, past surgical history, family history, social history, allergy reviewed and noted as below Family hx: no hx of CKD. Rest non-contributory Work up: Renal sono 2018: b/l renal cysts and echogenic kidneys. Renal artery doppler neg for stenosis UA 1.4 gr proteinuria. hep B/C and HIV neg Objective - Vital Signs/Intake and Output Vital Signs (last 24 hours): Temp Pulse Resp BP Pulse Ox 98.0 F 98 H 19 131/73 92 L 09/21/17 07:02 09/21/17 06:00 09/21/17 06:00 09/21/17 09:19 09/21/17 06:00 Intake and Output: 09/21/17 09/21/17 06:59 18:59 Intake Total 850 240 Balance 850 240 - Medications Medications: Current Medications Aspirin (Ecotrin) 81 mg PO DAILY [facility] Last Admin: 09/21/17 09:19 Dose: 81 mg Budesonide (Pulmicort Respules) 0.5 mg IH [id number] [facility] Last Admin: 09/21/17 07:52 Dose: 0.5 mg Home Med (Home Med) 0.125 unit PO Q8H [facility] Last Admin: 09/21/17 09:19 Dose: 0.125 unit Levalbuterol HCl (Xopenex) 1.25 mg IH TIDRESP [facility] Last Admin: 09/21/17 07:52 Dose: 1.25 mg Prednisone (Prednisone Tab) 10 mg PO DAILY [facility] Last Admin: 09/21/17 09:19 Dose: 10 mg Primidone (Mysoline) 50 mg PO HS [facility] Last Admin: 09/20/17 22:20 Dose: 50 mg Thiamine HCl (Vitamin B1 Tab) 100 mg PO BID [facility] Last Admin: 09/21/17 09:19 Dose: 100 mg Verapamil HCl (Calan Sr Tab) 240 mg PO DAILY [facility] Last Admin: 09/21/17 06:02 Dose: 240 mg - Labs Labs: 09/21/17 05:30 09/21/17 05:30 PT 13.4 SECONDS (9.4-12.5) H 09/17/17 20:47 INR 1.17 (0.93-1.08) H 09/17/17 20:47
[2017-09-21] MEDS ORDERED: Potassium Chloride 20 mEq ER Tab PO SCH (10:30)
--- NOTE | 2017-09-21 11:34 | PN ---
DATE: 09/21/2017 CARDIOLOGY FOLLOWUP SUBJECTIVE: The patient is ambulating. After one lap around the nurse's station, the patient was mildly short of breath. PHYSICAL EXAMINATION VITAL SIGNS: Blood pressure is 131/73, the heart rate is in the 90s. NECK: Negative JVD. LUNGS: No rales noted. HEART: Reveals S1, S2. EXTREMITIES: Without edema. LABORATORY DATA: BUN and creatinine is down to 40 and 2.2, potassium is 4.1. Hemoglobin is 12.8. IMPRESSION: 1. Severe pulmonary hypertension. 2. Prerenal azotemia, is better off diuretics. 3. Baseline renal disease. 4. Systemic hypertension. 5. Severe pulmonary hypertension. 6. Sarcoidosis. PLAN: Given these findings, I would not restart him on his p.o. Lasix. There is no evidence for left heart failure as a cause of his dyspnea. There is no pedal edema. Andrew Holliday MD
--- NOTE | 2017-09-21 14:02 | PN ---
DATE: SUBJECTIVE: I saw Adrian resting comfortably in bed. He is still on isolation for possible bed bugs. There has been no for the past two days, hopefully, he could get out of that isolation, so he could walk the halls, such that to see what he could do, waiting for physical therapy to come in walk him, also his blood pressure is little bit high. He is on verapamil 240, Ecotrin, potassium, Mysoline for the tremors, potassium replacement, prednisone, Pulmicort, Tylenol, vitamin B1 and Xopenex. I will talk to Renal and Cardio about increasing his blood pressure medications. PHYSICAL EXAMINATION: VITAL SIGNS: He has a 98.2 temperature, 98 pulse, 145/100 blood pressure, 19 respiratory rate, 92% O2 sat on nasal cannula. HEENT: His head is atraumatic, normocephalic. HEART: Regular rate. LUNGS: Decreased breath sounds bilaterally. ABDOMEN: Soft. EXTREMITIES: Trace edema. He has acute renal failure, kidney injury. 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 I will hopefully will get him walk around today. Hopefully, I could adjust the medications, get his blood pressure down. LABORATORY DATA: He has a 142 sodium, potassium is 4.1, BUN is 40, creatinine 2.2 much better with the kidneys. GFR is 31, his calcium is 10.1, total bili is 0.7, AST is 29, ALT is 19, alkaline phosphatase 74, total protein 7.9. White count stat 49, hemoglobin 12.8, hematocrit 39.3, platelets 174. ASSESSMENT AND PLAN: As per Cardiology, Pulmonary and Renal also he had longstanding sarcoidosis and his CAT scan of the head showed stable, no changes since 03/09 CAT scan. Continue aggressive treatment and care. I will talk with Neurology, Pulmonology, Cardiology and Renal. James Carrasco DO [facility]ENTER[facility]ica
[2017-09-22] MEDS: [UNRECOGNIZED DRUG - OTHER] PO SCH ×2 (00:02→08:00)
[2017-09-22] MEDS: ORENITRAM PO SCH ×2 (00:02→08:00)
[2017-09-22 02:46] VITALS: RESP 20
[2017-09-22] MEDS: Levalbuterol 1.25 MG/3 ML Inhal Soln UD IH SCH ×2 (07:39→13:17)
[2017-09-22] MEDS: Budesonide 0.5 mg/2 ml Inhal Susp UD IH SCH (07:39)
[2017-09-22] MEDS: Verapamil 240 mg ER Tab PO SCH (09:24)
[2017-09-22 09:26] VITALS: BP 169/112
--- NOTE | 2017-09-22 10:30 | PN ---
DATE: 09/22/2017 PULMONARY NOTE SUBJECTIVE: The patient appears very comfortable this morning. He is not short of breath at rest. PHYSICAL EXAMINATION: VITAL SIGNS: Temperature is 98.9, pulse 97, respirations 18/20, blood pressure 160/99. Oxygen saturation on nasal cannula is 97%. HEENT: Normocephalic, atraumatic. No JVD. CARDIOVASCULAR: Positive S1, S2. No S3 gallop. LUNGS: Clear bilaterally. EXTREMITIES: Mild edema. No cyanosis, no clubbing. Calves are nontender to palpation. GI: Abdomen is soft, nontender and nondistended. Bowel sounds are positive. SKIN: No acute rash. NEUROLOGIC: Limited at the present time. IMPRESSION: 1. Exertional chest pain - resolved. 2. Advanced interstitial lung disease. 3. Advanced sarcoidosis. 4. Chronic obstructive pulmonary disease. 5. Pulmonary hypertension. 6. Renal insufficiency-resolving. PLAN: The patient appears very comfortable this morning. He is not short of breath at rest. He does state that he ambulated around the halls yesterday-- without any chest discomfort. He does state to feeling much, much better overall. On physical exam, his lungs remain clear. Oxygen saturation on nasal cannula is 97%. I will continue with the current nebulizer treatments and low-dose oral steroids for now. Inputs by Renal and Cardiology are also noted. Clinical status of the patient is significantly improved - compared to the initial presentation. However, again, the overall status/prognosis for this chronically ill patient does remain guarded. I will discuss the above with Dr. Carrasco. Rajesh Leon MD MTDJessica
[2017-09-22 10:53] VITALS: TEMP 96.7; O2SAT 96
[2017-09-22 11:24] VITALS: PULSE 96
--- NOTE | 2017-09-22 13:30 | PN ---
DATE: 09/22/2017 CARDIOLOGY FOLLOWUP SUBJECTIVE: The patient is ambulating without symptoms. PHYSICAL EXAMINATION: VITAL SIGNS: Blood pressure is 160/99, heart rates in the 90s. NECK: Negative JVD. LUNGS: Clear to auscultation. HEART: Reveals S1, S2. EXTREMITIES: Without edema. LABORATORY DATA: Hemoglobin is 12.8. Chemistries: BUN and creatinine are 40 and 2.2. IMPRESSION: 1. Improvement of his renal function, off diuretics. 2. Severe pulmonary hypertension. 3. Renal insufficiency. 4. Sarcoidosis. 5. Pedal edema, which is now resolved. PLAN: Given these findings, the patient is stable for discharge. We will need to follow up his blood pressure carefully as an outpatient. The patient needs to continue with his followup with [facility] for possible lung transplantation. Andrew Holliday MD
--- NOTE | 2017-09-22 16:30 | DS ---
SUBJECTIVE: He is sitting up, eating his breakfast, he wants to go home. MEDICATIONS: He is currently on Calan, Ecotrin, Mysoline, prednisone, vitamins, and Xopenex. I am going to add losartan 100 mg a day; he used to be on it. PHYSICAL EXAMINATION: VITAL SIGNS: He has 98.9 temperature; 97 pulse; 160/99 blood pressure, which is high, I will put him back on losartan; 20 respiratory rate, 97% O2 sat on room air. HEENT: His head is atraumatic, normocephalic. HEART: Regular rate. LUNGS: Decreased breath sounds, but clear. ABDOMEN: Soft. EXTREMITIES: Have no edema. LABORATORY DATA: He has a 5.9 white count, 12.8 hemoglobin, 39.3 hematocrit with 174 platelets. He has a 142 sodium; potassium 4.2; BUN is 40; creatinine 2.2, keeps on getting better; GFR is up to 31; calcium is 10.1. Total bilirubin is 0.7, AST is 29, ALT is 19, alkaline phosphatase 74, total protein is 7.9. [employer] wants him off the Lasix. Renal feels it okay to put him on losartan again and we will watch him in the outpatient in a week; he will be discharged. He had multiple problems; [id number] heart failure, acute kidney injury, chronic obstructive pulmonary disease, and pulmonary hypertension. We will see him in the office in a week. James Carrasco DO
--- NOTE | 2017-09-22 17:36 | CP.PCM.PN ---
Subjective - Date & Time of Evaluation Date of Evaluation: 09/22/17 Time of Evaluation: 12:30 - Subjective Subjective: Follow up Nephrology Consultation: Assessment: stable MICHAEL alexandre pre-renal Hypertensive Chronic Kidney Disease (I12.9) Chronic Kidney Disease (N18.3) Stage 3 with 1.4 gram proteinuria (R80.9) likely due to HTN HTN (I12.9) severe pulmonary HTN, sarcoidosis, ex smoker Vit D def, secondary hyperparathyroidism Hypokalemia Plan No acute need for renal replacement therapy at this time. Hypertension control with meds as ordered. resume verapamil.resume losartan 100 mg/day secondary HTN work up: renin/tor, metanephrines and renal artery doppler has been neg in past Monitor Input/Output, daily weights and renal function with basic metabolic panel decision for diuretics as per cardiology supplement K as needed pt stable for d/c from renal perspective when planned, with 1 week renal follow up in office recommended to pt Dose meds/antibiotics for reduced GFR. Avoid fleets enema/magnesium based laxatives. Avoid nephrotoxins/NSAIDs/ iodinated contrast (unless needed emergently) Glycemic control Further work up/management as per primary team Thanks for allowing me to participate in care of your patient. Will follow patient with you. Please call if any Qs. Dr Saqib Lyn Office: [phone] HPI: Pt is a 57 y/o M with hx of hypertension ( 7-8 years) mostly uncontrolled, sarcoidosis, ex smoker quit 20 yrs ago, CKD stage 3 (baseline cr 1.5-1.9 since 2012, now close to 2.0), biV failure, CHF, severe pulmonary Hypertension, came with low BP and MICHAEL ROS: no fever/chills, sick contact, urinary or bowel complaints. rest all other negative Physical Examination: General Appearance: comfortable, not in acute distress, pleasant Vitals reviewed and noted as below Head; Atraumatic, normocephalic ENT: no ulcers has thrush. Tongue is midline. Oropharynx: no rash or ulcers. EYES: Pupils are equal, round and reactive to light accommodation. Eye muscles and extraocular movement intact. Sclera is anicteric. Neck; supple no lymphadenopathy, no thyromegaly or bruit Lungs: normal respiratory rate/effort. Breath sounds bilateral equal and clear Heart: Normal rate. s1s2 normal. No rub but has gallop. Extremities: trace edema. No varicose veins Neurological: Patient is AO x 3 follow commands, no deficit Skin: Warm and dry. Normal turgor. No rash. Palpitation: Normal elasticity for age Abdomen: Abdomen is soft. Bowel sounds +. There is no abdominal tenderness, no guarding/rigidity no organomegaly Psych: good insight. normal affect/mood MSK: no joint tenderness or swelling. Digits and nails normal, no deformity : kidney or bladder not palpable Labs/imaging/EKG reviewed. Past medical history, past surgical history, family history, social history, allergy reviewed and noted as below Family hx: no hx of CKD. Rest non-contributory Work up: Renal sono 2018: b/l renal cysts and echogenic kidneys. Renal artery doppler neg for stenosis UA 1.4 gr proteinuria. hep B/C and HIV neg Objective - Vital Signs/Intake and Output Vital Signs (last 24 hours): Temp Pulse Resp BP Pulse Ox 96.7 F L 96 H 20 169/112 H 96 09/22/17 09:00 09/22/17 10:00 09/22/17 09:00 09/22/17 09:24 09/22/17 09:00 Intake and Output: 09/22/17 09/22/17 06:59 18:59 Intake Total 540 Balance 540 - Labs Labs: 09/21/17 05:30 09/21/17 05:30 PT 13.4 SECONDS (9.4-12.5) H 09/17/17 20:47 INR 1.17 (0.93-1.08) H 09/17/17 20:47
== END 2017-09-22 15:48 | disposition home or self-care (01) | DRG 683 ==
LOC: ED 18:49 → ERH 21:31 → 3RSO 23:13
PROVIDERS: ADMIT Family Medicine; ATTEND Family Medicine
PROC: 3E0F7GC Introduction of Other Therapeutic Substance into Respiratory Tract, Via Natural or Artificial Opening (ICD-10-PCS; principal; 2017-09-18)
DX: N17.9 Acute kidney failure, unspecified (principal); I13.0 Hypertensive heart and chronic kidney disease with heart failure and stage 1 through stage 4 chronic kidney disease, or unspecified chronic kidney disease; J84.9 Interstitial pulmonary disease, unspecified; J44.9 Chronic obstructive pulmonary disease, unspecified; I50.9 Heart failure, unspecified; N18.3 Chronic kidney disease, stage 3 (moderate); D86.9 Sarcoidosis, unspecified; I27.20 Pulmonary hypertension, unspecified; N40.0 Benign prostatic hyperplasia without lower urinary tract symptoms; K21.9 Gastro-esophageal reflux disease without esophagitis; R25.1 Tremor, unspecified; N25.81 Secondary hyperparathyroidism of renal origin; E55.9 Vitamin D deficiency, unspecified; E87.6 Hypokalemia; Z76.82 Awaiting organ transplant status; Z99.81 Dependence on supplemental oxygen; Z87.891 Personal history of nicotine dependence

== ENCOUNTER 2018-04-18 15:39 | Inpatient (IN) | payer MEDICARE, OTHER ==
[2018-04-18 15:40] VITALS: PULSE 106
--- NOTE | 2018-04-18 15:54 | ED PDOC ---
Arrival/HPI - General Time Seen by Provider: 04/18/18 15:44 Historian: Patient - History of Present Illness Narrative History of Present Illness (Text): 04/18/18 15:55 A 58 year old male, whose past medical history includes pulmonary hypertension on amlodipine and catapres, sarcoidosis, COPD and CHF, presents to the emergency department complaining of chest pain and shortness of breath. Patient reports symptoms worsen when moving around. Patient denies any fever, chills, or any other complaints at this time. Also, patient takes Aspirin daily. PMD: Dr. Escobedo Past Medical History - Provider Review Nursing Documentation Reviewed: Yes - Infectious Disease Hx of Infectious Diseases: None - Tetanus Immunization Tetanus Immunization: Unknown - Cardiac Hx Congestive Heart Failure: Yes Hx Hypertension: Yes - Pulmonary Hx Chronic Obstructive Pulmonary Disease (COPD): Yes - Neurological Hx Neurological Disorder: No - HEENT Hx HEENT Disorder: Yes (L EYE BLURRY) - Renal Hx Renal Disorder: No - Endocrine/Metabolic Hx Endocrine Disorders: No - Hematological/Oncological Hx Blood Transfusions: No Hx Blood Transfusion Reaction: No - Integumentary Hx Dermatological Disorder: No - Musculoskeletal/Rheumatological Hx Musculoskeletal Disorders: No Hx Falls: Yes - Gastrointestinal Hx Gastrointestinal Disorders: Yes Hx Diverticulitis: Yes Hx Gastroesophageal Reflux: Yes - Genitourinary/Gynecological Hx Genitourinary Disorders: Yes Hx Prostate Problems: Yes - Psychiatric Hx Psychophysiologic Disorder: No Hx Substance Use: No - Past Surgical History Past Surgical History: No Previous - Surgical History Other/Comment: pneumothorax, chest tube-L LUNG,LACERATION TO 3RD FINGER OF RIGHT HAND -STITCHED. - Anesthesia Hx Anesthesia Reactions: No Hx Malignant Hyperthermia: No - Suicidal Assessment Feels Threatened In Home Enviroment: No Family/Social History - Physician Review Nursing Documentation Reviewed: Yes Family/Social History: No Known Family HX Smoking Status: Former Smoker Hx Alcohol Use: No Hx Substance Use: No Hx Substance Use Treatment: No Allergies/Home Meds Allergies/Adverse Reactions: Allergies No Known Allergies Allergy (Verified 07/03/17 22:48) Home Medications: Home Meds Medication Instructions Recorded Confirmed RX: Beclomethasone Dipropionate 80 mcg INH DAILY 07/03/17 09/17/17 [Qvar 80 mcg] RX: Verapamil [Calan SR Tab] 240 mg PO DAILY 09/17/17 09/22/17 RX: metOLazone [Zaroxolyn] 2.5 mg PO DAILY 09/17/17 09/17/17 Tiotropium Br/Olodaterol HCl 2.5 mcg IN DAILY 09/17/17 09/17/17 [Stiolto Respimat Inhal [place]] Treprostinil Diolamine [Orenitram 0.125 mg PO Q8 09/17/17 09/17/17 ER] Furosemide [Lasix] 40 mg PO BID 09/18/17 09/17/17 Review of Systems - Physician Review All systems were reviewed & negative as marked: Yes - Review of Systems Constitutional: absent: Fevers, Night Sweats Respiratory: SOB Cardiovascular: Chest Pain Gastrointestinal: absent: Abdominal Pain, Diarrhea, Nausea, Vomiting Physical Exam Vital Signs Reviewed: Yes Temperature: Afebrile Blood Pressure: Normal Pulse: Regular Respiratory Rate: Normal Appearance: Positive for: Well-Appearing, Non-Toxic, Comfortable Pain Distress: None Mental Status: Positive for: Alert and Oriented X 3 - Systems Exam Head: Present: Atraumatic, Normocephalic Pupils: Present: PERRL Extroacular Muscles: Present: EOMI Conjunctiva: Present: Normal Mouth: Present: Moist Mucous Membranes Neck: Present: Normal Range of Motion Respiratory/Chest: Present: Clear to Auscultation, Good Air Exchange, Other (bilateral basis). No: Respiratory Distress, Accessory Muscle Use Cardiovascular: Present: Regular Rate and Rhythm, Normal S1, S2. No: Murmurs Abdomen: No: Tenderness, Distention, Peritoneal Signs Back: Present: Normal Inspection Upper Extremity: Present: Normal Inspection. No: Cyanosis, Edema Lower Extremity: Present: Normal Inspection. No: Edema Neurological: Present: GCS=15, CN II-XII Intact, Speech Normal Skin: Present: Warm, Dry, Normal Color. No: Rashes Psychiatric: Present: Alert, Oriented x 3, Normal Insight, Normal Concentration Medical Decision Making ED Course and Treatment: 04/18/18 15:57 Impression: 58 year old male with chest pain and shortness of breath. suspect chf Plan: -- EKG -- Chest X-Ray -- Labs -- Urinalysis -- Reassess and disposition Prior Visits: Notes and results from previous visits were reviewed. Patient was last seen here in the emergency department on 09/17/2017 for exertional chest pain. Patient was admitted. Progress Notes: EKG: Ordered, reviewed and independently interpreted the EKG. Rate: 95 BPM Rhythm: NSR Interpretation: Right Bundle Branch Block, No ST segment elevations or depressions, no T-wave inversions, normal intervals. 04/18/2018 16:34 Chest X-Ray IMPRESSION: Cardiomegaly/acute CHF. Dictator: James Ramirez MD 04/19/18 07:22 cxr labs consistent withchf lasix dosed. accepted by dr escobedo - Lab Interpretations I have reviewed the lab results: Yes - Scribe Statement The provider has reviewed the documentation as recorded by the Scribe Macy Enrique Provider Scribe Attestation: All medical record entries made by the Scribe were at my direction and personally dictated by me. I have reviewed the chart and agree that the record accurately reflects my personal performance of the history, physical exam, medical decision making, and the department course for this patient. I have also personally directed, reviewed, and agree with the discharge instructions and disposition. Disposition/Present on Arrival - Present on Arrival Any Indicators Present on Arrival: No History of DVT/PE: No History of Uncontrolled Diabetes: No Urinary Catheter: No History Surgical Site Infection Following: None - Disposition Have Diagnosis and Disposition been Completed?: Yes Diagnosis: CHF exacerbation Disposition: HOSPITALIZED Disposition Time: 05:00 Condition: FAIR
--- NOTE | 2018-04-18 16:38 | RAD ---
Date of service: 04/18/2018 HISTORY: Shortness of breath COMPARISON: 09/17/2017 FINDINGS: LUNGS: No focal infiltrates. PLEURA: No significant pleural effusion identified, no pneumothorax apparent. CARDIOVASCULAR: No atherosclerotic calcification present Cardiomegaly/pulmonary vascular congestion. OSSEOUS STRUCTURES: No significant abnormalities. VISUALIZED UPPER ABDOMEN: Normal. OTHER FINDINGS: None. IMPRESSION: Cardiomegaly/acute CHF
[2018-04-18 16:45] LABS: ALBUMIN 4.4 g/dL (3.0-4.8); BASO # 0.02 K/mm3 (0.0-2.0); BASO % 0.4 % (0.0-3.0); EOS # 0.1 (0.0-0.7); GRAN # 3.36 (1.4-6.5); GRAN % 60.8 % (50.0-68.0); HEMOGLOBIN 15.7 g/dL (14.0-18.0); LYMPH # 1.1 (1.2-3.4); LYMPH % 20.5 % (22.0-35.0); MEAN CELL VOLUME 85.9 fl (80.0-105.0); MEAN CORPUSCULAR HEMOGLOBIN 28.4 pg (25.0-35.0); MEAN CORPUSCULAR HGB CONC 33.1 g/dl (31.0-37.0); MEAN PLATELET VOLUME 10.7 fl (7.0-11.0); MONO # 0.9 (0.1-0.6); MONO % 16.3 % (1.0-6.0); RBC 5.52 10^6/uL (3.5-6.1); RED CELL DISTRIBUTION WIDTH 14.4 % (11.5-14.5); WHITE BLOOD COUNT 5.5 10^3/ul (4.5-11.0)
[2018-04-18 16:50] LABS: INR 1.15; PROTHROMBIN TIME 13.2 SECONDS (9.4-12.5)
[2018-04-18 16:55] LABS: TROPONIN I 0.06 ng/mL
[2018-04-18 17:59] LABS: URINE BILIRUBIN NEGATIVE (NEGATIVE); URINE BLOOD NEGATIVE (NEGATIVE); URINE GLUCOSE (UA) NEGATIVE (NEGATIVE); URINE LEUKOCYTE ESTERASE NEGATIVE Leu/uL (NEGATIVE); URINE PROTEIN 30 mg/dL (<30 mg/dL)
[2018-04-18 18:00] LABS: URINE APPEARANCE CLEAR (CLEAR); URINE COLOR YELLOW (YELLOW)
[2018-04-18 18:09] LABS: URINE RBC 0 - 2 /hpf (0-2); URINE WBC 0 - 2 /hpf (0-6)
[2018-04-18 18:10] LABS: URINE BACTERIA FEW (NEG)
[2018-04-18 19:36] VITALS: BMI 28.8
[2018-04-18] MEDS: Albuterol-Ipratrop 3 mg / 0.5 (3 ml) UD IH PRN (19:55)
[2018-04-18] MEDS: Arformoterol 15 mcg/2 ml Inh Sol IH SCH (19:55)
[2018-04-18] MEDS: Budesonide 0.5 mg/2 ml Inhal Susp UD IH SCH (19:55)
--- NOTE | 2018-04-19 01:26 | HP ---
HISTORY OF PRESENT ILLNESS: I know Adrian very well for a while now. He is a 58-year-old man who presents to the emergency room acutely short of breath, also chest pain. He has done this before, his legs have gotten swollen. He has a history of acute CHF with CHF, hypertension, pulmonary hypertension, COPD, sarcoidosis, renal insufficiency and now he is here short of breath again. He has a left eye blurry that is chronic. He has had falls. He has diverticulitis history, reflux history, prostate problems. He has had pneumothorax with chest tubes. He had laceration to the third finger of the right hand with stitches in the past. REVIEW OF SYSTEMS: The same vision issues. No hearing issues. No sore throat. He does have chest pain, changes, comes and goes. He has shortness of breath, not feeling well, feels like there is pressure on his chest. No abdominal pain. Little nauseous. No vomiting. No diarrhea or constipation. Legs are definitely swollen. The legs feel heavy to him. No issues with his skin. Not anxious or depressed, he has done this before. SOCIAL HISTORY: He is a former smoker. No alcohol. No drugs. ALLERGIES: NO KNOWN DRUG ALLERGIES. MEDICATIONS: He is on QVAR, Stiolto, Orenitram, Calan, Zaroxolyn and Lasix. PHYSICAL EXAMINATION VITAL SIGNS: He has a 98.6 temp, 152/97 blood pressure, 18 respiratory rate, 95% O2 sat on room air. GENERAL: He is sitting up in bed on oxygen, feeling a little bit better after they diuresed him with Lasix. Alert and oriented x3. HEENT: Head is atraumatic, normocephalic. Extraocular muscles are intact. Pupils are equal and reactive to light. Throat is dry. NECK: Supple. No JVD. HEART: Regular rate. Normal S1, S2. LUNGS: Decreased breath sounds bilaterally. No wheezes, rhonchi, or rales. ABDOMEN: Soft and nontender. Positive bowel sounds. No guarding, no rebound. No CVA tenderness. EXTREMITIES: Have +1 edema of each ankle, maybe +2 on the left, +1 on the right. NEUROLOGIC: GCS is 15. Cranial nerves II-XII grossly intact. Speech is normal. SKIN: Warm and dry. No apparent rashes or ulcers. LYMPHS: Thyroid midline. No palpable lymphadenopathy appreciated. NEUROLOGIC: Alert and oriented x3, not anxious, calm, understands the situation. LABORATORY DATA: He had multiple tests done. He has a 5.5 white count, 15.7 hemoglobin, 47.4 hematocrit with 128 platelets. INR 1.15. [id number], potassium 3.8, BUN 41, creatinine 2.1. GFR is 33. Sugar is 101, calcium is 10, magnesium 2.1, total bili is 1. AST is 24, ALT is 15, alk phos 85. Lactate dehydrogenase is 621. Total creatine kinase is 76. Troponin I is 0.06. BNP is high at 4610. Total protein is 8.7, albumin is 4.4, globulin 4.2. Urine is clear. He had a chest x-ray which showed cardiomegaly, acute CHF. 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 Lyn, his renal doctor. He will be on Lasix 40 IV b.i.d. He will have oxygen and hopefully, we could diurese him. He will have evaluation of his kidneys and we will check his labs. He is going to be diuresed for acute congestive heart failure and shortness of breath and renal insufficiency. James Carrasco DO
[2018-04-19 03:06] LABS: HEMOGLOBIN 14.7 g/dL (14.0-18.0); MEAN CELL VOLUME 86.1 fl (80.0-105.0); MEAN CORPUSCULAR HEMOGLOBIN 28.3 pg (25.0-35.0); MEAN CORPUSCULAR HGB CONC 32.9 g/dl (31.0-37.0); MEAN PLATELET VOLUME 10.2 fl (7.0-11.0); RBC 5.19 10^6/uL (3.5-6.1); RED CELL DISTRIBUTION WIDTH 14.3 % (11.5-14.5); WHITE BLOOD COUNT 5.5 10^3/ul (4.5-11.0)
[2018-04-19 03:16] LABS: CALCIUM 9.4 mg/dL (8.4-10.5)
[2018-04-19 03:28] LABS: TROPONIN I 0.05 ng/mL
[2018-04-19 06:58] VITALS: O2SAT 94
[2018-04-19] MEDS: Albuterol-Ipratrop 3 mg / 0.5 (3 ml) UD IH PRN ×2 (07:36→14:07)
[2018-04-19] MEDS: Arformoterol 15 mcg/2 ml Inh Sol IH SCH ×2 (07:36→19:46)
[2018-04-19] MEDS: Budesonide 0.5 mg/2 ml Inhal Susp UD IH SCH ×2 (07:36→19:46)
--- NOTE | 2018-04-19 09:26 | PN ---
DATE: 04/19/2018 SUBJECTIVE: He came in last night with acute congestive heart failure. I started to diurese him with Lasix 40 IV b.i.d. and his medications. He is sitting up in bed, doing a bit better this morning, less shortness of breath, less swollen. PHYSICAL EXAMINATION: VITAL SIGNS: He has a 98.2 temperature, 72 pulse, 143/93 blood pressure. I will adjust his blood pressure medications. Respiratory rate 22 and 94% O2 sat on room air. HEAD: Atraumatic, normocephalic. He is less short of breath. HEART: Regular rate. LUNGS: Decreased breath sounds bilaterally. No wheezes or rhonchi or rales. ABDOMEN: Soft. EXTREMITIES: Trace edema to +1. It was worse yesterday. He is on aspirin, Qvar, Brovana, Kaon, Cordarone, Cozaar, DuoNeb, Lasix, prednisone, Pulmicort, Stiolto, vitamin B1 and Zaroxolyn. He has a 5.5 white count, 14.7 hemoglobin, 44.7 hematocrit with 113 platelets. He has 143 sodium, potassium 4.4, BUN 41, creatinine 2.1, GFR is 33. Sugar is 112, calcium is 9.4, total bili is 0.9, AST is 22, ALT is 14, alk phos 84. Troponin was 0.06, 0.05, 0.05 and BNP drop to 3790 with diuresing, still quite swollen. ASSESSMENT AND PLAN: He is here for acute congestive heart failure, renal insufficiency. There are consults with Cardiology and Renal. Await for them to see Adrian, also let Dr. Holliday adjust his medications for his hypertension issues. He is comfortable at this time, better than when he came in. He is on oxygen 2 liters. James Carrasco DO
[2018-04-19] MEDS: Verapamil 240 mg ER Tab PO SCH (10:32)
[2018-04-19] MEDS: metOLazone 2.5 MG TAB PO SCH (10:33)
[2018-04-19] MEDS: BECLOMETHASONE DIPROPIONATE 80 MCG INH SCH (10:34)
--- NOTE | 2018-04-19 14:12 | CP.PCM.CON ---
History of Present Illness - History of Present Illness History of Present Illness: Nephrology Consultation Note: Assessment: stable CHF exacerbation Hypertensive Chronic Kidney Disease (I12.9) Chronic Kidney Disease (N18.3) Stage 3 with 1.4 gram proteinuria (R80.9) likely due to HTN" stable HTN (I12.9) severe pulmonary HTN, sarcoidosis, ex smoker Vit D def, secondary hyperparathyroidism Plan No acute need for renal replacement therapy at this time. Hypertension control with meds as ordered. continue with verapamil. continue with losartan 100 mg/day secondary HTN work up: renin/tor, metanephrines and renal artery doppler has been neg in past Monitor Input/Output, daily weights and renal function with basic metabolic panel continue with diuretics supplement K as needed low Na diet d/w patient and reinforced importance Dose meds/antibiotics for reduced GFR. Avoid fleets enema/magnesium based laxatives. Avoid nephrotoxins/NSAIDs/ iodinated contrast (unless needed emergently) Glycemic control Further work up/management as per primary team Thanks for allowing me to participate in care of your patient. Will follow patient with you. Please call if any Qs. had d/w team Dr Saqib Lyn Office: [phone] CC: SOB reason for consult; CKD and HTN management HPI: Pt is a 58 y/o M with hx of hypertension ( 7-8 years) mostly uncontrolled, sarcoidosis, ex smoker quit 20 yrs ago, CKD stage 3 (baseline cr 1.5-1.9 since 2013, now close to 2.0), biV failure, CHF, severe pulmonary Hypertension, came with shortness of breasth for last few days despite increasing his diuretics and admitted for CHF exacerbation. Renal consult for CKD management. pt feels better. says making plenty of urine with lasix IV. SOB resolving well. admits to non compliance with low salt diet ROS: no fever/chills, sick contact, urinary or bowel complaints. rest all other negative. SOB better. no urine complaints. denies leg swelling Physical Examination: General Appearance: comfortable, not in acute distress, pleasant Vitals reviewed and noted as below Head; Atraumatic, normocephalic ENT: no ulcers has thrush. Tongue is midline. Oropharynx: no rash or ulcers. EYES: Pupils are equal, round and reactive to light accommodation. Eye muscles and extraocular movement intact. Sclera is anicteric. Neck; supple no lymphadenopathy, no thyromegaly or bruit Lungs: normal respiratory rate/effort. Breath sounds bilateral equal and few basal crackles Heart: Normal rate. s1s2 normal. No rub but has gallop. Extremities: No edema. No varicose veins Neurological: Patient is AO x 3 follow commands, no deficit Skin: Warm and dry. Normal turgor. No rash. Palpitation: Normal elasticity for age Abdomen: Abdomen is soft. Bowel sounds +. There is no abdominal tenderness, no guarding/rigidity no organomegaly Psych: good insight. normal affect/mood MSK: no joint tenderness or swelling. Digits and nails normal, no deformity : kidney or bladder not palpable Labs/imaging/EKG reviewed. Past medical history, past surgical history, family history, social history, a llergy reviewed and noted as below Family hx: no hx of CKD. Rest non-contributory Work up: Renal sono 2018: b/l renal cysts and echogenic kidneys. Renal artery doppler neg for stenosis UA 1.4 gr proteinuria. hep B/C and HIV neg secondary HTN work up neg Past Patient History - Infectious Disease Hx of Infectious Diseases: None - Tetanus Immunizations Tetanus Immunization: Unknown - Past Social History Smoking Status: Former Smoker - CARDIAC Hx Congestive Heart Failure: Yes Hx Hypertension: Yes - PULMONARY Hx Chronic Obstructive Pulmonary Disease (COPD): Yes - NEUROLOGICAL Hx Neurological Disorder: No - HEENT Hx HEENT Problems: Yes (L EYE BLURRY) - RENAL Hx Chronic Kidney Disease: No - ENDOCRINE/METABOLIC Hx Endocrine Disorders: No - HEMATOLOGICAL/ONCOLOGICAL Hx Blood Transfusions: No Hx Blood Transfusion Reaction: No - INTEGUMENTARY Hx Dermatological Problems: No - MUSCULOSKELETAL/RHEUMATOLOGICAL Hx Musculoskeletal Disorders: No Hx Falls: Yes - GASTROINTESTINAL Hx Gastrointestinal Disorders: Yes Hx Diverticulitis: Yes Hx Gastroesophageal Reflux: Yes - GENITOURINARY/GYNECOLOGICAL Hx Genitourinary Disorders: Yes Hx Prostate Problems: Yes - PSYCHIATRIC Hx Psychophysiologic Disorder: No Hx Substance Use: No - SURGICAL HISTORY Other/Comment: pneumothorax, chest tube-L LUNG,LACERATION TO 3RD FINGER OF RIGHT HAND -STITCHED. - ANESTHESIA Hx Anesthesia Reactions: No Hx Malignant Hyperthermia: No Meds Allergies/Adverse Reactions: Allergies Allergy/AdvReac Type Severity Reaction Status Date / Time No Known Allergies Allergy Verified 07/03/17 22:48 - Medications Medications: Current Medications Albuterol/Ipratropium (Duoneb 3 Mg/0.5 Mg (3 Ml) Ud) 3 ml IH Q4H PRN PRN Reason: Shortness of Breath Last Admin: 04/19/18 14:07 Dose: 3 ml Amiodarone HCl (Cordarone) 200 mg PO DAILY [facility] Last Admin: 04/19/18 10:33 Dose: 200 mg Arformoterol Tartrate (Brovana) 15 mcg IH [id number] [facility] Last Admin: 04/19/18 07:36 Dose: 15 mcg Aspirin (Aspirin) 325 mg PO DAILY [facility] Last Admin: 04/19/18 10:33 Dose: 325 mg Budesonide (Pulmicort Respules) 0.5 mg IH [id number] [facility] Last Admin: 04/19/18 07:36 Dose: 0.5 mg Furosemide (Lasix) 40 mg IVP BID [facility] Last Admin: 04/19/18 10:32 Dose: 40 mg Home Med (Home Med) 1 unit PO Q8 [facility] Last Admin: 04/19/18 13:24 Dose: 1 unit Losartan Potassium (Cozaar) 100 mg PO DAILY [facility] Last Admin: 04/19/18 10:33 Dose: 100 mg Metolazone (Zaroxolyn) 2.5 mg PO DAILY [facility] Last Admin: 04/19/18 10:33 Dose: 2.5 mg Non-Formulary Medication (Beclomethasone Dipropionate [Qvar 80 Mcg]) 80 mcg INH DAILY [facility] Last Admin: 04/19/18 10:34 Dose: Not Given Non-Formulary Medication (Tiotropium Br/Olodaterol Hcl [Stiolto Respimat Inhal S pray]) 2.5 mcg IN DAILY [facility] Last Admin: 04/19/18 10:34 Dose: Not Given Prednisone (Prednisone Tab) 10 mg PO DAILY [facility] Last Admin: 04/19/18 10:33 Dose: 10 mg Thiamine HCl (Vitamin B1 Tab) 100 mg PO BID [facility] Last Admin: 04/19/18 10:33 Dose: 100 mg Verapamil HCl (Calan Sr Tab) 240 mg PO DAILY [facility] Last Admin: 04/19/18 10:32 Dose: 240 mg Results - Vital Signs Recent Vital Signs: Last Vital Signs Temp 97.7 F 04/19/18 12:00 Pulse 86 04/19/18 12:00 Resp 20 04/19/18 12:00 BP 169/103 H 04/19/18 12:00 Pulse Ox 94 L 04/19/18 06:00 - Labs Result Diagrams: 04/19/18 02:50 04/19/18 02:50 Labs: Laboratory Results - last 24 hr 04/18/18 04/18/18 04/18/18 15:55 15:55 15:55 WBC 5.5 D RBC 5.52 Hgb 15.7 D Hct 47.4 MCV 85.9 MCH 28.4 MCHC 33.1 RDW 14.4 Plt Count 128 MPV 10.7 Gran % 60.8 Lymph % (Auto) 20.5 L Woods % (Auto) 16.3 H Eos % (Auto) 2.0 Baso % (Auto) 0.4 Gran # 3.36 Lymph # (Auto) 1.1 L Woods # (Auto) 0.9 H Eos # (Auto) 0.1 Baso # (Auto) 0.02 PT 13.2 H INR 1.15 APTT 29.0 Sodium 145 Potassium 3.8 Chloride 104 Carbon Dioxide 32 Anion Gap 13 BUN 41 H Creatinine 2.1 H Est GFR ( Amer) 40 Est GFR (Non-Af Amer) 33 Random Glucose 101 Calcium 10.0 Magnesium 2.1 Total Bilirubin 1.0 AST 24 ALT 15 Alkaline Phosphatase 85 Lactate Dehydrogenase 621 Total Creatine Kinase 76 Troponin I 0.06 NT-Pro-B Natriuret Pep 4610 H Total Protein 8.7 H Albumin 4.4 Globulin 4.2 Albumin/Globulin Ratio 1.0 L Urine Color Urine Appearance Urine pH Ur Specific [place] Urine Protein Urine Glucose (UA) Urine Ketones Urine Blood Urine Nitrate Urine Bilirubin Urine Urobilinogen Ur Leukocyte Esterase Urine RBC Urine WBC Ur Epithelial Cells Urine Bacteria 04/18/18 04/18/18 04/19/18 17:45 21:00 02:50 WBC 5.5 RBC 5.19 Hgb 14.7 Hct 44.7 MCV 86.1 MCH 28.3 MCHC 32.9 RDW 14.3 Plt Count 113 L MPV 10.2 Gran % Lymph % (Auto) Woods % (Auto) Eos % (Auto) Baso % (Auto) Gran # Lymph # (Auto) Woods # (Auto) Eos # (Auto) Baso # (Auto) PT INR APTT Sodium Potassium Chloride Carbon Dioxide Anion Gap BUN Creatinine Est GFR ( Amer) Est GFR (Non-Af Amer) Random Glucose Calcium Magnesium Total Bilirubin AST ALT Alkaline Phosphatase Lactate Dehydrogenase Total Creatine Kinase Troponin I 0.05 NT-Pro-B Natriuret Pep Total Protein Albumin Globulin Albumin/Globulin Ratio Urine Color Yellow Urine Appearance Clear Urine pH 6.0 Ur Specific [place] 1.020 Urine Protein 30 H Urine Glucose (UA) Negative Urine Ketones Negative Urine Blood Negative Urine Nitrate Negative Urine Bilirubin Negative Urine Urobilinogen 1.0 H Ur Leukocyte Esterase Negative Urine RBC 0 - 2 Urine WBC 0 - 2 Ur Epithelial Cells None Urine Bacteria Few 04/19/18 04/19/18 02:50 10:25 WBC RBC Hgb Hct MCV MCH MCHC RDW Plt Count MPV Gran % Lymph % (Auto) Woods % (Auto) Eos % (Auto) Baso % (Auto) Gran # Lymph # (Auto) Woods # (Auto) Eos # (Auto) Baso # (Auto) PT INR APTT Sodium 143 Potassium 4.4 Chloride 102 Carbon Dioxide 32 Anion Gap 13 BUN 41 H Creatinine 2.1 H Est GFR ( Amer) 40 Est GFR (Non-Af Amer) 33 Random Glucose 112 H Calcium 9.4 Magnesium Total Bilirubin 0.9 AST 22 ALT 14 Alkaline Phosphatase 84 Lactate Dehydrogenase Total Creatine Kinase Troponin I 0.05 0.04 NT-Pro-B Natriuret Pep 3790 H Total Protein 7.8 Albumin 4.0 Globulin 3.9 Albumin/Globulin Ratio 1.0 L Urine Color Urine Appearance Urine pH Ur Specific [place] Urine Protein Urine Glucose (UA) Urine Ketones Urine Blood Urine Nitrate Urine Bilirubin Urine Urobilinogen Ur Leukocyte Esterase Urine RBC Urine WBC Ur Epithelial Cells Urine Bacteria
--- NOTE | 2018-04-19 14:56 | CARD ---
APPROVED REPORT Date of service: 04/18/2018 EKG Measurement Heart [id number] <Conclusion> Normal sinus rhythm Biatrial enlargement Right bundle branch block Left posterior fascicular block Bifascicular block Abnormal ECG
[2018-04-19 17:32] VITALS: PULSE 82
[2018-04-20 05:49] VITALS: RESP 18
[2018-04-20 06:23] LABS: MEAN CORPUSCULAR HEMOGLOBIN 27.8 pg (25.0-35.0); MEAN CORPUSCULAR HGB CONC 32.8 g/dl (31.0-37.0); MEAN PLATELET VOLUME 10.6 fl (7.0-11.0); RBC 5.39 10^6/uL (3.5-6.1); RED CELL DISTRIBUTION WIDTH 14.2 % (11.5-14.5)
[2018-04-20 07:24] LABS: ALBUMIN 4.1 g/dL (3.0-4.8); CALCIUM 9.3 mg/dL (8.4-10.5)
[2018-04-20] MEDS: Arformoterol 15 mcg/2 ml Inh Sol IH SCH (07:52)
[2018-04-20] MEDS: Budesonide 0.5 mg/2 ml Inhal Susp UD IH SCH (07:52)
[2018-04-20] MEDS: Albuterol-Ipratrop 3 mg / 0.5 (3 ml) UD IH PRN (07:52)
--- NOTE | 2018-04-20 07:53 | CON ---
DATE: 04/19/2018 REASON FOR CONSULTATION: Shortness of breath and chest pain. HISTORY OF PRESENT ILLNESS: The patient is a 58-year-old male, who is diagnosed with severe pulmonary hypertension. He has a history of pulmonary sarcoidosis, COPD, and systemic hypertension, who was admitted with shortness of breath and chest tightness. The patient underwent cardiac catheterization in February of last year, which revealed unremarkable chronic circulation, severe pulmonary hypertension and normal ejection fraction, and we will refer hospital. However, he did not qualify for the lung transplant program because of his underlying renal insufficiency. The patient denies any dizziness or syncope. PAST MEDICAL HISTORY: Systemic and pulmonary hypertension, pulmonary sarcoidosis, and history of spontaneous left pneumothorax some four years ago. SOCIAL HISTORY: The patient is a former smoker. PHYSICAL EXAMINATION GENERAL: The patient is a middle-aged male who does not appear to be in acute distress. VITAL SIGNS: Blood pressure 147/93, heart rate 84, temperature 98.2, respirations 22. HEENT: Normocephalic. CHEST: Clear. HEART: S1 and S2 regular. Loud P2. ABDOMEN: Soft. EXTREMITIES: 1+ pitting edema. LABORATORY DATA: SMA-7: Sodium 146, potassium 4.4, , CO2 of 32, glucose 112, BUN 41, creatinine 2.1. INR 1.15. PTT 29. CBC, WBC 5.5, hemoglobin and hematocrit 14.7 and 44.7, platelet count 115,000. DIAGNOSTIC DATA: Chest x-ray revealed cardiomegaly, [id number] CHF. Pulmonary sarcoidosis could be another differential diagnosis for the chest x-ray. EKG revealed sinus rhythm with bifascicular block,i.e., right bundle branch block with left posterior fascicular block. ASSESSMENT: 1. Pulmonary hypertension. 2. Pulmonary sarcoidosis. 3. Congestive heart failure, most likely diastolic in etiology. 4. Chronic renal insufficiency. 5. Mild thrombocytopenia today. RECOMMENDATIONS: Continue aspirin 325 mg once a day, Brovana 15 mcg inhalation every 12 hours, Calan SR 240 mg once a day, amiodarone 200mg daily, Cozaar 100 mg once a day, Lasix 40 mg 10 units twice a day, prednisone 10 mg once a day, Zaroxolyn 2.5 mg once a day, thiamine 100 mg daily. The most recent echo cardiac study was done in November of this year which revealed normal ejection fraction. Oskar Musa MD
[2018-04-20] MEDS ORDERED: Potassium Chloride 20 mEq ER Tab PO ONE (07:54)
[2018-04-20 08:40] VITALS: TEMP 98
[2018-04-20] MEDS: BECLOMETHASONE DIPROPIONATE 80 MCG INH SCH (11:57)
[2018-04-20] MEDS: Verapamil 240 mg ER Tab PO SCH (12:14)
[2018-04-20] MEDS: metOLazone 2.5 MG TAB PO SCH (12:17)
[2018-04-20 12:21] VITALS: BP 151/86
--- NOTE | 2018-04-20 12:27 | CP.PCM.PN ---
Subjective - Date & Time of Evaluation Date of Evaluation: 04/20/18 Time of Evaluation: 12:25 - Subjective Subjective: Nephrology Consultation Note: Assessment: stable CHF exacerbation Hypertensive Chronic Kidney Disease (I12.9) Chronic Kidney Disease (N18.3) Stage 3 with 1.4 gram proteinuria (R80.9) likely due to HTN" stable HTN (I12.9) severe pulmonary HTN, sarcoidosis, ex smoker Vit D def, secondary hyperparathyroidism hypokalemia Plan No acute need for renal replacement therapy at this time. Hypertension control with meds as ordered. continue with verapamil. continue with losartan 100 mg/day secondary HTN work up: renin/tor, metanephrines and renal artery doppler has been neg in past Monitor Input/Output, daily weights and renal function with basic metabolic panel continue with diuretics supplement K as needed low Na diet d/w patient and reinforced importance Dose meds/antibiotics for reduced GFR. Avoid fleets enema/magnesium based laxatives. Avoid nephrotoxins/NSAIDs/ iodinated contrast (unless needed emergently) Glycemic control Further work up/management as per primary team pt stable for d/c from renal perspective when planned with outpt 1-2 weeks follow up Thanks for allowing me to participate in care of your patient. Will follow patient with you. Please call if any Qs. had d/w team Dr Saqib Lyn Office: [phone] CC: SOB reason for consult; CKD and HTN management HPI: Pt is a 58 y/o M with hx of hypertension ( 7-8 years) mostly uncontrolled, sarcoidosis, ex smoker quit 20 yrs ago, CKD stage 3 (baseline cr 1.5-1.9 since 2012, now close to 2.0), biV failure, CHF, severe pulmonary Hypertension, came with shortness of breasth for last few days despite increasing his diuretics and admitted for CHF exacerbation. Renal consult for CKD management. pt feels better. says making plenty of urine with lasix IV. SOB resolving well. admits to non compliance with low salt diet ROS: no fever/chills, sick contact, urinary or bowel complaints. rest all other negative. SOB much better. no urine complaints. denies leg swelling feels at baseline Physical Examination: General Appearance: comfortable, not in acute distress, pleasant Vitals reviewed and noted as below Head; Atraumatic, normocephalic ENT: no ulcers has thrush. Tongue is midline. Oropharynx: no rash or ulcers. EYES: Pupils are equal, round and reactive to light accommodation. Eye muscles and extraocular movement intact. Sclera is anicteric. Neck; supple no lymphadenopathy, no thyromegaly or bruit Lungs: normal respiratory rate/effort. Breath sounds bilateral equal and few basal crackles Heart: Normal rate. s1s2 normal. No rub but has gallop. Extremities: No edema. No varicose veins Neurological: Patient is AO x 3 follow commands, no deficit Skin: Warm and dry. Normal turgor. No rash. Palpitation: Normal elasticity for age Abdomen: Abdomen is soft. Bowel sounds +. There is no abdominal tenderness, no guarding/rigidity no organomegaly Psych: good insight. normal affect/mood MSK: no joint tenderness or swelling. Digits and nails normal, no deformity : kidney or bladder not palpable Labs/imaging/EKG reviewed. Past medical history, past surgical history, family history, social history, allergy reviewed and noted as below Family hx: no hx of CKD. Rest non-contributory Work up: Renal sono 2018: b/l renal cysts and echogenic kidneys. Renal artery doppler neg for stenosis UA 1.4 gr proteinuria. hep B/C and HIV neg secondary HTN work up neg Objective - Vital Signs/Intake and Output Vital Signs (last 24 hours): Temp Pulse Resp BP Pulse Ox 98 F 82 18 151/86 H 94 L 04/20/18 06:00 04/20/18 06:00 04/20/18 06:00 04/20/18 12:13 04/19/18 06:00 Intake and Output: 04/20/18 04/20/18 06:59 18:59 Intake Total 900 1200 Output Total 7 Balance 893 1200 - Medications Medications: Current Medications Albuterol/Ipratropium (Duoneb 3 Mg/0.5 Mg (3 Ml) Ud) 3 ml IH Q4H PRN PRN Reason: Shortness of Breath Last Admin: 04/20/18 07:52 Dose: 3 ml Amiodarone HCl (Cordarone) 200 mg PO DAILY [facility] Last Admin: 04/20/18 12:14 Dose: 200 mg Arformoterol Tartrate (Brovana) 15 mcg IH [id number] [facility] Last Admin: 04/20/18 07:52 Dose: 15 mcg Aspirin (Aspirin) 325 mg PO DAILY [facility] Last Admin: 04/20/18 12:14 Dose: 325 mg Budesonide (Pulmicort Respules) 0.5 mg IH [id number] [facility] Last Admin: 04/20/18 07:52 Dose: 0.5 mg Furosemide (Lasix) 40 mg IVP BID [facility] Last Admin: 04/20/18 12:13 Dose: 40 mg Home Med (Home Med) 1 unit PO Q8 [facility] Last Admin: 04/20/18 06:06 Dose: 1 unit Losartan Potassium (Cozaar) 100 mg PO DAILY [facility] Last Admin: 04/20/18 12:17 Dose: 100 mg Metolazone (Zaroxolyn) 2.5 mg PO DAILY [facility] Last Admin: 04/20/18 12:17 Dose: 2.5 mg Non-Formulary Medication (Beclomethasone Dipropionate [Qvar 80 Mcg]) 80 mcg INH DAILY [facility] Last Admin: 04/20/18 11:57 Dose: Not Given Non-Formulary Medication (Tiotropium Br/Olodaterol Hcl [Stiolto Respimat Inhal [place]]) 2.5 mcg IN DAILY [facility] Last Admin: 04/20/18 11:57 Dose: Not Given Prednisone (Prednisone Tab) 10 mg PO DAILY [facility] Last Admin: 04/20/18 12:14 Dose: 10 mg Thiamine HCl (Vitamin B1 Tab) 100 mg PO BID [facility] Last Admin: 04/20/18 12:17 Dose: 100 mg Verapamil HCl (Calan Sr Tab) 240 mg PO DAILY [facility] Last Admin: 04/20/18 12:14 Dose: 240 mg - Labs Labs: 04/20/18 05:30 04/20/18 05:30 PT 13.2 SECONDS (9.4-12.5) H 04/18/18 15:55 INR 1.15 04/18/18 15:55 APTT 29.0 Seconds (25.1-36.5) 04/18/18 15:55
--- NOTE | 2018-04-20 14:44 | PN ---
DATE: 04/20/2018 FOLLOWUP SUBJECTIVE: The patient's shortness of breath and chest tightness as well as leg swelling have improved. PHYSICAL EXAMINATION: VITAL SIGNS: Blood pressure 151/86, heart rate 73, temperature 98, respirations 18. HEENT: Normocephalic. CHEST: Minimal rhonchi. HEART: S1 and S2 regular. EXTREMITIES: Trace leg edema. LABORATORY DATA: CBC today is entirely within normal limit. SMA-7 is within normal limit except for potassium 3. BUN and creatinine are 50 and 2.3. ASSESSMENT: 1. Severe pulmonary hypertension. 2. Pulmonary sarcoidosis. 3. Diastolic heart failure. 4. Chronic renal insufficiency. 5. Hypokalemia. RECOMMENDATIONS: Continue aspirin 325 mg once a day, Calan SR 240 mg once a day, amiodarone 200 mg once a day, Cozaar at 100 mg once a day, Lasix 40 ml intravenously twice a day, prednisone 10 mg once a day, Zaroxolyn 2.5 mg once a day. The patient did receive K-Dur 40 mEq orally today and I will start K-Dur 20 mEq orally daily, which should be given to the patient upon discharge. Oskar Musa MD
--- NOTE | 2018-04-20 22:16 | DS ---
HISTORY OF PRESENT ILLNESS: He has been in the hospital for 2 days. He has had acute CHF. He has been diuresing well. He is feeling better, breathing better, walking better. His legs are less swollen. He is on aspirin, Qvar, Brovana, Calan, Cordarone, Cozaar, DuoNeb, potassium replacement, Lasix IV, prednisone, Pulmicort Respimat, Tylenol, vitamin B1 and Zaroxolyn. He tells me he has all his medications at home. PHYSICAL EXAMINATION: VITAL SIGNS: He has a 97 temp, 82 pulse, 163/96 blood pressure, 18 respiratory rate. His oxygen saturation is 95 on 3 liters. HEENT: His head is atraumatic, normocephalic. HEART: Regular rate. LUNGS: Clear to auscultation bilaterally. No wheezes or rhonchi. No rales. ABDOMEN: Soft, nontender. Positive bowel sounds. EXTREMITIES: Have zero edema. LABORATORY DATA: He had blood tests. He has a white count of 6, hemoglobin 15, hematocrit 45.8, platelets of 136. He has a chemistry of 142 sodium; potassium is down to 3, I gave him 40 mEq of potassium chloride this morning. His BUN 50, creatinine 2.3, they went up a little bit but Renal says nothing to do. GFR is 30. Sugar is 93, calcium is 9.3, total bili is 0.9, AST is 23, ALT is 17, alk phos is 83. Last troponin is 0.04, total protein is 8.2. Urine is clear. ASSESSMENT AND PLAN: He was seen by Renal and waiting for Cardiology to see him before I could possibly discharge him today, see if there is anything else they would like to do for him. We will make sure Cardiology has a chance to see him before we discharge him. He has enough medicines at home. He will be on Lasix 40 b.i.d. and potassium. We will see him in the office in a week. Await Cardiology input. James Carrasco DO
[2018-04-21] MEDS ORDERED: Potassium Chloride 20 mEq ER Tab PO SCH (08:00)
== END 2018-04-20 15:09 | disposition home or self-care (01) | DRG 291 ==
LOC: ED 15:39 → ERH 17:03 → 2RNO 19:14
PROVIDERS: ADMIT Family Medicine; ATTEND Family Medicine
PROC: 3E0F7GC Introduction of Other Therapeutic Substance into Respiratory Tract, Via Natural or Artificial Opening (ICD-10-PCS; principal; 2018-04-18)
DX: I13.0 Hypertensive heart and chronic kidney disease with heart failure and stage 1 through stage 4 chronic kidney disease, or unspecified chronic kidney disease (principal); I50.33 Acute on chronic diastolic (congestive) heart failure; N25.81 Secondary hyperparathyroidism of renal origin; N18.3 Chronic kidney disease, stage 3 (moderate); R80.9 Proteinuria, unspecified; I27.20 Pulmonary hypertension, unspecified; J44.9 Chronic obstructive pulmonary disease, unspecified; D86.0 Sarcoidosis of lung; E87.6 Hypokalemia; E55.9 Vitamin D deficiency, unspecified; Z87.891 Personal history of nicotine dependence; Z91.11 Patient's noncompliance with dietary regimen

== ENCOUNTER 2018-05-25 10:24 | Inpatient (IN) | payer MEDICARE, OTHER ==
[2018-05-25 10:25] VITALS: PULSE 106
--- NOTE | 2018-05-25 11:01 | ED PDOC ---
Arrival/HPI - General Chief Complaint: Shortness Of Breath Time Seen by Provider: 05/25/18 10:32 Historian: Patient, Family - History of Present Illness Narrative History of Present Illness (Text): 05/25/18 11:01 58 year old male, whose past medical history includes pulmonary hypertension on amlodipine and catapres, sarcoidosis, COPD and CHF, presents to the emergency department complaining of chest pain and shortness of breath, since last week. Patient states he is familiar with these symptoms due to his CHF. He states that he has difficulty breathing, due to fluid in his chest, with exertion. His pain is centered in his abdomen and he sates, "he feels full when he stands." Patient reports his chest pain also worsens with exertion and ambulation. He denies fevers, chills, headache, dizziness, cough, nausea, vomiting, diarrhea, back pain, neck pain, or any other complaint. PMD: Dr. Carrasco Used Car Lot Attendant: Dr. Holliday Time/Duration: 1 week Symptom Course: Unchanged Activities at Onset: Light Context: Home Past Medical History - Provider Review Nursing Documentation Reviewed: Yes - Infectious Disease Hx of Infectious Diseases: None - Tetanus Immunization Tetanus Immunization: Unknown - Cardiac Hx Cardiac Disorders: Yes Hx Congestive Heart Failure: Yes - Pulmonary Hx Chronic Obstructive Pulmonary Disease (COPD): Yes - Neurological Hx Neurological Disorder: No - HEENT Hx HEENT Disorder: Yes (L EYE BLURRY) - Renal Hx Renal Disorder: No - Endocrine/Metabolic Hx Endocrine Disorders: No - Hematological/Oncological Hx Blood Transfusions: No Hx Blood Transfusion Reaction: No - Integumentary Hx Dermatological Disorder: No - Musculoskeletal/Rheumatological Hx Musculoskeletal Disorders: No Hx Falls: Yes - Gastrointestinal Hx Gastrointestinal Disorders: Yes Hx Diverticulitis: Yes Hx Gastroesophageal Reflux: Yes - Genitourinary/Gynecological Hx Genitourinary Disorders: Yes Hx Prostate Problems: Yes - Psychiatric Hx Psychophysiologic Disorder: No Hx Substance Use: No - Past Surgical History Past Surgical History: No Previous - Surgical History Other/Comment: pneumothorax, chest tube-L LUNG,LACERATION TO 3RD FINGER OF RIGHT HAND -STITCHED. - Anesthesia Hx Anesthesia: Yes Hx Anesthesia Reactions: No Hx Malignant Hyperthermia: No - Suicidal Assessment Feels Threatened In Home Enviroment: No Family/Social History - Physician Review Nursing Documentation Reviewed: Yes Family/Social History: No Known Family HX Smoking Status: Former Smoker Hx Alcohol Use: No Hx Substance Use: No Hx Substance Use Treatment: No Allergies/Home Meds Allergies/Adverse Reactions: Allergies No Known Allergies Allergy (Verified 07/03/17 22:48) Home Medications: Home Meds Medication Instructions Recorded Confirmed Beclomethasone Dipropionate [Qvar 80 mcg INH DAILY 07/03/17 09/17/17 80 mcg] Tiotropium Br/Olodaterol HCl 2.5 mcg IN DAILY 09/17/17 09/17/17 [Stiolto Respimat Inhal [place]] Treprostinil Diolamine [Orenitram 0.125 mg PO Q8 09/17/17 09/17/17 ER] Verapamil [Calan SR Tab] 240 mg PO DAILY 09/17/17 09/22/17 metOLazone [Zaroxolyn] 2.5 mg PO DAILY 09/17/17 09/17/17 Furosemide [Lasix] 40 mg PO BID 09/18/17 09/17/17 Review of Systems - Physician Review All systems were reviewed & negative as marked: Yes - Review of Systems Constitutional: absent: Fevers Respiratory: SOB. absent: Cough Cardiovascular: Chest Pain Gastrointestinal: Abdominal Pain. absent: Diarrhea, Nausea, Vomiting Musculoskeletal: absent: Back Pain, Neck Pain Neurological: absent: Headache, Dizziness Physical Exam - Physical Exam Narrative Physical Exam (Text): 05/25/18 11:01 Gen: VS reviewed, alert, well developed, well nourished, nontoxic, mild distress. ENT: normal pharynx. Eye: EOMI, PERRL. Neck: no JVD, supple, no adenopathy. CV: regular rate, regular rhythm, no rubs, no murmur, no gallops, S1, S2, pulses equal and strong. Pulm: no distress, clear to auscultation, no wheeze, no rhonchi, breath sounds equal, no rales. Abd: soft, nontender, no guarding, no rebound, no rigidity, normal bowel sounds. Ext: pitting edema bilateral lower extremities. Skin: good color, no rash, no cyanosis. Psych: responds appropriately to questions, normal affect. Neuro: oriented x 3, CN2-12 intact grossly, motor intact, sensation intact. Vital Signs Reviewed: Yes Vital Signs Temp Pulse Resp BP Pulse Ox 05/25/18 10:25 98.3 F 67 20 148/97 H 94 L Temperature: Afebrile Blood Pressure: Hypertensive Pulse: Regular Respiratory Rate: Normal Appearance: Positive for: Well-Appearing, Non-Toxic, Comfortable Pain Distress: None Mental Status: Positive for: Alert and Oriented X 3 Medical Decision Making ED Course and Treatment: 05/25/18 11:01 Impression: 58 year old male who presents to the emergency department complaining of sob and chest pain. Plan: -- EKG -- Labs -- Cardiac Enzymes -- Chest X-ray -- Reassess and disposition Prior Visits: Notes and results from previous visits were reviewed. Progress Notes: - Lab Interpretations I have reviewed the lab results: Yes - RAD Interpretation Narrative RAD Interpretations (Text): 05/25/18 12:53 Chest X-ray reviewed, shows: IMPRESSION: Moderate cardiomegaly with mild to moderate vascular congestion Elderly Companion: Radiologist - EKG Interpretation EKG Interpretation (Text): 05/25/18 11:36 1041: nsr at 64 bp;m, rbbb, unchanged from prior ekg on 07.06.2017 Interpreted by ED Physician: Yes - Scribe Statement The provider has reviewed the documentation as recorded by the [employer] Provider Scribe Attestation: All medical record entries made by the Scribe were at my direction and personally dictated by me. I have reviewed the chart and agree that the record accurately reflects my personal performance of the history, physical exam, medical decision making, and the department course for this patient. I have also personally directed, reviewed, and agree with the discharge instructions and disposition. Disposition/Present on Arrival - Present on Arrival Any Indicators Present on Arrival: No History of DVT/PE: No History of Uncontrolled Diabetes: No Urinary Catheter: No History of Decub. Ulcer: No History Surgical Site Infection Following: None - Disposition Have Diagnosis and Disposition been Completed?: Yes Diagnosis: CHF (congestive heart failure) Disposition: HOSPITALIZED Disposition Time: 12:41 Patient Plan: Admission Patient Problems: Current Active Problems Problem Status Onset CHF (congestive heart failure) Acute Condition: STABLE
[2018-05-25 11:57] LABS: BASO # 0.01 K/mm3 (0.0-2.0); BASO % 0.2 % (0.0-3.0); EOS # 0.2 (0.0-0.7); EOS % 3.2 % (1.5-5.0); GRAN # 3.09 (1.4-6.5); LYMPH % 21.3 % (22.0-35.0); MEAN CELL VOLUME 88.1 fl (80.0-105.0); MEAN CORPUSCULAR HEMOGLOBIN 27.7 pg (25.0-35.0); MEAN CORPUSCULAR HGB CONC 31.5 g/dl (31.0-37.0); MEAN PLATELET VOLUME 10.5 fl (7.0-11.0); MONO # 0.5 (0.1-0.6); MONO % 10.3 % (1.0-6.0); RBC 5.05 10^6/uL (3.5-6.1); WHITE BLOOD COUNT 4.8 10^3/uL (4.5-11.0)
[2018-05-25 12:02] LABS: INR 1.14; PARTIAL THROMBOPLASTIN TIME 24.9 Seconds (25.1-36.5); PROTHROMBIN TIME 13.1 SECONDS (9.4-12.5)
[2018-05-25 12:03] LABS: ALB/GLOB RATIO 1.1 (1.1-1.8); ALBUMIN 3.7 g/dL (3.0-4.8)
[2018-05-25 12:14] LABS: TROPONIN I 0.04 ng/mL
--- NOTE | 2018-05-25 12:50 | RAD ---
Date of service: 05/25/2018 HISTORY: chest pain, chf COMPARISON: No prior. FINDINGS: LUNGS: No active pulmonary disease. PLEURA: No significant pleural effusion identified, no pneumothorax apparent. CARDIOVASCULAR: No aortic atherosclerotic calcification present. Moderate cardiomegaly mild to moderate vascular congestion OSSEOUS STRUCTURES: No significant abnormalities. VISUALIZED UPPER ABDOMEN: Normal. OTHER FINDINGS: None. IMPRESSION: Moderate cardiomegaly with mild to moderate vascular congestion
[2018-05-25 16:00] LABS: ALB/GLOB RATIO 1.1 (1.1-1.8); ALBUMIN 3.9 g/dL (3.0-4.8); CALCIUM 9.2 mg/dL (8.4-10.5)
[2018-05-25] MEDS ORDERED: Home Med 1 UNIT PO SCH ×2 (18:08→18:15)
[2018-05-25] MEDS ORDERED: TREPROSTINIL DIOLAMINE 0.125 MG PO STA (18:19)
[2018-05-25] MEDS: TREPROSTINIL DIOLAMINE 0.125 MG PO SCH ×2 (18:22→21:37)
--- NOTE | 2018-05-25 18:51 | CARD ---
APPROVED REPORT Date of service: 05/25/2018 EKG Measurement Heart [id number] <Conclusion> Normal sinus rhythm Right bundle branch block Inferior infarct, age undetermined Abnormal ECG
--- NOTE | 2018-05-25 20:32 | HP ---
DATE OF EXAM: 05/25/2018 HISTORY OF PRESENT ILLNESS: I know Adrian for a long time. He has got multiple issues. He is a 58-year-old man who comes in with acute shortness of breath and chest pain, this has been going for a week, but it got very bad today, he had to come to the emergency room. Difficulty breathing, also some chest pain, also some midepigastric pain. I do not think he is completely on a salt-free diet. I think the holiday seasons upon us and is eating more salty foods. PAST MEDICAL HISTORY: He has a past medical history of cardiac disorders, CHF, COPD, left eye has been blurry for a while, he has had falls, and diverticulitis. He has had reflux. He has prostate problems. PAST SURGICAL HISTORY: No previous surgeries. He had a pneumothorax. He had a chest tube placement. He had laceration to the third finger of the right hand, which was stitched up. FAMILY HISTORY: No known family history. SOCIAL HISTORY: He is a former smoker. No alcohol. No drugs. ALLERGIES: NO KNOWN DRUG ALLERGIES. MEDICATIONS: He is on QVAR, Stiolto,, Calan, Zaroxolyn, and Lasix. REVIEW OF SYSTEMS: No acute vision or hearing changes. No sore throat. No neck pain. There is chest pain. There is shortness of breath. There is abdominal pain, midepigastric. No back pain. No neck pain. No skin issues that he knows of. No headache or dizziness. PHYSICAL EXAMINATION: GENERAL: He is well-developed, well-nourished, nontoxic, mild distress respiratorily. VITAL SIGNS: He has a temperature 98.3, pulse 67, respiratory rate 20, blood pressure 148/97, and 94% O2 saturation on oxygen. Vital signs stable, afebrile. Blood pressure is quite high, although. that with IV Lasix. HEENT: Extraocular muscles are intact. Pupils are reactive to light and accommodation. Throat is moist. NECK: Supple. No JVD. No adenopathy. HEART: Regular rate. Normal S1 and S2. LUNGS: Decreased breath sounds bilaterally. No wheezes. No rhonchi. No rales. ABDOMEN: Soft and nontender. Positive bowel sounds. No guarding. No rebound. No CVA tenderness. EXTREMITIES: He does have +3/4 pitting edema in bilateral lower extremities. NEUROLOGIC: Alert and oriented x3. Normal affect. LYMPH: Thyroid midline. No palpable appreciable lymphadenopathy. LABORATORY DATA: He had a whole bunch of tests done. He has a sodium 144, potassium 4.4, BUN is 40, creatinine 2.6, GFR is 26, sugar is 102, calcium 9.2, magnesium is 2, and total bili is 0.6. AST is 34, ALT is 25, and alk phos is 96. The BNP was high at 4180. Total protein 7.6. INR is 1.14. He has a white count of 4.8, hemoglobin 14, hematocrit 44.5 with platelets 153,000. Chest x-ray showed moderate cardiomegaly and [id number] vascular congestion. ASSESSMENT AND PLAN: He has a consult with Dr. Holliday, the visualization developer who knows him quite well. He is on Lasix 40 IV b.i.d. He has Protonix IV 40 mg daily for epigastric pain. I am putting him back on his amiodarone, verapamil, aspirin, prednisone, QVAR, and Stiolto. I am going to watch him very closely and he is here with a congestive heart failure, epigastric pain picture and hopefully he will improve quickly. James Carrasco DO [facility]
--- NOTE | 2018-05-25 20:45 | CON ---
DATE: 05/25/2018 CARDIOLOGY CONSULTATION HISTORY: The patient is a 58-year-old male, who presents with 1 week of progressive shortness of breath. The patient's past medical history includes chronic shortness of breath from sarcoidosis as well as pulmonary hypertension, which he has been treated. He was placed on Lasix at home. His past medical history includes cardiac workup, which reveals no significant coronary artery disease. His LV systolic function is normal. His BUN and creatinine have been noted to be elevated, and he has chronic elevated borderline troponins. He denies angina. SOCIAL HISTORY: The patient does not smoke. REVIEW OF SYSTEMS: His 14-point review of systems is reviewed in detail. He has been on steroids at home chronically. PHYSICAL EXAMINATION: VITAL SIGNS: Blood pressure is 118/78 after IV Lasix, heart rate is in the 70s. NECK: Negative JVD. LUNGS: Decreased breath sounds bilaterally. HEART: Revealed S1, S2. EXTREMITIES: Without edema. LABORATORY DATA: EKG shows no changes. Hemoglobin is 14. Chemistries, BUN and creatinine of 40 and 2.60. ProBNP is 4180 with a troponin of 0.04. IMPRESSION: 1. Acute diastolic congestive heart failure. 2. Pulmonary hypertension. 3. Sarcoidosis. 4. Normal LV function. 5. Renal insufficiency. PLAN: Given these findings, we will give the patient several days of IV Lasix. Pulmonary has been ordered to reevaluate his pulmonary medications. Andrew Holliday MD
[2018-05-25 22:24] VITALS: BMI 29.1
[2018-05-25] MEDS ORDERED: Influenza Vaccine 60 mcg/0.5 mL SYR (4YR UP) IM ONE (22:24)
[2018-05-25] MEDS ORDERED: Pneumococcal 23-Valent Vaccine IM ONE (22:24)
[2018-05-26] MEDS: TREPROSTINIL DIOLAMINE 0.125 MG PO SCH ×3 (06:03→22:51)
--- NOTE | 2018-05-26 08:38 | CP.PCM.PN ---
Subjective - Date & Time of Evaluation Date of Evaluation: 05/26/18 Time of Evaluation: 08:33 - Subjective Subjective: pt seen and examined at bedside pt sitting up in chair in no acute distress reports feeling better and voiding well- denies sob, denies cp - ros negative Objective - Vital Signs/Intake and Output Vital Signs (last 24 hours): Temp Pulse Resp BP Pulse Ox 98.2 F 65 18 135/92 H 95 05/26/18 06:00 05/26/18 06:00 05/26/18 06:00 05/26/18 06:00 05/25/18 14:23 Intake and Output: 05/26/18 05/26/18 06:59 18:59 Intake Total 960 Balance 960 - Medications Medications: Current Medications Amiodarone HCl (Cordarone) 200 mg PO DAILY [facility] Aspirin (Aspirin) 325 mg PO DAILY [facility] Furosemide (Lasix) 40 mg IVP Q12 [facility] Last Admin: 05/25/18 21:36 Dose: 40 mg Home Med (Home Med) 1 unit PO Q8 [facility] Last Admin: 05/26/18 06:03 Dose: 1 unit Non-Formulary Medication (Beclomethasone Dipropionate [Qvar 80 Mcg]) 80 mcg INH DAILY [facility] Non-Formulary Medication (Tiotropium Br/Olodaterol Hcl [Stiolto Respimat Inhal [place]]) 2.5 mcg IN DAILY [facility] Pantoprazole Sodium (Protonix Inj) 40 mg IVP DAILY [facility] Last Admin: 05/25/18 18:04 Dose: 40 mg Prednisone (Prednisone Tab) 10 mg PO DAILY [facility] Verapamil HCl (Calan Sr Tab) 240 mg PO DAILY [facility] - Labs Labs: 05/25/18 11:45 05/25/18 15:35 PT 13.1 SECONDS (9.4-12.5) H 05/25/18 11:45 INR 1.14 05/25/18 11:45 APTT 24.9 Seconds (25.1-36.5) L 05/25/18 11:45 - Constitutional Appears: No Acute Distress - Head Exam Head Exam: ATRAUMATIC, NORMAL INSPECTION, NORMOCEPHALIC - Eye Exam Eye Exam: EOMI, Normal appearance, PERRL - ENT Exam ENT Exam: Mucous Membranes Moist, Normal Exam - Neck Exam Neck Exam: Full ROM - Respiratory Exam Respiratory Exam: Decreased Breath Sounds, NORMAL BREATHING PATTERN - Cardiovascular Exam Cardiovascular Exam: +S1, +S2 - GI/Abdominal Exam GI & Abdominal Exam: Normal Bowel Sounds - Rectal Exam Rectal Exam: Deferred - Extremities Exam Extremities Exam: Pedal Edema (+1 edema noted bilaterally ) - Neurological Exam Neuro motor strength exam: Left Upper Extremity: 5, Right Upper Extremity: 5, Left Lower Extremity: 5, Right Lower Extremity: 5 - Psychiatric Exam Psychiatric exam: Normal Affect, Normal Mood - Skin Skin Exam: Intact, Normal Color, Warm Assessment and Plan - Assessment and Plan (Free Text) Assessment: 58 yr old with pmh sig for chf, copd, questionable bph, sarcoidodis, pulmonary htn, admitted with acute sob and epigastic pain with bnp noted 4180 now admitted for treatment of acute diastolic chf with cardiology on board ,cxr confirms moderate vascualr congestion, ekg with NSR, RBBB and age inderminate inferior infarct Pt receiving IV lasix 40 q12 and reports relief with current regimen. Will order am labs ensure K levels are maintained and continue to monitor strict I/O. BPCI letter left at bedside. discuss with Dr escobedo plan of care for acute chf, will continue to monitor. Lotus Mishra, DNP, CUSTOMER MARKETING MANAGER
--- NOTE | 2018-05-26 09:48 | PN ---
DATE: 05/26/2018 SUBJECTIVE: The patient was receiving IV Lasix with some improvement of his breathing. PHYSICAL EXAMINATION: VITAL SIGNS: Blood pressure is 135/92, heart rate is in the 60s. NECK: Negative JVD. LUNGS: Without rales. HEART: S1, S2. EXTREMITIES: Without edema. LABORATORY DATA: Hemoglobin is 14. Chemistries, BUN and creatinine is 40 and 2.6. IMPRESSION 1. Congestive heart failure. 2. Renal insufficiency. 3. Sarcoidosis. 4. Pulmonary hypertension. 5. Dyspnea. Given these findings, we will continue the IV Lasix for the next 24 to 48 hours. Andrew Holliday MD
[2018-05-26] MEDS ORDERED: BECLOMETHASONE DIPROPIONATE INH SCH (10:00)
[2018-05-26] MEDS ORDERED: OLODATEROL HCL IN SCH (10:00)
[2018-05-26] MEDS ORDERED: TIOTROPIUM BR IN SCH (10:00)
[2018-05-26] MEDS: Verapamil 240 mg ER Tab PO SCH (10:01)
--- NOTE | 2018-05-26 13:05 | PN ---
DATE: 05/26/2018 SUBJECTIVE: I saw Adrian sitting out of bed to chair this morning for breakfast. He is feeding himself. He is breathing much better. He is also less swollen on diuresis. MEDICATIONS: He is on aspirin, Qvar, Calan, Cordarone, Lasix 40 IV twice a day, prednisone, Protonix and Stiolto. He is definitely diuresing well. PHYSICAL EXAMINATION: VITAL SIGNS: He has got 98.2 temperature, 65 pulse, 135/92 blood pressure, 18 respiratory rate and 95 percent O2 sat on nasal cannula. HEENT: His head is atraumatic, normocephalic. HEART: Regular rate. LUNGS: Decreased breath sounds but clear. ABDOMEN: Soft, nontender. Positive bowel sounds. EXTREMITIES: Were +4 when he came in, down to +2 right now. Definitely decreased in size. He moves his ankles a little bit. He is starting to diurese a lot, which is very good. LABORATORY DATA: White count 4.8, 14 hemoglobin, 44.5 hematocrit with 163 platelets. He has 144 sodium, potassium 4.4, BUN 40, creatinine is 2.6, GFR is 26, sugar is 102. Calcium is 9.2, magnesium 1.9. Total bili is 0.6, AST is 34, ALT is 25 and alk phos 96. His BNP was as high as 4180. He is being seen by [facility], we are diuresing him. A chest x-ray showed moderate CHF. ASSESSMENT AND PLAN: He is in acute congestive heart failure. He has a history of chronic obstructive pulmonary disease, not activated right now; sarcoidosis; pulmonary hypertension. Overall, he is quite stable 24-48 hours of diuresing, we can discharge him home. Discussed with Dr. Holliday and he is definitely getting better on it. James Carrasco DO MTDD
[2018-05-26 17:13] LABS: ALBUMIN 4.2 g/dL (3.0-4.8); CALCIUM 9.2 mg/dL (8.4-10.5)
--- NOTE | 2018-05-26 18:09 | CARD ---
APPROVED REPORT Date of service: 05/26/2018 EKG Measurement Heart [id number] <Conclusion> Normal sinus rhythm Right bundle branch block, plus right ventricular hypertrophy Cannot rule out Inferior infarct, age undetermined Abnormal ECG
[2018-05-27 02:40] VITALS: O2SAT 96
[2018-05-27] MEDS: TREPROSTINIL DIOLAMINE 0.125 MG PO SCH ×2 (06:00→14:35)
[2018-05-27] MEDS ORDERED: Pantoprazole 40 mg EC Tab PO SCH (07:30)
[2018-05-27 08:26] LABS: ALB/GLOB RATIO 1.1 (1.1-1.8); CALCIUM 9.1 mg/dL (8.4-10.5)
[2018-05-27] MEDS: Verapamil 240 mg ER Tab PO SCH (09:56)
--- NOTE | 2018-05-27 11:08 | DS ---
HISTORY OF PRESENT ILLNESS: He diuresed very well. He is sitting out of bed to chair, he is eating his breakfast. He has not really started walking and he has to walk around the floor today, see how he feels as far as shortness of breath but clinically he looks good. MEDICATIONS: He is on aspirin, QVAR, Calan, Cordarone, Lasix twice a day, prednisone 10, Protonix and Stiolto. PHYSICAL EXAMINATION: GENERAL: Presently, he is comfortable. VITAL SIGNS: 98 temperature, 72 pulse, 160/93 blood pressure, 20 respiratory rate, 96% O2 sat on 2.5 liters. HEENT: Head is atraumatic, normocephalic. HEART: Regular rate. LUNGS: Decreased breath sounds but clear. No wheezes, no rhonchi, no rales. ABDOMEN: Soft. EXTREMITIES: With trace edema if any. LABORATORY DATA: He has 145 sodium, potassium 3.7, BUN 31, creatinine 2.4 better. Sugar is 104, calcium 9.1, magnesium 1.9, total bili is 0.7, AST is 29, ALT is 25, alk phos 98. His BNP went up to 4980. His total protein is 7.7, submitted and there was no white count done this morning. I will talk with Dr. Holliday this morning to see if we could discharge him or if wants another day of diuresis. He is eating well. He is clinically improved. Hopefully he will be able to be discharged today. The patient had a congestive heart failure, renal insufficiency, history of sarcoidosis, pulmonary hypertension. James Carrsaco DO
[2018-05-27 11:29] VITALS: BP 165/104; RESP 18; TEMP 97.9
[2018-05-27 12:43] VITALS: PULSE 82
[2018-05-27] MEDS ORDERED: TIOTROPIUM BR IH SCH (14:33)
[2018-05-27] MEDS ORDERED: OLODATEROL HCL IH SCH (14:33)
--- NOTE | 2018-05-27 15:15 | PN ---
CARDIOLOGY FOLLOWUP DATE: 05/27/2018 SUBJECTIVE: The patient is ambulating without shortness of breath. PHYSICAL EXAMINATION: VITAL SIGNS: Blood pressure 165/100 and it is better after resuming his p.o. clonidine. NECK: Negative JVD. LUNGS: No change. HEART: S1 and S2. EXTREMITIES: Without edema. LABORATORY DATA: Revealed a BUN and creatinine of 31 and 2.4. IMPRESSION: 1. Resolution of his dyspnea. 2. Sarcoidosis. 3. Pulmonary hypertension. 4. Systemic hypertension. 5. Renal insufficiency. 6. Resolution of his congestive heart failure. PLAN: Given these findings, the patient can be discharged from a cardiac perspective. If discharged, the patient has been told to resume his antihypertensive medications at home. His diet needs to improve with decreased salt. Andrew Holliday MD
== END 2018-05-27 16:38 | disposition home or self-care (01) | DRG 293 ==
LOC: ED 10:24 → ERH 12:38 → 2RSO 14:35
PROVIDERS: ADMIT Family Medicine; ATTEND Family Medicine
DX: I50.31 Acute diastolic (congestive) heart failure (principal); J44.9 Chronic obstructive pulmonary disease, unspecified; I27.20 Pulmonary hypertension, unspecified; D86.9 Sarcoidosis, unspecified; R07.9 Chest pain, unspecified; I45.10 Unspecified right bundle-branch block; K21.9 Gastro-esophageal reflux disease without esophagitis; Z87.891 Personal history of nicotine dependence; N28.9 Disorder of kidney and ureter, unspecified

== ENCOUNTER 2018-09-16 13:07 | Outpatient (CLI) | payer MEDICARE | END 2018-09-16 13:08 | disposition home or self-care (01) | LOC: LAB 13:07 ==

== ENCOUNTER 2018-09-21 06:06 | Outpatient (CLI) | payer MEDICARE | END 2018-09-21 06:07 | disposition home or self-care (01) | LOC: CARDIO 06:06 | DX: I25.10 Atherosclerotic heart disease of native coronary artery without angina pectoris (principal) ==